=== PATIENT | female | born 1945 | race Caucasian/White ===

== ENCOUNTER 2020-01-19 11:03 | Day surgery (SDC) | payer MEDICARE, MEDICAID, SELFPAY ==
[2020-01-18 14:13] VITALS: BMI 29.9
--- NOTE | 2020-01-19 11:23 | ANES.PREANE2 ---
Pre-Anesthetic Assessment Pre-Anesthetic Assessment: Height/Weight: Height 1.65 m Weight 81.647 kg Preop Diagnosis: Screening colonoscopy Proposed Procedure: Operation Date: 01/19/20 12:30 Proposed Procedures p Colonoscopy 50677 Z86.12(Not Applicable) - Chuck Niño MD Was Beta Joe taken within 24 hours: Yes Last Intake: 20:00 Social: Packs per day: 1 Pack years: 46 Comment: quit 12 Exam: Pre-Anes Outpt Exam: alert, oriented x 3, clear to auscultation bilaterally and regular rate & rhythm Airway: Submandibular: WNL Cervical ROM: WNL MP: 2 Dentition: False and Partials Pulmonary: Pulmonary: COPD CV/HEM: CV/HEM: HTN Comments: 2y stress test '19 negative GI: GI: GERD Musc/skel: Musc/skel: Lower Back Pain Neuropsych: Neuropsych: Anxiety and RIVERS Anesthetic Plan: ASA status: 3 Anesthesia: MAC PFSH Anesthesia PFSH: Social History Smoking and tobacco status: former smoker Quit status (tobacco): has quit using tobacco Second hand smoke exposure: Yes Smoking risk assessment/counseling performed?: No Alcohol intake: unknown Current gender identity: Female Data Anesthesia Cardiac Studies: No Data to Display
[2020-01-19 11:59] VITALS: BP 120/87; PULSE 98; RESP 20; TEMP 36.1; O2SAT 95
--- NOTE | 2020-01-19 12:05 | W.PM.OPSUD ---
Surgery/Procedure H&P Update DATE OF PROCEDURE: January 19, 2020 DATE H&P PERFORMED: 01/17/20 H&P UPDATE INFORMATION: I have reviewed H&P completed within last 30 days, I have examined patient prior to procedure and No changes to prior documentation PREOP DIAGNOSIS: Screening colonoscopy PLANNED PROCEDURE: Operation Date: 01/19/20 12:30 Proposed Procedures p Colonoscopy 13535 Z86.12(Not Applicable) - Chuck Niño MD
[2020-01-19] MEDS: sodium chloride 0.9% 1,000 ML 30 ML (12:10)
[2020-01-19 13:05] VITALS: BP 123/75; PULSE 91; RESP 18; TEMP 36.4; O2SAT 96
--- NOTE | 2020-01-19 13:10 | ANE.PACU2 ---
 Inpatient post-anesthesia follow up: Airway intact: Yes Vital signs: Temperature 97.6 F Pulse Rate 91 Respiratory Rate 18 Blood Pressure 123/75 Pulse Oximetry 96 Oxygen Delivery Me thod Nasal Cannula Oxygen Flow Rate 3.0 Fraction of Inspir ed Oxygen Hydration adequate: Yes Nausea and vomiting: No Pain level: 1 Mental status: Baseline
[2020-01-19 13:19] VITALS: BP 119/76; PULSE 89; RESP 18; O2SAT 97
== END 2020-01-19 13:30 | disposition home or self-care (01) ==
PROVIDERS: PCP Family Medicine; Visit Provider Surgery
PROC: 0DJD8ZZ Inspection of Lower Intestinal Tract, Via Natural or Artificial Opening Endoscopic (ICD-10-PCS; CPT 45378; principal; 2020-01-19 12:30)
DX: Z12.11 Encounter for screening for malignant neoplasm of colon (principal); K43.2 Incisional hernia without obstruction or gangrene; D12.2 Benign neoplasm of ascending colon; K57.30 Diverticulosis of large intestine without perforation or abscess without bleeding; D12.8 Benign neoplasm of rectum; F17.210 Nicotine dependence, cigarettes, uncomplicated; Z86.010 Personal history of colon polyps; Z79.82 Long term (current) use of aspirin; E78.5 Hyperlipidemia, unspecified; K21.9 Gastro-esophageal reflux disease without esophagitis; I10 Essential (primary) hypertension; J44.9 Chronic obstructive pulmonary disease, unspecified
CPT/HCPCS: 12345; 45380; 88305; J0171; J0690; J2704; J7030

== ENCOUNTER 2020-01-24 06:30 | Day surgery (SDC) | payer MEDICARE, MEDICAID, SELFPAY ==
[2020-01-21 15:28] VITALS: BMI 29.9
[2020-01-24] VITALS (11 sets, daily range): BP systolic 130–155; BP diastolic 88–100; PULSE 70–75; RESP 14–21; TEMP 36.1–36.9; O2SAT 93–98
[2020-01-24] MEDS: sodium chloride 0.9% 1,000 ML 30 ML IV (06:59)
--- NOTE | 2020-01-24 07:10 | ANES.PREANE2 ---
Pre-Anesthetic Assessment Pre-Anesthetic Assessment: Height/Weight: Height 1.65 m Weight 81.647 kg Temp Pulse Resp BP Pulse Ox 97.0 F L 70 18 155/95 98 01/24/20 06:46 01/24/20 06:46 01/24/20 06:46 01/24/20 06:46 01/24/20 06:46 Preop Diagnosis: Incarcerated recurrent incisional hernia Proposed Procedure: Operation Date: 01/24/20 08:00 Proposed Procedures p Laparoscopic Incisional Hernia Repair w/ Mesh 05926/K43.2(Not Applicable) - Chuck Niño MD Familial anesthetic complications: No trouble Was Beta Joe taken within 24 hours: Yes Last intake: Intake Last Liquid Date 01/23/20 Last Liquid Time 22:00 Last Solid Date 01/23/20 Last Solid Time 20:00 Social: Social History: No alcohol and No tobacco Exam: Pre-Anes Outpt Exam: alert, oriented x 3, clear to auscultation bilaterally and regular rate & rhythm Airway: Cervical ROM: Other (limited extension - disc is disintegrating in my neck ) MP: 4 Dentition: False and Partials Additional comments: small mouth opening Pulmonary: Pulmonary: Asthma and COPD (has been on steroids within last year ) CV/HEM: CV/HEM: CAD and HTN Comments: ? PFO : : None reported Hepatic: Hepatic: None reported GI: GI: GERD Metabolic: Metabolic: None reported Musc/skel: Musc/skel: None reported Neuropsych: Neuropsych: None reported Anesthetic Plan: ASA status: 3 Anesthesia: General Risk of > 500 ml blood loss (7ml/kg in children): No Meds/Allergies Current Medications: Current Medications Generic Name Dose Route Start Last Admin Trade Name Freq PRN Reason Stop Dose Admin Sodium Chloride 1,000 mls @ 30 ml s/hr 01/24/20 06:45 01/24/20 06:59 Sodium Chloride 0.9% IV 01/25/20 06:44 30 mls/hr .Q24H RENAE Administration PFSH Anesthesia PFSH: Social History Smoking and tobacco status: former smoker Quit status (tobacco): has quit using tobacco Second hand smoke exposure: Yes Smoking risk assessment/counseling performed?: No Alcohol intake: unknown Current gender identity: Female Data Anesthesia Cardiac Studies: No Data to Display
--- NOTE | 2020-01-24 07:26 | W.PM.OPSUD ---
Surgery/Procedure H&P Update DATE OF PROCEDURE: January 24, 2020 DATE H&P PERFORMED: 01/17/20 H&P UPDATE INFORMATION: I have reviewed H&P completed within last 30 days, I have examined patient prior to procedure and No changes to prior documentation PREOP DIAGNOSIS: Incarcerated recurrent incisional hernia PLANNED PROCEDURE: Operation Date: 01/24/20 08:00 Proposed Procedures p Laparoscopic Incisional Hernia Repair w/ Mesh 34249/K43.2(Not Applicable) - Chuck Niño MD
[2020-01-24] MEDS: sodium chloride 0.9% SDV 10 mL 20 ML (08:57)
--- NOTE | 2020-01-24 09:02 | SUR.OPER ---
0834 - Pt's daughter - Heidi- notified of surgery start via her cell phone.
--- NOTE | 2020-01-24 09:41 | PM.OP ---
Operative Report Date of procedure: January 24, 2020 Pre-op Diagnosis: Incarcerated recurrent incisional hernia Post-op diagnosis: same Post-op Diagnosis: Incarcerated recurrent incisional hernia containing omentum Procedure Done: Laparoscopic repair of incarcerated incisional hernia with ventral light ST mesh measuring 15 x 10 cm Specimens removed/disposition: None Surgeon: Chuck Niño Anesthesia: General Estimated blood loss (mL): 25 Condition: stable Disposition: PACU Procedure: The patient was taken to the Operating Room and was intubated under general anesthesia after the antibiotic had been administered. The abdomen was prepped and draped in a sterile manner. Using a 15 blade, a 1 cm infraumbilical incision was made and using open Barraza technique the peritoneal cavity was entered.. A 10 mm Los port was placed and 15 mm of pneumoperitoneum was created after a 10 mm 30? scope had been introduced. 5 mm port was placed at the level of the umbilicus on the left side under direct visualization. Using a combination of electrocautery and scissors the peritoneum in the midline was taken down and the omental fat within the hernial sac was reduced. The dissection was carried superiorly along the midline by taking down the falciform ligament in order to create a space for placement of the mesh. A spinal needle was introduced through the abdominal wall and the edges of the hernial defect were marked and measured 7 x 4 cm. A 4 cm margin was marked on the abdominal wall on the outer edge of the hernial defect. 4 separate 2-0 Panna Maria-William sutures were placed at the 4 corners of the [address]ight ST mesh. A 5 mm camera was introduced and the mesh was introduced through the 10 mm port. Grannie needle was passed through the stab incisions and used to grasp the free ends of the Panna Maria-William sutures which were then used to pull the mesh up against the abdominal wall; absorbable tacks were placed 1 cm apart along the edge of the mesh to hold it against the abdominal wall. At the end of this, it was noted that the mesh was well positioned over the hernial defect. 20 cc of saline mixed with 20 cc of Exparel mixed with 20 cc of 0.5% Marcaine was infiltrated under laparoscopic visualization for a TAP block bilaterally. All ports were removed under direct visualization and there was no bleeding noted from the port sites. The fascia at the umbilicus was closed using figure of eight 0 Vicryl suture. The subcutaneous tissue was approximated using 3-0 Vicryl sutures. The skin at all port sites was closed using subcuticular 4-0 Monocryl suture. The stab incisions and the port sites were covered with surgical glue. Abdominal binder was placed at the end of the procedure.
--- NOTE | 2020-01-24 09:48 | SUR.PHASEI ---
0992 PATIENT TO PACU AT THIS TIME. RR EVEN AND UNLABORED. PLACED ON SIMPLE MASK AT 8L. PATIENT NOTED TO BE RESTING, AIRWAY PROTECTED. ABDOMINAL BINDER NOTED TO ABDOMEN.
[2020-01-24] MEDS: fentaNYL 50 mcg/mL INJ 2mL IVP (09:55)
--- NOTE | 2020-01-24 10:10 | SUR.PHASEI ---
1010 PATIENT RATES PAIN 8/10, WANTS PAIN PILL IN OPS RATHER THAN IV MEDICATION IN PACU.
--- NOTE | 2020-01-24 10:15 | SUR.PHASEI ---
1012 PATIENT TO PACU AT THIS TIME. NO DISTRESS. RR EVEN AND UNLABORED. ABDOMINAL BINDER IN PLACE.
[2020-01-24] MEDS: HYDROcodone-acetaminophen 5-325 mg Tablet 1 TAB PO (10:28)
== END 2020-01-24 11:00 | disposition home or self-care (01) ==
PROVIDERS: PCP Family Medicine; Visit Provider Surgery
PROC: 0WQF4ZZ Repair Abdominal Wall, Percutaneous Endoscopic Approach (ICD-10-PCS; CPT 49655; principal; 2020-01-24 08:00)
DX: K43.0 Incisional hernia with obstruction, without gangrene (principal); J44.9 Chronic obstructive pulmonary disease, unspecified; I25.10 Atherosclerotic heart disease of native coronary artery without angina pectoris; I10 Essential (primary) hypertension; K21.9 Gastro-esophageal reflux disease without esophagitis; Z87.891 Personal history of nicotine dependence; Z79.82 Long term (current) use of aspirin
CPT/HCPCS: 49655; 12345; 96365; C1781; C9290; J0330; J0690; J1100; J2001; J2405; J2704; J2710; J3010; J3490; J7030

== ENCOUNTER → 2020-06-28 11:14 | Outpatient (BNVA) | payer MEDICARE, MEDICAID, SELFPAY | PROVIDERS: PCP Family Medicine; Visit Provider Family Medicine | DX: I10 Essential (primary) hypertension (principal); E78.5 Hyperlipidemia, unspecified; G47.00 Insomnia, unspecified | CPT/HCPCS: 80053; 80061; 84443; 85025 ==

== ENCOUNTER → 2020-07-18 10:11 | Outpatient (BNVA) | payer MEDICARE, MEDICAID, SELFPAY | PROVIDERS: PCP Family Medicine; Visit Provider Nurse Practitioner Family | DX: E03.9 Hypothyroidism, unspecified (principal) | CPT/HCPCS: 84439; 84443 ==

== ENCOUNTER → 2020-08-01 13:52 | Outpatient (BNVA) | payer MEDICARE, MEDICAID, SELFPAY | PROVIDERS: PCP Family Medicine; Visit Provider Nurse Practitioner Family | DX: R39.11 Hesitancy of micturition (principal); R31.9 Hematuria, unspecified; K59.00 Constipation, unspecified | CPT/HCPCS: 74018; 81003 ==

== ENCOUNTER → 2020-10-10 13:45 | Outpatient (BNVA) | payer MEDICARE, MEDICAID, SELFPAY | PROVIDERS: PCP Family Medicine; Visit Provider Obstetrics & Gynecology | DX: N95.0 Postmenopausal bleeding (principal); R19.09 Other intra-abdominal and pelvic swelling, mass and lump | CPT/HCPCS: 76830 ==

== ENCOUNTER → 2020-10-17 16:00 | Outpatient (BNVA) | payer MEDICARE, MEDICAID, SELFPAY | PROVIDERS: PCP Family Medicine; Visit Provider Nurse Practitioner Women's Health | DX: N95.0 Postmenopausal bleeding (principal); R93.89 Abnormal findings on diagnostic imaging of other specified body structures | CPT/HCPCS: 88175; 88305 ==

== ENCOUNTER 2020-11-15 15:41 | Inpatient (IN) | payer MEDICARE, MEDICAID, SELFPAY ==
[2020-11-15] VITALS (9 sets, daily range): BP systolic 118–174; BP diastolic 80–113; PULSE 120–137; RESP 15–24; TEMP 36.7; O2SAT 88–94; BMI 30.9
--- NOTE | 2020-11-15 17:55 | CTR_ITS ---
PROCEDURE INFORMATION: Exam: CT Abdomen And Pelvis With Contrast Exam date and time: 11/15/2020 7:16 PM Age: 75 years old Clinical indication: Nausea; Abdominal pain; Localized; Lower; Prior surgery; Surgery type: Gb, appy, hernia; Additional info: Abd pain TECHNIQUE: Imaging protocol: Computed tomography of the abdomen and pelvis with intravenous contrast. Radiation optimization: All CT scans at this facility use at least one of these dose optimization techniques: automated exposure control; mA and/or kV adjustment per patient size (includes targeted exams where dose is matched to clinical indication); or iterative reconstruction. Contrast material: VISI 320; Contrast volume: 95 ml; Contrast route: INTRAVENOUS (IV); COMPARISON: US transvaginal 13494 10/10/2020 1:46 PM RADIATION DOSE METRICS: Total DLP (mGy-cm): 1294.43 FINDINGS: Mediastinal space: A moderate hiatal hernia is present. Liver: Liver shows diffusely decreased density in keeping with fatty change. There are 3 simple cysts in the liver, the largest is in the left lobe measuring 3.7 cm. Gallbladder and bile ducts: There has been a cholecystectomy. Pancreas: The pancreas is normal. Spleen: The spleen demonstrates punctate calcifications, consistent with remote granulomatous organism exposure. Adrenal glands: There is mild enlargement of both adrenal glands more on the left than on the right. Kidneys and ureters: The kidneys are normal. There is no evidence of hydronephrosis. There is no evidence of renal or ureteral calcifications. Stomach and bowel: There is a small duodenal lipoma. There is no evidence of colitis/diverticulitis. There is some abnormally thickened and enhancing loops of small bowel in the left mid abdomen which may represent some nonspecific enteritis. Correlation with clinical findings is suggested. There is some dilated fluid-filled loops of small bowel in the mid abdomen. The distal ileum is nondilated. There is appearance of small bowel feces in some loops. The transition from dilated to nondilated bowel is not definitely identified, however these findings are suspicious for bowel obstruction. Appendix: Not identified there is a small umbilical hernia containing only fat. Intraperitoneal space: There is a small amount of free intraperitoneal fluid present. Vasculature: The aorta demonstrates mild atherosclerotic calcification. There is no evidence of an abdominal aortic aneurysm. Lymph nodes: Unremarkable. No enlarged lymph nodes. Urinary bladder: Unremarkable as visualized. Reproductive: There is slightly hypodense 2.6 cm sized area in the fundus of the uterus which corresponds with the reported hyperechoic endometrial mass described on the ultrasound of 10/10/2020. Further evaluation is suggested to exclude endometrial malignancy. Bones/joints: The lumbar spine demonstrates moderate degenerative changes at multiple levels. There is mild decreased height of the superior endplates of T12 and L1 which appears to be chronic. Soft tissues: Unremarkable. CT/CT abdomen pelvis w con* [id number] IMPRESSION: 1. Fatty liver 2. Abnormal findings in endometrium as seen on prior ultrasound, further evaluation suggested to exclude malignancy. 3. Small-bowel obstruction 4. Enteritis 5. Small ascites 6. Hiatus hernia Radiation Dose CTDIVOL = (mGy): DLP = 1294.43 (mGy-cm)
[2020-11-15] MEDS: morphine 4 mg/mL SDV 1 mL IVP (18:08)
[2020-11-15] MEDS: ondansetron 2 mg/ML SDV 2 mL 4 MG IVP ×2 (18:08→20:25)
[2020-11-15] MEDS: sodium chloride 0.9% 1,000 ML 999 ML IV ×2 (18:09→22:20)
[2020-11-15 18:18] LABS: Basophils % 0.3 %; Eosinophils % 0.3 %; Hematocrit 48.8 % (37.0-47.0); Hemoglobin 15.6 g/dL (11.5-15.3); Lymphocytes # 1.1 10^3/uL (0.8-4.8); Lymphocytes % 9.6 %; Mean Corpuscular Volume 93.8 fL (81-99); Mean Platelet Volume 10.9 fL (7.4-10.4); Monocytes # 0.5 10^3/uL (0.2-0.9); Neutrophils # 10.12 10^3/uL (1.8-7.7); Neutrophils % 85.5 %; Nucleated Red Blood Cells % 0 %; Platelet Count 292 10^3/cmm (130-400); White Blood Count 11.8 10^3/uL (4.0-10.0)
--- NOTE | 2020-11-15 18:27 | ED_ITS ---
HPI - Abdominal Pain General: Chief Complaint: Abdominal Pain Stated Complaint: Abd Pain/Nausea Time Seen by Provider: 11/15/20 17:52 Source: patient Mode of arrival: ambulatory Limitations: no limitations History of Present Illness: HPI narrative: 75-year-old female states she been having diffuse abdominal pain over the last 2 to 3 days a got much worse today. She states her pain is sharp in nature. She denies any vomiting or diarrhea. States pain is much worse with movement and improved with rest. She has had no fevers. MD elicited complaint: abdominal pain Associated Symptoms: Reports nausea; Denies chills, dysuria and fever(s) Review of Systems Const: Denies: fever(s), chills, body aches or change in appetite Eyes: Denies: blurry vision or eye discomfort ENMT: Denies: throat pain or dental pain Card: Denies: chest pain Resp: Denies: dyspnea GI: Reports: abdominal pain and nausea : Denies: dysuria Musc: Denies: neck pain or back pain Skin/Breast: Denies: rash Neuro: Denies: headache(s) Psych: Denies: depression Jesse/Lymph: Denies: easy bruising All/Imm: Denies: urticaria PFSH ED PFSH: Medical History (Updated 11/16/20 @ 02:50 by Allyn Coyle MD) Anxiety and depression Coronary artery fistula Dyslipidemia Esophageal hernia GERD (gastroesophageal reflux disease) Hiatal hernia History of colon polyps Hypertension Insomnia LBBB (left bundle branch block) Left ventricular dysfunction Subclinical hypothyroidism Surgical History H/O colonoscopy 12/2019: Recommend follow-up colonoscopy in 3 years History of ear surgery (~2016) removal of fluid from ear drum, removal of ear drum, replaced with artifical ear drum History of hernia repair (~2009) History of incisional hernia repair 01/24/2020: Laparoscopic History of shoulder surgery Status post colonoscopy with polypectomy Family History Grandmother Colon cancer Maternal-- dx age 69 Breast cancer Paternal-- dx age unknown Mother Heart disease Denies family history of Ovarian cancer Diabetes Hypercholesteremia Bleeding disorder Hypertension Uterine cancer Thyroid disease Stroke Social History Additional social history: - Tobacco use: former smoker-- quit in 2009 Alcohol use: Occasional Drug use: denies Physical Exam Const: COMMON NORMALS: no acute distress, patient oriented x3 and healthy appearing HENMT: COMMON NORMALS: normocephalic and atraumatic HEAD & SCALP: normocephalic and atraumatic Eye: COMMON NORMALS: Equal, round and reactive pupils present and EOMs intact bilaterally PUPIL: Yes Equal, round and reactive pupils present Neck/C-Spine: COMMON NORMALS: full ROM and supple Chest: COMMONS NORMALS: normal inspection of the chest and normal palpation of entire chest wall Resp: COMMON NORMALS: normal respiratory effort, No retractions, No use of accessory muscles and clear to auscultation bilaterally AUSCULTATION: clear to auscultation bilaterally Cardio: COMMON NORMALS: regular rate, regular rhythm and No murmurs present (Cardio) RATE: regular rate RHYTHM: regular rhythm GI: COMMON NORMALS: Normal to inspection, nondistended, normoactive bowel sounds present, Soft to palpation and no masses PALPATION: Yes Soft to palpation and Yes Tenderness to palpation present (GI) OTHER: diffuse tenderness Extremity: COMMON NORMALS: normal to inspection and full ROM Neuro: COMMON NORMALS: patient oriented x3, moves all extremities and no focal motor deficits Psych: COMMON NORMALS: mental status grossly normal, Normal thought process present and cooperative THOUGHT PROCESS: Normal thought process present Skin: COMMON NORMALS: no rashes or lesions noted and no wounds GENERAL SKIN EXAM: no rashes or lesions noted Course Reevaluation(s): Reevaluation #1: Patient has had tachycardia and seemed to have a morphology change on her rhythm on a counseling director. Patient has had no chest pain here and I just went and spoke to her again she denies any chest pain or shortness of breath. Did an EKG showed sinus tach with likely left Westley branch block. We will add troponins and I will have cardiology Dr. Salvador evaluate the EKG as well. Time: 22:22 Vital Signs: Vital signs: Vital Signs Temperature 98.1 F 11/15/20 15:54 Pulse Rate 115 H 11/16/20 01:30 Respiratory Rate 15 11/16/20 01:30 Blood Pressure 98/62 11/16/20 01:30 Pulse Oximetry 90 11/16/20 01:30 MDM - Abdominal Pain MDM Narrative: Medical decision making narrative: Radha presents here with abdominal pain and does have a small bowel obstruction. She also has hypoxia here CT showed no signs of pulmonary embolism. Patient is tachycardic when she first arrived but heart rate is improving. Has mildly elevated lactate will gi ve 1 dose of antibiotics and blood cultures. Spoke to hospitalist will admit. Lab Data: Labs: Lab Results 11/15/20 11/15/20 11/15/20 Range/Units 18:11 18:13 18:13 WBC 11.8 H (4.0-10.0) 10^3/ uL RBC 5.20 (4.1-5.3) 10^6/u L Hgb 15.6 H (11.5-15.3) g/dL Hct 48.8 H (37.0-47.0) % MCV 93.8 (81-99) fL MCH 30.0 (28.0-34.0) pg MCHC 32.0 (30.0-36.0) g/dL RDW 14.0 (12.1-15.1) % Plt Count 292 (130-400) 10^3/c mm MPV 10.9 H (7.4-10.4) fL Neut % (Auto) 85.5 % Lymph % (Auto) 9.6 % [place] % (Auto) 4.0 % Eos % (Auto) 0.3 % Baso % (Auto) 0.3 % Neut # (Auto) 10.12 H (1.8-7.7) 10^3/u L Lymph # (Auto) 1.1 (0.8-4.8) 10^3/u L [place] # (Auto) 0.5 (0.2-0.9) 10^3/u L Eos # (Auto) 0.0 (0.0-0.8) 10^3/u L Baso # (Auto) 0.0 (0.0-0.1) 10^3/u L Nucleated RBC % (a uto) 0 % Nucleated RBCs # 0.0 /100WBC D-Dimer Cancelled Specimen Type Sample Site ABG pH (7.35-7.45) ABG pCO2 (35-45) mmHg ABG pO2 (80.0-100.0) mmH g ABG HCO3 (22-26) mmol/L ABG Base Excess (-2.0-2.0) mmol/ L Jeff Test Hematocrit (37-47) % O2 Delivery Device O2 Liters/Min % FiO2 % Scroll Shear Operator ID Sodium 139 (136-145) mmol/L Potassium 4.6 (3.5-5.1) mmol/L Chloride 102 (98-107) mmol/L Carbon Dioxide 26 (22-29) mmol/L Anion Gap 15.6 (5-19) BUN 12 (8-23) mg/dL Creatinine 1.0 H (0.5-0.9) mg/dL GFR Calculation Not Reportable Glucose 153 H (65-115) mg/dL Calculated Osmolal ity 291 (285-295) mOsm/k g Lactate (0.5-2.2) mmol/L Calcium 10.2 (8.5-10.5) mg/dL Total Bilirubin 0.6 (0.15-1.2) mg/dL AST 39 H (0-32) U/L ALT 51 H (0-33) U/L Alkaline Phosphata se 114 H (35-105) IU/L Troponin T Baselin e (0-10) ng/L Troponin T 120 Min t[place] (0-10) ng/L Delta Troponin T (0-10) ABS# NT-Pro-B Natriuret Pep (0-450) pg/mL Total Protein 7.7 (6.6-8.7) g/dL Albumin 4.2 (3.5-5.2) g/dL Globulin 3.5 (1.3-4.6) g/dL Urine Color (Yellow) Urine Appearance (CLEAR) Urine pH (5-7) Ur Specific Gravit y (1.005-1.030) Urine Protein (Negative) Urine Glucose (UA) (Normal) Urine Ketones (Negative) Urine Blood (Negative) Urine Nitrate (Negative) Urine Bilirubin (Negative) Urine Urobilinogen (Negative) mg/dL Ur Leukocyte Cayla ase (Negative) Urine RBC (0-2) /hpf Urine WBC (0-5) /hpf Ur Squamous Epith Cells (0-5) /hpf Amorphous Sediment Urine Bacteria (NONE) /hpf 11/15/20 11/15/20 11/15/20 Range/Units 18:13 18:37 21:39 WBC (4.0-10.0) 10^3/ uL RBC (4.1-5.3) 10^6/u L Hgb (11.5-15.3) g/dL Hct (37.0-47.0) % MCV (81-99) fL MCH (28.0-34.0) pg MCHC (30.0-36.0) g/dL RDW (12.1-15.1) % Plt Count (130-400) 10^3/c mm MPV (7.4-10.4) fL Neut % (Auto) % Lymph % (Auto) % [place] % (Auto) % Eos % (Auto) % Baso % (Auto) % Neut # (Auto) (1.8-7.7) 10^3/u L Lymph # (Auto) (0.8-4.8) 10^3/u L [place] # (Auto) (0.2-0.9) 10^3/u L Eos # (Auto) (0.0-0.8) 10^3/u L Baso # (Auto) (0.0-0.1) 10^3/u L Nucleated RBC % (a uto) % Nucleated RBCs # /100WBC D-Dimer Specimen Type Sample Site ABG pH (7.35-7.45) ABG pCO2 (35-45) mmHg ABG pO2 (80.0-100.0) mmH g ABG HCO3 (22-26) mmol/L ABG Base Excess (-2.0-2.0) mmol/ L Jeff Test Hematocrit (37-47) % O2 Delivery Device O2 Liters/Min % FiO2 % Scroll Shear Operator ID Sodium (136-145) mmol/L Potassium (3.5-5.1) mmol/L Chloride (98-107) mmol/L Carbon Dioxide (22-29) mmol/L Anion Gap (5-19) BUN (8-23) mg/dL Creatinine (0.5-0.9) mg/dL GFR Calculation Glucose (65-115) mg/dL Calculated Osmolal ity (285-295) mOsm/k g Lactate 2.9 H (0.5-2.2) mmol/L Calcium (8.5-10.5) mg/dL Total Bilirubin (0.15-1.2) mg/dL AST (0-32) U/L ALT (0-33) U/L Alkaline Phosphata se (35-105) IU/L Troponin T Baselin e (0-10) ng/L Troponin T 120 Min [place] (0-10) ng/L Delta Troponin T (0-10) ABS# NT-Pro-B Natriuret Pep 729 H (0-450) pg/mL Total Protein (6.6-8.7) g/dL Albumin (3.5-5.2) g/dL Globulin (1.3-4.6) g/dL Urine Color Dark yellow (Yellow) Urine Appearance Hazy A (CLEAR) Urine pH 6 (5-7) Ur Specific Gravit y 1.015 (1.005-1.030) Urine Protein Trace (Negative) Urine Glucose (UA) Norm (Normal) Urine Ketones Negative (Negative) Urine Blood 2+ H (Negative) Urine Nitrate Negative (Negative) Urine Bilirubin Neg (Negative) Urine Urobilinogen Norm (Negative) mg/dL Ur Leukocyte Cayla ase Negative (Negative) Urine RBC 50-80 H (0-2) /hpf Urine WBC None (0-5) /hpf Ur Squamous Epith Cells 15-25 H (0-5) /hpf Amorphous Sediment Not Reportable Urine Bacteria 1+ H (NONE) /hpf 11/15/20 11/15/20 11/15/20 Range/Units 22:25 22:25 22:50 WBC (4.0-10.0) 10^3/ uL RBC (4.1-5.3) 10^6/u L Hgb (11.5-15.3) g/dL Hct (37.0-47.0) % MCV (81-99) fL MCH (28.0-34.0) pg MCHC (30.0-36.0) g/dL RDW (12.1-15.1) % Plt Count (130-400) 10^3/c mm MPV (7.4-10.4) fL Neut % (Auto) % Lymph % (Auto) % [place] % (Auto) % Eos % (Auto) % Baso % (Auto) % Neut # (Auto) (1.8-7.7) 10^3/u L Lymph # (Auto) (0.8-4.8) 10^3/u L [place] # (Auto) (0.2-0.9) 10^3/u L Eos # (Auto) (0.0-0.8) 10^3/u L Baso # (Auto) (0.0-0.1) 10^3/u L Nucleated RBC % (a uto) % Nucleated RBCs # /100WBC D-Dimer 2.53 H Specimen Type Arterial Sample Site Radial, right ABG pH 7.29 L (7.35-7.45) ABG pCO2 43.0 (35-45) mmHg ABG pO2 82.1 (80.0-100.0) mmH g ABG HCO3 20.5 L (22-26) mmol/L ABG Base Excess -6.1 L (-2.0-2.0) mmol/ L Jeff Test Pos Hematocrit 49.0 H (37-47) % O2 Delivery Device Nc O2 Liters/Min 3.0 % FiO2 32.0 % Scroll Shear Operator ID [id number] Sodium (136-145) mmol/L Potassium (3.5-5.1) mmol/L Chloride (98-107) mmol/L Carbon Dioxide (22-29) mmol/L Anion Gap (5-19) BUN (8-23) mg/dL Creatinine (0.5-0.9) mg/dL GFR Calculation Glucose (65-115) mg/dL Calculated Osmolal ity (285-295) mOsm/k g Lactate (0.5-2.2) mmol/L Calcium (8.5-10.5) mg/dL Total Bilirubin (0.15-1.2) mg/dL AST (0-32) U/L ALT (0-33) U/L Alkaline Phosphata se (35-105) IU/L Troponin T Baselin e 58 H (0-10) ng/L Troponin T 120 Min [place] (0-10) ng/L Delta Troponin T (0-10) ABS# NT-Pro-B Natriuret Pep (0-450) pg/mL Total Protein (6.6-8.7) g/dL Albumin (3.5-5.2) g/dL Globulin (1.3-4.6) g/dL Urine Color (Yellow) Urine Appearance (CLEAR) Urine pH (5-7) Ur Specific Gravit y (1.005-1.030) Urine Protein (Negative) Urine Glucose (UA) (Normal) Urine Ketones (Negative) Urine Blood (Negative) Urine Nitrate (Negative) Urine Bilirubin (Negative) Urine Urobilinogen (Negative) mg/dL Ur Leukocyte Cayla ase (Negative) Urine RBC (0-2) /hpf Urine WBC (0-5) /hpf Ur Squamous Epith Cells (0-5) /hpf Amorphous Sediment Urine Bacteria (NONE) /hpf 11/16/20 Range/Units 00:30 WBC (4.0-10.0) 10^3/ uL RBC (4.1-5.3) 10^6/u L Hgb (11.5-15.3) g/dL Hct (37.0-47.0) % MCV (81-99) fL MCH (28.0-34.0) pg MCHC (30.0-36.0) g/dL RDW (12.1-15.1) % Plt Count (130-400) 10^3/c mm MPV (7.4-10.4) fL Neut % (Auto) % Lymph % (Auto) % [place] % (Auto) % Eos % (Auto) % Baso % (Auto) % Neut # (Auto) (1.8-7.7) 10^3/u L Lymph # (Auto) (0.8-4.8) 10^3/u L [place] # (Auto) (0.2-0.9) 10^3/u L Eos # (Auto) (0.0-0.8) 10^3/u L Baso # (Auto) (0.0-0.1) 10^3/u L Nucleated RBC % (a uto) % Nucleated RBCs # /100WBC D-Dimer Specimen Type Sample Site ABG pH (7.35-7.45) ABG pCO2 (35-45) mmHg ABG pO2 (80.0-100.0) mmH g ABG HCO3 (22-26) mmol/L ABG Base Excess (-2.0-2.0) mmol/ L Jeff Test Hematocrit (37-47) % O2 Delivery Device O2 Liters/Min % FiO2 % Scroll Shear Operator ID Sodium (136-145) mmol/L Potassium (3.5-5.1) mmol/L Chloride (98-107) mmol/L Carbon Dioxide (22-29) mmol/L Anion Gap (5-19) BUN (8-23) mg/dL Creatinine (0.5-0.9) mg/dL GFR Calculation Glucose (65-115) mg/dL Calculated Osmolal ity (285-295) mOsm/k g Lactate (0.5-2.2) mmol/L Calcium (8.5-10.5) mg/dL Total Bilirubin (0.15-1.2) mg/dL AST (0-32) U/L ALT (0-33) U/L Alkaline Phosphata se (35-105) IU/L Troponin T Baselin e (0-10) ng/L Troponin T 120 Min t[place] 59.20 H (0-10) ng/L Delta Troponin T 1.20 (0-10) ABS# NT-Pro-B Natriuret Pep (0-450) pg/mL Total Protein (6.6-8.7) g/dL Albumin (3.5-5.2) g/dL Globulin (1.3-4.6) g/dL Urine Color (Yellow) Urine Appearance (CLEAR) Urine pH (5-7) Ur Specific Gravit y (1.005-1.030) Urine Protein (Negative) Urine Glucose (UA) (Normal) Urine Ketones (Negative) Urine Blood (Negative) Urine Nitrate (Negative) Urine Bilirubin (Negative) Urine Urobilinogen (Negative) mg/dL Ur Leukocyte Cayla ase (Negative) Urine RBC (0-2) /hpf Urine WBC (0-5) /hpf Ur Squamous Epith Cells (0-5) /hpf Amorphous Sediment Urine Bacteria (NONE) /hpf Imaging Data ^: CT Chest: Attestation: I personally reviewed and interpreted this imaging study as follows: Radiologist's impression: [address] [address] [address] Scan Report Signed Patient: Radha Archer Unit #: [id number] : 1945 Age/Sex: 75 / F ADM Date: 11/15/20 Loc: ER Room/Bed: Attending Dr: Ordering Provider/Ordering MD: Crow Alejandro MD Date of Service: 11/15/20 Procedure(s): CT angio chest PE protcl [id number] Accession Number(s): [id number] Report Number: [id number] PROCEDURE INFORMATION: Exam: CT Angiography Chest With Contrast Exam date and time: 11/15/2020 10:52 PM Age: 75 years old Clinical indication: Shortness of breath; Additional info: SOB TECHNIQUE: Imaging protocol: Computed tomographic angiography of the chest with intravenous contrast. 3D rendering (Not supervised by radiologist): MIP and/or 3D reconstructed images were created by the technologist. Radiation optimization: All CT scans at this facility use at least one of these dose optimization techniques: automated exposure control; mA and/or kV adjustment per patient size (includes targeted exams where dose is matched to clinical indication); or iterative reconstruction. Contrast material: VISI 320; Contrast volume: 65 ml; Contrast route: INTRAVENOUS (IV); COMPARISON: CT chest wo con [id number] 03/21/2019 10:05 AM RADIATION DOSE METRICS: Total DLP (mGy-cm): 787.82 FINDINGS: Pulmonary arteries: There is no evidence of filling defects within the pulmonary arterial circulation to suggest pulmonary embolism. Aorta: Distal aorta is somewhat tortuous. There is no evidence for aortic aneurysm or dissection. Lungs: There is some mild dependent atelectasis at the lung bases. Incidental note is made of an azygos lobe. Pleural space: No pleural effusion is identified there is no pneumothorax. Heart: Unremarkable. No cardiomegaly. No pericardial effusion. Mediastinal space: A large hiatal hernia is present. There is fluid distention of the distal esophagus consistent with some gastroesophageal reflux. Lymph nodes: Unremarkable. No enlarged lymph nodes. Liver: Liver shows diffusely decreased density in keeping with fatty change. Multiple hepatic cysts are again identified. Bones/joints: Schmorl's node deformities of the superior endplates of T12 and L1 are again identified as reported on the CT scan of the abdomen. These are not not changed from previous. Soft tissues: Unremarkable. CT/CT angio chest PE protcl [id number] IMPRESSION: No evidence of pulmonary embolism. CT Abd/Pel: Attestation: I personally reviewed and interpreted this imaging study as follows: Radiologist's impression: [employer] [address] [address] Scan Report Signed Patient: Radha Archer Unit #: [id number] : 1945 Age/Sex: 75 / F ADM Date: 11/15/20 Loc: ER Room/Bed: Attending Dr: Ordering Provider/Ordering MD: Crow Alejandro MD Date of Service: 11/15/20 Procedure(s): CT abdomen pelvis w con* [id number] Accession Number(s): [id number] Report Number: [id number] PROCEDURE INFORMATION: Exam: CT Abdomen And Pelvis With Contrast Exam date and time: 11/15/2020 7:16 PM Age: 75 years old Clinical indication: Nausea; Abdominal pain; Localized; Lower; Prior surgery; Surgery type: Gb, appy, hernia; Additional info: Abd pain TECHNIQUE: Imaging protocol: Computed tomography of the abdomen and pelvis with intravenous contrast. Radiation optimization: All CT scans at this facility use at least one of these dose optimization techniques: automated exposure control; mA and/or kV adjustment per patient size (includes targeted exams where dose is matched to clinical indication); or iterative reconstruction. Contrast material: VISI 320; Contrast volume: 95 ml; Contrast route: INTRAVENOUS (IV); COMPARISON: US transvaginal [id number] 10/10/2020 1:46 PM RADIATION DOSE METRICS: Total DLP (mGy-cm): 1294.43 FINDINGS: Mediastinal space: A moderate hiatal hernia is present. Liver: Liver shows diffusely decreased density in keeping with fatty change. There are 3 simple cysts in the liver, the largest is in the left lobe measuring 3.7 cm. Gallbladder and bile ducts: There has been a cholecystectomy. Pancreas: The pancreas is normal. Spleen: The spleen demonstrates punctate calcifications, consistent with remote granulomatous organism exposure. Adrenal glands: There is mild enlargement of both adrenal glands more on the left than on the right. Kidneys and ureters: The kidneys are normal. There is no evidence of hydronephrosis. There is no evidence of renal or ureteral calcifications. Stomach and bowel: There is a small duodenal lipoma. There is no evidence of colitis/diverticulitis. There is some abnormally thickened and enhancing loops of small bowel in the left mid abdomen which may represent some nonspecific enteritis. Correlation with clinical findings is suggested. There is some dilated fluid-filled loops of small bowel in the mid abdomen. The distal ileum is nondilated. There is appearance of small bowel feces in some loops. The transition from dilated to nondilated bowel is not definitely identified, however these findings are suspicious for bowel obstruction. Appendix: Not identified there is a small umbilical hernia containing only fat. Intraperitoneal space: There is a small amount of free intraperitoneal fluid present. Vasculature: The aorta demonstrates mild atherosclerotic calcification. There is no evidence of an abdominal aortic aneurysm. Lymph nodes: Unremarkable. No enlarged lymph nodes. Urinary bladder: Unremarkable as visualized. Reproductive: There is slightly hypodense 2.6 cm sized area in the fundus of the uterus which corresponds with the reported hyperechoic endometrial mass described on the ultrasound of 10/10/2020. Further evaluation is suggested to exclude endometrial malignancy. Bones/joints: The lumbar spine demonstrates moderate degenerative changes at multiple levels. There is mild decreased height of the superior endplates of T12 and L1 which appears to be chronic. Soft tissues: Unremarkable. CT/CT abdomen pelvis w con* [id number] IMPRESSION: 1. Fatty liver 2. Abnormal findings in endometrium as seen on prior ultrasound, further evaluation suggested to exclude malignancy. 3. Small-bowel obstruction 4. Enteritis 5. Small ascites 6. Hiatus hernia EKG Data ^: EKG 1: Attestation: I personally reviewed and interpreted this EKG as follows: EKG interpretation date: 11/15/20 EKG interpretation time: 22:22 Interpretation: sinus tach hr [address] elevation qrs 136 qtc unchanged from previous EKG 2: Attestation: I personally reviewed and interpreted this EKG as follows: EKG interpretation date: 11/16/20 EKG interpretation time: 00:04 Interpretation: sinus tach hr [address] elevation qrs 135 qtc 398 Discharge Plan Discharge Patient Disposition: Admitted As Inpatient Admit Provider: Allyn Coyle Clinical Impression: Abdominal pain, Bowel obstruction, Hypoxia Condition: Stable Coding Level of Care Code ED Director Of Strategy & Mobile for Chg Fwd Exam Comprehensive
[2020-11-15 18:37] LABS: Alanine Aminotransferase 51 U/L (0-33); Albumin Level 4.2 g/dL (3.5-5.2); Alkaline Phosphatase 114 IU/L (35-105); Anion Gap 15.6 (5-19); Aspartate Amino Transferase 39 U/L (0-32); Blood Urea Nitrogen 12 mg/dL (8-23); Calcium 10.2 mg/dL (8.5-10.5); Carbon Dioxide 26 mmol/L (22-29); Chloride 102 mmol/L (98-107); Globulin 3.5 g/dL (1.3-4.6); Glucose 153 mg/dL (65-115); Osmolality Calculated 291 mOsm/kg (285-295); Potassium 4.6 mmol/L (3.5-5.1); Sodium 139 mmol/L (136-145); Total Bilirubin 0.6 mg/dL (0.15-1.2); Total Protein 7.7 g/dL (6.6-8.7)
[2020-11-15 18:57] LABS: Bilirubin Urine Neg (Negative); Blood Urine 2+ (Negative); Glucose Urine UA Norm (Normal); Ketones Urine Negative (Negative); Nitrate Urine Negative (Negative); Protein Urine Trace (Negative); Specific Gravity, Urine 1.015 (1.005-1.030); Urine Appearance Hazy (CLEAR); Urine Color Dark Yellow (Yellow); Urobilinogen Urine Norm (Negative); pH Urine 6 (5-7)
[2020-11-15 18:58] LABS: Add Urine Microscopic? YES; Leukocyte Esterase Urine Negative (Negative)
[2020-11-15 19:02] LABS: Add Urine Culture? No; Bacteria Urine 1+ /hpf; RBC Urine 50-80 /hpf (0-2); Squamous Epithelial Cell Urine 15-25 /hpf (0-5)
--- NOTE | 2020-11-15 19:30 | PC.NURSE ---
request made to for pain and nausea meds
[2020-11-15] MEDS: iodixanol 320 mg/mL 100mL Btl IV (20:00)
[2020-11-15] MEDS: HYDROmorphone 1 mg/mL INJ 1 mL IVP ×2 (20:30→22:25)
--- NOTE | 2020-11-15 21:54 | ECG_ITS ---
[facility] Test Date: 2020-11-15 Pat Name: Radha Archer Department: Room: Gender: Female Cloth Tearer: : 1945 Requested By: Crow Alejandro Order Number: [id number] Servando MD: Amari Toledo M.D. Measurements Intervals [place] Rate: 133 P: -66 MS: 149 QRS: -20 QRSD: 133 T: 120 QT: 308 QTc: 460 Interpretive Statements SINUS TACHYCARDIA INTRAVENTRICULAR CONDUCTION DELAY [130+ ms QRS DURATION] ANTEROSEPTAL MYOCARDIAL INFARCTION , OF INDETERMINATE AGE Compared to ECG 03/21/2019 16:13:18 Intraventricular conduction delay now present Myocardial infarct finding now present Sinus rhythm no longer present Left-axis deviation no longer present Left bundle-branch block no longer present Electronically Signed On 11-18-2020 16:46:50 PERFUSIONIST by Amari Toledo M.D. [id number]
[2020-11-15 22:02] LABS: Lactate (Lactic Acid level) 2.9 mmol/L (0.5-2.2)
--- NOTE | 2020-11-15 22:07 | ECG_ITS ---
[facility] Test Date: 2020-11-15 Pat Name: Radha Archer Department: Room: Gender: Female Stripper Apprentice: : 1945 Requested By: Crow Alejandro Order Number: [id number] Servando MD: Amari Toledo M.D. Measurements Intervals [place] Rate: 133 P: -8 DC: 148 QRS: -22 QRSD: 136 T: 116 QT: 309 QTc: 461 Interpretive Statements SINUS TACHYCARDIA LEFT BUNDLE BRANCH BLOCK [120+ ms QRS DURATION, 80+ ms Q/S IN V1/V2, 85+ ms R IN I/aVL/V5/V6] Compared to ECG 03/21/2019 16:13:18 Sinus rhythm no longer present Left-axis deviation no longer present Electronically Signed On 11-18-2020 16:46:07 PAYABLE REPRESENTATIVE by Amari Toledo M.D. [id number]
--- NOTE | 2020-11-15 22:09 | XRR_ITS ---
PROCEDURE INFORMATION: Exam: XR Chest, 1 View Exam date and time: 11/15/2020 10:25 PM Age: 75 years old Clinical indication: Shortness of breath; Prior surgery; Surgery type: Gb, hernia; Additional info: SOB TECHNIQUE: Imaging protocol: XR of the chest Views: 1 view. COMPARISON: CT chest con [id number] 03/21/2019 10:05 AM FINDINGS: Lungs: Unremarkable. No consolidation. Summation of retrocardiac left lower lung vasculature. Pleural space: Unremarkable. No pleural effusion. No pneumothorax. Heart/Mediastinum: Unremarkable. No cardiomegaly. Bones/joints: Unremarkable. XR/XR chest 1V portable [id number] IMPRESSION: No acute findings.
--- NOTE | 2020-11-15 22:25 | PC.NURSE ---
Nurse at bedside obtaining blood draw
--- NOTE | 2020-11-15 22:26 | CTR_ITS ---
PROCEDURE INFORMATION: Exam: CT Angiography Chest With Contrast Exam date and time: 11/15/2020 10:52 PM Age: 75 years old Clinical indication: Shortness of breath; Additional info: SOB TECHNIQUE: Imaging protocol: Computed tomographic angiography of the chest with intravenous contrast. 3D rendering (Not supervised by radiologist): MIP and/or 3D reconstructed images were created by the technologist. Radiation optimization: All CT scans at this facility use at least one of these dose optimization techniques: automated exposure control; mA and/or kV adjustment per patient size (includes targeted exams where dose is matched to clinical indication); or iterative reconstruction. Contrast material: VISI 320; Contrast volume: 65 ml; Contrast route: INTRAVENOUS (IV); COMPARISON: CT chest con [id number] 03/21/2019 10:05 AM RADIATION DOSE METRICS: Total DLP (mGy-cm): 787.82 FINDINGS: Pulmonary arteries: There is no evidence of filling defects within the pulmonary arterial circulation to suggest pulmonary embolism. Aorta: Distal aorta is somewhat tortuous. There is no evidence for aortic aneurysm or dissection. Lungs: There is some mild dependent atelectasis at the lung bases. Incidental note is made of an azygos lobe. Pleural space: No pleural effusion is identified there is no pneumothorax. Heart: Unremarkable. No cardiomegaly. No pericardial effusion. Mediastinal space: A large hiatal hernia is present. There is fluid distention of the distal esophagus consistent with some gastroesophageal reflux. Lymph nodes: Unremarkable. No enlarged lymph nodes. Liver: Liver shows diffusely decreased density in keeping with fatty change. Multiple hepatic cysts are again identified. Bones/joints: Schmorl's node deformities of the superior endplates of T12 and L1 are again identified as reported on the CT scan of the abdomen. These are not not changed from previous. Soft tissues: Unremarkable. CT/CT angio chest PE protcl [id number] IMPRESSION: No evidence of pulmonary embolism. Radiation Dose CTDIVOL = (mGy): DLP = 787.82 (mGy-cm)
[2020-11-15 22:37] LABS: NT Pro B Type Natriuretic Pept 729 pg/mL (0-450)
[2020-11-15 23:01] LABS: Troponin(5th) Baseline 58 ng/L (0-10)
[2020-11-15 23:01] LABS: ABG PH Result 7.29 (7.35-7.45); Base Excess ABG -6.1 mmol/L (-2.0-2.0); Blood Gas Allen Test Pos; Blood Gas Sample Site Radial, right; Blood Gas Sample Type Arterial; HCO3 ABG 20.5 mmol/L (22-26); Oxygen Device NC; PO2 ABG 82.1 mmHg (80.0-100.0)
[2020-11-15 23:18] LABS: D Dimer 2.53 ug/mIFEU (0-0.59)
[2020-11-15] MEDS: iodixanol 320 mg/mL 100mL Btl 65 ML IV (23:44)
[2020-11-16] VITALS (15 sets, daily range): BP systolic 92–129; BP diastolic 62–85; PULSE 98–130; RESP 15–22; TEMP 36.7–39.2; O2SAT 90–94
--- NOTE | 2020-11-16 00:43 | PC.NURSE ---
notified of B/P of
[2020-11-16] MEDS: piperacillin-tazobactam 3.375 GM in sodium chloride 0.9% (plus) 50 ML IV ×2 (00:45→15:41)
--- NOTE | 2020-11-16 01:36 | PM.HP ---
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 Patient is stating that she has been having abdominal cramps for last few months she has been taking a lot of Tums and Protonix for her acid reflux as well, she mostly stays constipated, her last bowel movement was today which was very small caliber, she has not noticed any emesis, fever, chest pain, shortness of breath, she presented to the hospital because her abdominal pain which she describing in hypogastric region has worsened. It is only associated with nausea. Patient does endorse vaginal bleeding for which she is using 1 pad per day. She is due for uterine surgery in November 2020. Diagnosis in the ER revealed sepsis secondary to enteritis, high lactic acid, leukocytosis, tachycardia, she is hypoxic requiring 2 L nasal cannula oxygen supplementation, high D-dimer, CTA rule out PE, CT abdomen also revealed partial SBO with do not transition point, no electrolyte abnormality, lactic acidemia improved after fluid resuscitation, initial blood pressure 174 systolic currently she is 98 mmHg, CT abdomen does not elicit exquisite tenderness on deep palpation Review of Systems Const: Reports: chills, body aches and fatigue; Denies: fever(s) Eyes: Denies: change in vision ENMT: Denies: throat pain Card: Denies: chest pain Resp: Denies: dyspnea GI: Reports: abdominal pain, nausea and constipation : Denies: flank pain Musc: Denies: neck pain Skin/Breast: Denies: rash Neuro: Denies: headache(s) Psych: Denies: anxiety Endo: Denies: polyuria Jesse/Lymph: Denies: easy bruising All/Imm: Denies: urticaria Medications/Allergies Home Medications Medication Instructions Recorded Confirmed Last Taken Type aspirin 81 mg tablet,delayed 81 mg PO DAILY@1000 11/29/19 11/15/20 11/14/20 History release albuterol sulfate 90 mcg/actuation 2 puff INHALATION Q6H PRN #8.5 gm 12/20/19 11/15/20 01/22/20 Rx aerosol inhaler alendronate 70 mg tablet 70 mg PO Q7D #4 tab 02/08/20 11/15/20 11/06/20 Rx multivitamin 1 tab PO DAILY@1000 05/11/20 11/15/20 11/14/20 History omega-3 fatty acids 1,000 mg 1,000 mg PO DAILY@1000 05/11/20 11/15/20 11/14/20 History capsule cetirizine 10 mg tablet 10 mg PO DAILY PRN #30 tab 07/03/20 11/15/20 Unknown Rx lorazepam 0.5 mg tablet 0.5 mg PO BID PRN #60 tab 10/18/20 11/15/20 11/14/20 Rx Flonase Allergy Relief 2 spray INTRANASAL DAILY@99911/15/20 11/15/20 11/14/20 History Lunesta 3 mg PO BEDTIME@2200 11/15/20 11/15/20 11/14/20 History Probiotic 1 tab PO DAILY@1000 11/15/20 11/15/20 11/14/20 History Protonix 40 mg PO BID@999,219911/15/20 11/15/20 11/14/20 History celecoxib 200 mg PO BID@11/15/20 11/15/20 11/14/20 History cyclobenzaprine 10 mg PO BEDTIME@2200 11/15/20 11/15/20 11/14/20 History docusate sodium [Colace] 100 mg PO BID@11/15/20 11/15/20 11/14/20 History hydrochlorothiazide 25 mg PO DAILY@1000 11/15/20 11/15/20 11/14/20 History levothyroxine 25 mcg PO DAILY@1000 11/15/20 11/15/20 11/14/20 History lisinopril 30 mg PO DAILY@99911/15/20 11/15/20 11/14/20 History metoprolol succinate 50 mg PO DAILY@1000 11/15/20 11/15/20 11/14/20 History mqpnvevd-vxl-wogkr acid-vit K 1 cap PO DAILY@1000 11/15/20 11/15/20 11/14/20 History [Multi For Her 50 Plus] venlafaxine 150 mg PO DAILY@1000 11/15/20 11/15/20 11/14/20 History Allergies Allergy/AdvReac Type Severity Reaction Status Date / Time No Known Allergies Allergy Verified 10/17/20 15:16 PFSH Acute PFSH: Medical History Anxiety and depression Coronary artery fistula Dyslipidemia Esophageal hernia GERD (gastroesophageal reflux disease) History of colon polyps Hypertension Insomnia LBBB (left bundle branch block) Left ventricular dysfunction Subclinical hypothyroidism Surgical History H/O colonoscopy 12/2019: Recommend follow-up colonoscopy in 3 years History of ear surgery (~2016) removal of fluid from ear drum, removal of ear drum, replaced with artifical ear drum History of hernia repair (~2009) History of incisional hernia repair 01/24/2020: Laparoscopic History of shoulder surgery Status post colonoscopy with polypectomy Family History Grandmother Colon cancer Maternal-- dx age 69 Breast cancer Paternal-- dx age unknown Mother Heart disease Denies family history of Ovarian cancer Diabetes Hypercholesteremia Bleeding disorder Hypertension Uterine cancer Thyroid disease Stroke Social History Additional social history: - Tobacco use: former smoker-- quit in 2009 Alcohol use: Occasional Drug use: denies Vitals/I&O/Wt Last Vital Signs Temp 98.1 F 11/15/20 15:54 Pulse 120 H 11/16/20 00:42 Resp 22 H 11/16/20 00:42 BP 92/65 11/16/20 00:42 Pulse Ox 92 11/16/20 00:42 Weight last 48 hrs Weight 81.647 kg Physical Exam Narrative: EXAM NARRATIVE: Pleasant elderly female who appears younger than stated age Seem to be in slight distress because abdominal cramps and pain Currently saturating well on 2 L nasal cannula Sinus tachycardia Left bundle branch block pattern which is old No active chest pain or acute respiratory distress No adventitious rhonchi or crackles S1, S2 no murmur appreciated Lower extremity no edema gangrene ulcer Awake alert oriented x3 GCS 15 Appropriate mood and affect Abdomen distended, bloated, bowel sounds absent and midepigastric and left upper quadrant region, tympanic sound present in right lower quadrant, no exquisite abdominal tenderness on deep palpation no signs of diffuse peritonitis No active emesis Patient does not look dehydrated EOMI, PERRLA no neurological deficit Data : 11/15/20 18:13 11/15/20 18:13 A&P Assessment and plan (1) Abdominal pain: Status: Acute (2) Sepsis: Status: Acute (3) Adynamic ileus: Status: Acute (4) Postmenopausal bleeding: Status: Acute (5) Hypoxia: Status: Acute (6) Enteritis: Status: Acute Additional A&P Information Sepsis secondary to enteritis Criteria met with tachycardia, leukocytosis high lactic acid, Received fluid bolus and Zosyn in the ER I will continue Zosyn for now, Request blood culture Patient is not experiencing emesis Adynamic ileus presentation as well no bowel sound in mid epigastric region no electrolyte abnormality noted patient had small bowel movement today and one yesterday but she does feel bloated High lactic acid which is improving with fluid resuscitation No exquisite tenderness on deep palpation does not fit the presentation of ischemic colitis or typical mesenteric ischemia, IV fluid hydration for now Check DIC panel platelet count 292 hemoglobin 15.6 Postmenopausal bleed 2.6 cm uterine mass High D-dimer currently hypoxic requiring 2 L nasal cannula CTA rule out PE Uterine biopsy revealed endometrial polyp otherwise no malignancy Due for uterine surgery in November 2020 Acute hypoxia Likely secondary to atelectasis No PE no signs of CHF pneumonia Patient is not hypo ventilating Hiatal hernia found on CT abdomen Constipation: Trial of enema and milk of magnesia to see if that would relieve her symptoms Previous colonoscopy revealed adenomatous polyp without any dysplasia GERD: Continue proton Full code N.p.o. DVT prophylaxis SCDs avoid anticoagulation secondary to postmenopausal bleeding Attestations Medical Necessity Statement*: Anticipating stay in the hospital cross more than 2 midnights for sepsis secondary to enteritis and partial SBO Time Spent in Patient Care: (>than 50% of time spent in counselling and/or direct pt care on unit). 50mins Coding Level of Care Code Acute Guest Services Agent for Chg Fwd Diagnoses Abdominal pain R10.9 Sepsis A41.9 Adynamic ileus K56.0 Postmenopausal bleeding N95.0 Hypoxia R09.02 Enteritis K52.9
[2020-11-16] MEDS: vancomycin 1,000 MG in sodium chloride 0.9% 250 ML 250 MG IV (02:00)
[2020-11-16 02:28] LABS: SARS Covid-2 Antigen Negative (Negative)
--- NOTE | 2020-11-16 02:37 | PC.NURSE ---
cancelled last NS bolus
[2020-11-16 02:44] LABS: Lactate (Lactic Acid level) 2.4 mmol/L (0.5-2.2)
[2020-11-16] MEDS: dextrose 5%-sod chloride 0.45% 1,000 ML 75 ML IV (03:17)
[2020-11-16] MEDS: magnesium hydroxide 30 mL UDC 15 ML PO (03:17)
--- NOTE | 2020-11-16 04:07 | ECG_ITS ---
[facility] Test Date: 2020-11-16 Pat Name: Radha Archer Department: Room: Gender: Female Health And Safety Representative: : 1945 Requested By: Crow Alejandro Order Number: [id number] Servando MD: Bianka Simons M.D. Measurements Intervals [place] Rate: 121 P: 50 CO: 163 QRS: -22 QRSD: 135 T: 122 QT: 326 QTc: 463 Interpretive Statements SINUS TACHYCARDIA LEFT BUNDLE BRANCH BLOCK [120+ ms QRS DURATION, 80+ ms Q/S IN V1/V2, 85+ ms R IN I/aVL/V5/V6] Compared to ECG 11/15/2020 22:22:10 No significant changes Electronically Signed On 11-19-2020 10:10:33 BODY CARE MANAGER by Bianka Simons M.D. [id number]
[2020-11-16 05:59] LABS: Basophils # 0.1 10^3/uL (0.0-0.1); Basophils % 0.4 %; Hematocrit 44.2 % (37.0-47.0); Hemoglobin 14.1 g/dL (11.5-15.3); Lymphocytes # 0.8 10^3/uL (0.8-4.8); Lymphocytes % 4.9 %; Mean Corpuscular HGB Conc 31.9 g/dL (30.0-36.0); Mean Corpuscular Hemoglobin 30.3 pg (28.0-34.0); Mean Corpuscular Volume 94.8 fL (81-99); Mean Platelet Volume 10.5 fL (7.4-10.4); Monocytes # 0.8 10^3/uL (0.2-0.9); Monocytes % 4.8 %; Neutrophils # 14.07 10^3/uL (1.8-7.7); Neutrophils % 89.6 %; Nucleated Red Blood Cells % 0 %; Platelet Count 273 10^3/cmm (130-400); Red Blood Count 4.66 10^6/uL (4.1-5.3); Red Cell Distribution Width 14.4 % (12.1-15.1); White Blood Count 15.7 10^3/uL (4.0-10.0)
[2020-11-16 06:29] LABS: Blood Urea Nitrogen 15 mg/dL (8-23); Calcium 8.6 mg/dL (8.5-10.5); Carbon Dioxide 21 mmol/L (22-29); Chloride 105 mmol/L (98-107); Glucose 129 mg/dL (65-115); Osmolality Calculated 287 mOsm/kg (285-295); Sodium 137 mmol/L (136-145)
[2020-11-16 06:33] LABS: Anion Gap 15.6 (5-19); Potassium 4.6 mmol/L (3.5-5.1)
[2020-11-16] MEDS: HYDROmorphone 1 mg/mL INJ 1 mL IVP ×3 (09:01→21:07)
--- NOTE | 2020-11-16 10:59 | PC.CHAP ---
Pastoral Care Encounter/Spiritual Assessment Type of Contact [] Declined visitor service assistant visit [] Patient/Family/Request visit [] Outpatient visit [] Follow-up visit [] Physician referral [] Code/Alert [x] Routine visit [] Staff referral [] Actively dying [] Patient sleeping [] Family support [] [] Out of room [] Palliative care [] [x] Receiving care in room [] Pre-surgical visit [] Trauma [] Long length of stay [] ICU visit [] Other: Relational/Emotional Strength [] Patient feels connected with others/family/visitors/staff [x] Distress [] Loneliness/isolation [] Abandonment Spirituality of Patient [x] Person of Sanjuanita [] Attends Hindu of their Sanjuanita [x] Believes in Prayer [] Reads Bible or Yarsani materials [] There are Spiritual issues to be addressed [employer]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 Interventions [x] Prayer [x] Active listening [x] Non-anxious presence [x] Spiritual/emotional support [] Crisis/trauma care [x] Spiritual counseling [] Bereavement support [] Provided bereavement packet [] Provided Bible/devotional materials [] Provided toy/stuffed animal, coloring book to patient or family member [] Provided Communion [] Anointing/[place] [] Salvation [x] Completed spiritual assessment [] Other: Impact on Illness or Injury [] Angry [x] Fearful [] Anxious [] Often cries [] Exhaustion [] Unable to work [] Unable to attend mormon [] Unable to walk/stand [] Unable to read [] Unable to drive [] Unable to eat/drink [] Unable to sleep [] Unable to be with family [] Patient intubated [] Other: Summary doesn't know sbout her health, has a good attitude, doesn't know when she can go home Time spent with patient 10 mins
--- NOTE | 2020-11-16 12:50 | P.CONIM_ITS ---
Providers/Reason For Consult Consulting Physican/Specialty*: General Surgery Onel Villagran MD Reason for Consult*: Possible small bowel obstruction by CT. Attending Physician: Shawn Black MD Primary Care Provider: Shanti Simmons MD History of Present Illness History of Present Illness Radha Archer is a 75 year old female who says that she was in her normal state of health until yesterday when she started developing some lower abdominal discomfort that seemed to extend up to her abdomen and somewhat to the right side. She had noticed that she was somewhat constipated, which is not a new problem for her. She takes Dulcolax at home as needed. She did have a bowel movement yesterday morning but says it was small and hard. She does not recall passing flatus since the day before. She came to the emergency room last night because she was having abdominal pain when she would had try to have a bowel movement or when she was voiding. She says she was nauseated but did not vomit. A CAT scan was done and showed evidence of at least a possible partial small bowel obstruction. She also had an abnormal urinalysis. A nasogastric tube was inserted and she was started on antibiotics. She says she had an enema last night and then had a bowel movement after that which was loose. Review of Systems General: Reports: 10 or more systems reviewed and unremarkable except in HPI and below Const: Denies: fever(s) ENMT: Reports: throat pain (With nasogastric tube) GI: Reports: abdominal pain, nausea, constipation and pain on defecation ( Hurts my stomach when I go ); Denies: vomiting : Reports: dysuria Psych: Reports: anxiety, depression and other (History of PTSD on previous documentation) Meds/Allergies Home Medications and Allergies Home Medications Medication Instructions Recorded Confirmed Last Taken Type aspirin 81 mg tablet,delayed 81 mg PO DAILY@1000 11/29/19 11/15/20 11/14/20 History release albuterol sulfate 90 mcg/actuation 2 puff INHALATION Q6H PRN #8.5 gm 12/20/19 11/15/20 01/22/20 Rx aerosol inhaler alendronate 70 mg tablet 70 mg PO Q7D #4 tab 02/08/20 11/15/20 11/06/20 Rx multivitamin 1 tab PO DAILY@1000 05/11/20 11/15/20 11/14/20 History omega-3 fatty acids 1,000 mg 1,000 mg PO DAILY@1000 05/11/20 11/15/20 11/14/20 History capsule cetirizine 10 mg tablet 10 mg PO DAILY PRN #30 tab 07/03/20 11/15/20 Unknown Rx lorazepam 0.5 mg tablet 0.5 mg PO BID PRN #60 tab 10/18/20 11/15/20 11/14/20 Rx Flonase Allergy Relief 2 spray INTRANASAL DAILY@1000 11/15/20 11/15/20 11/14/20 History Lunesta 3 mg PO BEDTIME@2200 11/15/20 11/15/20 11/14/20 History Probiotic 1 tab PO DAILY@99911/15/20 11/15/20 11/14/20 History Protonix 40 mg PO BID@1000,219911/15/20 11/15/20 11/14/20 History celecoxib 200 mg PO BID@11/15/20 11/15/20 11/14/20 History cyclobenzaprine 10 mg PO BEDTIME@0 11/15/20 11/15/20 11/14/20 History docusate sodium [Colace] 100 mg PO BID@11/15/20 11/15/20 11/14/20 History hydrochlorothiazide 25 mg PO DAILY@1000 11/15/20 11/15/20 11/14/20 History levothyroxine 25 mcg PO DAILY@1000 11/15/20 11/15/20 11/14/20 History lisinopril 30 mg PO DAILY@1000 11/15/20 11/15/20 11/14/20 History metoprolol succinate 50 mg PO DAILY@1000 11/15/20 11/15/20 11/14/20 History qhoomski-tvl-ilpth acid-vit K 1 cap PO DAILY@99911/15/20 11/15/20 11/14/20 History [Multi For Her 50 Plus] venlafaxine 150 mg PO DAILY@1000 11/15/20 11/15/20 11/14/20 History Allergies Allergy/AdvReac Type Severity Reaction Status Date / Time No Known Allergies Allergy Verified 11/16/20 12:58 Current Medications Current Medications Generic Name Dose Route Start Last Admin Trade Name Freq PRN Reason Stop Dose Admin Hydromorphone HCl 1 mg 11/16/20 03:00 11/16/20 09:01 Hydromorphone 1 Mg/Ml Inj 1 Ml IVP 1 mg Q4H PRN Administration Abdominal pain PFSH Acute PFSH: Medical History (Updated 11/16/20 @ 13:06 by Onel Villagran MD) Anxiety and depression Constipation COPD (chronic obstructive pulmonary disease) Coronary artery fistula Diverticulosis Dyslipidemia Endometriosis GERD (gastroesophageal reflux disease) Hiatal hernia History of colon polyps Hypertension Insomnia LBBB (left bundle branch block) Left ventricular dysfunction PTSD (post-traumatic stress disorder) Subclinical hypothyroidism Surgical History (Updated 11/16/20 @ 13:01 by Onel Villagran MD) History of ear surgery (~2017) Right -- removal of fluid from ear drum, removal of ear drum, replaced with artifical ear drum History of incisional hernia repair X 3 01/24/2020: Laparoscopic History of left oophorectomy partial History of shoulder surgery Right History of tonsillectomy Status post colonoscopy with polypectomy 12/2019 --2 adenomatous polyps, diverticulosis Family History Grandmother Colon cancer Maternal-- dx age 69 Breast cancer Paternal-- dx age unknown Mother Heart disease Denies family history of Ovarian cancer Diabetes Hypercholesteremia Bleeding disorder Hypertension Uterine cancer Thyroid disease Stroke Social History (Updated 11/16/20 @ 13:13 by Onel Villagran MD) Smoking and tobacco status: former smoker Quit status (tobacco): has quit using tobacco Year quit tobacco: Around 1999 Former quit date comment: [id number] history previously Alcohol intake: current Alcohol intake frequency: few times a month Alcohol use comment: Socially Additional social history: Drug use: denies Vitals/I&O/Wt Last Vital Signs Temp 98.5 F 11/16/20 12:00 Pulse 112 H 11/16/20 12:00 Resp 18 11/16/20 12:00 BP 129/85 11/16/20 12:00 Pulse Ox 92 11/16/20 12:00 11/15/20 11/16/20 11/16/20 22:59 06:59 14:59 Output Total 500 / 500 200 / 200 Balance -500 / -500 -200 / -200 Weight last 48 hrs Weight 180 lb Physical Exam Narrative: EXAM NARRATIVE: The patient was encountered in her hospital room. She has a nasogastric tube in place that is draining bilious colored fluid. She does not appear to be in any acute distress. The pupils seem equal. No carotid bruits are heard. The lungs are clear anteriorly. The heart seems regular. T he abdomen is obese and reveals hypoactive bowel sounds. She has a recurrent hernia at the umbilical level or perhaps slightly to the right side. She does have tenderness to palpation in this area but no evidence of peritonitis. The extremities reveal no edema. Neurologically the patient appears to be grossly intact. A&P Assessment and plan (1) Abdominal pain: The etiology of the patient's abdominal pain is not completely clear, but may be multifactorial. She says it bothers her when she tries to have a bowel movement or when she tries to void. She does have an abnormal urinalysis and is on antibiotics. She may have at least a partial small bowel obstruction on CAT scan, but I think this is probably chronic (see below). She also has a recurrent ventral hernia despite having surgery for this earlier this year (see below). Status: Acute (2) Bowel obstruction: CT reviewed. The patient does not appear to be completely obstructed, but may have somewhat of a chronic partial obstruction involving the mid small bowel. I think I can identify a possible transition point in the upper mid abdomen with some apparent fecalization of some small bowel contents proximal to this. She does have a long and tortuous colon with some retained stool, as well. Status: Acute (3) Recurrent ventral hernia: The patient had a recurrent abdominal hernia repaired back in January of 2020. She says the hernia repair did not last. She clearly has a hernia back and it is somewhat tender to palpation, but only contains fat on the CAT scan. Status: Acute Consult Attestations Medical Necessity Statement: See admitting service's notation. Coding Level of Care Code Acute Medical Certification Specialist for Eli Yo Diagnoses Abdominal pain R10.9 Bowel obstruction K56.609 Recurrent ventral hernia K43.2
[2020-11-16] MEDS: famotidine 20 mg/2 mL INJ IVP (13:09)
[2020-11-16] MEDS: heparin 5,000 unit/mL INJ 1 mL 5000 UNIT SUBCUT (13:09)
[2020-11-16] MEDS: D5-NS 0.45% + KCL 20 mEq 20 MEQ/1,000 ML BAG 125 MEQ IV ×2 (13:10→21:50)
--- NOTE | 2020-11-16 13:44 | P.PN_ITS ---
Subjective Subjective: Interval history: This morning patient was examined, her mother is at bedside, she is complaining of abdominal distention, abdominal pain, is not passing any gas, did not pass any stool, continues to have episodes of vaginal bleeding, feeling nauseous, Vitals/I&O/Wt Last Vital Signs Temp 98.5 F 11/16/20 12:00 Pulse 112 H 11/16/20 12:00 Resp 18 11/16/20 12:00 BP 129/85 11/16/20 12:00 Pulse Ox 92 11/16/20 12:00 11/15/20 11/16/20 11/16/20 22:59 06:59 14:59 Output Total 500 / 500 200 / 200 Balance -500 / -500 -200 / -200 Weight last 48 hrs Weight 81.647 kg Physical Exam Const: COMMON NORMALS: no acute distress and patient oriented x3 HENMT: COMMON NORMALS: normocephalic HEAD & SCALP: normocephalic Neck/C-Spine: COMMON NORMALS: no JVD Resp: COMMON NORMALS: normal respiratory effort, No retractions, No use of accessory muscles and clear to auscultation bilaterally AUSCULTATION: clear to auscultation bilaterally Cardio: COMMON NORMALS: no JVD, regular rate, regular rhythm, S1 normal heart sound present and S2 normal heart sound present RATE: regular rate RHYTHM: regular rhythm HEART SOUNDS: S1 normal heart sound present and S2 normal heart sound present GI: INSPECTION: Yes normal to inspection, Yes abdominal distension and Yes central obesity AUSCULTATION: Yes Hypoactive bowel sounds present PALPATION: Yes Tenderness to palpation present (GI) Details: LLQ, RLQ, LUQ and RUQ Extremity: COMMON NORMALS: capillary refill normal, no clubbing, cyanosis or edema, no calf tenderness and no pedal edema Neuro: COMMON NORMALS: patient oriented x3 Psych: COMMON NORMALS: mental status grossly normal Data : 11/16/20 05:48 11/16/20 05:48 A&P Assessment and plan (1) Abdominal pain: Status: Acute (2) Sepsis: Status: Acute (3) Adynamic ileus: Status: Acute (4) Postmenopausal bleeding: Status: Acute (5) Hypoxia: Status: Acute (6) Enteritis: Status: Acute Additional A&P Information Abdominal pain secondary to small bowel obstruction secondary to surgical adhesions, with sepsis secondary to enteritis Criteria met with tachycardia, leukocytosis high lactic acid, Receiving IV fluids On Zosyn Follow blood cultures Dilaudid for pain, Zofran for nausea NG tube in place Postmenopausal bleed 2.6 cm uterine mass High D-dimer currently hypoxic requiring 2 L nasal cannula CTA rule out PE was unremarkable for PE Uterine biopsy revealed endometrial polyp otherwise no malignancy Due for uterine surgery in November 2020 Acute hypoxia Likely secondary to atelectasis No PE no signs of CHF pneumonia Patient is not hypo ventilating Hiatal hernia found on CT abdomen Constipation: Trial of enema and milk of magnesia to see if that would relieve her symptoms Previous colonoscopy revealed adenomatous polyp without any dysplasia GERD: Continue proton Full code N.p.o. DVT prophylaxis SCDs avoid anticoagulation secondary to postmenopausal bleeding Attestations Medical Necessity Statement*: Patient requires hospitalization for abdominal pain secondary to small bowel obstruction secondary to adhesions, enteritis Coding Level of Care Code Acute Mattress Finisher for Chg Fwd Diagnoses Abdominal pain R10.9 Sepsis A41.9 Adynamic ileus K56.0 Postmenopausal bleeding N95.0 Hypoxia R09.02 Enteritis K52.9
--- NOTE | 2020-11-16 15:35 | ECG_ITS ---
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 Measurements Intervals [place] Rate: 117 P: 57 VA: 177 QRS: -26 QRSD: 149 T: 137 QT: 336 QTc: 469 Interpretive Statements SINUS TACHYCARDIA INTRAVENTRICULAR CONDUCTION DELAY [130+ ms QRS DURATION] LATERAL MYOCARDIAL INFARCTION [40+ ms Q WAVE AND/OR ST/T ABNORMALITY IN I/aVL/V5/V6], PROBABLY RECENT INFERIOR MYOCARDIAL INFARCTION [40+ ms Q WAVE AND/OR ST/T ABNORMALITY IN II/aVF], OF INDETERMINATE AGE Compared to ECG 11/16/2020 00:04:35 Intraventricular conduction delay now present Myocardial infarct finding now present Left bundle-branch block no longer present Electronically Signed On 11-17-2020 17:56:19 CLOUD AUTOMATION TESTER by Amari Toledo M.D. [id number]
[2020-11-16 16:40] LABS: Troponin(5th) Baseline 58 ng/L (0-10)
[2020-11-16 18:12] LABS: Magnesium 1.8 mg/dL (1.7-2.3)
[2020-11-16 18:53] LABS: Lactate (Lactic Acid level) 2.1 mmol/L (0.5-2.2)
[2020-11-16 18:55] LABS: Troponin 5 2HR 56.89 ng/L (0-10)
[2020-11-16 19:11] LABS: Troponin 5 2HR Delta -1.11 ABS# (0-10)
[2020-11-17] VITALS (9 sets, daily range): BP systolic 103–134; BP diastolic 72–87; PULSE 95–109; RESP 17–24; TEMP 36.6–37.7; O2SAT 92–99
[2020-11-17] MEDS: piperacillin-tazobactam 3.375 GM in sodium chloride 0.9% (plus) 50 ML IV ×4 (00:18→22:59)
[2020-11-17] MEDS: heparin 5,000 unit/mL INJ 1 mL 5000 UNIT SUBCUT ×2 (00:18→14:46)
[2020-11-17 00:33] LABS: Troponin 5 6HR 51.41 ng/L (0-10)
[2020-11-17 00:40] LABS: Troponin 5 6HR Delta -6.59 ng/L (0-12)
[2020-11-17] MEDS: famotidine 20 mg/2 mL INJ IVP ×2 (01:28→13:23)
[2020-11-17 05:58] LABS: Basophils # 0.1 10^3/uL (0.0-0.1); Hematocrit 39.8 % (37.0-47.0); Hemoglobin 12.7 g/dL (11.5-15.3); Lymphocytes # 0.4 10^3/uL (0.8-4.8); Lymphocytes % 7.7 %; Mean Corpuscular HGB Conc 31.9 g/dL (30.0-36.0); Mean Corpuscular Hemoglobin 29.8 pg (28.0-34.0); Mean Corpuscular Volume 93.4 fL (81-99); Monocytes # 0.3 10^3/uL (0.2-0.9); Monocytes % 5.9 %; Neutrophils # 4.19 10^3/uL (1.8-7.7); Neutrophils % 85.2 %; Nucleated Red Blood Cells % 0 %; Platelet Count 186 10^3/cmm (130-400); Red Blood Count 4.26 10^6/uL (4.1-5.3); Red Cell Distribution Width 14.6 % (12.1-15.1); White Blood Count 4.9 10^3/uL (4.0-10.0)
[2020-11-17 06:31] LABS: Alanine Aminotransferase 25 U/L (0-33); Alkaline Phosphatase 56 IU/L (35-105); Anion Gap 14.4 (5-19); Aspartate Amino Transferase 34 U/L (0-32); Blood Urea Nitrogen 19 mg/dL (8-23); Calcium 8.8 mg/dL (8.5-10.5); Carbon Dioxide 21 mmol/L (22-29); Chloride 104 mmol/L (98-107); Globulin 2.9 g/dL (1.3-4.6); Glucose 119 mg/dL (65-115); Magnesium 1.8 mg/dL (1.7-2.3); Osmolality Calculated 281 mOsm/kg (285-295); Phosphorus 1.4 mg/dL (2.5-4.5); Potassium 5.4 mmol/L (3.5-5.1); Sodium 134 mmol/L (136-145); Total Bilirubin 0.6 mg/dL (0.15-1.2); Total Protein 5.9 g/dL (6.6-8.7)
[2020-11-17] MEDS: D5-NS 0.45% + KCL 20 mEq 20 MEQ/1,000 ML BAG 125 MEQ IV (06:36)
--- NOTE | 2020-11-17 10:51 | P.PN_ITS ---
Subjective Subjective: Interval history: The patient says her abdomen is feeling better today. She still is unaware of any flatus. Vitals/I&O/Wt Last Vital Signs Temp 98.4 F 11/17/20 08:10 Pulse 101 H 11/17/20 08:10 Resp 18 11/17/20 08:10 BP 111/75 11/17/20 08:10 Pulse Ox 95 11/17/20 08:10 11/16/20 11/17/20 11/17/20 22:59 06:59 14:59 Intake Total 1050 / 2100 1050 / 2100 240 / 240 Output Total 400 / 600 Balance 650 / 1500 1050 / 1500 240 / 240 Weight last 48 hrs Weight 180 lb Physical Exam Narrative: EXAM NARRATIVE: NG output is low. The patient's bowel sounds remain infrequent. She still has tenderness over the lower abdomen by exam, but it may be slightly improved from yesterday. Data : 11/17/20 05:48 11/17/20 05:48 A&P Assessment and plan (1) Abdominal pain: The etiology of the patient's abdominal pain is not completely clear, but may be multifactorial. She does have an abnormal urinalysis and is on antibiotics. She may have at [address] st a partial small bowel obstruction on CAT scan, but I think this is probably chronic (see below). She also has a recurrent ventral hernia despite having surgery for this earlier this year (see below). Continue nasogastric tube for now. Ambulate. Status: Acute (2) Bowel obstruction: CT on admission reviewed. The patient does not appear to be completely obstructed, but may have somewhat of a chronic partial obstruction involving the mid small bowel. I think I can identify a possible transition point in the upper mid abdomen with some apparent fecalization of some small bowel contents proximal to this. She does have a long and tortuous colon with some retained stool, as well. Status: Acute (3) Recurrent ventral hernia: The patient had a recurrent abdominal hernia repaired back in January of 2020. She says the hernia repair did not last. She clearly has a hernia back and it is somewhat tender to palpation, but only contains fat on the CAT scan. Status: Acute Attestations Medical Necessity Statement*: See admitting service's notation. Coding Level of Care Code Acute Scrap Baller for [facility] Diagnoses Abdominal pain R10.9 Bowel obstruction K56.609 Recurrent ventral hernia K43.2
[2020-11-17 12:01] LABS: Glucose Point of Care 119 mg/dL (70-110)
[2020-11-17] MEDS: HYDROmorphone 1 mg/mL INJ 1 mL IVP (13:22)
--- NOTE | 2020-11-17 14:30 | P.PN_ITS ---
Subjective Subjective: Interval history: This morning patient continues, have abdominal pain, not passing gas, has not had a bowel movement Vitals/I&O/Wt Last Vital Signs Temp 98.3 F 11/17/20 11:58 Pulse 101 H 11/17/20 08:10 Resp 17 11/17/20 13:22 BP 121/81 11/17/20 11:58 Pulse Ox 95 11/17/20 11:58 11/16/20 11/17/20 11/17/20 22:59 06:59 14:59 Intake Total 1050 / 1050 1050 / 2100 240 / 240 Output Total 400 / 600 Balance 650 / 450 1050 / 1500 240 / 240 Weight last 48 hrs Weight 81.647 kg Physical Exam Const: COMMON NORMALS: no acute distress and patient oriented x3 HENMT: COMMON NORMALS: normocephalic HEAD & SCALP: normocephalic Neck/C-Spine: COMMON NORMALS: no JVD Resp: COMMON NORMALS: normal respiratory effort, No retractions, No use of accessory muscles and clear to auscultation bilaterally AUSCULTATION: clear to auscultation bilaterally Cardio: COMMON NORMALS: no JVD, regular rate, regular rhythm, S1 normal heart sound present and S2 normal heart sound present RATE: regular rate RHYTHM: regular rhythm HEART SOUNDS: S1 normal heart sound present and S2 normal heart sound present GI: COMMON NORMALS: Soft to palpation, non-tender, no masses and no bruits INSPECTION: Yes abdominal distension AUSCULTATION: Yes Hypoactive bowel sounds present PALPATION: Yes Soft to palpation PERCUSSION: tympanic to percussion Extremity: COMMON NORMALS: capillary refill normal, no clubbing, cyanosis or edema, no calf tenderness and no pedal edema Neuro: COMMON NORMALS: patient oriented x3 Psych: COMMON NORMALS: mental status grossly normal Data : 11/18/20 05:30 11/18/20 05:30 A&P Assessment and plan (1) Abdominal pain: Status: Acute (2) Sepsis: Status: Acute (3) Adynamic ileus: Status: Acute (4) Postmenopausal bleeding: Status: Acute (5) Hypoxia: Status: Acute (6) Enteritis: Status: Acute Additional A&P Information Abdominal pain secondary to small bowel obstruction secondary to surgical adhesions, with sepsis secondary to enteritis Criteria met with tachycardia, leukocytosis high lactic acid, Receiving IV fluids On Zosyn Follow blood cultures Dilaudid for pain, Zofran for nausea NG tube in place General surgery consulted Postmenopausal bleed 2.6 cm uterine mass High D-dimer currently hypoxic requiring 2 L nasal cannula CTA rule out PE was unremarkable for PE Uterine biopsy revealed endometrial polyp otherwise no malignancy Due for uterine surgery in November 2020 Acute hypoxia Likely secondary to atelectasis No PE no signs of CHF pneumonia Patient is not hypo ventilating Hiatal hernia found on CT abdomen Constipation: Trial of enema and milk of magnesia to see if that would relieve her symptoms Previous colonoscopy revealed adenomatous polyp without any dysplasia GERD: Continue proton Full code N.p.o. DVT prophylaxis SCDs avoid anticoagulation secondary to postmenopausal bleeding Attestations Medical Necessity Statement*: Patient requires hospitalization for abdominal pain, related to ileus and/or partial small bowel obstruction Coding Level of Care Code Acute Environmental Health Manager for Chg Fwd Diagnoses Abdominal pain R10.9 Sepsis A41.9 Adynamic ileus K56.0 Postmenopausal bleeding N95.0 Hypoxia R09.02 Enteritis K52.9
[2020-11-17] MEDS: sodium chloride 0.9% 1,000 ML 100 ML IV (14:46)
[2020-11-18] VITALS (9 sets, daily range): BP systolic 126–151; BP diastolic 85–102; PULSE 91–103; RESP 16–22; TEMP 36.6–36.8; O2SAT 96–98
[2020-11-18] MEDS: heparin 5,000 unit/mL INJ 1 mL 5000 UNIT SUBCUT ×2 (01:16→15:41)
[2020-11-18] MEDS: sodium chloride 0.9% 1,000 ML 100 ML IV ×2 (01:19→11:44)
[2020-11-18] MEDS: famotidine 20 mg/2 mL INJ IVP ×2 (01:32→15:48)
[2020-11-18 06:19] LABS: Alanine Aminotransferase 24 U/L (0-33); Albumin Level 2.7 g/dL (3.5-5.2); Alkaline Phosphatase 55 IU/L (35-105); Anion Gap 11.6 (5-19); Aspartate Amino Transferase 30 U/L (0-32); Blood Urea Nitrogen 16 mg/dL (8-23); Calcium 8.2 mg/dL (8.5-10.5); Carbon Dioxide 23 mmol/L (22-29); Chloride 107 mmol/L (98-107); Creatinine Clr Calc Pharmacy 62.8074; Glucose 93 mg/dL (65-115); Osmolality Calculated 285 mOsm/kg (285-295); Potassium 4.6 mmol/L (3.5-5.1); Sodium 137 mmol/L (136-145); Total Bilirubin 0.4 mg/dL (0.15-1.2); Total Protein 5.7 g/dL (6.6-8.7)
[2020-11-18] MEDS: piperacillin-tazobactam 3.375 GM in sodium chloride 0.9% (plus) 50 ML IV ×3 (06:25→22:28)
[2020-11-18 06:26] LABS: Basophils # 0.1 10^3/uL (0.0-0.1); Eosinophils % 0.5 %; Hematocrit 36.3 % (37.0-47.0); Hemoglobin 11.6 g/dL (11.5-15.3); Lymphocytes # 0.5 10^3/uL (0.8-4.8); Lymphocytes % 8.6 %; Mean Corpuscular Hemoglobin 30.4 pg (28.0-34.0); Mean Platelet Volume 11.4 fL (7.4-10.4); Monocytes # 0.4 10^3/uL (0.2-0.9); Monocytes % 5.8 %; Neutrophils # 5.04 10^3/uL (1.8-7.7); Neutrophils % 83.6 %; Nucleated Red Blood Cells % 0 %; Platelet Count 173 10^3/cmm (130-400); Red Blood Count 3.82 10^6/uL (4.1-5.3); Red Cell Distribution Width 14.9 % (12.1-15.1)
[2020-11-18 07:30] LABS: Magnesium 2.1 mg/dL (1.7-2.3); Phosphorus 1.6 mg/dL (2.5-4.5)
--- NOTE | 2020-11-18 08:13 | P.PN_ITS ---
Subjective Subjective: Interval history: The patient says she is feeling better daily. She had a lot of gurgling in her abdomen yesterday but still is unaware of any flatus. She would like to try to get up and ambulate. I had asked the nurses to get her up yesterday but she says she was groggy after getting some pain medication and so this was not done. Vitals/I&O/Wt Last Vital Signs Temp 97.8 F 11/18/20 07:27 Pulse 93 11/18/20 07:27 Resp 18 11/18/20 07:27 BP 126/85 11/18/20 07:27 Pulse Ox 98 11/18/20 07:27 11/17/20 11/18/20 11/18/20 22:59 06:59 14:59 Intake Total 110 / 1450 1050 / 1450 Output Total 400 / 1050 650 / 1050 Balance -290 / 400 400 / 400 Physical Exam Narrative: EXAM NARRATIVE: No new concerns on abdominal exam. Seems less tender today. Some bowel sounds are present. Data : 11/18/20 05:30 11/18/20 05:30 A&P Assessment and plan (1) Abdominal pain: The etiology of the patient's abdominal pain is not completely clear, but may be multifactorial. She does have an abnormal urinalysis and is on antibiotics. She may have at least a partial small bowel obstruction on CAT scan, but I think this is proba merlin chronic (see below). She also has a recurrent ventral hernia despite having surgery for this earlier this year (see below). I am going to clamp the patient's NG tube and see how she does. Ambulate. Status: Acute (2) Bowel obstruction: CT on admission reviewed. The patient does not appear to be completely o bstructed, but may have somewhat of a chronic partial obstruction involving the mid small bowel. I think I can identify a possible transition point in the upper mid abdomen with some apparent fecalization of some small bowel contents proximal to this. She does have a long and tortuous colon with some retained stool, as well. Status: Acute (3) Recurrent ventral hernia: The patient had a recurrent abdominal hernia repaired back in January of 2020. She says the hernia repair did not last. She clearly has a hernia back and it is somewhat tender to palpation, but only contains fat on the CAT scan. Status: Acute Attestations Medical Necessity Statement*: See admitting service's notation. Coding Level of Care Code Acute Cnc Operator for [facility] Diagnoses Abdominal pain R10.9 Bowel obstruction K56.609 Recurrent ventral hernia K43.2
[2020-11-18] MEDS: phosphorus 250 mg Tablet PO ×2 (09:16→17:22)
--- NOTE | 2020-11-18 14:30 | PC.NURSE ---
PT NOTED TO BE PASSING GAS. DR. PARIS NOTIFIED-ORDERS TO REMOVE NG TUBE AND START CLEAR LIQUID DIET. NG TUBE REMOVED, PT TOLERATED WELL. PT ON CLEAR LIQUID DIET AND EDUCATED ON NOTIFYING THIS NURSE OF ANY N/V. WELL CONTINUE TO MONITOR.
--- NOTE | 2020-11-18 14:31 | PM.DCS ---
Discharge Providers Date of Admission: 11/16/20 01:16 Date of Discharge: November 18, 2020 Attending Provider at Admission: Allyn Coyle MD Attending Provider at Discharge: Shawn Black MD Primary Care Provider: Shanti Simmons MD Diagnoses at Discharge Discharge Diagnosis (1) Abdominal pain: Status: Acute (2) Sepsis: Status: Acute (3) Adynamic ileus: Status: Acute (4) Postmenopausal bleeding: Status: Acute (5) Hypoxia: Status: Acute (6) Enteritis: Status: Acute Reason for Visit Reason for Visit: [facility] Course Hospital Course Radha Archer is a 75 year old female who has 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 Patient was admitted to [facility] for abdominal pain secondary to partial small bowel obstruction secondary to surgical adhesion, and or ileus. Patient was admitted to general medical floors, general surgery was consulted, recommended n.p.o., IV fluids, NG tube, clinical monitoring. Patient also had elevated lactic acid on admission, and tachycardia, which resolved with IV hydration. Patient also had enteritis on admission. Patient clinically improved, NG tube was removed, tolerating a clear liquid diet well. Discharged with close follow-up general surgery as outpatient. For his enteritis, discharged on a 7-day course of Augmentin Patient also has a known history of a 2.6 cm uterine mass, with associated postmenopausal bleeding, she will follow up with her uterine surgery on November 2020 Patient also had a CT angiogram for shortness of breath, negative for pulmonary emboli, negative for focal pneumonia. Physical Exam Const: COMMON NORMALS: no acute distress and patient oriented x3 HENMT: COMMON NORMALS: normocephalic HEAD & SCALP: normocephalic Neck/C-Spine: COMMON NORMALS: no JVD Resp: COMMON NORMALS: normal respiratory effort, No retractions, No use of accessory muscles and clear to auscultation bilaterally AUSCULTATION: clear to auscultation bilaterally Cardio: COMMON NORMALS: no JVD, regular rate, regular rhythm, S1 normal heart sound present and S2 normal heart sound present RATE: regular rate RHYTHM: regular rhythm HEART SOUNDS: S1 normal heart sound present and S2 normal heart sound present GI: COMMON NORMALS: Normal to inspection, nondistended, normoactive bowel sounds present, Soft to palpation and non-tender PALPATION: Yes Soft to palpation, No Guarding due to palpation present (GI) and No Rigid due to palpation Extremity: COMMON NORMALS: capillary refill normal, no clubbing, cyanosis or edema, no calf tenderness and no pedal edema Neuro: COMMON NORMALS: patient oriented x3 Psych: COMMON NORMALS: mental status grossly normal Discharge Data Data Completed and Pending: Completed Studies During Hospitalization Category Date Time Status CT abdomen pelvis w con* [id number] Urge nt Cat Scan 11/15/20 17:[address] angio chest PE protcl [id number] Urge nt Cat Scan 11/15/20 22:26 Completed XR chest 1V kisha ble [id number] Stat Exams 11/15/20 22:09 Completed Pending at discharge Category Date Time Status Complete Blood Co unt w/Auto AM LABS Lab 11/19/20 04:00 Ordered Comprehensive Met abolic Panel AM LA BS Lab 11/19/20 04:00 Ordered Lactate (Lactic A pat level) AM LABS Lab 11/19/20 04:00 Ordered Magnesium AM LABS Lab 11/19/20 04:00 Ordered Phosphorus AM LAB S Lab 11/19/20 04:00 Ordered Labs from last 24 hours 11/18/20 11/18/20 11/18/20 05:30 05:30 05:30 WBC 6.0 RBC 3.82 L Hgb 11.6 Hct 36.3 L MCV 95.0 MCH 30.4 MCHC 32.0 RDW 14.9 Plt Count 173 MPV 11.4 H Neut % (Auto) 83.6 Lymph % (Auto) 8.6 [place] % (Auto) 5.8 Eos % (Auto) 0.5 Baso % (Auto) 1.0 Neut # (Auto) 5.04 Lymph # (Auto) 0.5 L [place] # (Auto) 0.4 Eos # (Auto) 0.0 Baso # (Auto) 0.1 Nucleated RBC % (a uto) 0 Nucleated RBCs # 0.0 Sodium 137 Potassium 4.6 Chloride 107 Carbon Dioxide 23 Anion Gap 11.6 BUN 16 Creatinine 0.8 GFR Calculation Not Reportable Glucose 93 Calculated Osmolal ity 285 Lactate 1.0 Calcium 8.2 L Phosphorus Magnesium Total Bilirubin 0.4 AST 30 ALT 24 Alkaline Phosphata se 55 Total Protein 5.7 L Albumin 2.7 L Globulin 3.0 11/18/20 05:30 WBC RBC Hgb Hct MCV MCH MCHC RDW Plt Count MPV Neut % (Auto) Lymph % (Auto) [place] % (Auto) Eos % (Auto) Baso % (Auto) Neut # (Auto) Lymph # (Auto) [place] # (Auto) Eos # (Auto) Baso # (Auto) Nucleated RBC % (a uto) Nucleated RBCs # Sodium Potassium Chloride Carbon Dioxide Anion Gap BUN Creatinine GFR Calculation Glucose Calculated Osmolal ity Lactate Calcium Phosphorus 1.6 L Magnesium 2.1 Total Bilirubin AST ALT Alkaline Phosphata se Total Protein Albumin Globulin Vitals: Last Vital Signs Temp 98.3 F 11/18/20 11:27 Pulse 97 11/18/20 11:27 Resp 16 11/18/20 11:27 BP 146/95 11/18/20 11:27 Pulse Ox 98 11/18/20 11:27 Discharge Plan Discharge Patient Disposition: Home Condition: Stable Prescriptions: New amoxicillin-pot clavulanate [Augmentin] 875-125 mg tablet 1 tab PO Q12H 7 Days Qty: 14 RF: 0 Continued aspirin [Adult Aspirin Regimen] 81 mg tablet,delayed release (DR/EC) 81 mg PO DAILY@1000 RF: 0 omega-3 fatty acids [Fish Oil Concentrate] 1,000 mg capsule 1,000 mg PO DAILY@1000 RF: 0 multivitamin Tablet 1 tab PO DAILY@1000 RF: 0 albuterol sulfate [Ventolin HFA] 90 mcg/actuation HFA aerosol inhaler 2 puff INHALATION Q6H PRN (Reason: shortness of breath or wheezing) Qty: 8.5 RF: 2 cetirizine [Zyrtec] 10 mg tablet 10 mg PO DAILY PRN (Reason: allergy symptoms) Qty: 30 RF: 2 alendronate 70 mg tablet 70 mg PO Q7D Qty: 4 RF: 5 lorazepam [Ativan] 0.5 mg tablet 0.5 mg PO BID PRN (Reason: anxiety) Qty: 60 RF: 2 celecoxib 200 mg capsule 200 mg PO BID@ RF: 0 cyclobenzaprine 10 mg tablet 10 mg PO BEDTIME@2200 RF: 0 metoprolol succinate 50 mg tablet extended release 24 hr 50 mg PO DAILY@1000 RF: 0 Protonix 40 mg tablet,delayed release (DR/EC) 40 mg PO BID@1000,2200 RF: 0 lisinopril 30 mg tablet 30 mg PO DAILY@1000 RF: 0 Colace 100 mg capsule 100 mg PO BID@, RF: 0 hydrochlorothiazide 25 mg tablet 25 mg PO DAILY@1000 RF: 0 Flonase Allergy Relief 50 mcg/actuation spray,suspension 2 spray INTRANASAL DAILY@1000 RF: 0 Lunesta 3 mg tablet 3 mg PO BEDTIME@2199 RF: 0 venlafaxine 150 mg tablet extended release 24hr 150 mg PO DAILY@1000 RF: 0 levothyroxine 25 mcg capsule 25 mcg PO DAILY@1000 RF: 0 Multi For Her 50 Plus 400-80 mcg Capsule 1 cap PO DAILY@1000 RF: 0 Probiotic 1 tab PO DAILY@1000 RF: 0 Discharge Orders: Discharge Order (Routine); Ordered 11/18/20 Ordered By: Shawn Black Referrals: Shanti Simmons MD [Primary Care Provider] - Onle Villagran MD [Physician] - 1 week Discharge Diet: As Directed and Cardiac Discharge Activity: Resume usual activity Patient Instructions: Bowel Obstruction (DC) Activity Restrictions/Additional Instructions: -Continue oral hydration daily Discharge Attestations Time Spent in Discharge Care*: less than 30 min Quality Metrics Clinical Quality Measures During this hospital stay, did patient experience: None Coding Level of Care Code Acute Senior Animator for Chg Fwd Diagnoses Abdominal pain R10.9 Sepsis A41.9 Adynamic ileus K56.0 Postmenopausal bleeding N95.0 Hypoxia R09.02 Enteritis K52.9
--- NOTE | 2020-11-18 15:57 | XRR_ITS ---
PROCEDURE INFORMATION: Exam: XR Chest, 1 View Exam date and time: 11/18/2020 3:58 PM Age: 75 years old Clinical indication: Shortness of breath; Additional info: Increased oxygen requirement TECHNIQUE: Imaging protocol: XR of the chest Views: 1 view. COMPARISON: CR XR chest 1V portable [id number] 11/15/2020 10:18 PM FINDINGS: Lungs: Mild atelectasis in the left base. The right lung is clear. Azygos fissure. Pleural space: Unremarkable. No pleural effusion. No pneumothorax. Heart/Mediastinum: Unremarkable. No cardiomegaly. Bones/joints: Unremarkable. XR/XR chest 1V portable [id number] IMPRESSION: No acute findings.
[2020-11-18 16:48] LABS: ABG PCO2 32.9 mmHg (35-45); ABG PH Result 7.39 (7.35-7.45); Arterial Blood Gas Hematocrit 38.2 % (37-47); Base Excess ABG -4.2 mmol/L (-2.0-2.0); Blood Gas Allen Test Pos; Blood Gas Operator Identificat AH; Blood Gas Sample Site Radial, left; Blood Gas Sample Type Arterial; Oxygen Device ROOM AIR; PO2 ABG 57.9 mmHg (80.0-100.0)
[2020-11-18 17:08] LABS: NT Pro B Type Natriuretic Pept 3799 pg/mL (0-450)
--- NOTE | 2020-11-18 17:25 | PC.RESP ---
At 5 pm this RT ambulated patient in room using walker o2 sat dropped to 87 after 3 min. Placed patient on nasal cannula at 2 lpm and continued to walk patient. Pt o2 sat dropped to 82% after total of 7 min. Increased o2 to 4 lpm. Sat improved to 91%. Pt settled back in bed with o2 at 4 lpm. Will try to titrate o2 if patient tolerates.
--- NOTE | 2020-11-18 17:30 | ECG_ITS ---
[facility] Test Date: 2020-11-18 Pat Name: Radha Archer Department: Room: 279 Gender: Female Child Abuse Worker: SARAN STAPLES: 1945 Requested By: Shawn Black Order Number: [id number] Servando MD: Amari Toledo M.D. Measurements Intervals [place] Rate: 105 P: 63 ID: 169 QRS: -40 QRSD: 170 T: 93 QT: 371 QTc: 492 Interpretive Statements SINUS TACHYCARDIA MARKED LEFT AXIS DEVIATION [QRS AXIS < -30] LEFT BUNDLE BRANCH BLOCK [120+ ms QRS DURATION, 80+ ms Q/S IN V1/V2, 85+ ms R IN I/aVL/V5/V6] Compared to ECG 11/16/2020 16:08:42 Left-axis deviation now present Left bundle-branch block now present Intraventricular conduction delay no longer present Myocardial infarct finding no longer present Electronically Signed On 11-19-2020 11:00:50 MECHANIC WELDER TRUCK DRIVER by Amari Toledo M.D. [id number]
--- NOTE | 2020-11-18 17:31 | PM.PN ---
Subjective Subjective: Interval history: Patient was examined this morning, she is feeling better, abdomen less distended, her NG tube is clamped, she wants to see if she can get in the hospital today, she was seen by general surgery, who advised of clear liquid diet, NG tube removed, she tolerated well, there was plans on discharge, however patient is requiring 5 L oxygen, does have a history of COPD, but has never required oxygen, no history of heart failure, her CT angiogram on admission did not show pulmonary emboli on admission she was noted to have acute hypoxia Vitals/I&O/Wt Last Vital Signs Temp 98.1 F 11/18/20 15:33 Pulse 96 11/18/20 17:23 Resp 22 H 11/18/20 17:23 BP 151/101 11/18/20 15:33 Pulse Ox 97 11/18/20 17:23 11/18/20 11/18/20 11/18/20 06:59 14:59 22:59 Intake Total 1050 / 1450 1050 / 1050 Output Total 650 / 1050 750 / 750 Balance 400 / 400 300 / 300 Physical Exam Const: COMMON NORMALS: no acute distress and patient oriented x3 HENMT: COMMON NORMALS: normocephalic HEAD & SCALP: normocephalic Neck/C-Spine: COMMON NORMALS: no JVD Resp: COMMON NORMALS: normal respiratory effort, No retractions, No use of accessory muscles and clear to auscultation bilaterally AUSCULTATION: clear to auscultation bilaterally Cardio: COMMON NORMALS: no JVD, regular rate, regular rhythm, S1 normal heart sound present and S2 normal heart sound present RATE: regular rate RHYTHM: regular rhythm HEART SOUNDS: S1 normal heart sound present and S2 normal heart sound present GI: COMMON NORMALS: Normal to inspection, nondistended, normoactive bowel sounds present, Soft to palpation, non-tender, No hepatosplenomegaly present, no masses and no bruits PALPATION: Yes Soft to palpation and Yes No hepatosplenomegaly present Extremity: COMMON NORMALS: capillary refill normal, no clubbing, cyanosis or edema, no calf tenderness and no pedal edema Neuro: COMMON NORMALS: patient oriented x3 Psych: COMMON NORMALS: mental status grossly normal Data : 11/18/20 05:30 11/18/20 05:30 A&P Assessment and plan (1) Abdominal pain: Status: Acute (2) Sepsis: Status: Acute (3) Adynamic ileus: Status: Acute (4) Postmenopausal bleeding: Status: Acute (5) Hypoxia: Status: Acute (6) Enteritis: Status: Acute Additional A&P Information Abdominal pain secondary to small bowel obstruction secondary to surgical adhesions, and or ileus, with sepsis secondary to enteritis Criteria met with tachycardia, leukocytosis high lactic acid, Stop fluids Continue Follow blood cultures Dilaudid for pain, Zofran for nausea NG tube out, continue clears General surgery consulted Postmenopausal bleed 2.6 cm uterine mass High D-dimer currently hypoxic requiring 2 L nasal cannula CTA rule out PE was unremarkable for PE Uterine biopsy revealed endometrial polyp otherwise no malignancy Due for uterine surgery in November [address] angiogram was negative for PE, slight atelectasis, no focal pneumonia Repeat ABG this afternoon shows hypoxia, PO2 59 on room air Patient is not hypo ventilating Hiatal hernia found on CT abdomen Etiology BNP is elevated at 3700, did receive fluids, will give 1 dose of Lasix Cardiac echo and serial troponins ordered Constipation: Trial of enema and milk of magnesia to see if that would relieve her symptoms Previous colonoscopy revealed adenomatous polyp without any dysplasia GERD: Continue proton Full code Clear liquid DVT prophylaxis Heparin, SCDs Attestations Medical Necessity Statement*: Patient requires hospitalization for abdominal pain secondary to ileus, small bowel obstruction, now with hypoxia Coding Level of Care Code Acute Precinct Police Lieutenant for Chg Fwd Diagnoses Abdominal pain R10.9 Sepsis A41.9 Adynamic ileus K56.0 Postmenopausal bleeding N95.0 Hypoxia R09.02 Enteritis K52.9
[2020-11-18 18:02] LABS: Troponin(5th) Baseline 25 ng/L (0-10)
[2020-11-18] MEDS: FUROsemide 10 mg/mL SDV 4mL 40 MG IVP (18:33)
--- NOTE | 2020-11-18 19:30 | ECG_ITS ---
[facility] Test Date: 2020-11-18 Pat Name: Radha Archer Department: Room: 279 Gender: Female Architectural Technologist: SARAN STAPLES: 1945 Requested By: Shawn Black Order Number: [id number] Servando MD: Bianka Simons M.D. Measurements Intervals [place] Rate: 96 P: 32 SC: 148 QRS: -43 QRSD: 170 T: 90 QT: 389 QTc: 493 Interpretive Statements SINUS RHYTHM MARKED LEFT AXIS DEVIATION [QRS AXIS < -30] LEFT BUNDLE BRANCH BLOCK [120+ ms QRS DURATION, 80+ ms Q/S IN V1/V2, 85+ ms R IN I/aVL/V5/V6] Compared to ECG 11/18/2020 19:58:22 Sinus tachycardia no longer present Electronically Signed On 11-19-2020 10:00:29 EMERGENCY DEPARTMENT CLINICIAN by Bianka Simons M.D. [id number]
--- NOTE | 2020-11-18 23:30 | ECG_ITS ---
[facility] Test Date: 2020-11-18 Pat Name: Radha Archer Department: Room: 279 Gender: Female Activities Leader: SARAN STAPLES: 1945 Requested By: Shawn Black Order Number: [id number] Servando MD: Amari Toledo M.D. Measurements Intervals [place] Rate: 95 P: 55 HI: 180 QRS: -43 QRSD: 169 T: 90 QT: 392 QTc: 494 Interpretive Statements SINUS RHYTHM MARKED LEFT AXIS DEVIATION [QRS AXIS < -30] LEFT BUNDLE BRANCH BLOCK [120+ ms QRS DURATION, 80+ ms Q/S IN V1/V2, 85+ ms R IN I/aVL/V5/V6] Compared to ECG 11/18/2020 22:12:38 No significant changes Electronically Signed On 11-19-2020 11:03:29 AMMONIUM HYDROXIDE OPERATOR by Amari Toledo M.D. [id number]
[2020-11-19] VITALS (9 sets, daily range): BP systolic 125–153; BP diastolic 75–100; PULSE 88–107; RESP 15–22; TEMP 36.4–36.7; O2SAT 95–98
[2020-11-19] MEDS: famotidine 20 mg/2 mL INJ IVP ×2 (02:26→13:27)
[2020-11-19] MEDS: heparin 5,000 unit/mL INJ 1 mL 5000 UNIT SUBCUT ×2 (02:26→13:26)
[2020-11-19 04:02] LABS: ABG PCO2 34.7 mmHg (35-45); ABG PH Result 7.44 (7.35-7.45); Arterial Blood Gas Hematocrit 38.9 % (37-47); Base Excess ABG -0.5 mmol/L (-2.0-2.0); Blood Gas Allen Test Pos; Blood Gas Sample Type Arterial; HCO3 ABG 23.3 mmol/L (22-26); PO2 ABG 67.2 mmHg (80.0-100.0)
[2020-11-19 04:04] LABS: Oxygen Device NC
[2020-11-19 04:05] LABS: Blood Gas Sample Site LEFT RADIAL
[2020-11-19 06:15] LABS: Basophils # 0.1 10^3/uL (0.0-0.1); Basophils % 0.9 %; Eosinophils # 0.1 10^3/uL (0.0-0.8); Eosinophils % 0.9 %; Hematocrit 41.3 % (37.0-47.0); Hemoglobin 13.1 g/dL (11.5-15.3); Lymphocytes # 0.8 10^3/uL (0.8-4.8); Lymphocytes % 7.5 %; Mean Corpuscular HGB Conc 31.7 g/dL (30.0-36.0); Mean Corpuscular Hemoglobin 29.2 pg (28.0-34.0); Monocytes # 0.8 10^3/uL (0.2-0.9); Monocytes % 7.4 %; Neutrophils # 8.51 10^3/uL (1.8-7.7); Neutrophils % 82.5 %; Nucleated Red Blood Cells % 0 %; Platelet Count 196 10^3/cmm (130-400); Red Blood Count 4.49 10^6/uL (4.1-5.3); Red Cell Distribution Width 14.9 % (12.1-15.1); White Blood Count 10.3 10^3/uL (4.0-10.0)
--- NOTE | 2020-11-19 06:18 | P.PN_ITS ---
Subjective Subjective: Interval history: The patient started passing flatus yesterday and her nasogastric tube was removed. She tolerated a clear liquid diet and I believe arrangements were made for her to be discharged, but then she says her breathing became somewhat of an issue and they may send me home on oxygen. She says that she was tested for Covid 19 yesterday and is now scared to go home where she lives with her 93-year-old mother before getting the results. Vitals/I&O/Wt Last Vital Signs Temp 98.1 F 11/19/20 03:33 Pulse 98 11/19/20 03:33 Resp 20 H 11/19/20 03:33 BP 146/93 11/19/20 03:33 Pulse Ox 96 11/19/20 03:33 11/18/20 11/18/20 11/19/20 14:59 22:59 06:59 Intake Total 1050 / 1340 290 / 1340 Output Total 750 / 750 Balance 300 / 590 290 / 590 Physical Exam Narrative: EXAM NARRATIVE: Abdomen reveals bowel sounds and is soft. Data : 11/19/20 06:06 11/18/20 05:30 A&P Assessment and plan (1) Abdominal pain: Bowel function has returned and the patient is feeling better. Her pulmonary function has apparently become somewhat of an issue. Disposition per hospitalist team. I will advance her diet while she is still here. Status: Acute (2) Bowel obstruction: CT on admission reviewed. The patient does not appear to be completely obstructed, but may have somewhat of a chronic partial obstruction involving the mid small bowel. I think I can identify a possible transition point in the upper mid abdomen with some apparent fecalization of some small bowel contents proximal to this. She does have a long and tortuous colon with some retained stool, as well. Status: Acute (3) Recurrent ventral hernia: The patient had a recurrent abdominal hernia repaired back in January of 2020. She says the hernia repair did not last. She clearly has a hernia back and it is somewhat tender to palpation, but only contains fat on the CAT scan. Status: Acute Attestations Medical Necessity Statement*: See admitting service's notation. 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
[2020-11-19 06:36] LABS: Lactate (Lactic Acid level) 1.1 mmol/L (0.5-2.2)
[2020-11-19 06:43] LABS: NT Pro B Type Natriuretic Pept 5532 pg/mL (0-450); Procalcitonin 6.05 ng/mL (0-0.5)
[2020-11-19 06:55] LABS: Alanine Aminotransferase 25 U/L (0-33); Albumin Level 3.2 g/dL (3.5-5.2); Alkaline Phosphatase 71 IU/L (35-105); Anion Gap 15.1 (5-19); Aspartate Amino Transferase 29 U/L (0-32); Blood Urea Nitrogen 15 mg/dL (8-23); C Reactive Protein 266.9 mg/L (0.0-4.9); Calcium 8.6 mg/dL (8.5-10.5); Carbon Dioxide 24 mmol/L (22-29); Chloride 100 mmol/L (98-107); Creatinine Clr Calc Pharmacy 55.8288; Globulin 3.5 g/dL (1.3-4.6); Glucose 91 mg/dL (65-115); Osmolality Calculated 282 mOsm/kg (285-295); Potassium 3.1 mmol/L (3.5-5.1); Sodium 136 mmol/L (136-145); Total Bilirubin 0.5 mg/dL (0.15-1.2); Total Protein 6.7 g/dL (6.6-8.7)
--- NOTE | 2020-11-19 07:00 | XRR_ITS ---
PROCEDURE INFORMATION: Exam: XR Chest, 1 View Exam date and time: 11/19/2020 12:00 AM Age: 75 years old Clinical indication: Shortness of breath; Additional info: SOB TECHNIQUE: Imaging protocol: XR of the chest Views: Frontal portable upright view of the chest. COMPARISON: CR (CHEST, ) 11/18/2020 5:33 PM FINDINGS: Tubes, catheters and devices: EKG leads are present overlying the chest. Lungs: Mild left basilar pulmonary subsegmental atelectasis. The lungs are otherwise clear bilaterally. The pulmonary vasculature is normal. Pleural space: No pleural effusion. No pneumothorax. Heart/Mediastinum: The heart is normal in size and contour. Mediastinum: Stable. Bones/joints: Stable. XR/XR chest 1V portable [id number] IMPRESSION: Mild left basilar pulmonary subsegmental atelectasis.
--- NOTE | 2020-11-19 10:19 | USCV_ITS ---
Radha Archer Age: 75 Gender: F : 1945 Exam Date: 11/19/2020 13:48 Ordering Phys: Shawn Black MD Technologist: Donna Lorenzana Exam Location: [facility] – [place] Indication: Shortness of breath, hypoxia BP: 146 / 93 HR: 102 Rhythm: Sinus Technical Quality: Technically difficult study MEASUREMENTS (Male / Female) Normal Values 2D ECHO LV Chamber Size 3.5 cm RV Chamber Size 2.6 cm LVOT Diameter 2.0 cm LV Ejection Fraction MOD 2C 64.3 % LV Ejection Fraction 2C AL 65.0 % LA Diameter 2.9 cm LA Width 1.7 cm LA Height 4.4 cm RA Width 2.1 cm RA Height 3.9 cm Aorta at Sinotubular Diameter 2.9 cm M-MODE LV Diastolic Diameter MM 5.4 cm 4.2 - 5.9 / 3.9 - 5.3 cm LV Systolic Diameter MM 4.6 cm LV Ejection Fraction MM Teich 30.9 % IVS Diastolic Thickness MM 1.2 cm 0.6 - 1.0 / 0.6 - 0.9 cm IVS Systolic Thickness MM 1.4 cm LVPW Diastolic Thickness MM 1.3 cm 0.6 - 1.0 / 0.6 - 0.9 cm LVPW Systolic Thickness MM 1.5 cm Aortic Annulus Diameter 3.5 cm LA Ao Ratio MM 1.1 DOPPLER AV Peak Velocity 155.0 cm/s LVOT Peak Velocity 119.0 cm/s AV Area Cont Eq vti 2.2 cm squared AV Area Cont Eq pk 2.4 cm squared MV Area PHT 4.5 cm squared MV E' Velocity 110.0 cm/s TV Peak E Velocity 79.0 cm/s PV Peak Velocity 118.0 cm/s QpQs Shunt Ratio 2.3 RV Acceleration Time 0.1 s RV Ejection Time 0.2 s RV AcT/ET 0.4 FINDINGS Left Ventricle Normal left ventricular size. LV systolic function is moderate to severely reduced with EF of 30 to 35%. Moderate to severe global hypokinesis is noted. Diastolic function cannot be assessed because of tachycardia. Right Ventricle The right ventricle is normal in size and function. Right Atrium Not well-visualized. Left Atrium The left atrium is normal in size. Mitral Valve Grossly normal. There is trace mitral regurgitation. Aortic Valve Not well-visualized. No significant aortic stenosis or regurgitation is noted. Tricuspid Valve Not well-visualized. Insufficient TR jet to calculate RVSP. Pulmonic Valve Not well-visualized Pericardium Normal pericardium without effusion. Aorta Normal ascending aorta dimension. CONCLUSIONS This is a limited quality echocardiogram. Bubble study was ordered however could not be performed as atria are not well visualized. LV systolic function is moderately severely reduced with EF of 30 to 35%. Moderate to severe global hypokinesis is noted. Diastolic function cannot be assessed because of tachycardia Valves are not very well visualized, however no significant valvular abnormalities seen. Compared to prior echocardiogram from 09/18/2018, LV systolic function is significantly reduced now. Amari Toledo MD (Electronically Signed) Final Date: 19 November 2020 17:31 S
--- NOTE | 2020-11-19 10:50 | DCPLANNER ---
Pg 2 of IM updated and explained to pt. She is hoping that she gets to return home today. Copy provided.
[2020-11-19] MEDS: lidocaine 1% 5 ML in potassium chloride premix 100 ML 25 ML IV (11:01)
[2020-11-19] MEDS: FUROsemide 10 mg/mL SDV 4mL 40 MG IVP (11:08)
[2020-11-19] MEDS: piperacillin-tazobactam 3.375 GM in sodium chloride 0.9% (plus) 50 ML IV (17:24)
[2020-11-20] VITALS (15 sets, daily range): BP systolic 122–152; BP diastolic 87–95; PULSE 73–109; RESP 16–18; TEMP 36.4–36.5; O2SAT 90–99
[2020-11-20] MEDS: piperacillin-tazobactam 3.375 GM in sodium chloride 0.9% (plus) 50 ML IV (00:09)
[2020-11-20] MEDS: heparin 5,000 unit/mL INJ 1 mL 5000 UNIT SUBCUT ×2 (00:09→15:02)
[2020-11-20] MEDS: famotidine 20 mg/2 mL INJ IVP ×2 (01:29→14:50)
[2020-11-20 05:25] LABS: ABG PCO2 41.2 mmHg (35-45); ABG PH Result 7.41 (7.35-7.45); Arterial Blood Gas Hematocrit 38.2 % (37-47); Base Excess ABG 1.5 mmol/L (-2.0-2.0); Blood Gas Sample Type Arterial; HCO3 ABG 26.3 mmol/L (22-26); PO2 ABG 80.8 mmHg (80.0-100.0)
[2020-11-20 05:27] LABS: Blood Gas Operator Identificat HARKR; Blood Gas Sample Site Brachial, right; Oxygen Device NC
[2020-11-20] MEDS: ipratropium-albuterol 3 mL Neb INHALATION ×2 (05:48→12:15)
[2020-11-20 07:07] LABS: Basophils # 0.1 10^3/uL (0.0-0.1); Basophils % 0.8 %; Eosinophils # 0.1 10^3/uL (0.0-0.8); Eosinophils % 0.7 %; Hematocrit 38.6 % (37.0-47.0); Hemoglobin 12.2 g/dL (11.5-15.3); Lymphocytes # 1.1 10^3/uL (0.8-4.8); Lymphocytes % 10.5 %; Mean Corpuscular HGB Conc 31.6 g/dL (30.0-36.0); Mean Corpuscular Hemoglobin 29.2 pg (28.0-34.0); Mean Corpuscular Volume 92.3 fL (81-99); Mean Platelet Volume 11.4 fL (7.4-10.4); Monocytes # 1.2 10^3/uL (0.2-0.9); Monocytes % 11.2 %; Neutrophils # 7.79 10^3/uL (1.8-7.7); Neutrophils % 75.3 %; Nucleated Red Blood Cells % 0 %; Platelet Count 181 10^3/cmm (130-400); Red Blood Count 4.18 10^6/uL (4.1-5.3); White Blood Count 10.3 10^3/uL (4.0-10.0)
[2020-11-20 07:38] LABS: NT Pro B Type Natriuretic Pept 3492 pg/mL (0-450); Procalcitonin 3.18 ng/mL (0-0.5)
[2020-11-20 07:49] LABS: Alanine Aminotransferase 20 U/L (0-33); Albumin Level 2.8 g/dL (3.5-5.2); Alkaline Phosphatase 66 IU/L (35-105); Blood Urea Nitrogen 14 mg/dL (8-23); C Reactive Protein 129.3 mg/L (0.0-4.9); Calcium 8.9 mg/dL (8.5-10.5); Carbon Dioxide 23 mmol/L (22-29); Chloride 97 mmol/L (98-107); Creatinine Clr Calc Pharmacy 62.8074; Globulin 3.3 g/dL (1.3-4.6); Glucose 109 mg/dL (65-115); Osmolality Calculated 277 mOsm/kg (285-295); Phosphorus 1.8 mg/dL (2.5-4.5); Sodium 133 mmol/L (136-145); Total Bilirubin 0.4 mg/dL (0.15-1.2); Total Protein 6.1 g/dL (6.6-8.7)
[2020-11-20 07:50] LABS: Anion Gap 16.7 (5-19); Aspartate Amino Transferase 22 U/L (0-32); Potassium 3.7 mmol/L (3.5-5.1)
--- NOTE | 2020-11-20 09:00 | P.PN_ITS ---
Subjective Subjective: Interval history: This is progress note from 11/19/2020 This morning, patient has no complaints, she is actually quite feeling well, has had a bowel movement, abdomen less distended, passing gas, tolerating her diet well, no nausea, no vomiting, she is still on 5 L, 5 L with exertion, does have a history of COPD in the remote past, denies any chest pain, denies any shortn ess of breath with exertion, denies any significant cardiac history, does tell me that she had a history of a hole in her heart long time ago, Vitals/I&O/Wt Last Vital Signs Temp 97.5 F L 11/20/20 04:00 Pulse 73 11/20/20 08:50 Resp 18 11/20/20 05:48 BP 146/94 11/20/20 04:00 Pulse Ox 96 11/20/20 08:50 11/19/20 11/20/20 11/20/20 22:59 06:59 14:59 Intake Total 290 / 650 Output Total 200 / 201 200 / 401 Balance 90 / 449 -200 / 249 Physical Exam Const: COMMON NORMALS: no acute distress and patient oriented x3 HENMT: COMMON NORMALS: normocephalic HEAD & SCALP: normocephalic Neck/C-Spine: COMMON NORMALS: no JVD Resp: COMMON NORMALS: normal respiratory effort, No retractions, No use of accessory muscles and clear to auscultation bilaterally AUSCULTATION: clear to auscultation bilaterally Cardio: COMMON NORMALS: no JVD, regular rate, regular rhythm, S1 normal heart sound present and S2 normal heart sound present RATE: regular rate RHYTHM: regular rhythm HEART SOUNDS: S1 normal heart sound present and S2 normal heart sound present GI: COMMON NORMALS: Normal to inspection, nondistended, normoactive bowel sounds present, Soft to palpation, non-tender, No hepatosplenomegaly present, no masses and no bruits PALPATION: Yes Soft to palpation and Yes No hepato splenomegaly present Extremity: COMMON NORMALS: capillary refill normal, no clubbing, cyanosis or edema, no calf tenderness and no pedal edema Neuro: COMMON NORMALS: patient oriented x3 Psych: COMMON NORMALS: mental status grossly normal Data : 11/20/20 06:55 11/20/20 06:55 A&P Assessment and plan (1) Abdominal pain: Status: Acute (2) Sepsis: Status: Acute (3) Adynamic ileus: Status: Acute (4) Postmenopausal bleeding: Status: Acute (5) Hypoxia: Status: Acute (6) Enteritis: Status: Acute Additional A&P Information Abdominal pain secondary to small bowel obstruction secondary to surgical adhesions, and or ileus, with sepsis secondary to enteritis Criteria met with tachycardia, leukocytosis high lactic acid, Stop fluids Continue Follow blood cultures Dilaudid for pain, Zofran for nausea NG tube out, continue clears General surgery consulted Postmenopausal bleed 2.6 cm uterine mass High D-dimer currently hypoxic requiring 2 L nasal cannula CTA rule out PE was unremarkable for PE Uterine biopsy revealed endometrial polyp otherwise no malignancy Due for uterine surgery in November 2020 Acute hypoxia Confirmed on multiple ABGs CT angiogram was negative for PE, slight atelectasis, no focal pneumonia Repeat ABG this afternoon shows hypoxia, PO2 59 on room air Patient is not hypo ventilating Hiatal hernia found on CT abdomen Etiology BNP is elevated at 3700, did receive fluids, giving Lasix daily denies any chest pain, shortness of breath, any cardiac history She tells me that she has a hole in her heart, I am wondering if this is playing a role, causing [id number] shunting and hypoxia with ABGs Serial troponins, as high as 30, no significant delta, EKG no acute ST-T wave changes I have talked to cardiology about doing a contrast bubble study Rapid Covid negative, just in case in order to Covid PCR, however the likelihood of Covid is very unlikely As she denies fevers, shortness of breath, loss of taste, loss of smell, sinus symptoms Constipation: Trial of enema and milk of magnesia to see if that would relieve her symptoms Previous colonoscopy revealed adenomatous polyp without any dysplasia GERD: Continue proton Full code Clear liquid DVT prophylaxis Heparin, SCDs Attestations Medical Necessity Statement*: Progress note from 11/19/2020, patient requires hospitalization inpatient, for hypoxia, 5 L oxygen, etiology to be determined Coding Level of Care Code 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
[2020-11-20] MEDS: atorvastatin 40 mg Tablet PO (09:32)
[2020-11-20] MEDS: aspirin 81 mg EC Tablet PO (09:32)
[2020-11-20] MEDS: carvedilol 3.125 mg Tablet PO ×2 (09:32→17:53)
[2020-11-20] MEDS: FUROsemide 10 mg/mL SDV 4mL 40 MG IVP (09:33)
--- NOTE | 2020-11-20 09:54 | PM.PN ---
Subjective Subjective: Interval history: The patient reports continued flatus and is eating without problems. She says that cardiology is going to see her. They found a little heart problem. Vitals/I&O/Wt Last Vital Signs Temp 97.5 F L 11/20/20 08:00 Pulse 73 11/20/20 08:50 Resp 18 11/20/20 08:00 BP 152/95 11/20/20 08:00 Pulse Ox 96 11/20/20 08:50 11/19/20 11/20/20 11/20/20 22:59 06:59 14:59 Intake Total 290 / 650 120 / 120 Output Total 200 / 401 200 / 401 Balance 90 / 249 -200 / 249 120 / 120 Physical Exam Narrative: EXAM NARRATIVE: Bowel sounds are present. Abdomen is nondistended. Data : 11/20/20 06:55 11/20/20 06:55 A&P Assessment and plan (1) Abdominal pain: Bowel function has returned and the patient is feeling better. Her pulmonary/cardiac function has apparently become somewhat of an issue. Disposition per hospitalist team. The patient is improved. I will not continue to see her daily but will try to follow peripherally. Please call if I can be of further assistance. Status: Acute (2) Bowel obstruction: CT on admission reviewed. The patient does not appear to be completely obstructed, but may have somewhat of a chronic partial obstruction involving the mid small bowel. I think I can identify a possible transition point in the upper mid abdomen with some apparent fecalization of some small bowel contents proximal to this. She does have a long and tortuous colon with some retained stool, as well. Status: Acute (3) Recurrent ventral hernia: The patient had a recurrent abdominal hernia repaired back in January of 2020. She says the hernia repair did not last. She clearly has a hernia back and it is somewhat tender to palpation, but only contains fat on the CAT scan. Status: Acute Attestations Medical Necessity Statement*: See admitting service's notation. 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
--- NOTE | 2020-11-20 11:26 | PM.PN ---
Subjective Subjective: Interval history: Patient was examined this morning she tells me that she had chest pain, chest pain she has been noticing that she is more short of breath with exertion, no lightheadedness, no dizziness, no nocturnal dyspnea, no chest pain currently, no shortness of breath currently, she did have a bowel movement this morning, she is passing Vitals/I&O/Wt Last Vital Signs Temp 97.5 F L 11/20/20 08:00 Pulse 73 11/20/20 08:50 Resp 18 11/20/20 08:00 BP 152/95 11/20/20 08:00 Pulse Ox 96 11/20/20 08:50 11/19/20 11/20/20 11/20/20 22:59 06:59 14:59 Intake Total 290 / 650 120 / 120 Output Total 200 / 201 200 / 401 Balance 90 / 449 -200 / 249 120 / 120 Physical Exam Const: COMMON NORMALS: no acute distress and patient oriented x3 HENMT: COMMON NORMALS: normocephalic HEAD & SCALP: normocephalic Neck/C-Spine: COMMON NORMALS: no JVD Resp: COMMON NORMALS: normal respiratory effort, No retractions, No use of accessory muscles and clear to auscultation bilaterally AUSCULTATION: clear to auscultation bilaterally Cardio: COMMON NORMALS: no JVD, regular rate, regular rhythm, S1 normal heart sound present and S2 normal heart sound present RATE: regular rate RHYTHM: regular rhythm HEART SOUNDS: S1 normal heart sound present and S2 normal heart sound present GI: COMMON NORMALS: Normal to inspection, nondistended, normoactive bowel sounds present, Soft to palpation, non-tender, No hepatosplenomegaly present, no masses and no bruits PALPATION: Yes Soft to palpation and Yes No hepatosplenomegaly present Extremity: COMMON NORMALS: capillary refill normal, no clubbing, cyanosis or edema, no calf tenderness and no pedal edema Neuro: COMMON NORMALS: patient oriented x3 Psych: COMMON NORMALS: mental status grossly normal Data : 11/20/20 06:55 11/20/20 06:55 A&P Assessment and plan (1) Abdominal pain: Status: Acute (2) Sepsis: Status: Acute (3) Adynamic ileus: Status: Acute (4) Postmenopausal bleeding: Status: Acute (5) Hypoxia: Status: Acute (6) Enteritis: Status: Acute (7) Systolic CHF: Status: Acute (8) Systolic CHF: Status: Acute Additional A&P Information Abdominal pain secondary to small bowel obstruction secondary to surgical adhesions, and or ileus, with sepsis secondary to enteritis Clinically doing better Currently on a GI soft diet Having bowel movements, passing gas Dilaudid for pain, Zofran for nausea General surgery consulted Postmenopausal bleed 2.6 cm uterine mass High D-dimer currently hypoxic requiring 2 L nasal cannula CTA rule out PE was unremarkable for PE Uterine biopsy revealed endometrial polyp otherwise no malignancy Due for uterine surgery in November 2020 Acute hypoxia Likely secondary to fluid overload and systolic CHF Confirmed on multiple ABGs CT angiogram was negative for PE, slight atelectasis, no focal pneumonia Repeat ABG this afternoon shows hypoxia, PO2 59 on room air Patient is not hypo ventilating Hiatal hernia found on CT abdomen Etiology BNP is elevated at 3700, did receive fluids, giving Lasix daily denies any chest pain, shortness of breath, any cardiac history She tells me that she has a hole in her heart, I am wondering if this is playing a role, causing [id number] shunting and hypoxia with ABGs Serial troponins, as high as 30, no significant delta, EKG no acute ST-T wave changes Rapid Covid negative, just in case in order to Covid PCR, however the likelihood of Covid is very unlikely As she denies fevers, shortness of breath, loss of taste, loss of smell, sinus symptoms Systolic CHF, patient's echocardiogram results yesterday showed: -This is a limited quality echocardiogram. Bubble study was ordered however could not be performed as atria are not well visualized. LV systolic function is moderately severely reduced with EF of 30 to 35%. Moderate to severe global hypokinesis is noted. Diastolic function cannot be assessed because of tachycardia Valves are not very well visualized, however no significant valvular abnormalities seen. Compared to prior echocardiogram from 09/18/2018, LV systolic function is significantly reduced now. -Patient's oxygen requirements have decreased to 3 L with diuresis, Lasix 40 mg IV push daily -On aspirin, statin, Coreg -The question is does patient have ischemic versus nonischemic cardiomyopathy -I have consulted Dr. 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
--- NOTE | 2020-11-20 14:10 | ECG_ITS ---
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 Measurements Intervals [place] Rate: 97 P: 27 [place]: 172 QRS: -42 QRSD: 150 T: 124 QT: 385 QTc: 490 Interpretive Statements SINUS RHYTHM INTRAVENTRICULAR CONDUCTION DELAY [130+ ms QRS DURATION] LATERAL MYOCARDIAL INFARCTION [40+ ms Q WAVE AND/OR ST/T ABNORMALITY IN I/aVL/V5/V6], PROBABLY RECENT Compared to ECG 11/18/2020 23:38:53 Intraventricular conduction delay now present Myocardial infarct finding now present Left-axis deviation no longer present Left bundle-branch block no longer present Electronically Signed On 11-20-2020 16:49:26 [employer] by Amari Toledo M.D. [id number]
[2020-11-20] MEDS: amlodipine 10 mg Tablet PO (14:49)
[2020-11-20 16:07] LABS: Quest SARS-CoV-2 RNA NOT DETECTED (NOT DETECTED)
[2020-11-20 16:14] LABS: Troponin T (5th) Once 21 ng/L (0-10)
--- NOTE | 2020-11-20 17:05 | PC.RESP ---
Pulmonary Rehab information sent to patient.
--- NOTE | 2020-11-20 17:42 | PM.CONSULT ---
Providers/Reason For Consult Consulting Physican/Specialty*: SANTOS Peter MD/cardiology Reason for Consult*: Patient with worsening shortness of breath, elevated troponin T Attending Physician: Shawn Black MD Primary Care Provider: Shanti Simmons MD History of Present Illness History of Present Illness Radha Archer is a 75 year old female is admitted to hospital through the emergency room where she presented with complaints of abdominal pain and increasing shortness of breath. She was found to have features of enteritis/sepsis. She was found to be somewhat hypoxic. The COVID-19 rapid test was negative. The PCR RT is pending. The CT of the pulmonary artery was unremarkable with no evidence of pulmonary embolism. She had an echocardiogram done which revealed diffuse hypokinesia left ventricular ejection fraction around 30 to 35%. She apparently has no chest pain. Denies any palpitation. She has the baseline shortness of breath no COPD. However for the last couple of weeks, the shortness of breath has been getting worse. Denies any fever or chills. No significant cough. She has mainly lower abdominal pain. It is cramping in nature. She had some ileus on the x-ray. Patient apparently has a history of chronic abdominal pain and some shortness of breath with activities/known to have COPD. In 2013, she was evaluated for new EKG evidence of left bundle branch block. She had a cardiac utilization at that time. She was found to have no significant obstructive coronary artery disease. 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 Otherwise the study was unremarkable. She had few hospital admissions in the past for chest pains. An echocardiogram during this hospital admission which revealed an LV ejection fraction of 30 to 35%.(35 to 40%, visual) Shortness of breath seems to be waxing and waning. She denies any chest pain at all. Review of Systems Narrative: CONSTITUTIONAL: No fever or chills. EYES: No blurring of vision or other visual disturbances lately. ENT: No hoarseness of voice, auditory disturbances or sore throat. CARDIOVASCULAR: As mentioned above. RESPIRATORY: As mentioned above GASTROINTESTINAL: Lower abdominal pain as mentioned above GENITOURINARY: No dysuria or hematuria. INTEGUMENTARY: No skin rashes or history of skin cancer. NEURO: No transient ischemic attacks or amaurosis. PSYCHIATRIC: No history of psychosis or major depression. HEMATOLOGIC: No bleeding disorders or significant anemia. ENDOCRINE: No history of polyuria or polydipsia. MUSCULOSKELETAL: No recent joint pain or swelling. ALLERGY/IMMUNOLOGY: As mentioned above. Meds/Allergies Home Medications and Allergies Home Medications Medication Instructions Recorded Confirmed Last Taken Type aspirin 81 mg tablet,delayed 81 mg PO DAILY@1000 11/29/19 11/15/20 11/14/20 History release albuterol sulfate 90 mcg/actuation 2 puff INHALATION Q6H PRN #8.5 gm 12/20/19 11/15/20 01/22/20 Rx aerosol inhaler alendronate 70 mg tablet 70 mg PO Q7D #4 tab 02/08/20 11/15/20 11/06/20 Rx multivitamin 1 tab PO DAILY@1000 05/11/20 11/15/20 11/14/20 History omega-3 fatty acids 1,000 mg 1,000 mg PO DAILY@1000 05/11/20 11/15/20 11/14/20 History capsule cetirizine 10 mg tablet 10 mg PO DAILY PRN #30 tab 07/03/20 11/15/20 Unknown Rx lorazepam 0.5 mg tablet 0.5 mg PO BID PRN #60 tab 10/18/20 11/15/20 11/14/20 Rx Colace 100 mg PO BID@11/15/20 11/15/20 11/14/20 History Flonase Allergy Relief 2 spray INTRANASAL DAILY@1000 11/15/20 11/15/20 11/14/20 History Lunesta 3 mg PO BEDTIME@219911/15/20 11/15/20 11/14/20 History Multi For Her 50 Plus 1 cap PO DAILY@1000 11/15/20 11/15/20 11/14/20 History Probiotic 1 tab PO DAILY@1000 11/15/20 11/15/20 11/14/20 History Protonix 40 mg PO BID@1000,219911/15/20 11/15/20 11/14/20 History celecoxib 200 mg PO BID@11/15/20 11/15/20 11/14/20 History cyclobenzaprine 10 mg PO BEDTIME@22011/15/20 11/15/20 11/14/20 History hydrochlorothiazide 25 mg PO DAILY@1000 11/15/20 11/15/20 11/14/20 History levothyroxine 25 mcg PO DAILY@1000 11/15/20 11/15/20 11/14/20 History lisinopril 30 mg PO DAILY@1000 11/15/20 11/15/20 11/14/20 History metoprolol succinate 50 mg PO DAILY@1000 11/15/20 11/15/20 11/14/20 History venlafaxine 150 mg PO DAILY@1000 11/15/20 11/15/20 11/14/20 History amoxicillin-pot clavulanate 1 tab PO Q12H 7 Days #14 tab 11/18/20 Unknown Rx [Augmentin] Allergies Allergy/AdvReac Type Severity Reaction Status Date / Time No Known Allergies Allergy Verified 11/16/20 12:58 Current Medications Current Medications Generic Name Dose Route Start Last Admin Trade Name Freq PRN Reason Stop Dose Admin Albuterol/Ipratropium 3 ml 11/20/20 05:31 11/20/20 12:15 Ipratropium-Albuterol 3 Ml Neb INHALATION 3 ml Q6H.RESPIRATORY PRN Administration SHORTNESS OF BREATH Amlodipine Besylate 10 mg 11/20/20 14:15 11/20/20 14:49 Amlodipine 10 Mg Tablet PO 10 mg ONCE RENAE Administration Aspirin 81 mg 11/20/20 09:00 11/20/20 09:32 Aspirin 81 Mg Ec Tablet PO 81 mg DAILY RENAE Administration Atorvastatin Calcium 40 mg 11/20/20 09:00 11/20/20 09:32 Atorvastatin 40 Mg Tablet PO 40 mg DAILY RENAE Administration Carvedilol 3.125 mg 11/20/20 09:00 11/20/20 09:32 Carvedilol 3.125 Mg Tablet PO 3.125 mg BID RENAE Administration Famotidine 20 mg 11/16/20 13:30 11/20/20 14:50 Famotidine 20 Mg/2 Ml Inj IVP 20 mg Q12H RENAE Administration Heparin Sodium (Beef Lung) 5,000 unit 11/16/20 13:00 11/20/20 15:02 Heparin 5,000 Unit/Ml Inj 1 Ml SUBCUT 5,000 unit Q12H RENAE Administration PFSH Acute PFSH: Medical History Anxiety and depression Constipation COPD (chronic obstructive pulmonary disease) Coronary artery fistula Diverticulosis Dyslipidemia Elevated troponin Endometriosis GERD (gastroesophageal reflux disease) Hiatal hernia History of colon polyps Hypertension Insomnia LBBB (left bundle branch block) Left ventricular dysfunction Nonischemic cardiomyopathy PTSD (post-traumatic stress disorder) Subclinical hypothyroidism Surgical History History of ear surgery (~2017) Right -- removal of fluid from ear drum, removal of ear drum, replaced with artifical ear drum History of incisional hernia repair X 3 01/24/2020: Laparoscopic History of left oophorectomy partial History of shoulder surgery Right History of tonsillectomy Status post colonoscopy with polypectomy 12/2019 --2 adenomatous polyps, diverticulosis Family History Grandmother Colon cancer Maternal-- dx age 69 Breast cancer Paternal-- dx age unknown Mother Heart disease Denies family history of Ovarian cancer Diabetes Hypercholesteremia Bleeding disorder Hypertension Uterine cancer Thyroid disease Stroke Social History Smoking and tobacco status: former smoker Quit status (tobacco): has quit using tobacco Year quit tobacco: Around 1999 Former quit date comment: [id number] history previously Alcohol intake: current Alcohol intake frequency: few times a month Additional social history: Drug use: denies Vitals/I&O/Wt Last Vital Signs Temp 97.6 F 11/20/20 15:17 Pulse 92 11/20/20 15:17 Resp 18 11/20/20 15:17 BP 150/90 11/20/20 15:17 Pulse Ox 94 11/20/20 15:17 11/20/20 11/20/20 11/20/20 06:59 14:59 22:59 Intake Total 360 / 360 Output Total 200 / 401 Balance -200 / 249 360 / 360 Physical Exam Narrative: EXAM NARRATIVE: GENERAL: The patient is alert and oriented times three. Complaining of lower abdominal pain. HEENT: Minimal pallor. No icterus or lymphadenopathy. The pupils are reactant to light. Oral cavity: There are no mucous membrane lesions. Funduscopic examination: The disk margins appear to be sharp with no exudates or hemorrhages. NECK: Trachea appears to be central. No masses noted. No JVD or thyromegaly appreciated. No carotid bruit. RESPIRATORY: Chest is symmetrical. No intercostals muscle retraction or any accessory muscle activation. There is no chest wall tenderness. Breath sounds are heard bilaterally. No rales or rhonchi heard. No evidence of any consolidation. BREASTS: Deferred. HEART: The PMI could not be palpated. No other palpable precordial events. First and second heart sounds are normal. No S3. Short systolic murmur in the mitral area. No diastolic murmurs. No pericardial rub. ABDOMEN: No vessel pulsations or distention. No tenderness. No organomegaly appreciated. No abdominal bruit. Bowel sounds are normally heard. : Deferred. RECTAL: Deferred. LYMPHATIC: No lymphadenopathy noted in the neck or groin. EXTREMITIES: No edema or cyanosis. No clubbing. The pulses are symmetrical bilaterally. The radial, femoral, dorsalis pedis and the posterior tibial pulses are palpated and found to be in good volume and amplitude. MUSCULOSKELETAL: Gait is normal. There is no joint deformity or swelling noted. No joint tenderness or any effusion. The shoulder and hip joints appear to have normal range of motion. SKIN: There are no significant scars or skin rash noted. NEUROPSYCHIATRIC: Patient is somewhat drowsy and answers to most of the questions by yes or no. Data Labs: Other Labs: Laboratory Last Values WBC 10.3 10^3/uL (4.0 -10.0) H 11/20/20 06:55 RBC 4.18 10^6/uL (4.1 -5.3) 11/20/20 06:55 Hgb 12.2 g/dL (11.5-1 5.3) 11/20/20 06:55 Hct 38.6 % (37.0-47.0 ) 11/20/20 06:55 MCV 92.3 fL (81-99) 11/20/20 06:55 MCH 29.2 pg (28.0-34. 0) 11/20/20 06:55 MCHC 31.6 g/dL (30.0-3 6.0) 11/20/20 06:55 RDW 15.0 % (12.1-15.1 ) 11/20/20 06:55 Plt Count 181 10^3/cmm (130 -400) 11/20/20 06:55 MPV 11.4 fL (7.4-10.4 ) H 11/20/20 06:55 Neut % (Auto) 75.3 % 11/20/20 06:55 Lymph % (Auto) 10.5 % 11/20/20 06:55 [place] % (Auto) 11.2 % 11/20/20 06:55 Eos % (Auto) 0.7 % 11/20/20 06:55 Baso % (Auto) 0.8 % 11/20/20 06:55 Neut # (Auto) 7.79 10^3/uL (1.8 -7.7) H 11/20/20 06:55 Lymph # (Auto) 1.1 10^3/uL (0.8- 4.8) 11/20/20 06:55 [place] # (Auto) 1.2 10^3/uL (0.2- 0.9) H 11/20/20 06:55 Eos # (Auto) 0.1 10^3/uL (0.0- 0.8) 11/20/20 06:55 Baso # (Auto) 0.1 10^3/uL (0.0- 0.1) 11/20/20 06:55 Nucleated RBC % (a uto) 0 % 11/20/20 06:55 Nucleated RBCs # 0.0 /100WBC 11/20/20 06:55 D-Dimer 2.53 ug/mIFEU (0- 0.59) H 11/15/20 22:25 Specimen Type Arterial 11/20/20 05:00 Sample Site Brachial, right 11/20/20 05:00 ABG pH 7.41 (7.35-7.45) 11/20/20 05:00 ABG pCO2 41.2 mmHg (35-45) 11/20/20 05:00 ABG pO2 80.8 mmHg (80.0-1 00.0) 11/20/20 05:00 ABG HCO3 26.3 mmol/L (22-2 6) H 11/20/20 05:00 ABG Base Excess 1.5 mmol/L (-2.0- 2.0) 11/20/20 05:00 Jeff Test N/a 11/20/20 05:00 Hematocrit 38.2 % (37-47) 11/20/20 05:00 O2 Delivery Device Nc 11/20/20 05:00 O2 Liters/Min 3.0 % 11/20/20 05:00 FiO2 36.0 % 11/19/20 03:50 Chief Of Surgery ID Alejandro 11/20/20 05:00 Sodium 133 mmol/L (136-1 45) L 11/20/20 06:55 Potassium 3.7 mmol/L (3.5-5 .1) 11/20/20 06:55 Chloride 97 mmol/L (98-107 ) L 11/20/20 06:55 Carbon Dioxide 23 mmol/L (22-29) 11/20/20 06:55 Anion Gap 16.7 (5-19) 11/20/20 06:55 BUN 14 mg/dL (8-23) 11/20/20 06:55 Creatinine 0.7 mg/dL (0.5-0. 9) 11/20/20 06:55 GFR Calculation Not Reportable 11/20/20 06:55 Glucose 109 mg/dL (65-115 ) 11/20/20 06:55 POC Glucose 119 mg/dL (70-110 ) H 11/17/20 11:56 Calculated Osmolal ity 277 mOsm/kg (285- 295) L 11/20/20 06:55 Lactate 1.1 mmol/L (0.5-2 .2) 11/19/20 06:06 Calcium 8.9 mg/dL (8.5-10 .5) 11/20/20 06:55 Phosphorus 1.8 mg/dL (2.5-4. 5) L 11/20/20 06:55 Magnesium 2.0 mg/dL (1.7-2. 3) 11/20/20 06:55 Total Bilirubin 0.4 mg/dL (0.15-1 .2) 11/20/20 06:55 AST 22 U/L (0-32) 11/20/20 06:55 ALT 20 U/L (0-33) 11/20/20 06:55 Alkaline Phosphata se 66 IU/L (35-105) 11/20/20 06:55 Troponin T Gen 5 n g/L 21 ng/L (0-10) H 11/20/20 15:24 Troponin T Baselin e 25 ng/L (0-10) H 11/18/20 16:36 Troponin T 120 Min marin 29.70 ng/L (0-10) H 11/18/20 18:36 Delta Troponin T 4.70 ABS# (0-10) 11/18/20 18:36 Troponin T Hi Sens 6Hr 32.00 ng/L (0-10) H 11/18/20 22:39 Troponin T Hi Sens 6Hr Delta 7.00 ng/L (0-12) 11/18/20 22:39 C-Reactive Protein 129.3 mg/L (0.0-4 .9) H 11/20/20 06:55 NT-Pro-B Natriuret Pep 3492 pg/mL (0-450 ) H 11/20/20 06:55 Total Protein 6.1 g/dL (6.6-8.7 ) L 11/20/20 06:55 Albumin 2.8 g/dL (3.5-5.2 ) L 11/20/20 06:55 Globulin 3.3 g/dL (1.3-4.6 ) 11/20/20 06:55 Procalcitonin 3.18 ng/mL (0-0.5 ) H 11/20/20 06:55 Urine Color Dark yellow (Yel low) 11/15/20 18:37 Urine Appearance Hazy (CLEAR) A 11/15/20 18:37 Urine pH 6 (5-7) 11/15/20 18:37 Ur Specific Gravit y 1.015 (1.005-1.0 30) 11/15/20 18:37 Urine Protein Trace (Negative) 11/15/20 18:37 Urine Glucose (UA) Norm (Normal) 11/15/20 18:37 Urine Ketones Negative (Negati ve) 11/15/20 18:37 Urine Blood 2+ (Negative) H 11/15/20 18:37 Urine Nitrate Negative (Negati ve) 11/15/20 18:37 Urine Bilirubin Neg (Negative) 11/15/20 18:37 Urine Urobilinogen Norm mg/dL (Negat yahaira) 11/15/20 18:37 Ur Leukocyte Cayla ase Negative (Negati ve) 11/15/20 18:37 Urine RBC 50-80 /hpf (0-2) H 11/15/20 18:37 Urine WBC None /hpf (0-5) 11/15/20 18:37 Ur Squamous Epith Cells 15-25 /hpf (0-5) H 11/15/20 18:37 Amorphous Sediment Not Reportable 11/15/20 18:37 Urine Bacteria 1+ /hpf (NONE) H 11/15/20 18:37 SARS-CoV-2 RNA (RT -PCR) Not detected (NO T DETECTED) 11/19/20 03:30 SARS-CoV-2 Ag (Rap id) Negative (Negati ve) 11/16/20 01:50 A&P Assessment and plan (1) Elevated troponin: Most likely this is a type II myocardial infarction. In view of the underlying chronic left bundle branch block and history of no obstructive coronary disease 7 years ago, possibility of patient developing significant coronary lesion causing ischemia may be low. But this cannot be excluded. Status: Acute (2) Abdominal pain: Most likely related to the enteritis. This needs to be further evaluated. Status: Acute Qualifiers: Abdominal location: periumbilical Qualified Code(s): R10.33 - Periumbilical pain (3) Enteritis: As mentioned above Status: Acute (4) Nonischemic cardiomyopathy: Most likely the patient may have nonischemic cardiomyopathy with acute exacerbation. Because of the drop in the LV ejection fraction to the previous echocardiogram, might be appropriate to do a myocardial perfusion imaging, to further evaluate the coronary status. Status: Acute Additional A&P Information We may go ahead and schedule the patient for a myocardial perfusion imaging tomorrow, if the patient is clinically okay for doing the procedure. Thank you for the opportunity to evaluate this patient make these recommendations Consult Attestations Medical Necessity Statement: Patient requires continued hospital stay for close monitoring and further management Coding Level of Care Code Acute Shoe Repair Cobbler for Chg Fwd Diagnoses Elevated troponin R77.8 Abdominal pain R10.33 Abdominal location: periumbilical Enteritis K52.9 Nonischemic cardiomyopathy I42.8
[2020-11-20] MEDS: morphine 4 mg/mL SDV 1 mL 1 MG IVP (21:34)
[2020-11-21] VITALS (65 sets, daily range): BP systolic 67–116; BP diastolic 43–88; PULSE 72–99; RESP 10–32; TEMP 36.2–37.2; O2SAT 90–100
[2020-11-21] MEDS: famotidine 20 mg/2 mL INJ IVP ×2 (01:14→17:20)
[2020-11-21] MEDS: heparin 5,000 unit/mL INJ 1 mL 5000 UNIT SUBCUT (01:14)
[2020-11-21] MEDS: sodium chloride 0.9% 1,000 ML 999 ML IV ×2 (01:50→04:35)
--- NOTE | 2020-11-21 03:05 | PC.NURSE ---
AID did manual BP 92/68 map 76. Will continue to monitor.
[2020-11-21 05:41] LABS: ABG PCO2 29.5 mmHg (35-45); ABG PH Result 7.47 (7.35-7.45); Arterial Blood Gas Hematocrit 42.5 % (37-47); Base Excess ABG -1.1 mmol/L (-2.0-2.0); Blood Gas Allen Test Pos; Blood Gas LPM 3.5 %; Blood Gas Sample Site Radial, right; Blood Gas Sample Type Arterial; HCO3 ABG 21.5 mmol/L (22-26); Oxygen Device NC; PO2 ABG 60.1 mmHg (80.0-100.0)
--- NOTE | 2020-11-21 06:56 | XR_ITS ---
WS: [id number] Exam: XR chest 1V portable [id number] Date/Time of Exam: 11/21/2020 7:01 AM Reason For Exam: sob Comparison 11/19/2020. The lungs are clear. Normal cardiomediastinal structures. No pleural effusions or pneumothorax. Bony structures are intact. Monitoring leads superimpose the chest. XR/XR chest 1V portable [id number] IMPRESSION: 1. No acute cardiopulmonary finding.
--- NOTE | 2020-11-21 06:56 | ECG_ITS ---
[facility] Test Date: 2020-11-21 Pat Name: Radha Archer Department: Room: 279 Gender: Female Manager Of Digital: : 1945 Requested By: Shawn Black Order Number: [id number] Servando MD: Seb Peter M.D. Measurements Intervals [place] Rate: 96 P: 33 UT: 177 QRS: -42 QRSD: 146 T: 126 QT: 386 QTc: 488 Interpretive Statements SINUS RHYTHM INTRAVENTRICULAR CONDUCTION DELAY [130+ ms QRS DURATION] LATERAL MYOCARDIAL INFARCTION [40+ ms Q WAVE AND/OR ST/T ABNORMALITY IN I/aVL/V5/V6], PROBABLY RECENT INFERIOR MYOCARDIAL INFARCTION [40+ ms Q WAVE AND/OR ST/T ABNORMALITY IN II/aVF], OF INDETERMINATE AGE ACUTE VT Compared to ECG 11/20/2020 14:44:46 No significant changes Electronically Signed On 11-21-2020 23:47:13 RUG CUTTER by Seb Peter M.D. [id number]
[2020-11-21 07:03] LABS: Hematocrit 40.9 % (37.0-47.0); Hemoglobin 13.1 g/dL (11.5-15.3); Mean Corpuscular Hemoglobin 29.7 pg (28.0-34.0); Mean Corpuscular Volume 92.7 fL (81-99); Mean Platelet Volume 11.8 fL (7.4-10.4); Platelet Count 225 10^3/cmm (130-400); Red Blood Count 4.41 10^6/uL (4.1-5.3); Red Cell Distribution Width 15.2 % (12.1-15.1)
[2020-11-21 07:25] LABS: C Reactive Protein 206.8 mg/L (0.0-4.9)
[2020-11-21 07:30] LABS: Alanine Aminotransferase 15 U/L (0-33); Albumin Level 2.3 g/dL (3.5-5.2); Alkaline Phosphatase 51 IU/L (35-105); Anion Gap 14.7 (5-19); Aspartate Amino Transferase 19 U/L (0-32); Blood Urea Nitrogen 22 mg/dL (8-23); Calcium 7.9 mg/dL (8.5-10.5); Carbon Dioxide 23 mmol/L (22-29); Chloride 98 mmol/L (98-107); Globulin 2.7 g/dL (1.3-4.6); Glucose 107 mg/dL (65-115); Magnesium 1.6 mg/dL (1.7-2.3); Osmolality Calculated 278 mOsm/kg (285-295); Phosphorus 2.8 mg/dL (2.5-4.5); Potassium 3.7 mmol/L (3.5-5.1); Sodium 132 mmol/L (136-145); Total Bilirubin 0.8 mg/dL (0.15-1.2)
[2020-11-21 07:35] LABS: NT Pro B Type Natriuretic Pept 7950 pg/mL (0-450); Procalcitonin 15.18 ng/mL (0-0.5)
--- NOTE | 2020-11-21 07:39 | CTR_ITS ---
PROCEDURE INFORMATION: Exam: CT Abdomen And Pelvis With Contrast Exam date and time: 11/21/2020 7:54 AM Age: 75 years old Clinical indication: Abdominal pain; Generalized; Prior surgery; Surgery date: 6+ months; Surgery type: Gallbladder, hernia repair; Patient HX: C/O abd pain since 11/15/20; Additional info: Abdominal perforation? TECHNIQUE: Imaging protocol: Computed tomography of the abdomen and pelvis with intravenous contrast. Radiation optimization: All CT scans at this facility use at least one of these dose optimization techniques: automated exposure control; mA and/or kV adjustment per patient size (includes targeted exams where dose is matched to clinical indication); or iterative reconstruction. Contrast material: VISIPAQUE; Contrast volume: 95 ml; Contrast route: INTRAVENOUS (IV); COMPARISON: CT abdomen pelvis w con* [id number] 11/15/2020 7:47 PM RADIATION DOSE METRICS: Total DLP (mGy-cm): 1674.88 FINDINGS: Lungs: Interstitial prominence, chronic granulomatous disease, and bibasilar airspace disease. Trace pleural effusions. Liver: Fatty infiltration of the liver and multiple cysts, the largest measuring 3.7 cm. Gallbladder and bile ducts: Status post cholecystectomy. Pancreas: No pancreatic mass or ductal dilatation. Spleen: splenic granulomata. Adrenal glands: Bilateral adrenal nodular lesions again demonstrated. Kidneys and ureters: subcentimeter renal hypodensities again demonstrated, without hydronephrosis. Bilateral infiltration of perinephric fat. Stomach and bowel: Hiatal hernia and wall thickening in the nondistended stomach. Small bowel dilatation, disproportionately involving the jejunum without a focal transition zone. Wall thickening in the nondistended rectosigmoid. Prominent stool. Appendix: Appendix not visualized. Intraperitoneal space: Multiple air containing loculated fluid collections in the peritoneal cavity, consistent with abscesses, along with extraluminal air, infiltration of mesenteric fat, and intraperitoneal fluid. These abscesses include a 5.6 x 5.1 x 5.7 cm centrally located abscess at the L5 level and 8.2 by 5.0 x 6.6 cm abscess in the posterior pelvic midline. Vasculature: vascular calcification. No abdominal aortic aneurysm. Lymph nodes: Subcentimeter lymph nodes. Urinary bladder: Cantu catheter in the decompressed bladder. Reproductive: Dilatation of the endometrial cavity, which can be better evaluated with ultrasound, as clinically indicated. Bones/joints: Osteopenia, chronic compression fractures, Schmorl's nodes, and degenerative change. Soft tissues: Umbilical hernia with infiltration of surrounding subcutaneous fat. CT/CT abdomen pelvis w con* [id number] IMPRESSION: 1. Multiple air containing loculated fluid collections in the peritoneal cavity, consistent with abscesses, along with extraluminal air, infiltration of mesenteric fat, and intraperitoneal fluid. These abscesses include a 5.6 x 5.1 x 5.7 cm centrally located abscess at the L5 level and 8.2 by 5.0 x 6.6 cm abscess in the posterior pelvic midline. 2. Small bowel dilatation, disproportionately involving the jejunum without a focal transition zone. 3. Wall thickening in the nondistended rectosigmoid. 4. Additional findings as described above. The aforementioned findings initiated a critical results communication pathway. An addendum will be issued at the time of clincian notification. Radiation Dose CTDIVOL = (mGy): DLP = 1674.88 (mGy-cm)
--- NOTE | 2020-11-21 07:52 | NUR.SHIFT ---
A bladder scan was performed on the patient at 0615 when the patient stated that she hasn't urinated all night. This nurse, with Charge confirming that the patient had only 30ml. During the night at 000 the patient had a BP of 69/52, which this nurse was able to admin a 1L bolus, which aloud the patient's BP to raise. However, BP fell down again at 0400 in which another 1L bolus was admin, Patient's BP became better than before with a MAP in the 80's. caustic cresylate shift superintendent dr was notifed of the voiding issue and of ABG results.
[2020-11-21] MEDS: iodixanol 320 mg/mL 100mL Btl IV (08:12)
[2020-11-21 08:28] LABS: Troponin(5th) Baseline 19 ng/L (0-10)
[2020-11-21] MEDS: ipratropium-albuterol 3 mL Neb INHALATION (08:42)
[2020-11-21 08:50] LABS: NT Pro B Type Natriuretic Pept 8168 pg/mL (0-450); Procalcitonin 16.36 ng/mL (0-0.5)
[2020-11-21 08:51] LABS: Slide Review Slide Review Perform
[2020-11-21 08:56] LABS: C Reactive Protein 199.9 mg/L (0.0-4.9)
[2020-11-21 08:59] LABS: Troponin 5 2HR 22.38 ng/L (0-10); Troponin 5 2HR Delta 3.38 ABS# (0-10)
[2020-11-21 09:00] LABS: Lactic Sepsis W/Reflex 1.7 mmol/L (0.5-2.2)
[2020-11-21] MEDS: atorvastatin 40 mg Tablet PO (09:01)
[2020-11-21] MEDS: aspirin 81 mg EC Tablet PO (09:01)
[2020-11-21] MEDS: magnesium sulfate premix 2 GM/50 ML PIGGYBACK IV (09:01)
[2020-11-21] MEDS: carvedilol 3.125 mg Tablet PO (09:02)
[2020-11-21 09:26] LABS: Absolute Segmented Neutrophil 7.1 10/cmm (1.6-7.1); Band Neutrophils Absolute 4.2 10^3/cmm (0.0-1.2); Blastocytes 0 % (0-0); Eosinophils 0 %; Lymphocytes 12 %; Monocytes Absolute 0.6 10^3/cmm (0.1-0.6); Segmented Neutrophils 47 %; Total Cells Counted 100 (0-100)
[2020-11-21 09:28] LABS: Absolute Neutrophil 11.3 10^3/cmm (1.4-6.5); Platelet Estimate Normal (Normal)
--- NOTE | 2020-11-21 09:30 | PC.NURSE ---
In heart to heart rounding this nurse notified physician of patient having pain in abdomen, BP decreased last night but within normal range this morning after interventions last night, new orders received to continue Morphine 1mg as ordered. see MAR for further details.
[2020-11-21] MEDS: vancomycin 1,000 MG in sodium chloride 0.9% 250 ML 250 MG IV (09:55)
[2020-11-21] MEDS: morphine 4 mg/mL SDV 1 mL 1 MG IVP (09:55)
[2020-11-21] MEDS: lactated ringers 1,000 ML 50 ML IV (09:55)
--- NOTE | 2020-11-21 10:52 | PC.NURSE ---
Patient taken to ICU via stretcher, bedside report given to oncoming nurse, belongings provided to patient including cell phone and service order dispatcher chief.
--- NOTE | 2020-11-21 11:00 | PC.NURSE ---
Patient here from med surg, Dr Villagran in room discussing surgery.
--- NOTE | 2020-11-21 11:02 | P.ANESASSM_ITS ---
Pre-Anesthetic Assessment Pre-Anesthetic Assessment: Height/Weight: Height 1.63 m Weight 81.647 kg Temp Pulse Resp BP Pulse Ox 98.8 F 99 16 115/76 91 11/21/20 07:52 11/21/20 08:48 11/21/20 09:55 11/21/20 07:52 11/21/20 08:42 Preop Diagnosis: Incarcerated recurrent incisional hernia Proposed Procedure: Operation Date: 11/21/20 11:30 Proposed Procedures p Exploratory Laparotomy(Not Applicable) - Onel Villagran MD Was Beta Joe taken within 24 hours: Yes Social: Social History: Tobacco and No alcohol Comment: Long h/o smoking, quit 10yrs ago Exam: Pre-Anes Outpt Exam: alert, oriented x 3 and regular rate & rhythm Additional Exam Findings (including area of procedure): Bilateral BS distant Airway: Submandibular: WNL Cervical ROM: WNL MP: 2 Dentition: False Pulmonary: Pulmonary: COPD CV/HEM: CV/HEM: Anemia, Arrythmia, CHF, HTN and GA Comments: LBBB : : Chronic renal Insufficiency Hepatic: Hepatic: None reported GI: Comments: Acute abdomen--intraabdominal abscesses/free air? Metabolic: Metabolic: Morbid obesity Musc/skel: Musc/skel: None reported Neuropsych: Neuropsych: None reported Anesthetic Plan: ASA status: 4E Anesthesia: General Other: Mod RSI, a.line, large bore PIV Risk of > 500 ml blood loss (7ml/kg in children): Yes, adequate IV access and fluids planned Meds/Allergies Current Medications: Current Medications Generic Name Dose Route Start Last Admin Trade Name Gregorio PRN Reason Stop Dose Admin Albuterol/Ipratrop ium 3 ml 11/20/20 05:31 11/21/20 08:42 Ipratropium-Albu terol 3 Ml Neb INHALATION 3 ml Q6H.RESPIRATORY P RN Administration SHORTNESS OF JUNAID TH Amlodipine Besylat e 10 mg 11/20/20 14:15 11/20/20 14:49 Amlodipine 10 Mg Tablet PO 10 mg ONCE RENAE Administration Aspirin 81 mg 11/20/20 09:00 11/21/20 09:01 Aspirin 81 Mg Ec Tablet PO 81 mg DAILY RENAE Administration Atorvastatin Calci um 40 mg 11/20/20 09:00 11/21/20 09:01 Atorvastatin 40 Mg Tablet PO 40 mg DAILY RENAE Administration Carvedilol 3.125 mg 11/20/20 09:00 11/21/20 09:02 Carvedilol 3.125 Mg Tablet PO 3.125 mg BID RENAE Administration Famotidine 20 mg 11/16/20 13:30 11/21/20 01:14 Famotidine 20 Mg /2 Ml Inj IVP 20 mg Q12H RENAE Administration Heparin Sodium (Be ef Lung) 5,000 unit 11/16/20 13:00 11/21/20 01:14 Heparin 5,000 Un it/Ml Inj 1 Ml SUBCUT 5,000 unit Q12H RENAE Administration Vancomycin HCl 1,0 00 mg/ 250 mls @ 250 mls /hr 11/21/20 10:00 11/21/20 09:55 Sodium Chloride IV 250 mls/hr Q24H RENAE Administration Protocol Lactated Ringer's 1,000 mls @ 50 ml s/hr 11/21/20 09:30 11/21/20 09:55 Lactated Ringers IV 50 mls/hr .Q20H RENAE Administration Morphine Sulfate 1 mg 11/20/20 14:10 11/21/20 09:55 Morphine 4 Mg/Ml Sdv 1 Ml IVP 1 mg Q6H PRN Administration SEVERE PAIN PFSH Anesthesia PFSH: Medical History (Updated 11/20/20 @ 17:59 by Seb Peter MD) Anxiety and depression Constipation COPD (chronic obstructive pulmonary disease) Coronary artery fistula Diverticulosis Dyslipidemia Elevated troponin Endometriosis GERD (gastroesophageal reflux disease) Hiatal hernia History of colon polyps Hypertension Insomnia LBBB (left bundle branch block) Left ventricular dysfunction Nonischemic cardiomyopathy PTSD (post-traumatic stress disorder) Subclinical hypothyroidism Surgical History History of ear surgery (~2017) Right -- removal of fluid from ear drum, removal of ear drum, replaced with artifical ear drum History of incisional hernia repair X 3 01/24/2020: Laparoscopic History of left oophorectomy partial History of shoulder surgery Right History of tonsillectomy Status post colonoscopy with polypectomy 12/2019 --2 adenomatous polyps, diverticulosis Family History Grandmother Colon cancer Maternal-- dx age 69 Breast cancer Paternal-- dx age unknown Mother Heart disease Denies family history of Ovarian cancer Diabetes Hypercholesteremia Bleeding disorder Hypertension Uterine cancer Thyroid disease Stroke Social History Smoking and tobacco status: former smoker Quit status (tobacco): has quit using tobacco Year quit tobacco: Around 1999 Former quit date comment: [id number] history previously Alcohol intake: current Alcohol intake frequency: few times a month Additional social history: Drug use: denies Data Anesthesia CBC & Chem 7: 11/21/20 06:37 11/21/20 06:37 Other Labs: Laboratory Results - last 48 hr 11/19/20 11/20/20 11/20/20 03:30 05:00 06:55 WBC 10.3 H RBC 4.18 Hgb 12.2 Hct 38.6 MCV 92.3 MCH 29.2 MCHC 31.6 RDW 15.0 Plt Count 181 MPV 11.4 H Neut % (Auto) 75.3 Lymph % (Auto) 10.5 [place] % (Auto) 11.2 Eos % (Auto) 0.7 Baso % (Auto) 0.8 Neut # (Auto) 7.79 H Lymph # (Auto) 1.1 [place] # (Auto) 1.2 H Eos # (Auto) 0.1 Baso # (Auto) 0.1 Nucleated RBC % (auto) 0 Total Counted Atypical Lymphs % Absolute Neutrophils Segmented Neutrophils Abs Segm Neuts (Man) Band Neutrophils Abs Band Neuts (Man) Lymphocytes (Manual) Monocytes (Manual) Absolute Monocytes Eosinophils (Manual) Absolute Eosinophils Basophils (Manual) Absolute Basophils Metamyelocytes Myelocytes Promyelocytes Nucleated RBCs Nucleated RBCs # 0.0 Blast Cells Platelet Estimate Specimen Type Arterial Sample Site Brachial, right ABG pH 7.41 ABG pCO2 41.2 ABG pO2 80.8 ABG HCO3 26.3 H ABG Base Excess 1.5 Jeff Test N/a Hematocrit 38.2 O2 Delivery Device Nc O2 Liters/Min 3.0 FiO2 [employer] ID Harkr Sodium Potassium Chloride Carbon Dioxide Anion Gap BUN Creatinine GFR Calculation Glucose Calculated Osmolality Lactic Acid Calcium Phosphorus Magnesium Total Bilirubin AST ALT Alkaline Phosphatase Troponin T Gen 5 ng/L Troponin T Baseline Troponin T 120 Minute Delta Troponin T C-Reactive Protein NT-Pro-B Natriuret Pep Total Protein Albumin Globulin Procalcitonin SARS-CoV-2 RNA (RT-PCR) Not detected 11/20/20 11/20/20 11/21/20 06:55 15:24 05:30 WBC RBC Hgb Hct MCV MCH MCHC RDW Plt Count MPV Neut % (Auto) Lymph % (Auto) [place] % (Auto) Eos % (Auto) Baso % (Auto) Neut # (Auto) Lymph # (Auto) [place] # (Auto) Eos # (Auto) Baso # (Auto) Nucleated RBC % (auto) Total Counted Atypical Lymphs % Absolute Neutrophils Segmented Neutrophils Abs Segm Neuts (Man) Band Neutrophils Abs Band Neuts (Man) Lymphocytes (Manual) Monocytes (Manual) Absolute Monocytes Eosinophils (Manual) Absolute Eosinophils Basophils (Manual) Absolute Basophils Metamyelocytes Myelocytes Promyelocytes Nucleated RBCs Nucleated RBCs # Blast Cells Platelet Estimate Specimen Type Arterial Sample Site Radial, right ABG pH 7.47 H ABG pCO2 29.5 L ABG pO2 60.1 L ABG HCO3 21.5 L ABG Base Excess -1.1 Jeff Test Pos Hematocrit 42.5 O2 Delivery Device Nc O2 Liters/Min 3.5 FiO2 34.0 [employer] ID [id number] Sodium 133 L Potassium 3.7 Chloride 97 L Carbon Dioxide 23 Anion Gap 16.7 BUN 14 Creatinine 0.7 GFR Calculation Not Reportable Glucose 109 Calculated Osmolality 277 L Lactic Acid Calcium 8.9 Phosphorus 1.8 L Magnesium 2.0 Total Bilirubin 0.4 AST 22 ALT 20 Alkaline Phosphatase 66 Troponin T Gen 5 ng/L 21 H Troponin T Baseline Troponin T 120 Minute Delta Troponin T C-Reactive Protein 129.3 H NT-Pro-B Natriuret Pep 3492 H Total Protein 6.1 L Albumin 2.8 L Globulin 3.3 Procalcitonin 3.18 H SARS-CoV-2 RNA (RT-PCR) 11/21/20 11/21/20 11/21/20 06:37 06:37 06:37 WBC 15.0 H RBC 4.41 Hgb 13.1 Hct 40.9 MCV 92.7 MCH 29.7 MCHC 32.0 RDW 15.2 H Plt Count 225 MPV 11.8 H Neut % (Auto) Lymph % (Auto) Not Reportable [place] % (Auto) Not Reportable Eos % (Auto) Baso % (Auto) Neut # (Auto) Lymph # (Auto) Not Reportable [place] # (Auto) Not Reportable Eos # (Auto) Baso # (Auto) Nucleated RBC % (auto) Total Counted 100 Atypical Lymphs % 0.0 Absolute Neutrophils 11.3 H Segmented Neutrophils 47 Abs Segm Neuts (Man) 7.1 Band Neutrophils 28.0 Abs Band Neuts (Man) 4.2 H Lymphocytes (Manual) 12 Monocytes (Manual) 4.0 Absolute Monocytes 0.6 Eosinophils (Manual) 0 Absolute Eosinophils 0.0 Basophils (Manual) 0.0 Absolute Basophils 0.0 Metamyelocytes 9.0 Myelocytes 0.0 Promyelocytes 0.0 Nucleated RBCs 0.0 Nucleated RBCs # Blast Cells 0 Platelet Estimate Normal Specimen Type Sample Site ABG pH ABG pCO2 ABG pO2 ABG HCO3 ABG Base Excess Jeff Test Hematocrit O2 Delivery Device O2 Liters/Min FiO2 [employer] ID Sodium 132 L Potassium 3.7 Chloride 98 Carbon Dioxide 23 Anion Gap 14.7 BUN 22 Creatinine 1.5 H GFR Calculation Not Reportable Glucose 107 Calculated Osmolality 278 L Lactic Acid Calcium 7.9 L Phosphorus 2.8 D Magnesium 1.6 L Total Bilirubin 0.8 AST 19 ALT 15 Alkaline Phosphatase 51 Troponin T Gen 5 ng/L Troponin T Baseline Troponin T 120 Minute Delta Troponin T C-Reactive Protein NT-Pro-B Natriuret Pep 7950 H Total Protein 5.0 L Albumin 2.3 L Globulin 2.7 Procalcitonin 15.18 H SARS-CoV-2 RNA (RT-PCR) 11/21/20 11/21/20 11/21/20 06:37 06:37 06:37 WBC RBC Hgb Hct MCV MCH MCHC RDW Plt Count MPV Neut % (Auto) Lymph % (Auto) [place] % (Auto) Eos % (Auto) Baso % (Auto) Neut # (Auto) Lymph # (Auto) [place] # (Auto) Eos # (Auto) Baso # (Auto) Nucleated RBC % (auto) Total Counted Atypical Lymphs % Absolute Neutrophils Segmented Neutrophils Abs Segm Neuts (Man) Band Neutrophils Abs Band Neuts (Man) Lymphocytes (Manual) Monocytes (Manual) Absolute Monocytes Eosinophils (Manual) Absolute Eosinophils Basophils (Manual) Absolute Basophils Metamyelocytes Myelocytes Promyelocytes Nucleated RBCs Nucleated RBCs # Blast Cells Platelet Estimate Specimen Type Sample Site ABG pH ABG pCO2 ABG pO2 ABG HCO3 ABG Base Excess Jeff Test Hematocrit O2 Delivery Device O2 Liters/Min FiO2 [employer] ID Sodium Potassium Chloride Carbon Dioxide Anion Gap BUN Creatinine GFR Calculation Glucose Calculated Osmolality Lactic Acid Calcium Phosphorus Magnesium Total Bilirubin AST ALT Alkaline Phosphatase Troponin T Gen 5 ng/L Troponin T Baseline 19 H Troponin T 120 Minute Delta Troponin T C-Reactive Protein 206.8 H 199.9 H NT-Pro-B Natriuret Pep 8168 H Total Protein Albumin Globulin Procalcitonin 16.36 H SARS-CoV-2 RNA (RT-PCR) 11/21/20 11/21/20 08:35 08:35 WBC RBC Hgb Hct MCV MCH MCHC RDW Plt Count MPV Neut % (Auto) Lymph % (Auto) [place] % (Auto) Eos % (Auto) Baso % (Auto) Neut # (Auto) Lymph # (Auto) [place] # (Auto) Eos # (Auto) Baso # (Auto) Nucleated RBC % (auto) Total Counted Atypical Lymphs % Absolute Neutrophils Segmented Neutrophils Abs Segm Neuts (Man) Band Neutrophils Abs Band Neuts (Man) Lymphocytes (Manual) Monocytes (Manual) Absolute Monocytes Eosinophils (Manual) Absolute Eosinophils Basophils (Manual) Absolute Basophils Metamyelocytes Myelocytes Promyelocytes Nucleated RBCs Nucleated RBCs # Blast Cells Platelet Estimate Specimen Type Sample Site ABG pH ABG pCO2 ABG pO2 ABG HCO3 ABG Base Excess Jeff Test Hematocrit O2 Delivery Device O2 Liters/Min FiO2 [employer] ID Sodium Potassium Chloride Carbon Dioxide Anion Gap BUN Creatinine GFR Calculation Glucose Calculated Osmolality Lactic Acid 1.7 Calcium Phosphorus Magnesium Total Bilirubin AST ALT Alkaline Phosphatase Troponin T Gen 5 ng/L Troponin T Baseline Troponin T 120 Minute 22.38 H Delta Troponin T 3.38 C-Reactive Protein NT-Pro-B Natriuret Pep Total Protein Albumin Globulin Procalcitonin SARS-CoV-2 RNA (RT-PCR) Cardiac Studies: No Data to Display
--- NOTE | 2020-11-21 11:15 | PC.NURSE ---
11:15 Patient to Or with Or team.
--- NOTE | 2020-11-21 11:21 | PM.PN ---
Subjective Subjective: Interval history: I had signed off of the patient's case yesterday after seeing her; she was doing well, denied abdominal pain, was passing flatus, etc. The patient says that shortly after I saw her yesterday morning she started developing more abdominal pain again. She ended up having a CAT scan this morning and Dr. Black contacted me to let me know that it appears that the patient has had some type of perforation with intra-abdominal abscesses. Vitals/I&O/Wt Last Vital Signs Temp 98.8 F 11/21/20 07:52 Pulse 99 11/21/20 08:48 Resp 16 11/21/20 09:55 BP 115/76 11/21/20 07:52 Pulse Ox 91 11/21/20 08:42 11/20/20 11/21/20 11/21/20 22:59 06:59 14:59 Intake Total 120 / 480 Output Total 0 / 0 Balance 120 / 480 0 / 480 Physical Exam Narrative: EXAM NARRATIVE: The patient has diffuse abdominal tenderness. Urinary Catheter Management^: Cantu: Cath Placed During This Visit: yes Urinary Catheter Date of Insertion: 11/21/20 Urinary Catheter Time of Insertion: 07:51 Data : 11/21/20 06:37 11/21/20 06:37 CT Abd/Pel: Radiologist's impression: CT abdomen/pelvis 11/21/2020 IMPRESSION: 1. Multiple air containing loculated fluid collections in the peritoneal cavity, consistent with abscesses, along with extraluminal air, infiltration of mesenteric fat, and intraperitoneal fluid. These abscesses include a 5.6 x 5.1 x 5.7 cm centrally located abscess at the L5 level and 8.2 by 5.0 x 6.6 cm abscess in the posterior pelvic midline. 2. Small bowel dilatation, disproportionately involving the jejunum without a focal transition zone. 3. Wall thickening in the nondistended rectosigmoid. A&P Assessment and plan (1) Abdominal pain: The patient has new abdominal pain, now with evidence of bowel perforation on her CAT scan. I have discussed urgent surgery with her with the possible need for bowel resection. She seems to understand and is agreeable to proceeding with surgery today. Status: Acute Qualifiers: Abdominal location: periumbilical Qualified Code(s): R10.33 - Periumbilical pain (2) Bowel obstruction: CT on admission reviewed. The patient does not appear to be completely obstructed, but may have somewhat of a chronic partial obstruction involving the mid small bowel. I think I can identify a possible transition point in the upper mid abdomen with some apparent fecalization of some small bowel contents proximal to this. She does have a long and tortuous colon with some retained stool, as well. Status: Acute (3) Recurrent ventral hernia: The patient had a recurrent abdominal hernia repaired back in January of 2020. She says the hernia repair did not last. She clearly has a hernia back and it is somewhat tender to palpation, but only contains fat on the CAT scan. Status: Acute Attestations Medical Necessity Statement*: See admitting service's notation. Coding Level of Care Code Acute Diversity Specialist for Eli Yo Diagnoses Abdominal pain R10.33 Abdominal location: periumbilical Bowel obstruction K56.609 Recurrent ventral hernia K43.2
--- NOTE | 2020-11-21 13:13 | PM.PN ---
Subjective Subjective: Interval history: Yesterday patient had bouts of abdominal pain in the afternoon, improved with morphine, EKG did not show any acute ST-T wave changes, her troponin was 20, no nausea, no vomiting, she was transitioned to a clear liquid diet, clinically monitored, overnight her abdominal pain persists, she has not had a bowel movement, is not passing any gas, no nausea, no vomiting, afebrile, no chest pain, does feel a bit short of breath, is on 2 L, she had hypotensive episodes overnight, blood pressures in the 70s over 40s requiring 2 L bolus, blood pressures 150/90 this morning, review of her labs show creatinine 1.5, pro-Parish 16, BNP of over 8000, CT scan of the abdomen shows evidence of abdominal perforation with abdominal abscess, patient was moved to the intensive care unit, I spoke to Dr. Villagran about surgical intervention, I spoke to Dr. Peter about patient's ejection fraction , and surgical risk, currently the plan is to proceed to the OR for exploratory laparotomy by Dr. Villagran. I went over the risks and benefits of the surgical procedure which patient and her daughter over the phone, they all voiced understanding, all questions answered, agreed to proceed. Vitals/I&O/Wt Last Vital Signs Temp 98.8 F 11/21/20 07:52 Pulse 99 11/21/20 08:48 Resp 16 11/21/20 09:55 BP 115/76 11/21/20 07:52 Pulse Ox 91 11/21/20 08:42 11/20/20 11/21/20 11/21/20 22:59 06:59 14:59 Intake Total 120 / 480 350 / 350 Output Total 0 / 0 Balance 120 / 480 0 / 480 350 / 350 Physical Exam Const: GENERAL APPEARANCE: cooperative and anxious NUTRITIONAL APPEARANCE: obese ORIENTATION/CONSCIOUSNESS: Yes awake, Yes oriented to person, Yes oriented to place and Yes oriented to time OTHER: Patient is in pain Neck/C-Spine: COMMON NORMALS: no JVD Resp: COMMON NORMALS: normal respiratory effort, No retractions, No use of accessory muscles and clear to auscultation bilaterally AUSCULTATION: clear to auscultation bilaterally Cardio: COMMON NORMALS: no JVD, regular rate, regular rhythm, S1 normal heart sound present and S2 normal heart sound present RATE: regular rate RHYTHM: regular rhythm HEART SOUNDS: S1 normal heart sound present and S2 normal heart sound present GI: INSPECTION: Yes normal to inspection and Yes abdominal distension AUSCULTATION: Yes Hypoactive bowel sounds present PALPATION: Yes Firmness to palpation present (GI), Yes Tenderness to palpation present (GI) Details: LLQ, LUQ and RUQ, Yes Guarding due to palpation present (GI) and No Rigid due to palpation PERCUSSION: dullness to percussion Neuro: SENSORIUM/ORIENTATION: Yes oriented to person, Yes oriented to place and Yes oriented to time Urinary Catheter Management^: Cantu: Cath Placed During This Visit: yes Urinary Catheter Date of Insertion: 11/21/20 Urinary Catheter Time of Insertion: 07:51 Data : 11/21/20 06:37 11/21/20 06:37 A&P Assessment and plan (1) Abdominal pain: Status: Acute Qualifiers: Abdominal location: periumbilical Qualified Code(s): R10.33 - Periumbilical pain (2) Sepsis: Status: Acute (3) Adynamic ileus: Status: Acute (4) Postmenopausal bleeding: Status: Acute (5) Hypoxia: Status: Acute (6) Enteritis: Status: Acute (7) Systolic CHF: Status: Acute (8) Sepsis: Status: Acute (9) Intra-abdominal abscess: Status: Acute (10) Bowel obstruction: Status: Acute (11) Recurrent ventral hernia: Status: Acute Additional A&P Information Intra-abdominal abscesses with evidence of perforation with sepsis Initially, abdominal pain secondary to small bowel obstruction secondary to surgical adhesions, and or ileus Now with evidence of abdominal perforation, and multiple abdominal abscesses CT scan of the abdomen pelvis with contrast shows: 1. Multiple air containing loculated fluid collections in the peritoneal cavity, consistent with abscesses, along with extraluminal air, infiltration of mesenteric fat, and intraperitoneal fluid. These abscesses include a 5.6 x 5.1 x 5.7 cm centrally located abscess at the L5 level and 8.2 by 5.0 x 6.6 cm abscess in the posterior pelvic midline. 2. Small bowel dilatation, disproportionately involving the jejunum without a focal transition zone. Plan: -Currently in the intensive care unit -Full code -Heparin for DVT prophylaxis on hold for surgical intervention -Broad-spectrum antibiotic therapy reinitiated vancomycin and Primaxin -Follow blood cultures, surgical cultures -Patient is n.p.o., for exploratory laparotomy by Dr. Villagran -Will avoid fluid overload given patient's EF of 30 to 35% -Monitor respiratory status closel Postmenopausal bleed 2.6 cm uterine mass High D-dimer currently hypoxic requiring 2 L nasal cannula CTA rule out PE was unremarkable for PE Uterine biopsy revealed endometrial polyp otherwise no malignancy Due for uterine surgery in November 2020 Acute hypoxia Likely secondary to fluid overload and systolic CHF Confirmed on multiple ABGs CT angiogram was negative for PE, slight atelectasis, no focal pneumonia Repeat ABG this afternoon shows hypoxia, PO2 59 on room air Patient is not hypo ventilating Hiatal hernia found on CT abdomen Etiology BNP is elevated at 3700, did receive fluids, giving Lasix daily denies any chest pain, shortness of breath, any cardiac history She tells me that she has a hole in her heart, I am wondering if this is playing a role, causing [id number] shunting and hypoxia with ABGs Serial troponins, as high as 30, no significant delta, EKG no acute ST-T wave changes Rapid Covid negative, just in case in order to Covid PCR, however the likelihood of Covid is very unlikely As she denies fevers, shortness of breath, loss of taste, loss of smell, sinus symptoms This morning BNP is over 8000, as she she received 2 L of fluid overnight due to sepsis Plan: -Monitor fluid status closely -Lasix as needed -BiPAP as needed -We will need to avoid fluid overload Systolic CHF, patient's echocardiogram results yesterday showed: -This is a limited quality echocardiogram. Bubble study was ordered however could not be performed as atria are not well visualized. LV systolic function is moderately severely reduced with EF of 30 to 35%. Moderate to severe global hypokinesis is noted. Diastolic function cannot be assessed because of tachycardia Valves are not very well visualized, however no significant valvular abnormalities seen. Compared to prior echocardiogram from 09/18/2018, LV systolic function is significantly reduced now. -Patient's oxygen requirements have decreased to 2 L with diuresis, Lasix 40 mg IV push daily -On aspirin, statin, Coreg -The question is does patient have ischemic versus nonischemic cardiomyopathy -Cardiology on consult GERD: Continue PPI Full code N.p.o. DVT prophylaxis SCDs, heparin on hold for surgical intervention Attestations Medical Necessity Statement*: Patient requires hospitalization, for intra-abdominal abscesses, secondary to perforation, with sepsis, with new lead diagnosed systolic heart failure Time Spent in Patient Care: Greater than 35 minutes (>than 50% of time spent in counselling and/or direct pt care on unit). Critical Care Time: Critical Care Time (min): 45 Coding Level of Care Code Acute Histopathology Technician for Chg Fwd Diagnoses Abdominal pain R10.33 Abdominal location: periumbilical Sepsis A41.9 Adynamic ileus K56.0 Postmenopausal bleeding N95.0 Hypoxia R09.02 Enteritis K52.9 Systolic CHF I50.20 Sepsis A41.9 Intra-abdominal abscess K65.1 Bowel obstruction K56.609 Recurrent ventral hernia K43.2 Sepsis Event Note Evaluation Current stage of sepsis: sepsis Initial hypotension due to sepsis/infection: SBP < 90 mmHg Possible source: GI tract/intra-abdominal Focused Exam Vital Signs Temp Pulse Resp BP Pulse Ox 11/21/20 13:21 72 108/72 98 11/21/20 09:55 16 11/21/20 08:48 99 11/21/20 08:42 97 20 H 91 11/21/20 07:52 98.8 F 96 16 115/76 93 11/21/20 06:00 94 11/21/20 04:00 97.1 F L 94 17 73/54 90 11/21/20 01:44 72/58 Cardiovascular exam: Present RRR, S1 and S2 Capillary refill: < 3 Seconds Peripheral pulse strength: 2+ Slightly Diminished Peripheral pulse location: Radial Skin exam: normal turgor Date exam was performed: 11/21/20 Time exam was performed: 13:23 Problem List (1) Abdominal pain: Status: Acute (2) Bowel obstruction: Status: Acute (3) Recurrent ventral hernia: Status: Acute
--- NOTE | 2020-11-21 13:16 | PM.OP ---
Operative Report Date of procedure: November 21, 2020 Pre-op Diagnosis: Perforated viscus. Post-op Diagnosis: Perforated sigmoid colon with fecal peritonitis. Procedure Done: Exploratory laparotomy with adhesiolysis/Lyubov procedure. Specimens removed/disposition: Segment of perforated sigmoid colon. Surgeon: Onel Villagran Anesthesia: General Estimated blood loss (mL): 75 Complications: None. Condition: stable Disposition: ICU Procedure: The patient was brought to the operating room and was placed in a supine position on the operating room table. General endotracheal anesthesia was induced. A Cantu catheter was already in place. Anesthesia eventually placed a nasogastric tube. The abdomen was prepped and draped in a sterile fashion. A midline incision was carried out just above and below the umbilicus. Cautery was used to divide the subcutaneous tissue and the midline fascia and the peritoneal cavity was entered. There were dilated loops of small bowel initially seen. Eventually the incision had to be extended both superiorly and inferiorly to gain good access to the abdominal cavity. Palpation in the lower abdomen revealed an abscess which was cultured. Further inspection of the area revealed stool balls in the peritoneal cavity. These were all evacuated and eventually in the mid sigmoid colon a perforation was found. I suspect this was probably due to a stercoral ulcer, as the patient had multiple very hard balls of stool throughout her colon. The sigmoid colon was mobilized and then was divided distal to the perforation with a JUDAH 55 stapler. The proximal sigmoid colon was mobilized by incising the peritoneal reflection laterally and eventually the perforated segment of colon was excised with another JUDAH 55 stapler. The abdominal cavity was then extensively irrigated. The patient had adhesions involving her small bowel in the upper abdomen and a sequential adhesiolysis was performed so that the bowel was free all the way from the ligament of Treitz to the ileocecal valve. I am sure these adhesions had something to do with the appearance of her CAT scan with the chronic partial obstruction. The patient had a piece of mesh in the upper abdomen with some omental adhesions which were all taken down. The patient was found to have a second small abscess in the upper abdomen underneath the omentum. A third small abscess was found in the cul-de-sac. Every quadrant of the abdomen was then irrigated until all of the return irrigation was clear. The nasogastric tube was confirmed to be in good position in the gastric lumen by palpation. A torres martinez of skin adjacent to the umbilicus on the left side was removed using cautery. The subcutaneous tissue was removed and a cruciate incision was carried out in the anterior rectus sheath. A hemostat was used to bluntly spread the rectus muscle and to puncture the posterior rectus sheath and a Eliane clamp was used to bring the proximal sigmoid colon out through the colostomy site. A final round of irrigation was carried out throughout the abdominal cavity and no additional problems were seen. The midline fascia was closed using a running looped suture of #1 PDS. Some internal retention sutures of single-stranded #1 PDS were also used in the closure. The subcutaneous tissue was extensively irrigated and then the skin was loosely closed at the midline incision with some widely spaced skin tisha. The colostomy was then matured after the staple line and in the end of the sigmoid colon was removed with a pair of Metzenbaum scissors. Multiple interrupted sutures of 3-0 Vicryl were used in the maturation. The colon was clearly viable and a finger was used to palpate the lumen of the colon down through the fascial level it was open. A colostomy appliance was placed in the midline dressing was applied. The patient was taken directly back to the intensive care unit postoperatively.
--- NOTE | 2020-11-21 13:40 | PC.NURSE ---
13:40 Patient returned from OR.
--- NOTE | 2020-11-21 14:23 | XR_ITS ---
WS: [id number] Exam: XR chest 1V portable [id number] Date/Time of Exam: 11/21/2020 2:23 PM Reason For Exam: ET TUBE AND CENTRAL LINE PLACEMENT Comparison with previous exam performed on the same day at 0704 hours. An ET tube has been placed and ends about 3 cm above the nataly in good position. The lungs are well ventilated. A left subclavian central line is in place ending in the midportion of the SVC. An enteri c tube is in place within the stomach but the tip is out of the [id number]. There may be some deve loping infiltrate in the left lower lobe since the previous study. Unremarkable cardiomediastinal str uctures. XR/XR chest 1V portable [id number] IMPRESSION: 1. ET tube, central line and enteric tube all in satisfactory position. 2. There may be some infiltrate developing in the left lower lobe since the ear lier study on the same day.
--- NOTE | 2020-11-21 14:27 | P.ANES_ITS ---
Anesthesia Procedures Procedure/Date: 11/21/20 Arterial Line: Time Out Performed: Yes Consent: requested by attending/covering physician, risks and benefits reviewed and patient agrees to proceed Size (Gauge): 20 Technique Used: guide wire technique Post- Procedure: dry sterile dressing placed Patient Tolerated Procedure: well C omplications: other (hematoma) Site: right and radial Central Venous Insert: Central Venous Line: left subclavian 7fr 3-lumen Time Out Performed: Yes Consent: requested by attending/covering physician, risks and benefits reviewed and patient agrees to proceed Central Line: New Anesthesia monitors: pulse oximetry, EKG, BP cuff and oxygen Vein cannulated: left subclavian Post procedure: Obtain Chest X-Ray Additional Comments: Seldinger tech, gown, glove, mask.
--- NOTE | 2020-11-21 14:29 | ANE.PACU2 ---
Inpatient post-anesthesia follow up: Airway intact: Yes Vital signs: Temperature 98.8 F Pulse Rate [Left R adial] 120 Pulse Rate 72 Respiratory Rate 10 Blood Pressure [Le ft Arm] 150/111 Blood Pressure 108/72 Pulse Oximetry 98 Oxygen Delivery Me thod [ Nasal Cannula Current Rate & Del tonja] Oxygen Delivery Me thod Mechanical Ventila tion Oxygen Flow Rate [ Current Rate 3 & Delivery] Oxygen Flow Rate 4 Fraction of Inspir ed Oxygen 100 Hydration adequate: Yes Nausea and vomiting: No Pain level: 2 Additional Comments: Sedated/intubated to ICU.
[2020-11-21] MEDS: midazolam 1 mg/mL INJ 2 mL 4 MG IVP (14:31)
[2020-11-21] MEDS: levalbuterol 0.63 mg/3 mL Neb INHALATION (15:01)
[2020-11-21] MEDS: propofol 1,000 MG/100 ML INJ 4.9 MG IV (15:26)
--- NOTE | 2020-11-21 18:19 | PM.PN ---
Subjective Subjective: Interval history: Patient apparently was diagnosed with intestinal perforation and possible bacterial peritonitis. She underwent emergency exploratory laparotomy. She was found to have perforated sigmoid colon with feculent peritonitis. she was hypotensive following the procedure. She is currently on Levophed 16 mics per KG per minute. The blood pressure seems to be slowly coming up. Patient is intubated and sedated. Medications: Medication Review Details: Current Medications Albuterol/Ipratropium (Ipratropium-Albuterol 3 Ml Neb) 3 ml INHALATION Q6H.RESPIRATORY RENAE Last Admin: 11/21/20 14:55 Dose: Not Given Documented by: Amlodipine Besylate (Amlodipine 10 Mg Tablet) 10 mg PO ONCE RENAE Last Admin: 11/20/20 14:49 Dose: 10 mg Documented by: Aspirin (Aspirin 81 Mg Ec Tablet) 81 mg PO DAILY [facility] Last Admin: 11/21/20 09:01 Dose: 81 mg Documented by: Atorvastatin Calcium (Atorvastatin 40 Mg Tablet) 40 mg PO DAILY RENAE Last Admin: 11/21/20 09:01 Dose: 40 mg Documented by: Carvedilol (Carvedilol 3.125 Mg Tablet) 3.125 mg PO BID RENAE Last Admin: 11/21/20 09:02 Dose: 3.125 mg Documented by: Famotidine (Famotidine 20 Mg/2 Ml Inj) 20 mg IVP Q12H [facility] Last Admin: 11/21/20 17:20 Dose: 20 mg Documented by: Heparin Sodium (Beef Lung) (Heparin 5,000 Unit/Ml Inj 1 Ml) 5,000 unit SUBCUT Q12H RENAE Last Admin: 11/21/20 15:11 Dose: Not Given Documented by: Imipenem/Cilastatin Sodium 250 (mg/ Sodium Chloride) 100 mls @ 200 mls/hr IV Q6H [facility]; Protocol Last Admin: 11/21/20 17:21 Dose: 100 mls/hr Documented by: Vancomycin HCl 1,000 mg/ (Sodium Chloride) 250 mls @ 250 mls/hr IV Q24H [facility]; Protocol Last Infusion: 11/21/20 14:45 Dose: Infused Documented by: Dextrose/Sodium Chloride (Dextrose 5%-Sod Chloride 0.45%) 1,000 mls @ 100 mls/hr IV .Q10H RENAE Norepinephrine Bitartrate 4 mg (/ Dextrose) 254 mls @ 0 mls/hr IV .Q0M RENAE; Protocol Last Titration: 11/21/20 19:25 Dose: 15 mcg/min, 57.2 mls/hr Documented by: Dobutamine HCl/Dextrose (Dobutamine Drip) 500 mg in 250 mls @ 0 mls/hr IV .Q0M RENAE; Protocol Dexmedetomidine HCl 400 mcg/ (Sodium Chloride) 104 mls @ 0 mls/hr IV .Q0M RENAE; Protocol Levalbuterol HCl (Levalbuterol 0.63 Mg/3 Ml Neb) 0.63 mg INHALATION Q4H.RESPIRATORY RENAE Last Admin: 11/21/20 15:01 Dose: 0.63 mg Documented by: Morphine Sulfate (Morphine 4 Mg/Ml Sdv 1 Ml) 2 - 4 mg IVP Q4H PRN PRN Reason: SEVERE PAIN Ondansetron HCl (Ondansetron 2 Mg/Ml Sdv 2 Ml) 4 mg IVP Q4H PRN PRN Reason: NAUSEA AND VOMITING Phenol (Phenol Oral [place] 177 Ml) 3 spray MUCOUS MEM Q2H PRN PRN Reason: SORE THROAT Vitals/I&O/Wt Last Vital Signs Temp 98.8 F 11/21/20 07:52 Pulse 85 11/21/20 15:30 Resp 19 H 11/21/20 15:30 BP 74/51 11/21/20 15:30 Pulse Ox 100 11/21/20 15:30 11/21/20 11/21/20 11/21/20 06:59 14:59 22:59 Intake Total 954.053 / 954.053 85.501 / 1039.554 Output Total 0 / 0 Balance 0 / 480 954.053 / 954.053 65.501 / 1019.554 Physical Exam Narrative: EXAM NARRATIVE: GENERAL: The patient is intubated and sedated HEENT: Minimal pallor. No icterus or lymphadenopathy. The pupils are symmetrical NECK: Trachea appears to be central. No masses noted. No JVD or thyromegaly appreciated. No carotid bruit. RESPIRATORY: Chest is symmetrical. No intercostals muscle retraction or any accessory muscle activation. There is no chest wall tenderness. Breath sounds are heard bilaterally. No rales or rhonchi heard. No evidence of any consolidation. BREASTS: Deferred. HEART: Heart sounds are normal no S3 or S4. ABDOMEN: Abdomen is distended with no bowel sounds. : Deferred. RECTAL: Deferred. LYMPHATIC: No lymphadenopathy noted in the neck or groin. EXTREMITIES: No significant edema or cyanosis MUSCULOSKELETAL: No acute joint deformities or swelling SKIN: There are no rashes or ecchymosis NEUROPSYCHIATRIC: Intubated and sedated Urinary Catheter Management^: Cantu: Cath Placed During This Visit: yes Reason for Continuing Indwelling Catheter: Accurate Measurement of Urinary Output in Critically Ill Patients Urinary Catheter Date of Insertion: 11/21/20 Urinary Catheter Time of Insertion: 07:51 Data : 11/21/20 06:37 11/21/20 06:37 Other Labs: Laboratory Last Values WBC 15.0 10^3/uL (4.0-10.0) H 11/21/20 06:37 RBC 4.41 10^6/uL (4.1-5.3) 11/21/20 06:37 Hgb 13.1 g/dL (11.5-15.3) 11/21/20 06:37 Hct 40.9 % (37.0-47.0) 11/21/20 06:37 MCV 92.7 fL (81-99) 11/21/20 06:37 MCH 29.7 pg (28.0-34.0) 11/21/20 06:37 MCHC 32.0 g/dL (30.0-36.0) 11/21/20 06:37 RDW 15.2 % (12.1-15.1) H 11/21/20 06:37 Plt Count 225 10^3/cmm (130-400) 11/21/20 06:37 MPV 11.8 fL (7.4-10.4) H 11/21/20 06:37 Neut % (Auto) 75.3 % 11/20/20 06:55 Lymph % (Auto) Not Reportable 11/21/20 06:37 Brule % (Auto) Not Reportable 11/21/20 06:37 Eos % (Auto) 0.7 % 11/20/20 06:55 Baso % (Auto) 0.8 % 11/20/20 06:55 Neut # (Auto) 7.79 10^3/uL (1.8-7.7) H 11/20/20 06:55 Lymph # (Auto) Not Reportable 11/21/20 06:37 Brule # (Auto) Not Reportable 11/21/20 06:37 Eos # (Auto) 0.1 10^3/uL (0.0-0.8) 11/20/20 06:55 Baso # (Auto) 0.1 10^3/uL (0.0-0.1) 11/20/20 06:55 Nucleated RBC % (auto) 0 % 11/20/20 06:55 Total Counted 100 (0-100) 11/21/20 06:37 Atypical Lymphs % 0.0 % (0-5) 11/21/20 06:37 Absolute Neutrophils 11.3 10^3/cmm (1.4-6.5) H 11/21/20 06:37 Segmented Neutrophils 47 % 11/21/20 06:37 Abs Segm Neuts (Man) 7.1 10/cmm (1.6-7.1) 11/21/20 06:37 Band Neutrophils 28.0 % 11/21/20 06:37 Abs Band Neuts (Man) 4.2 10^3/cmm (0.0-1.2) H 11/21/20 06:37 Lymphocytes (Manual) 12 % 11/21/20 06:37 Monocytes (Manual) 4.0 % 11/21/20 06:37 Absolute Monocytes 0.6 10^3/cmm (0.1-0.6) 11/21/20 06:37 Eosinophils (Manual) 0 % 11/21/20 06:37 Absolute Eosinophils 0.0 10^3/cmm (0.0-0.7) 11/21/20 06:37 Basophils (Manual) 0.0 % 11/21/20 06:37 Absolute Basophils 0.0 10^3/cmm (0.0-0.2) 11/21/20 06:37 Metamyelocytes 9.0 % 11/21/20 06:37 Myelocytes 0.0 % 11/21/20 06:37 Promyelocytes 0.0 % 11/21/20 06:37 Nucleated RBCs 0.0 /100WBC (0-1) 11/21/20 06:37 Nucleated RBCs # 0.0 /100WBC 11/20/20 06:55 Blast Cells 0 % (0-0) 11/21/20 06:37 Platelet Estimate Normal (Normal) 11/21/20 06:37 D-Dimer 2.53 ug/mIFEU (0-0.59) H 11/15/20 22:25 Specimen Type Arterial 11/21/20 05:30 Sample Site Radial, right 11/21/20 05:30 ABG pH 7.47 (7.35-7.45) H 11/21/20 05:30 ABG pCO2 29.5 mmHg (35-45) L 11/21/20 05:30 ABG pO2 60.1 mmHg (80.0-100.0) L 11/21/20 05:30 ABG HCO3 21.5 mmol/L (22-26) L 11/21/20 05:30 ABG Base Excess -1.1 mmol/L (-2.0-2.0) 11/21/20 05:30 Jeff Test Pos 11/21/20 05:30 Hematocrit 42.5 % (37-47) 11/21/20 05:30 O2 Delivery Device Nc 11/21/20 05:30 O2 Liters/Min 3.5 % 11/21/20 05:30 FiO2 34.0 % 11/21/20 05:30 Optoelectronics Engineer ID [email or web address] 11/21/20 05:30 Sodium 132 mmol/L (136-145) L 11/21/20 06:37 Potassium 3.7 mmol/L (3.5-5.1) 11/21/20 06:37 Chloride 98 mmol/L (98-107) 11/21/20 06:37 Carbon Dioxide 23 mmol/L (22-29) 11/21/20 06:37 Anion Gap 14.7 (5-19) 11/21/20 06:37 BUN 22 mg/dL (8-23) 11/21/20 06:37 Creatinine 1.5 mg/dL (0.5-0.9) H 11/21/20 06:37 GFR Calculation Not Reportable 11/21/20 06:37 Glucose 107 mg/dL (65-115) 11/21/20 06:37 POC Glucose 119 mg/dL (70-110) H 11/17/20 11:56 Calculated Osmolality 278 mOsm/kg (285-295) L 11/21/20 06:37 Lactic Acid 1.7 mmol/L (0.5-2.2) 11/21/20 08:35 Lactate 1.1 mmol/L (0.5-2.2) 11/19/20 06:06 Calcium 7.9 mg/dL (8.5-10.5) L 11/21/20 06:37 Phosphorus 2.8 mg/dL (2.5-4.5) D 11/21/20 06:37 Magnesium 1.6 mg/dL (1.7-2.3) L 11/21/20 06:37 Total Bilirubin 0.8 mg/dL (0.15-1.2) 11/21/20 06:37 AST 19 U/L (0-32) 11/21/20 06:37 ALT 15 U/L (0-33) 11/21/20 06:37 Alkaline Phosphatase 51 IU/L (35-105) 11/21/20 06:37 Troponin T Gen 5 ng/L 21 ng/L (0-10) H 11/20/20 15:24 Troponin T Baseline 19 ng/L (0-10) H 11/21/20 06:37 Troponin T 120 Minute 22.38 ng/L (0-10) H 11/21/20 08:35 Delta Troponin T 3.38 ABS# (0-10) 11/21/20 08:35 Troponin T Hi Sens 6Hr 32.00 ng/L (0-10) H 11/18/20 22:39 Troponin T Hi Sens 6Hr Delta 7.00 ng/L (0-12) 11/18/20 22:39 C-Reactive Protein 199.9 mg/L (0.0-4.9) H 11/21/20 06:37 C-Reactive Protein 206.8 mg/L (0.0-4.9) H 11/21/20 06:37 NT-Pro-B Natriuret Pep 7950 pg/mL (0-450) H 11/21/20 06:37 NT-Pro-B Natriuret Pep 8168 pg/mL (0-450) H 11/21/20 06:37 Total Protein 5.0 g/dL (6.6-8.7) L 11/21/20 06:37 Albumin 2.3 g/dL (3.5-5.2) L 11/21/20 06:37 Globulin 2.7 g/dL (1.3-4.6) 11/21/20 06:37 Procalcitonin 15.18 ng/mL (0-0.5) H 11/21/20 06:37 Procalcitonin 16.36 ng/mL (0-0.5) H 11/21/20 06:37 Urine Color Dark yellow (Yellow) 11/15/20 18:37 Urine Appearance Hazy (CLEAR) A 11/15/20 18:37 Urine pH 6 (5-7) 11/15/20 18:37 Ur Specific Chandler 1.015 (1.005-1.030) 11/15/20 18:37 Urine Protein Trace (Negative) 11/15/20 18:37 Urine Glucose (UA) Norm (Normal) 11/15/20 18:37 Urine Ketones Negative (Negative) 11/15/20 18:37 Urine Blood 2+ (Negative) H 11/15/20 18:37 Urine Nitrate Negative (Negative) 11/15/20 18:37 Urine Bilirubin Neg (Negative) 11/15/20 18:37 Urine Urobilinogen Norm mg/dL (Negative) 11/15/20 18:37 Ur Leukocyte Esterase Negative (Negative) 11/15/20 18:37 Urine RBC 50-80 /hpf (0-2) H 11/15/20 18:37 Urine WBC None /hpf (0-5) 11/15/20 18:37 Ur Squamous Epith Cells 15-25 /hpf (0-5) H 11/15/20 18:37 Amorphous Sediment Not Reportable 11/15/20 18:37 Urine Bacteria 1+ /hpf (NONE) H 11/15/20 18:37 SARS-CoV-2 RNA (RT-PCR) Not detected (NOT DETECTED) 11/19/20 03:30 SARS-CoV-2 Ag (Rapid) Negative (Negative) 11/16/20 01:50 EKG 2: My Interpretation: EKG from today revealed sinus rhythm with left bundle branch block. Further interpretation is not possible A&P Assessment and plan (1) Hypotension: Most likely related to sepsis. Her cardiomyopathy and low ejection fraction also could be contributing factor. May be treated with careful hydration and vasopressors. Status: Acute Qualifiers: Hypotension type: other hypotension type Qualified Code(s): I95.89 - Other hypotension (2) Fecal peritonitis: Management as per the surgery/hospitalist service Status: Acute (3) Elevated troponin: Most likely this is a type II myocardial infarction. In view of the underlying chronic left bundle branch block and history of no obstructive coronary disease 7 years ago, possibility of patient developing significant coronary lesion causing ischemia may be low. Status: Acute (4) Nonischemic cardiomyopathy: May continue on the current measures for the time being. May consider IV Dobutrex, if the blood pressure drops again after maximizing the Levophed Status: Acute Additional A&P Information Based on the clinical progress, further recommendations will be made. Patient needs to be closely monitored for any development of arrhythmia. Dr. Toledo will be covering, in my absence Attestations Medical Necessity Statement*: Patient condition is critical and requires close monitoring . Procedures Arterial Line Size (Gauge): 20 Coding Level of Care Code Acute Viscosity Tester for Eli Yo Diagnoses Hypotension I95.89 Hypotension type: other hypotension type Fecal peritonitis K65.8 Elevated troponin R77.8 Nonischemic cardiomyopathy I42.8
[2020-11-21] MEDS: DOBUTamine drip 500 MG/250 ML PREMIX 6.1 MG IV (22:31)
--- NOTE | 2020-11-21 23:21 | PC.NURSE ---
LEVOPHED TITRATION Unable to titrate levophed on JAN 2100- went up to 17 mcg 2129- went up to 18 mcg 2199- went up to 19 mcg
[2020-11-22] VITALS (34 sets, daily range): BP systolic 70–133; BP diastolic 47–73; PULSE 69–90; RESP 13–28; TEMP 36.4–37.1; O2SAT 90–100
[2020-11-22] MEDS: albumin 12.5 GM/250 ML VIAL IV (00:35)
[2020-11-22] MEDS: heparin 5,000 unit/mL INJ 1 mL 5000 UNIT SUBCUT ×2 (00:44→18:07)
[2020-11-22] MEDS: sodium chloride 0.9% 500 ML IV (00:49)
[2020-11-22] MEDS: famotidine 20 mg/2 mL INJ IVP ×2 (01:50→18:07)
[2020-11-22] MEDS: sodium chloride 0.9% 250 ML 500 ML IV (02:00)
[2020-11-22] MEDS: ipratropium-albuterol 3 mL Neb INHALATION ×4 (02:31→20:14)
[2020-11-22 02:57] LABS: Hematocrit 32.1 % (37.0-47.0); Hemoglobin 10.3 g/dL (11.5-15.3); Mean Corpuscular HGB Conc 32.1 g/dL (30.0-36.0); Mean Corpuscular Hemoglobin 29.3 pg (28.0-34.0); Mean Corpuscular Volume 91.5 fL (81-99); Platelet Count 206 10^3/cmm (130-400); Red Blood Count 3.51 10^6/uL (4.1-5.3); Red Cell Distribution Width 15.8 % (12.1-15.1); White Blood Count 19.8 10^3/uL (4.0-10.0)
[2020-11-22 03:02] LABS: INR 1.31 (0.8-1.2)
[2020-11-22 03:04] LABS: Blood Gas Sample Site Brachial, right; Blood Gas Sample Type Arterial; Carboxyhemoglobin 0.9 %THgb (0.4-20.1); Potassium Level - ABG 3.2 mmol/L (3.5-5.0)
[2020-11-22 03:08] LABS: ABG PCO2 30.5 mmHg (35-45); ABG PH Result 7.39 (7.35-7.45); Alveolar-Arterial Oxygen Gradi 7.1 mmHg (5-10); Arterial Blood Gas Hematocrit 32.6 % (37-47); Base Excess ABG -5.7 mmol/L (-2.0-2.0); Blood Gas Operator Identificat Anonymous; HCO3 ABG 18.4 mmol/L (22-26); HGB O2 Sat 87.3 % (95-100); Methemoglobin 0.7 % (0.4-1.5); Oxygen Saturation ABG 88.7; PO2 ABG 56.7 mmHg (80.0-100.0); Total Hemoglobin 10.6 g/dL (12-16)
[2020-11-22 03:12] LABS: C Reactive Protein 269.3 mg/L (0.0-4.9); Lactate (Lactic Acid level) 1.3 mmol/L (0.5-2.2)
[2020-11-22 03:13] LABS: Alanine Aminotransferase 12 U/L (0-33); Albumin Level 1.9 g/dL (3.5-5.2); Alkaline Phosphatase 49 IU/L (35-105); Anion Gap 15.4 (5-19); Aspartate Amino Transferase 15 U/L (0-32); Blood Urea Nitrogen 33 mg/dL (8-23); Carbon Dioxide 19 mmol/L (22-29); Chloride 100 mmol/L (98-107); Globulin 2.3 g/dL (1.3-4.6); Glucose 215 mg/dL (65-115); Magnesium 2.2 mg/dL (1.7-2.3); Osmolality Calculated 286 mOsm/kg (285-295); Phosphorus 3.8 mg/dL (2.5-4.5); Potassium 3.4 mmol/L (3.5-5.1); Sodium 131 mmol/L (136-145); Total Bilirubin 0.7 mg/dL (0.15-1.2); Total Protein 4.2 g/dL (6.6-8.7)
[2020-11-22 03:17] LABS: Slide Review Slide Review Perform
[2020-11-22 03:24] LABS: NT Pro B Type Natriuretic Pept 5005 pg/mL (0-450); Procalcitonin 31.35 ng/mL (0-0.5)
[2020-11-22 03:35] LABS: Creatine Phosphokinase 86 U/L (26-192)
[2020-11-22] MEDS: norepinephrine 8 MG in dextrose 5 % 500 ML 76.2 MG IV (04:10)
[2020-11-22] MEDS: morphine 4 mg/mL SDV 1 mL IVP ×3 (04:53→21:20)
--- NOTE | 2020-11-22 07:00 | XR_ITS ---
WS: [id number] Exam: XR chest 1V portable [id number] Date/Time of Exam: 11/22/2020 7:00 AM Reason For Exam: sob Comparison 11/21/2020. The lungs are fully expanded and clear. ET tube has been removed. Left-sided central line is unchange d in the position. An enteric tube extends into the stomach, the tip is out of the [id number]. Nor mal cardiomediastinal structures and bony elements. XR/XR chest 1V portable [id number] IMPRESSION: 1. The lungs are clear and fully expanded. 2. ET tube has been removed since previous study. Enteric tube and left subclav xander central line in place without change.
--- NOTE | 2020-11-22 07:45 | US_ITS ---
WS: [id number] ULTRASOUND RENAL TECHNIQUE: Ultrasound examination of both kidneys. CLINICAL INFORMATION: renal failure COMPARISON: None. FINDINGS: Limited examination due to body habitus and bowel gas. RIGHT: Right kidney is normal in size and appearance. Echogenicity: Normal. Cortical thickness: 1.4 cm; Normal. Hydronephrosis: None. Perinephric fluid: None. Right kidney measures: 10.2 cm x 5.6 cm x 3.8 cm. LEFT: Left kidney is normal in size and appearance. Echogenicity: Normal. Cortical thickness: 0.9 cm; Normal. Hydronephrosis: None. Perinephric fluid: None. Left kidney measures: 10.4 cm x 6.0 cm x 3.8 cm. Normal visualized aorta. Cantu catheter. Ascites seen in the pelvis and left upper quadrant. US/US renal BI* [id number] IMPRESSION: 1. Technically difficult examination. 2. No hydronephrosis in either kidney. Grossly normal kidneys. 3. Cantu catheter in the bladder.
--- NOTE | 2020-11-22 07:52 | PM.PN ---
Subjective Subjective: Interval history: The patient is extubated. She says her abdomen is sore. Surgical findings and procedure discussed with her this morning. Vitals/I&O/Wt Last Vital Signs Temp 99.0 F 11/21/20 19:15 Pulse 75 11/22/20 06:00 Resp 20 H 11/22/20 04:30 BP 83/47 11/22/20 04:30 Pulse Ox 91 11/22/20 04:30 11/21/20 11/22/20 11/22/20 22:59 06:59 14:59 Intake Total 1366.967 / 3186.040 865.020 / 3186.040 Output Total 245 / 305 60 / 305 Balance 1121.967 / 2881.040 805.020 / 2881.040 Physical Exam Narrative: EXAM NARRATIVE: The stoma is a little dusky but viable. Midline dressing is intact. Bowel sounds are very infrequent. Urinary Catheter Management^: Cantu: Cath Placed During This Visit: yes Reason for Continuing Indwelling Catheter: Accurate Measurement of Urinary Output in Critically Ill Patients Urinary Catheter Date of Insertion: 11/21/20 Urinary Catheter Time of Insertion: 07:51 Data : 11/22/20 02:45 11/22/20 02:45 A&P Assessment and plan (1) Fecal peritonitis: Status post Lyubov procedure on 11/21/2024 perforated sigmoid colon, likely the result of a stercoral ulcer. Status: Acute (2) Partial small bowel obstruction: Status post adhesiolysis on 11/21/2020. The patient had significant adhesions in the upper abdomen that were separate from her perforated colon problem. Status: Acute Attestations Medical Necessity Statement*: See admitting service's notation. Procedures Arterial Line Size (Gauge): 20 Coding Level of Care Code Acute Database Software Technician for g Fwd Diagnoses Fecal peritonitis K65.8 Partial small bowel obstruction K56.600
--- NOTE | 2020-11-22 09:08 | PM.CONSULT ---
Providers/Reason For Consult Consulting Physican/Specialty*: megha conklin / Telenephrology Reason for Consult*: oligo-anuric HAMZAH Attending Physician: Shawn Black MD Primary Care Provider: Shanti Simmons MD History of Present Illness History of Present Illness Radha Archer is a 75 year old female adnitted between night of 11-15 to 11-16-20 w/ abd pain. she was diagnosed w/ enteritis and given abx and ivf. she was improving till 11-18-20 - devleoped SOB- seen by cardiology and given lasix, Echo revealed EF of 35%. By 11-20-20 she developed inc abd pain- had a CT w/ iodine contrast revealed intra-abdominal perf, multiple abscess. she went to [id number] - had ex- lap -perf colon, partial colectomy w/ willard pouch- post op hypotensive on pressers, extubated, and now oligo-anuric HAMZAH. she is in pain, denoes sob, nausea. Review of Systems General: Reports: 10 or more systems reviewed and unremarkable except in HPI and below Narrative: weak, sob, abd pain Meds/Allergies Home Medications and Allergies Home Medications Medication Instructions Recorded Confirmed Last Taken Type aspirin 81 mg tablet,delayed 81 mg PO DAILY@1000 11/29/19 11/15/20 11/14/20 History release albuterol sulfate 90 mcg/actuation 2 puff INHALATION Q6H PRN #8.5 gm 12/20/19 11/15/20 01/22/20 Rx aerosol inhaler alendronate 70 mg tablet 70 mg PO Q7D #4 tab 02/08/20 11/15/20 11/06/20 Rx multivitamin 1 tab PO DAILY@1000 05/11/20 11/15/20 11/14/20 History omega-3 fatty acids 1,000 mg 1,000 mg PO DAILY@1000 05/11/20 11/15/20 11/14/20 History capsule cetirizine 10 mg tablet 10 mg PO DAILY PRN #30 tab 07/03/20 11/15/20 Unknown Rx lorazepam 0.5 mg tablet 0.5 mg PO BID PRN #60 tab 10/18/20 11/15/20 11/14/20 Rx Colace 100 mg PO BID@11/15/20 11/15/2022/20 History Flonase Allergy Relief 2 spray INTRANASAL DAILY@1000 11/15/20 11/15/20 11/14/20 History Lunesta 3 mg PO BEDTIME@2200 11/15/20 11/15/20 11/14/20 History Multi For Her 50 Plus 1 cap PO DAILY@1000 11/15/20 11/15/20 11/14/20 History Probiotic 1 tab PO DAILY@1000 11/15/20 11/15/20 11/14/20 History Protonix 40 mg PO BID@1000,0 11/15/20 11/15/20 11/14/20 History celecoxib 200 mg PO BID@11/15/20 11/15/20 11/14/20 History cyclobenzaprine 10 mg PO BEDTIME@2200 11/15/20 11/15/20 11/14/20 History hydrochlorothiazide 25 mg PO DAILY@1000 11/15/20 11/15/20 11/14/20 History levothyroxine 25 mcg PO DAILY@1000 11/15/20 11/15/20 11/14/20 History lisinopril 30 mg PO DAILY@1000 11/15/20 11/15/20 11/14/20 History metoprolol succinate 50 mg PO DAILY@1000 11/15/20 11/15/20 11/14/20 History venlafaxine 150 mg PO DAILY@1000 11/15/20 11/15/20 11/14/20 History amoxicillin-pot clavulanate 1 tab PO Q12H 7 Days #14 tab 11/18/20 Unknown Rx [Augmentin] Allergies Allergy/AdvReac Type Severity Reaction Status Date / Time No Known Allergies Allergy Verified 11/16/20 12:58 Current Medications Current Medications Generic Name Dose Route Start Last Admin Trade Name Freq PRN Reason Stop Dose Admin Albuterol/Ipratropium 3 ml 11/21/20 15:00 11/22/20 08:37 Ipratropium-Albuterol 3 Ml Neb INHALATION 3 ml Q6H.RESPIRATORY RENAE Administration Amlodipine Besylate 10 mg 11/20/20 14:15 11/20/20 14:49 Amlodipine 10 Mg Tablet PO 10 mg ONCE RENAE Administration Aspirin 81 mg 11/20/20 09:00 11/21/20 09:01 Aspirin 81 Mg Ec Tablet PO 81 mg DAILY RENAE Administration Atorvastatin Calcium 40 mg 11/20/20 09:00 11/21/20 09:01 Atorvastatin 40 Mg Tablet PO 40 mg DAILY RENAE Administration Carvedilol 3.125 mg 11/20/20 09:00 11/21/20 09:02 Carvedilol 3.125 Mg Tablet PO 3.125 mg BID RENAE Administration Famotidine 20 mg 11/16/20 13:30 11/22/20 01:50 Famotidine 20 Mg/2 Ml Inj IVP 20 mg Q12H RENAE Administration Heparin Sodium (Beef Lung) 5,000 unit 11/16/20 13:00 11/22/20 00:44 Heparin 5,000 Unit/Ml Inj 1 Ml SUBCUT 5,000 unit Q12H RENAE Administration Imipenem/Cilastatin Sodium 250 100 mls @ 200 mls/hr 11/21/20 11:00 11/22/20 06:30 mg/ Sodium Chloride IV Infused Q6H RENAE Infusion Protocol Vancomycin HCl 1,000 mg/ 250 mls @ 250 mls/hr 11/21/20 10:00 11/21/20 14:45 Sodium Chloride IV Infused Q24H RENAE Infusion Protocol Dextrose/Sodium Chloride 1,000 mls @ 100 mls/hr 11/21/20 13:43 11/22/20 04:34 Dextrose 5%-Sod Chloride 0.45% IV Not Given .Q10H RENAE Norepinephrine Bitartrate 4 mg 254 mls @ 0 mls/hr 11/21/20 14:15 11/22/20 04:16 / Dextrose IV Infused .Q0M RENAE Titration Protocol Per Protocol Dobutamine HCl/Dextrose 500 mg in 250 mls @ 0 mls/hr 11/21/20 17:00 11/22/20 06:15 Dobutamine Drip IV 7 mcg/kg/min .Q0M RENAE 17.1 mls/hr Titration Protocol Per Protocol Sodium Chloride 500 mls @ 1 mls/hr 11/22/20 00:15 11/22/20 00:50 Sodium Chloride 0.9% IV 0 mls/hr .Q24H RENAE Infusion Vasopressin 100 unit/ Sodium 100 mls @ 0 mls/hr 11/22/20 02:15 11/22/20 08:11 Chloride IV 0 unit/min .Q0M RENAE 0 mls/hr Titration Protocol Per Protocol Norepinephrine Bitartrate 8 mg 508 mls @ 0 mls/hr 11/22/20 02:15 11/22/20 08:11 / Dextrose IV 18 mcg/min .Q0M RENAE 68.6 mls/hr Titration Protocol Per Protocol Morphine Sulfate 2 - 4 mg 11/21/20 13:43 11/22/20 04:53 Morphine 4 Mg/Ml Sdv 1 Ml IVP 4 mg Q4H PRN Administration SEVERE PAIN PFSH Acute PFSH: Medical History Anxiety and depression Constipation COPD (chronic obstructive pulmonary disease) Coronary artery fistula Diverticulosis Dyslipidemia Elevated troponin Endometriosis GERD (gastroesophageal reflux disease) Hiatal hernia History of colon polyps Hypertension Insomnia LBBB (left bundle branch block) Left ventricular dysfunction Nonischemic cardiomyopathy PTSD (post-traumatic stress disorder) Subclinical hypothyroidism Surgical History History of ear surgery (~2016) Right -- removal of fluid from ear drum, removal of ear drum, replaced with artifical ear drum History of incisional hernia repair X 3 01/24/2020: Laparoscopic History of left oophorectomy partial History of shoulder surgery Right History of tonsillectomy Status post colonoscopy with polypectomy 12/2019 --2 adenomatous polyps, diverticulosis Family History Grandmother Colon cancer Maternal-- dx age 69 Breast cancer Paternal-- dx age unknown Mother Heart disease Denies family history of Ovarian cancer Diabetes Hypercholesteremia Bleeding disorder Hypertension Uterine cancer Thyroid disease Stroke Social History Smoking and tobacco status: former smoker Quit status (tobacco): has quit using tobacco Year quit tobacco: Around 1999 Former quit date comment: [id number] history previously Alcohol intake: current Alcohol intake frequency: few times a month Additional social history: Drug use: denies Vitals/I&O/Wt Last Vital Signs Temp 97.5 F L 11/22/20 08:00 Pulse 77 11/22/20 08:37 Resp 16 11/22/20 08:37 BP 97/64 11/22/20 08:00 Pulse Ox 95 11/22/20 08:37 11/21/20 11/22/20 11/22/20 22:59 06:59 14:59 Intake Total 1366.967 / 2321.020 865.020 / 3186.040 310.34 / 310.34 Output Total 245 / 245 60 / 305 Balance 1121.967 / 2076.020 805.020 / 2881.040 310.34 / 310.34 Physical Exam Narrative: EXAM NARRATIVE: obese, uncomfortable - hypotensive on pressers heent- nc/at, eomi neck supple lung poor air movement- clear heart reg abd tender, + ostomy ext min edema neuro- a,a,o x 2 exam by RN -telehealth visit Urinary Catheter Management^: Cantu: Cath Placed During This Visit: yes Reason for Continuing Indwelling Catheter: Accurate Measurement of Urinary Output in Critically Ill Patients Urinary Catheter Date of Insertion: 11/21/20 Urinary Catheter Time of Insertion: 07:51 A&P Additional A&P Information 75 yr old female systolic cHF- Ef 35%, tubular adenoma, multiple previous abd surgeries. Pt admitted w/ enteritis- was improving w/ abx- developed colonic perf and septic shock. POD#1 s/p hemicolectomy and hartmans pouch 1. HAMZAH- likely ATN- from hypotension, sepsis, and contrast -rec- ivf as tolerated -support BP -RX sepsis -check urine studies -check ck -monitor uop, chemistries -monitor for dialysis needs -renal dose meds for GFR <10 -check vanco trough- keep under 19 2. hyponatremia from HAMZAH 3. met acidosis and resp alkalosis- normal pH 4. 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
[2020-11-22] MEDS: sodium chloride 0.9% 250 ML 100 ML IV (09:51)
[2020-11-22] MEDS: DOBUTamine drip 500 MG/250 ML PREMIX 17.1 MG IV (10:00)
[2020-11-22 10:15] LABS: Vancomycin Trough 7.1 ug/mL (10-15)
[2020-11-22 10:38] LABS: Potassium, Radom Urine 48 mmol/L; Urine Creatinine 151 mg/dL (28-217)
[2020-11-22 10:41] LABS: Urine Random Chloride 10 mmol/L; Urine Random Sodium 10 mmol/L
[2020-11-22 11:18] LABS: Bilirubin Urine 1+ (Negative); Blood Urine 3+ (Negative); Glucose Urine UA Norm (Normal); Ketones Urine 1+ (Negative); Nitrate Urine Negative (Negative); Protein Urine 1+ (Negative); Specific Gravity, Urine 1.015 (1.005-1.030); Urine Appearance Hazy (CLEAR); Urine Color Dark Yellow (Yellow); pH Urine 5 (5-7)
[2020-11-22 11:19] LABS: Add Urine Culture? No; Bacteria Urine 1+ /hpf; Leukocyte Esterase Urine Trace (Negative); Mucus Urine 1+ /hpf; RBC Urine 0-4 /hpf (0-2); Squamous Epithelial Cell Urine 0-4 /hpf (0-5); Urobilinogen Urine 4 mg/dL (Negative); WBC Urine 0-4 /hpf (0-5)
[2020-11-22 11:53] LABS: Eosinophil Urine No Eosinophils Seen; Urine Eosinophil Count 0 (0-0)
[2020-11-22] MEDS: norepinephrine 8 MG in dextrose 5 % 500 ML 68.6 MG IV ×2 (12:08→12:14)
--- NOTE | 2020-11-22 13:29 | PM.PN ---
Subjective Subjective: Interval history: Patient was examined yesterday evening, around 630, she had self extubated herself, was saturating high 90s on room air, following all commands, lungs were clear to auscultation bilaterally, she was on Levophed at that point. Overnight she has required multiple pressors, map is greater than 65, urine output has decreased, she has no respiratory complaints is on 3 L, she is alert oriented x3, follows all commands, NG tube still in place, denies chest pain, denies shortness of breath, denies abdominal pain Vitals/I&O/Wt Last Vital Signs Temp 97.5 F L 11/22/20 08:00 Pulse 77 11/22/20 08:37 Resp 22 H 11/22/20 09:51 BP 97/64 11/22/20 08:00 Pulse Ox 94 11/22/20 09:51 11/21/20 11/22/20 11/22/20 22:59 06:59 14:59 Intake Total 1366.967 / 2321.020 865.020 / 3186.040 621.445 / 621.445 Output Total 245 / 245 60 / 305 Balance 1121.967 / 2076.020 805.020 / 2881.040 621.445 / 621.445 Physical Exam Const: COMMON NORMALS: no acute distress and patient oriented x3 HENMT: COMMON NORMALS: normocephalic HEAD & SCALP: normocephalic Neck/C-Spine: COMMON NORMALS: no JVD Resp: COMMON NORMALS: normal respiratory effort, No retractions, No use of accessory muscles and clear to auscultation bilaterally AUSCULTATION: clear to auscultation bilaterally Cardio: COMMON NORMALS: no JVD, regular rate, regular rhythm, S1 normal heart sound present and S2 normal heart sound present RATE: regular rate RHYTHM: regular rhythm HEART SOUNDS: S1 normal heart sound present and S2 normal heart sound present GI: COMMON NORMALS: Normal to inspection, nondistended, normoactive bowel sounds present, No hepatosplenomegaly present, no masses and no bruits PALPATION: Yes Tenderness to palpation present (GI) and Yes No hepatosplenomegaly present OTHER: Abdomen, colostomy bag in place Extremity: COMMON NORMALS: capillary refill normal, no clubbing, cyanosis or edema, no calf tenderness and no pedal edema Neuro: COMMON NORMALS: patient oriented x3 Psych: COMMON NORMALS: mental status grossly normal Urinary Catheter Management^: Cantu: Cath Placed During This Visit: yes Reason for Continuing Indwelling Catheter: Accurate Measurement of Urinary Output in Critically Ill Patients Urinary Catheter Date of Insertion: 11/21/20 Urinary Catheter Time of Insertion: 07:51 Data : 11/22/20 02:45 11/22/20 02:45 Micro: Microbiology 11/21/20 12:00 Abscess Culture - Preliminary Abdomen Gram Negative Rods A&P Assessment and plan (1) Septic shock: Status: Acute (2) Fecal peritonitis: Status: Acute (3) Intra-abdominal abscess: Status: Acute (4) Sepsis: Status: Acute (5) Abdominal pain: Status: Acute Qualifiers: Abdominal location: periumbilical Qualified Code(s): R10.33 - Periumbilical pain (6) Adynamic ileus: Status: Acute (7) Postmenopausal bleeding: Status: Acute (8) Hypoxia: Status: Acute (9) Enteritis: Status: Acute (10) Systolic CHF: Status: Acute (11) Bowel obstruction: Status: Acute (12) Recurrent ventral hernia: Status: Acute Additional A&P Information Fecal peritonitis, status post Lyubov procedure 11/21/2024 for perforated sigmoid colon, with partial small bowel obstruction status post adhesiolysis With septic shock, and acute renal failure Plan: -Status post self extubation 11/21/2020 -Currently in the intensive care unit -Full code -Heparin for DVT prophylaxis on hold for surgical intervention -Broad-spectrum antibiotic therapy reinitiated vancomycin and Primaxin -Follow blood cultures, surgical cultures -Patient is n.p.o., NG tube in place -Pepcid -Will avoid fluid overload given patient's EF of 30 to 35% -Multiple pressors including Levophed dobutamine, vasopressin, maintain MAP greater than 65 -Receiving gentle IV hydration to avoid fluid overload -Nephrology on consult -General surgery on consult -Cardiology on consult -Monitor respiratory status closely Septic shock Acute renal failure: Secondary to sepsis, contrast -Monitor urine output closely -On multiple pressors -Nephrology on consult -Urine studies, renal ultrasound Postmenopausal bleed 2.6 cm uterine mass High D-dimer currently hypoxic requiring 2 L nasal cannula CTA rule out PE was unremarkable for PE Uterine biopsy revealed endometrial polyp otherwise no malignancy Due for uterine surgery in November 2020 Acute hypoxia Likely secondary to fluid overload and systolic CHF Confirmed on multiple ABGs CT angiogram was negative for PE, slight atelectasis, no focal pneumonia Repeat ABG this afternoon shows hypoxia, PO2 59 on room air Patient is not hypo ventilating Hiatal hernia found on CT abdomen Etiology BNP is elevated at 3700, did receive fluids, giving Lasix daily, improved denies any chest pain, shortness of breath, any cardiac history Serial troponins, as high as 30, no significant delta, EKG no acute ST-T wave changes Rapid Covid negative, Covid PCR negative Plan: -Monitor fluid status closely -BiPAP as needed -We will need to avoid fluid overload Systolic CHF, patient's echocardiogram results yesterday showed: -This is a limited quality echocardiogram. Bubble study was ordered however could not be performed as atria are not well visualized. LV systolic function is moderately severely reduced with EF of 30 to 35%. Moderate to severe global hypokinesis is noted. Diastolic function cannot be assessed because of tachycardia Valves are not very well visualized, however no significant valvular abnormalities seen. Compared to prior echocardiogram from 09/18/2018, LV systolic function is significantly reduced now. -Patient's oxygen requirements have decreased to 2 L with diuresis, Lasix 40 mg IV push daily -On aspirin, statin, Coreg -The question is does patient have ischemic versus nonischemic cardiomyopathy -Cardiology on consult GERD: Continue PPI Full code N.p.o. DVT prophylaxis SCDs, heparin Patient's prognosis is guarded, status is critical Attestations Medical Necessity Statement*: Patient requires hospitalization, ICU, for septic shock, sepsis, secondary to peritonitis, perforated sigmoid colon ulcer, acute renal failure Time Spent in Patient Care: (>than 50% of time spent in counselling and/or direct pt care on unit). 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
[2020-11-22] MEDS: sodium chloride 0.9% 1,000 ML 50 ML IV (15:00)
[2020-11-22] MEDS: norepinephrine 8 MG in dextrose 5 % 500 ML 30.5 MG IV (21:30)
--- NOTE | 2020-11-22 22:11 | P.PN_ITS ---
Subjective Subjective: Interval history: Patient apparently was diagnosed with intestinal perforation and possible bacterial peritonitis. She underwent emergency exploratory laparotomy. She was found to have perforated sigmoid colon with feculent peritonitis. she was hypotensive following the procedure. Patient self extubated yesterday. She has stayed hypotensive overnight. On levophed/dobutamine. Vasopressin stopped this AM. She is drowsy. Vitals/I&O/Wt Last Vital Signs Temp 97.5 F L 11/22/20 08:00 Pulse 76 11/22/20 20:14 Resp 27 H 11/22/20 21:20 BP 101/63 11/22/20 16:00 Pulse Ox 96 11/22/20 20:14 11/22/20 11/22/20 11/22/20 06:59 14:59 22:59 Intake Total 1115.020 / 3436.040 721.445 / 721.445 202.52 / 923.965 Output Total 60 / 305 Balance 1055.020 / 3131.040 721.445 / 721.445 202.52 / 923.965 Physical Exam Narrative: EXAM NARRATIVE: Const COMMON NORMALS: Sleepy and drowsy HENMN COMMON NORMALS: normocephalic HEAD & SCALP: normocephalic Neck/C-Spine COMMON NORMALS: no JVD Resp COMMON NORMALS: normal respiratory effort, No retractions, No use of accessory muscles and clear to auscultation bilaterally AUSCULTATION: clear to auscultation bilaterally Cardio COMMON NORMALS: no JVD, regular rate, regular rhythm, S1 normal heart sound present and S2 normal heart sound present RATE: regular rate RHYTHM: regular rhythm HEART SOUNDS: S1 normal heart sound present and S2 normal heart sound present GI COMMON NORMALS: Normal to inspection, nondistended, normoactive bowel sounds present, No hepatosplenomegaly present, no masses and no bruits PALPATION: Yes Tenderness to palpation present (GI) and Yes No hepatosplenom egaly present OTHER: Abdomen, colostomy bag in place Extremity COMMON NORMALS: capillary refill normal, no clubbing, cyanosis or edema, no calf tenderness and no pedal edema Neuro COMMON NORMALS: patient oriented x3 Psych COMMON NORMALS: mental status grossly normal Urinary Catheter Management^: Cantu: Cath Placed During This Visit: yes Reason for Continuing Indwelling Catheter: Accurate Measurement of Urinary Output in Critically Ill Patients Urinary Catheter Date of Insertion: 11/21/20 Urinary Catheter Time of Insertion: 07:51 Data : 11/22/20 02:45 11/22/20 02:45 Micro: Microbiology 11/21/20 12:00 Gram Stain - Final Abdomen Abscess Culture - Preliminary Gram Negative Rods A&P Assessment and plan (1) Hypotension: Secondary to sepsis. Her cardiomyopathy and low ejection fraction also could be contributing factor. May be treated with careful hydration and vasopressors. MAP target of more than 65. Will recommend using levophed as first line agent. Can add vasopressin if needed. Status: Acute Qualifiers: Hypotension type: other hypotension type Qualified Code(s): I95.89 - Other hypotension (2) Fecal peritonitis: Management as per the surgery/hospitalist service Status: Acute (3) Elevated troponin: Most likely this is a type II myocardial infarction. In view of the underlying chronic left bundle branch block and history of no obstructive coronary disease 7 years ago, possibility of patient developing significant coronary lesion causing ischemia may be low. Status: Acute (4) Nonischemic cardiomyopathy: May continue on the current measures for the time being. May consider IV Dobutrex, if the blood pressure drops again after maximizing the Levophed Status: Acute Additional A&P Information Based on the clinical progress, further recommendations will be made. Patient needs to be closely monitored for any development of arrhythmia. 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
[2020-11-22] MEDS: linezolid premix 600 MG/300 ML PREMIX 300 MG IV (23:51)
[2020-11-23] VITALS (21 sets, daily range): BP systolic 95–118; BP diastolic 67–85; PULSE 76–95; RESP 13–24; TEMP 36.7–37.2; O2SAT 90–100
[2020-11-23] MEDS: morphine 4 mg/mL SDV 1 mL IVP ×4 (01:08→21:47)
[2020-11-23] MEDS: famotidine 20 mg/2 mL INJ IVP ×2 (01:09→12:55)
[2020-11-23] MEDS: heparin 5,000 unit/mL INJ 1 mL 5000 UNIT SUBCUT ×2 (01:09→12:55)
[2020-11-23] MEDS: ipratropium-albuterol 3 mL Neb INHALATION ×3 (04:20→20:23)
[2020-11-23 04:50] LABS: Basophils # 0.2 10^3/uL (0.0-0.1); Basophils % 0.6 %; Eosinophils # 0.1 10^3/uL (0.0-0.8); Eosinophils % 0.3 %; Hematocrit 27.3 % (37.0-47.0); Lymphocytes # 1.6 10^3/uL (0.8-4.8); Lymphocytes % 5.8 %; Mean Platelet Volume 11.8 fL (7.4-10.4); Monocytes # 0.8 10^3/uL (0.2-0.9); Monocytes % 3.1 %; Neutrophils # 22.42 10^3/uL (1.8-7.7); Neutrophils % 83.7 %; Nucleated Red Blood Cells % 0 %; Platelet Count 250 10^3/cmm (130-400); White Blood Count 26.8 10^3/uL (4.0-10.0)
[2020-11-23 04:57] LABS: ABG PH Result 7.42 (7.35-7.45); Base Excess ABG -2.6 mmol/L (-2.0-2.0); Blood Gas Allen Test Pos; Blood Gas Operator Identificat JB; Blood Gas Sample Site Radial, left; Blood Gas Sample Type Arterial; HCO3 ABG 21.3 mmol/L (22-26); Oxygen Device NC; PO2 ABG 74.2 mmHg (80.0-100.0)
[2020-11-23 05:15] LABS: INR 1.09 (0.8-1.2)
[2020-11-23 05:24] LABS: C Reactive Protein 274.5 mg/L (0.0-4.9)
[2020-11-23 05:26] LABS: Lactate (Lactic Acid level) 1.1 mmol/L (0.5-2.2)
[2020-11-23 05:30] LABS: NT Pro B Type Natriuretic Pept 1393 pg/mL (0-450); Procalcitonin 8.58 ng/mL (0-0.5)
[2020-11-23 05:43] LABS: Alanine Aminotransferase 15 U/L (0-33); Albumin Level 1.9 g/dL (3.5-5.2); Alkaline Phosphatase 74 IU/L (35-105); Anion Gap 13.9 (5-19); Aspartate Amino Transferase 20 U/L (0-32); Blood Urea Nitrogen 27 mg/dL (8-23); Calcium 6.8 mg/dL (8.5-10.5); Carbon Dioxide 21 mmol/L (22-29); Chloride 97 mmol/L (98-107); Creatine Phosphokinase 183 U/L (26-192); Glucose 134 mg/dL (65-115); Magnesium 2.1 mg/dL (1.7-2.3); Osmolality Calculated 275 mOsm/kg (285-295); Phosphorus 2.6 mg/dL (2.5-4.5); Sodium 129 mmol/L (136-145); Total Bilirubin 0.5 mg/dL (0.15-1.2); Total Protein 4.9 g/dL (6.6-8.7)
[2020-11-23 05:45] LABS: Potassium 2.9 mmol/L (3.5-5.1)
[2020-11-23] MEDS: potassium chloride premix 100 ML 25 MEQ IV ×2 (06:01→09:20)
--- NOTE | 2020-11-23 06:12 | P.PN_ITS ---
Subjective Subjective: Interval history: The patient remains sore but says she otherwise is feeling well. Vitals/I&O/Wt Last Vital Signs Temp 98.7 F 11/22/20 20:00 Pulse 82 11/23/20 04:20 Resp 15 11/23/20 04:20 BP 112/70 11/23/20 04:00 Pulse Ox 96 11/23/20 04:20 11/22/20 11/22/20 11/23/20 14:59 22:59 06:59 Intake Total 721.445 / 1651.872 701.358 / 1651.872 229.069 / 1651.872 Output Total 950 / 1750 800 / 1750 Balance 721.445 / -98.128 -248.642 / -98.128 -570.931 / -98.128 Physical Exam Narrative: EXAM NARRATIVE: Hemodynamics seem to be improving. The patient's urine output is better. She does have a few bowel sounds this morning. The midline dressing was removed and the wound looks good. The stoma is viable. Urinary Catheter Management^: Cantu: Cath Placed During This Visit: yes Reason for Continuing Indwelling Catheter: Accurate Measurement of Urinary Output in Critically Ill Patients Urinary Catheter Date of Insertion: 11/21/20 Urinary Catheter Time of Insertion: 07:51 Data : 11/22/20 02:45 11/23/20 04:00 Micro: Microbiology 11/21/20 12:00 Gram Stain - Final Abdomen Abscess Culture - Preliminary Gram Negative Rods A&P Assessment and plan (1) Fecal peritonitis: Status post Lyubov procedure on 11/21/2024 perforated sigmoid colon, likely the result of a stercoral ulcer. Status: Acute (2) Partial small bowel obstruction: Status post adhesiolysis on 11/21/2020. 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 Status: Acute Attestations Medical Necessity Statement*: See admitting service's notation. 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
[2020-11-23 06:20] LABS: Slide Review Slide Review Perform
--- NOTE | 2020-11-23 07:00 | XR_ITS ---
WS: [id number] Exam: XR chest 1V portable [id number] Date/Time of Exam: 11/23/2020 7:00 AM Reason For Exam: sob Comparison 11/22/2020. The lungs remain clear and fully expanded. Normal cardiomediastinal structures. A left subclavian collin tral line ends in the SVC in good position. An enteric tube enters the stomach but the tip is not vis ible. XR/XR chest 1V portable [id number] IMPRESSION: 1. No acute cardiopulmonary finding. No change.
--- NOTE | 2020-11-23 07:06 | P.PN_ITS ---
Subjective Subjective: Interval history: feels better. more awake, urinating. bloody fluid from lizeth pouch Medications: Reviewed: Yes Medication Review Details: Current Medications Albuterol/Ipratropium (Ipratropium-Albuterol 3 Ml Neb) 3 ml INHALATION Q6H.RESPIRATORY RENAE Last Admin: 11/23/20 04:20 Dose: 3 ml Documented by: Aspirin (Aspirin 81 Mg Ec Tablet) 81 mg PO DAILY RENAE Last Admin: 11/22/20 18:53 Dose: Not Given Documented by: Atorvastatin Calcium (Atorvastatin 40 Mg Tablet) 40 mg PO DAILY RENAE Last Admin: 11/22/20 18:59 Dose: Not Given Documented by: Carvedilol (Carvedilol 3.125 Mg Tablet) 3.125 mg PO BID RENAE Last Admin: 11/21/20 09:02 Dose: 3.125 mg Documented by: Famotidine (Famotidine 20 Mg/2 Ml Inj) 20 mg IVP Q12H RENAE Last Admin: 11/23/20 01:09 Dose: 20 mg Documented by: Heparin Sodium (Beef Lung) (Heparin 5,000 Unit/Ml Inj 1 Ml) 5,000 unit SUBCUT Q12H RENAE Last Admin: 11/23/20 01:09 Dose: 5,000 unit Documented by: Imipenem/Cilastatin Sodium 250 (mg/ Sodium Chloride) 100 mls @ 200 mls/hr IV Q6H RENAE; Protocol Last Admin: 11/23/20 05:08 Dose: 100 mls/hr Documented by: Dextrose/Sodium Chloride (Dextrose 5%-Sod Chloride 0.45%) 1,000 mls @ 100 mls/hr IV .Q10H RENAE Last Admin: 11/22/20 04:34 Dose: Not Given Documented by: Norepinephrine Bitartrate 4 mg (/ Dextrose) 254 mls @ 0 mls/hr IV .Q0M RENAE; Protocol Last Titration: 11/22/20 04:16 Dose: Infused Documented by: Dobutamine HCl/Dextrose (Dobutamine Drip) 500 mg in 250 mls @ 0 mls/hr IV .Q0M RENAE; Protocol Last Titration: 11/22/20 19:30 Dose: 0 mcg/kg/min, 0 mls/hr Documented by: Dexmedetomidine HCl 400 mcg/ (Sodium Chloride) 104 mls @ 0 mls/hr IV .Q0M RENAE; Protocol Sodium Chloride (Sodium Chloride 0.9%) 500 mls @ 1 mls/hr IV .Q24H RENAE Last Admin: 11/23/20 00:22 Dose: Not Given Documented by: Vasopressin 100 unit/ Sodium (Chloride) 100 mls @ 0 mls/hr IV .Q0M RENAE; Protocol Last Titration: 11/23/20 05:49 Dose: 0 unit/min, 0 mls/hr Documented by: Norepinephrine Bitartrate 8 mg (/ Dextrose) 508 mls @ 0 mls/hr IV .Q0M RENAE; Protocol Last Titration: 11/23/20 05:00 Dose: 0 mcg/min, 0 mls/hr Documented by: Sodium Chloride (Sodium Chloride 0.9%) 1,000 mls @ 50 mls/hr IV .Q20H RENAE Last Admin: 11/22/20 15:00 Dose: 50 mls/hr Documented by: Linezolid (Zyvox Premix) 600 mg in 300 mls @ 300 mls/hr IV Q12H [facility] Last Admin: 11/22/20 23:51 Dose: 300 mls/hr Documented by: Potassium Chloride (K-Rayray) 100 mls @ 25 mls/hr IV Q4H [facility] Stop: 11/23/20 13:59 Last Admin: 11/23/20 06:01 Dose: 25 mls/hr Documented by: Morphine Sulfate (Morphine 4 Mg/Ml Sdv 1 Ml) 2 - 4 mg IVP Q4H PRN PRN Reason: SEVERE PAIN Last Admin: 11/23/20 01:08 Dose: 4 mg Documented by: Ondansetron HCl (Ondansetron 2 Mg/Ml Sdv 2 Ml) 4 mg IVP Q4H PRN PRN Reason: NAUSEA AND VOMITING Phenol (Phenol Oral [place]field 177 Ml) 3 spray MUCOUS MEM Q2H PRN PRN Reason: SORE THROAT Vitals/I&O/Wt Last Vital Signs Temp 98.7 F 11/22/20 20:00 Pulse 76 11/23/20 06:00 Resp 15 11/23/20 04:20 BP 112/70 11/23/20 04:00 Pulse Ox 96 11/23/20 04:20 11/22/20 11/23/20 11/23/20 22:59 06:59 14:59 Intake Total 701.358 / 1422.803 229.069 / 1651.872 Output Total 950 / 950 800 / 1750 Balance -248.642 / 472.803 -570.931 / -98.128 Physical Exam Narrative: EXAM NARRATIVE: obese, comfortable - vss heent- nc/at, eomi, ng tube neck supple lung - clear heart reg abd- + bs, less tender, + ostomy ext min edema neuro- a,a,o x 2 exam by RN -telehealth visit Urinary Catheter Management^: Cantu: Cath Placed During This Visit: yes Reason for Continuing Indwelling Catheter: Accurate Measurement of Urinary Output in Critically Ill Patients Urinary Catheter Date of Insertion: 11/21/20 Urinary Catheter Time of Insertion: 07:51 Data : 11/23/20 04:00 11/23/20 04:00 Micro: Microbiology 11/21/20 12:00 Gram Stain - Final Abdomen Abscess Culture - Preliminary Gram Negative Rods A&P Additional A&P Information 75 yr old female systolic cHF- Ef 35%, tubular adenoma, multiple previous abd surgeries. Pt admitted w/ enteritis- was improving w/ abx- developed colonic perf and septic shock. POD#1 s/p hemicolectomy and hartmans pouch 1. HAMZAH- likely ATN- from hypotension, sepsis, and contrast vs prerenal azotemia -cr improved -u/a 3+ blood, ketones -low ur na -replace k, ca -support BP -monitor in and out 2. hyponatremia - monitor w/ ivf - from hamzah and gi losses -low ur na- should improve w/ ivf -consider stopping dobutamine 3. met acidosis- improving 4. systolic cHF -monitor w/ ivf -can start angelita-i/ arb when eating 5. hypocalcemia- check vit d levels- replete when eating Attestations Medical Necessity Statement*: s/p hartmans pouch. not eating yet, electrolyte abnormalities Time Spent in Patient Care: 16 - 35 minutes Procedures Arterial Line Size (Gauge): 20 Coding Level of Care Code Acute Web Analytics Developer for Eli Yo
[2020-11-23] MEDS: potassium chloride oral liq 20 mEq/15 mL UDC PO (08:50)
[2020-11-23] MEDS: metroNIDAZOLE IV 500 MG/100 ML PREMIX 100 MG IV ×3 (08:50→23:38)
[2020-11-23] MEDS: atorvastatin 40 mg Tablet PO (08:50)
[2020-11-23] MEDS: sodium chloride 1 gm Tablet PO ×2 (08:50→17:44)
[2020-11-23] MEDS: aspirin 81 mg EC Tablet PO (08:50)
[2020-11-23] MEDS: ondansetron 2 mg/ML SDV 2 mL 4 MG IVP (09:05)
--- NOTE | 2020-11-23 10:02 | PC.NURSE ---
Arterial line removed Verbal order from to remove arterial line. prior to removal, swelling noted by nurse proximal to patient. line removed and pressure held for 5 minutes. no bleeding noted. pressure dressing applied to site.
--- NOTE | 2020-11-23 10:35 | PC.SOCIAL ---
IMM Update Pg. 2 of IMM updated and reviewed with patient who verbalized understanding. Copy provided.
--- NOTE | 2020-11-23 10:36 | PM.PN ---
Subjective Subjective: Interval history: Overnight patient had episodes of confusion, this morning she is alert oriented x3, has complaints of diffuse abdominal pain, is quite hungry, is uncomfortable in bed, but feels that she is doing better, her pressors have been off for the last 2 hours, her blood pressures are looking better, urine output has improved, remains afebrile Vitals/I&O/Wt Last Vital Signs Temp 98.7 F 11/22/20 20:00 Pulse 86 11/23/20 08:22 Resp 16 11/23/20 08:22 BP 95/75 11/23/20 08:00 Pulse Ox 100 11/23/20 08:22 11/22/20 11/23/20 11/23/20 22:59 06:59 14:59 Intake Total 701.358 / 1422.803 229.069 / 1651.872 975.417 / 975.417 Output Total 950 / 950 800 / 1750 Balance -248.642 / 472.803 -570.931 / -98.128 975.417 / 975.417 Physical Exam Const: COMMON NORMALS: no acute distress and patient oriented x3 HENMT: COMMON NORMALS: normocephalic HEAD & SCALP: normocephalic Neck/C-Spine: COMMON NORMALS: no JVD Resp: COMMON NORMALS: normal respiratory effort, No retractions, No use of accessory muscles and clear to auscultation bilaterally AUSCULTATION: clear to auscultation bilaterally Cardio: COMMON NORMALS: no JVD, regular rate, regular rhythm, S1 normal heart sound present and S2 normal heart sound present RATE: regular rate RHYTHM: regular rhythm HEART SOUNDS: S1 normal heart sound present and S2 normal heart sound present GI: COMMON NORMALS: Soft to palpation, no masses and no bruits INSPECTION: Yes normal to inspection, Yes abdominal distension and Yes central obesity AUSCULTATION: Yes Hypoactive bowel sounds present PALPATION: Yes Soft to palpation and Yes Tenderness to palpation present (GI) Details: LLQ, RLQ, LUQ and RUQ OTHER: Lyubov pouch in place, with blood in the bag, surgical site looks clean and dry Extremity: COMMON NORMALS: capillary refill normal, no clubbing, cyanosis or edema, no calf tenderness and no pedal edema Neuro: COMMON NORMALS: patient oriented x3 Psych: COMMON NORMALS: mental status grossly normal Urinary Catheter Management^: Cantu: Cath Placed During This Visit: yes Reason for Continuing Indwelling Catheter: Accurate Measurement of Urinary Output in Critically Ill Patients Urinary Catheter Date of Insertion: 11/21/20 Urinary Catheter Time of Insertion: 07:51 Data : 11/23/20 04:00 11/23/20 04:00 Micro: Microbiology 11/21/20 12:00 Gram Stain - Final Abdomen Abscess Culture - Preliminary Escherichia coli 11/22/20 09:38 Urine Culture - Preliminary Urine Catheterized A&P Assessment and plan (1) Septic shock: Status: Acute (2) Fecal peritonitis: Status: Acute (3) Intra-abdominal abscess: Status: Acute (4) Sepsis: Status: Acute (5) Abdominal pain: Status: Acute Qualifiers: Abdominal location: periumbilical Qualified Code(s): R10.33 - Periumbilical pain (6) Adynamic ileus: Status: Acute (7) Postmenopausal bleeding: Status: Acute (8) Hypoxia: Status: Acute (9) Enteritis: Status: Acute (10) Systolic CHF: Status: Acute (11) Bowel obstruction: Status: Acute (12) Recurrent ventral hernia: Status: Acute Additional A&P Information Fecal peritonitis, status post Lyubov procedure 11/21/2024 for perforated sigmoid colon, with partial small bowel obstruction status post adhesiolysis With septic shock, and acute renal failure -Off pressors for the last 2 hours, MAP greater than 65 -Creatinine improved to 1.2, urine output improved to 1750, on 3 L -White blood cell count increased to 26.8, hemoglobin 9, lactic acid 1.1, CRP 274, BNP 1393, pro-Parish 8.58 Plan: -extubation 11/21/2020 -Currently in the intensive care unit -Full code -Heparin for DVT prophylaxis on hold for surgical intervention -Broad-spectrum antibiotic therapy vancomycin and Primaxin, will add Flagyl -Follow blood cultures, surgical cultures -Patient is n.p.o., NG tube in place -Pepcid -Will avoid fluid overload given patient's EF of 30 to 35% -Bolus to 250 cc as needed for MAP less than 65, nicom -Levophed if required, maintain MAP greater than 65, and to avoid fluid overload -Nephrology on consult -General surgery on consult -Cardiology on consult -Monitor respiratory status closely, currently on 3 L, chest x-ray no focal pneumonia, no significant evidence of fluid overload Postoperative respiratory failure, extubation 11/21/2020, -currently on 3 L - BiPAP as needed during the night -Monitor cultures closely -Chest x-ray unremarkable for focal pneumonia Septic shock, resolving Acute renal failure: Secondary to sepsis, contrast -Resolving -Fluid boluses as required, Levophed -Monitor urine output closely -Nephrology on consult -Renal ultrasound no hydronephrosis both kidneys Postmenopausal bleed 2.6 cm uterine mass High D-dimer currently hypoxic requiring 2 L nasal cannula CTA rule out PE was unremarkable for PE Uterine biopsy revealed endometrial polyp otherwise no malignancy Due for uterine surgery in November 2020 Acute hypoxia Likely secondary to fluid overload and systolic CHF Confirmed on multiple ABGs CT angiogram was negative for PE, slight atelectasis, no focal pneumonia Repeat ABG this afternoon shows hypoxia, PO2 59 on room air Patient is not hypo ventilating Hiatal hernia found on CT abdomen Etiology BNP is elevated at 3700, did receive fluids, giving Lasix daily, improved denies any chest pain, shortness of breath, any cardiac history Serial troponins, as high as 30, no significant delta, EKG no acute ST-T wave changes Rapid Covid negative, Covid PCR negative Plan: -Monitor fluid status closely -BiPAP as needed -We will need to avoid fluid overload Systolic CHF, patient's echocardiogram results yesterday showed: -This is a limited quality echocardiogram. Bubble study was ordered however could not be performed as atria are not well visualized. LV systolic function is moderately severely reduced with EF of 30 to 35%. Moderate to severe global hypokinesis is noted. Diastolic function cannot be assessed because of tachycardia Valves are not very well visualized, however no significant valvular abnormalities seen. Compared to prior echocardiogram from 09/18/2018, LV systolic function is significantly reduced now. -Patient's oxygen requirements have decreased to 2 L with diuresis, Lasix 40 mg IV push daily -On aspirin, statin, Coreg -The question is does patient have ischemic versus nonischemic cardiomyopathy -Cardiology on consult GERD: Continue PPI Full code N.p.o. DVT prophylaxis SCDs, heparin Patient's prognosis is guarded, status is critical Attestations Medical Necessity Statement*: Patient requires hospitalization, for fecal peritonitis, perforated ulcer, sepsis, septic shock, acute renal failure, hypoxic respiratory failure Time Spent in Patient Care: Greater than 35 minutes (>than 50% of time spent in counselling and/or direct pt care on unit). Critical Care Time: Critical Care Time (min): 45 Procedures Arterial Line Size (Gauge): 20 Coding Level of Care Code Acute Control And Recovery Combat Rescue for Chg Fwd Diagnoses Septic shock A41.9; R65.21 Fecal peritonitis K65.8 Intra-abdominal abscess K65.1 Sepsis A41.9 Abdominal pain R10.33 Abdominal location: periumbilical Adynamic ileus K56.0 Postmenopausal bleeding N95.0 Hypoxia R09.02 Enteritis K52.9 Systolic CHF I50.20 Bowel obstruction K56.609 Recurrent ventral hernia K43.2
[2020-11-23] MEDS: linezolid premix 600 MG/300 ML PREMIX 300 MG IV ×2 (12:55→23:37)
[2020-11-23 14:43] LABS: Osmolality Urine 353 mOsm/kg (50-1200)
--- NOTE | 2020-11-23 15:06 | XR_ITS ---
WS: [id number] Exam: XR KUB portable [id number] Date/Time of Exam: 11/23/2020 3:30 PM Reason For Exam: abd pain, increased out in NG No acute bowel obstruction or free air. An enteric tube is noted in the stomach probably ending in th e region of the gastric antrum. Numerous surgical clips noted in the midline. Signs of prior cholecys tectomy. Hazy groundglass appearance of the abdomen which may indicate free fluid. XR/XR KUB portable [id number] IMPRESSION: 1. No sign of acute bowel obstruction or pneumoperitoneum. 2. Hazy groundglass appearance of the abdomen which may be due to either a radi ographic technique or fluid in the abdomen.
--- NOTE | 2020-11-23 15:07 | PC.NURSE ---
Call to physician patient complaining of abd pain with no relief from morphone give IV, see MAR. nurse inspected abd incision, noted to be red and slight serosanguineous drainage. NG was clamped after morning medications. hooked back into LIS since 1244. approximately 500ml of dark brown/green fluid in suction canister. call to and notified of findings, medications given prior to call. Verbal order for STAT KUB.
[2020-11-23 15:43] LABS: Anion Gap 13.7 (5-19); Blood Urea Nitrogen 20 mg/dL (8-23); Calcium 7.3 mg/dL (8.5-10.5); Carbon Dioxide 22 mmol/L (22-29); Chloride 100 mmol/L (98-107); Creatinine Clr Calc Pharmacy 55.8288; Glucose 112 mg/dL (65-115); Magnesium 2.2 mg/dL (1.7-2.3); Osmolality Calculated 277 mOsm/kg (285-295); Potassium 3.7 mmol/L (3.5-5.1); Sodium 132 mmol/L (136-145)
[2020-11-23 16:18] LABS: Creatinine, Random Urine 130 mg/dL (20-275); Protein, Total, Random 287 mg/dL (5-24); Protein/Creatinine Ratio 2.208 (0.021-0.161); Protein/Creatinine Ratio 2208 mg/g creat (21-161)
[2020-11-23 17:04] LABS: 25 Hydroxy Vitamin D 5 ng/mL (30-100)
[2020-11-23] MEDS: OLANZapine 5 mg TABLET PO (20:25)
[2020-11-24] VITALS (21 sets, daily range): BP systolic 112–155; BP diastolic 71–108; PULSE 85–95; RESP 14–23; TEMP 36.9–37.7; O2SAT 91–97
[2020-11-24] MEDS: famotidine 20 mg/2 mL INJ IVP ×2 (00:49→13:58)
[2020-11-24] MEDS: heparin 5,000 unit/mL INJ 1 mL 5000 UNIT SUBCUT ×2 (00:49→13:57)
[2020-11-24] MEDS: ipratropium-albuterol 3 mL Neb INHALATION ×4 (02:45→21:23)
[2020-11-24] MEDS: LORazepam 2 mg/mL INJ 1 mL 0.5 MG IVP (03:08)
[2020-11-24 03:37] LABS: Basophils # 0.1 10^3/uL (0.0-0.1); Basophils % 0.7 %; Eosinophils # 0.1 10^3/uL (0.0-0.8); Eosinophils % 0.3 %; Hematocrit 29.8 % (37.0-47.0); Hemoglobin 9.7 g/dL (11.5-15.3); Lymphocytes # 1.4 10^3/uL (0.8-4.8); Lymphocytes % 6.7 %; Mean Corpuscular HGB Conc 32.6 g/dL (30.0-36.0); Mean Corpuscular Hemoglobin 29.2 pg (28.0-34.0); Mean Corpuscular Volume 89.8 fL (81-99); Mean Platelet Volume 11.4 fL (7.4-10.4); Monocytes # 1.1 10^3/uL (0.2-0.9); Monocytes % 5.2 %; Neutrophils # 16.67 10^3/uL (1.8-7.7); Neutrophils % 80.3 %; Nucleated Red Blood Cells % 0 %; Platelet Count 227 10^3/cmm (130-400); Red Blood Count 3.32 10^6/uL (4.1-5.3); Red Cell Distribution Width 16.2 % (12.1-15.1); White Blood Count 20.8 10^3/uL (4.0-10.0)
[2020-11-24 03:52] LABS: INR 1.14 (0.8-1.2)
[2020-11-24 04:13] LABS: Lactate (Lactic Acid level) 0.9 mmol/L (0.5-2.2)
[2020-11-24 04:18] LABS: C Reactive Protein 218.2 mg/L (0.0-4.9); NT Pro B Type Natriuretic Pept 1414 pg/mL (0-450)
[2020-11-24 04:20] LABS: ABG PCO2 34.4 mmHg (35-45); ABG PH Result 7.41 (7.35-7.45); Arterial Blood Gas Hematocrit 35.5 % (37-47); Base Excess ABG -2.2 mmol/L (-2.0-2.0); Blood Gas Allen Test Pos; Blood Gas Operator Identificat HARKR; Blood Gas Sample Site Radial, left; Blood Gas Sample Type Arterial; HCO3 ABG 21.9 mmol/L (22-26); Oxygen Device NC; PO2 ABG 73.4 mmHg (80.0-100.0)
[2020-11-24 04:23] LABS: NT Pro B Type Natriuretic Pept 1383 pg/mL (0-450); Procalcitonin 4.09 ng/mL (0-0.5); Slide Review Slide Review Perform
[2020-11-24 04:34] LABS: Alanine Aminotransferase 12 U/L (0-33); Albumin Level 2.5 g/dL (3.5-5.2); Alkaline Phosphatase 65 IU/L (35-105); Anion Gap 15.3 (5-19); Aspartate Amino Transferase 19 U/L (0-32); Blood Urea Nitrogen 14 mg/dL (8-23); Calcium 7.5 mg/dL (8.5-10.5); Carbon Dioxide 21 mmol/L (22-29); Chloride 105 mmol/L (98-107); Creatine Phosphokinase 124 U/L (26-192); Creatinine Clr Calc Pharmacy 62.8074; Globulin 2.9 g/dL (1.3-4.6); Glucose 91 mg/dL (65-115); Magnesium 2.2 mg/dL (1.7-2.3); Osmolality Calculated 286 mOsm/kg (285-295); Phosphorus 2.2 mg/dL (2.5-4.5); Potassium 3.3 mmol/L (3.5-5.1); Sodium 138 mmol/L (136-145); Total Bilirubin 0.6 mg/dL (0.15-1.2); Total Protein 5.4 g/dL (6.6-8.7)
[2020-11-24] MEDS: potassium chloride ER 20 mEq Tablet PO (05:34)
[2020-11-24] MEDS: metroNIDAZOLE IV 500 MG/100 ML PREMIX 100 MG IV ×2 (07:45→15:54)
--- NOTE | 2020-11-24 08:08 | P.PN_ITS ---
Subjective Subjective: Interval history: The patient is off her pressors. She is sitting up in a chair in the ICU. She says she is hungry. Vitals/I&O/Wt Last Vital Signs Temp 99.0 F 11/23/20 18:00 Pulse 85 11/24/20 06:00 Resp 16 11/24/20 04:00 BP 112/82 11/24/20 04:00 Pulse Ox 94 11/24/20 04:00 11/23/20 11/24/20 11/24/20 22:59 06:59 14:59 Intake Total 300 / 2375.417 500 / 2375.417 Output Total 2300 / 3250 950 / 3250 Balance -2000 / -874.583 -450 / -874.583 Physical Exam Narrative: EXAM NARRATIVE: Bowel sounds are present but are hypoactive. There does not appear to be any obvious flatus in the colostomy appliance. The incision is slightly pink at the inferior aspect. Urinary Catheter Management^: Cantu: Cath Placed During This Visit: yes Reason for Continuing Indwelling Catheter: Accurate Measurement of Urinary Output in Critically Ill Patients Urinary Catheter Date of Insertion: 11/21/20 Urinary Catheter Time of Insertion: 07:51 Data : 11/24/20 03:23 11/24/20 03:23 Micro: Microbiology 11/21/20 12:00 Gram Stain - Final Abdomen Anaerobic Culture - Preliminary Abscess Culture - Preliminary Escherichia coli 11/21/20 12:25 Sputum Culture - Preliminary Sputum - Endotracheal Tube Aspirate 11/22/20 09:38 Urine Culture - Preliminary Urine Catheterized A&P Assessment and plan (1) Fecal peritonitis: Status post Lyubov procedure on 11/21/2024 perforated sigmoid colon, likely the result of a stercoral ulcer. I told nursing that the patient can have sips of liquids as long as the naso gastric tube is in and functioning. I am going to wait until the patient has an obvious return of her bowel function prior to getting rid of the NG, advancing her diet, etc. Status: Acute (2) Partial small bowel obstruction: Status post adhesiolysis on 11/21/2020. 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 Status: Acute Attestations 2 Medical Necessity Statement*: See admitting service's notation. Procedures Arterial Line Size (Gauge): 20 Coding Level of Care Code Acute Supervisor Carbon Electrodes for Chg Fwd Diagnoses Fecal peritonitis K65.8 Partial small bowel obstruction K56.600
--- NOTE | 2020-11-24 08:38 | PC.NURSE ---
[address] mims in de to give water and juice. no jello.
[2020-11-24] MEDS: aspirin 81 mg EC Tablet PO (09:00)
[2020-11-24] MEDS: lactulose oral liq 20 gm/30 mL UDC PO ×2 (09:00→20:13)
[2020-11-24] MEDS: morphine 4 mg/mL SDV 1 mL IVP ×3 (09:00→19:28)
[2020-11-24] MEDS: sodium chloride 1 gm Tablet PO ×2 (09:00→17:48)
[2020-11-24] MEDS: atorvastatin 40 mg Tablet PO (09:00)
--- NOTE | 2020-11-24 09:24 | PC.CHAP ---
Pastoral Care Encounter/Spiritual Assessment Type of Contact [] Declined collar pointer visit [] Patient/Family/Request visit [] Outpatient visit [] Follow-up visit [] Physician referral [] Code/Alert [] Routine visit [] Staff referral [] Actively dying [] Patient sleeping [] Family support [] [] Out of room [] Palliative care [] [] Receiving care in room [] Pre-surgical visit [] Trauma [] Long length of stay [x] ICU visit [] Other: Relational/Emotional Strength [] Patient feels connected with others/family/visitors/staff [] Distress [] Loneliness/isolation [] Abandonment Spirituality of Patient [] Person of Sanjuanita [] Attends Bahai of their Sanjuanita [] Believes in Prayer [] Reads Bible or Mosque materials [] There are Spiritual issues to be addressed Police Liaison Officer Interventions [x] Prayer [] Active listening [] Non-anxious presence [] Spiritual/emotional support [] Crisis/trauma care [] Spiritual counseling [] Bereavement support [] Provided bereavement packet [] Provided Bible/devotional materials [] Provided toy/stuffed animal, coloring book to patient or family member [] Provided Communion [] Anointing/[place] [] Salvation [x] Completed spiritual assessment [] Other: Impact on Illness or Injury [] Angry [] Fearful [] Anxious [] Often cries [] Exhaustion [] Unable to work [] Unable to attend zoroastrian [] Unable to walk/stand [] Unable to read [] Unable to drive [] Unable to eat/drink [] Unable to sleep [] Unable to be with family [] Patient intubated [] Other: Summary Time spent with patient
--- NOTE | 2020-11-24 10:05 | PC.NURSE ---
0900 assisted back to bed after pain med. mid-line incision oozing seroussanguinous drainage. mild redness along incision. colostomy bag with approx. 50cc seroussanguinous in it.
--- NOTE | 2020-11-24 11:42 | PM.PN ---
Subjective Subjective: Interval history: She is feeling a little bit better today. Sitting up in her chair. Nasogastric tube in place is comfortable for her. She does have some bowel sounds today but is still not passing noticeable flatus/having bowel movements via the colostomy. Urine output noted. No extremity edema or other volume associated symptoms. No uremic symptoms. Hemodynamics remain stable. Vitals/I&O/Wt Last Vital Signs Temp 99.0 F 11/23/20 18:00 Pulse 90 11/24/20 10:00 Resp 19 H 11/24/20 10:00 BP 124/81 11/24/20 10:00 Pulse Ox 95 11/24/20 08:41 11/23/20 11/24/20 11/24/20 22:59 06:59 14:59 Intake Total 300 / 1875.417 500 / 2375.417 380 / 380 Output Total 2300 / 2300 950 / 3250 Balance -2000 / -424.583 -450 / -874.583 380 / 380 Physical Exam Narrative: EXAM NARRATIVE: Constitutional: Awake, comfortable HEENT: Wet mucosa, no jvp, non icteric Lungs: Bilaterally clear without discernible wheeze or rales in all lung zones CVS: S1 S2, no murmurs Abdo: Soft, BS ok Ext 4: Minimal edema, peripheral perfusion with no cyanosis Neurological: Grossly non-focal Urinary Catheter Management^: Cantu: Cath Placed During This Visit: yes Reason for Continuing Indwelling Catheter: Accurate Measurement of Urinary Output in Critically Ill Patients Urinary Catheter Date of Insertion: 11/21/20 Urinary Catheter Time of Insertion: 07:51 Data : 11/24/20 03:23 11/24/20 03:23 Micro: Microbiology 11/21/20 12:00 Gram Stain - Final Abdomen Anaerobic Culture - Preliminary Abscess Culture - Final Escherichia coli 11/21/20 12:25 Sputum Culture - Final Sputum - Endotracheal Tube Aspirate 11/22/20 09:38 Urine Culture - Final Urine Catheterized A&P Additional A&P Information 1. HAMZAH now resolved, robust renal function 2. Status post Lyubov procedure on 11/21/2024 perforated sigmoid colon, likely the result of a stercoral ulcer. - NGT and diet per surgical team 3. Lytes - KPhos being given - renal issues resolving, will follow peripherally at this time Thank you for consultation, it is a pleasure to follow these cases with you Exam and interview performed with aid of bedside RN using telemedicine Time spent 20 min inc > 50% of time in face to face counseling Jayme Nascimento MD [facility] [phone] Attestations Medical Necessity Statement*: eval for HAMZAH/electrolyte d/o Procedures Arterial Line Size (Gauge): 20 Coding Level of Care Code Acute Rewinder Operator for g Sanaz
--- NOTE | 2020-11-24 13:42 | PM.PN ---
Subjective Subjective: Interval history: She is feeling a little bit better today. Sitting up in her chair. Nasogastric tube in place is comfortable for her. She does have some bowel sounds today but is still not passing noticeable flatus/having bowel movements via the colostomy. Urine output noted. No extremity edema or other volume associated symptoms. No uremic symptoms. Hemodynamics remain stable. Medications: Medication Review Details: Current Medications Albuterol/Ipratropium (Ipratropium-Albuterol 3 Ml Neb) 3 ml INHALATION Q6H.RESPIRATORY RENAE Last Admin: 11/23/20 04:20 Dose: 3 ml Documented by: Aspirin (Aspirin 81 Mg Ec Tablet) 81 mg PO DAILY RENAE Last Admin: 11/22/20 18:53 Dose: Not Given Documented by: Atorvastatin Calcium (Atorvastatin 40 Mg Tablet) 40 mg PO DAILY RENAE Last Admin: 11/22/20 18:59 Dose: Not Given Documented by: Carvedilol (Carvedilol 3.125 Mg Tablet) 3.125 mg PO BID RENAE Last Admin: 11/21/20 09:02 Dose: 3.125 mg Documented by: Famotidine (Famotidine 20 Mg/2 Ml Inj) 20 mg IVP Q12H RENAE Last Admin: 11/23/20 01:09 Dose: 20 mg Documented by: Heparin Sodium (Beef Lung) (Heparin 5,000 Unit/Ml Inj 1 Ml) 5,000 unit SUBCUT Q12H RENAE Last Admin: 11/23/20 01:09 Dose: 5,000 unit Documented by: Imipenem/Cilastatin Sodium 250 (mg/ Sodium Chloride) 100 mls @ 200 mls/hr IV Q6H RENAE; Protocol Last Admin: 11/23/20 05:08 Dose: 100 mls/hr Documented by: Dextrose/Sodium Chloride (Dextrose 5%-Sod Chloride 0.45%) 1,000 mls @ 100 mls/hr IV .Q10H RENAE Last Admin: 11/22/20 04:34 Dose: Not Given Documented by: Norepinephrine Bitartrate 4 mg (/ Dextrose) 254 mls @ 0 mls/hr IV .Q0M RENAE; Protocol Last Titration: 11/22/20 04:16 Dose: Infused Documented by: Dobutamine HCl/Dextrose (Dobutamine Drip) 500 mg in 250 mls @ 0 mls/hr IV .Q0M RENAE; Protocol Last Titration: 11/22/20 19:30 Dose: 0 mcg/kg/min, 0 mls/hr Documented by: Dexmedetomidine HCl 400 mcg/ (Sodium Chloride) 104 mls @ 0 mls/hr IV .Q0M [facility]; Protocol Sodium Chloride (Sodium Chloride 0.9%) 500 mls @ 1 mls/hr IV .Q24H [facility] Last Admin: 11/23/20 00:22 Dose: Not Given Documented by: Vasopressin 100 unit/ Sodium (Chloride) 100 mls @ 0 mls/hr IV .Q0M RENAE; Protocol Last Titration: 11/23/20 05:49 Dose: 0 unit/min, 0 mls/hr Documented by: Norepinephrine Bitartrate 8 mg (/ Dextrose) 508 mls @ 0 mls/hr IV .Q0M RENAE; Protocol Last Titration: 11/23/20 05:00 Dose: 0 mcg/min, 0 mls/hr Documented by: Sodium Chloride (Sodium Chloride 0.9%) 1,000 mls @ 50 mls/hr IV .Q20H [facility] Last Admin: 11/22/20 15:00 Dose: 50 mls/hr Documented by: Linezolid (Zyvox Premix) 600 mg in 300 mls @ 300 mls/hr IV Q12H [facility] Last Admin: 11/22/20 23:51 Dose: 300 mls/hr Documented by: Potassium Chloride (K-Rayray) 100 mls @ 25 mls/hr IV Q4H [facility] Stop: 11/23/20 13:59 Last Admin: 11/23/20 06:01 Dose: 25 mls/hr Documented by: Morphine Sulfate (Morphine 4 Mg/Ml Sdv 1 Ml) 2 - 4 mg IVP Q4H PRN PRN Reason: SEVERE PAIN Last Admin: 11/23/20 01:08 Dose: 4 mg Documented by: Ondansetron HCl (Ondansetron 2 Mg/Ml Sdv 2 Ml) 4 mg IVP Q4H PRN PRN Reason: NAUSEA AND VOMITING Phenol (Phenol Oral [place] 177 Ml) 3 spray MUCOUS MEM Q2H PRN PRN Reason: SORE THROAT Vitals/I&O/Wt Last Vital Signs Temp 99.0 F 11/23/20 18:00 Pulse 90 11/24/20 10:00 Resp 19 H 11/24/20 10:00 BP 124/81 11/24/20 10:00 Pulse Ox 95 11/24/20 08:41 11/23/20 11/24/20 11/24/20 22:59 06:59 14:59 Intake Total 300 / 1875.417 500 / 2375.417 380 / 380 Output Total 2300 / 2300 950 / 3250 Balance -2000 / -424.583 -450 / -874.583 380 / 380 Physical Exam Const: COMMON NORMALS: no acute distress and patient oriented x3 GENERAL APPEARANCE: cooperative NUTRITIONAL APPEARANCE: obese ORIENTATION/CONSCIOUSNESS: Yes awake, Yes oriented to person, Yes oriented to place and Yes oriented to time OTHER: Patient is in pain HENMT: COMMON NORMALS: normocephalic HEAD & SCALP: normocephalic Neck/C-Spine: COMMON NORMALS: no JVD Resp: COMMON NORMALS: normal respiratory effort, No retractions, No use of accessory muscles and clear to auscultation bilaterally AUSCULTATION: clear to auscultation bilaterally Cardio: COMMON NORMALS: no JVD, regular rate, regular rhythm, S1 normal heart sound present and S2 normal heart sound present RATE: regular rate RHYTHM: regular rhythm HEART SOUNDS: S1 normal heart sound present and S2 normal heart sound present GI: COMMON NORMALS: Soft to palpation, no masses and no bruits INSPECTION: Yes normal to inspection, Yes abdominal distension and Yes central obesity AUSCULTATION: Yes Hypoactive bowel sounds present PALPATION: Yes Soft to palpation, Yes Firmness to palpation present (GI), Yes Tenderness to palpation present (GI), Yes Guarding due to palpation present (GI) and No Rigid due to palpation PERCUSSION: dullness to percussion and tympanic to percussion OTHER: Lyubov pouch in place, with blood in the bag, surgical site looks clean and dry Extremity: COMMON NORMALS: capillary refill normal, no clubbing, cyanosis or edema, no calf tenderness and no pedal edema Neuro: COMMON NORMALS: patient oriented x3 SENSORIUM/ORIENTATION: Yes oriented to person, Yes oriented to place and Yes oriented to time Psych: COMMON NORMALS: mental status grossly normal Urinary Catheter Management^: Cantu: Cath Placed During This Visit: yes Reason for Continuing Indwelling Catheter: Accurate Measurement of Urinary Output in Critically Ill Patients Urinary Catheter Date of Insertion: 11/21/20 Urinary Catheter Time of Insertion: 07:51 Data : 11/24/20 03:23 11/24/20 03:23 Micro: Microbiology 11/21/20 12:00 Gram Stain - Final Abdomen Anaerobic Culture - Preliminary Abscess Culture - Final Escherichia coli 11/21/20 12:25 Sputum Culture - Final Sputum - Endotracheal Tube Aspirate 11/22/20 09:38 Urine Culture - Final Urine Catheterized A&P Assessment and plan (1) Septic shock: Status: Acute (2) Fecal peritonitis: Status: Acute (3) Intra-abdominal abscess: Status: Acute (4) Sepsis: Status: Acute (5) Abdominal pain: Status: Acute Qualifiers: Abdominal location: periumbilical Qualified Code(s): R10.33 - Periumbilical pain (6) Adynamic ileus: Status: Acute (7) Postmenopausal bleeding: Status: Acute (8) Hypoxia: Status: Acute (9) Enteritis: Status: Acute (10) Systolic CHF: Status: Acute (11) Bowel obstruction: Status: Acute (12) Recurrent ventral hernia: Status: Acute Additional A&P Information Fecal peritonitis, status post Lyubov procedure 11/21/2024 for perforated sigmoid colon, with partial small bowel obstruction status post adhesiolysis With septic shock, and acute renal failure -Off pressors for the last 24 hours, MAP greater than 65 -Creatinine improved to 0.8, urine output improved to 3250, on 3 L -White blood cell count increased to 20.8, hemoglobin 9.7, lactic acid 1.1, CRP 218, BNP 1414, pro-Parish 4.09 Plan: -extubation 11/21/2020 -Currently in the intensive care unit -Full code -Heparin for DVT prophylaxis on hold for surgical intervention -Broad-spectrum antibiotic therapy vancomycin and Primaxin, Flagyl -Follow blood cultures, surgical cultures -Patient is n.p.o., NG tube in place -Pepcid -Will avoid fluid overload given patient's EF of 30 to 35% -Bolus to 250 cc as needed for MAP less than 65, nicom -Levophed if required, maintain MAP greater than 65, and to avoid fluid overload -Nephrology on consult -General surgery on consult -Cardiology on consult -Monitor respiratory status closely, currently on 3 L, chest x-ray no focal pneumonia, no significant evidence of fluid overload Postoperative respiratory failure, extubation 11/21/2020, -currently on 3 L - BiPAP as needed during the night -Monitor cultures closely -Chest x-ray unremarkable for focal pneumonia Septic shock, resolving Acute renal failure: Secondary to sepsis, contrast -Resolving -Fluid boluses as required, Levophed -Monitor urine output closely -Nephrology on consult -Renal ultrasound no hydronephrosis both kidneys Postmenopausal bleed 2.6 cm uterine mass High D-dimer currently hypoxic requiring 2 L nasal cannula CTA rule out PE was unremarkable for PE Uterine biopsy revealed endometrial polyp otherwise no malignancy Due for uterine surgery in November 2020 Acute hypoxia Likely secondary to fluid overload and systolic CHF Confirmed on multiple ABGs CT angiogram was negative for PE, slight atelectasis, no focal pneumonia Repeat ABG this afternoon shows hypoxia, PO2 59 on room air Patient is not hypo ventilating Hiatal hernia found on CT abdomen Etiology BNP is elevated at 3700, did receive fluids, giving Lasix daily, improved denies any chest pain, shortness of breath, any cardiac history Serial troponins, as high as 30, no significant delta, EKG no acute ST-T wave changes Rapid Covid negative, Covid PCR negative Plan: -Monitor fluid status closely -BiPAP as needed -We will need to avoid fluid overload Systolic CHF, patient's echocardiogram results yesterday showed: -This is a limited quality echocardiogram. Bubble study was ordered however could not be performed as atria are not well visualized. LV systolic function is moderately severely reduced with EF of 30 to 35%. Moderate to severe global hypokinesis is noted. Diastolic function cannot be assessed because of tachycardia Valves are not very well visualized, however no significant valvular abnormalities seen. Compared to prior echocardiogram from 09/18/2018, LV systolic function is significantly reduced now. -Patient's oxygen requirements have decreased to 2 L with diuresis, Lasix 40 mg IV push daily -On aspirin, statin, Coreg -The question is does patient have ischemic versus nonischemic cardiomyopathy -Cardiology on consult GERD: Continue PPI Full code N.p.o. DVT prophylaxis SCDs, heparin Patient's prognosis is guarded, status is critical Attestations Medical Necessity Statement*: Patient requires hospitalization for septic shock secondary to perforated sigmoid ulcer, with peritonitis, sepsis, acute renal failure, improving Time Spent in Patient Care: Greater than 35 minutes (>than 50% of time spent in counselling and/or direct pt care on unit). 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
[2020-11-24] MEDS: linezolid premix 600 MG/300 ML PREMIX 300 MG IV ×2 (13:58→23:10)
--- NOTE | 2020-11-24 16:13 | PM.PN ---
Subjective Subjective: Interval history: Patient is feeling better. She is off pressors over the last 24 hours. Her renal function has improved and creatinine is 0.8 today. Urine output has increased significantly. Vitals/I&O/Wt Last Vital Signs Temp 98.9 F 11/24/20 14:00 Pulse 90 11/24/20 15:30 Resp 18 11/24/20 14:59 BP 134/78 11/24/20 14:00 Pulse Ox 96 11/24/20 14:59 11/24/20 11/24/20 11/24/20 06:59 14:59 22:59 Intake Total 500 / 2375.417 880 / 880 Output Total 950 / 3250 Balance -450 / -874.583 880 / 880 Physical Exam Narrative: EXAM NARRATIVE: Const COMMON NORMALS: no acute distress and patient oriented x3 GENERAL APPEARANCE: cooperative NUTRITIONAL APPEARANCE: obese ORIENTATION/CONSCIOUSNESS: Yes awake, Yes oriented to person, Yes oriented to place and Yes oriented to time OTHER: Patient is in pain HENNE COMMON NORMALS: normocephalic HEAD & SCALP: normocephalic Neck/C-Spine COMMON NORMALS: no JVD Resp COMMON NORMALS: normal respiratory effort, No retractions, No use of accessory muscles and clear to auscultation bilaterally AUSCULTATION: clear to auscultation bilaterally Cardio COMMON NORMALS: no JVD, regular rate, regular rhythm, S1 normal heart sound present and S2 normal heart sound present RATE: regular rate RHYTHM: regular rhythm HEART SOUNDS: S1 normal heart sound present and S2 normal heart sound present GI COMMON NORMALS: Soft to palpation, no masses and no bruits INSPECTION: Yes normal to inspection, Yes abdominal distension and Yes central obesity AUSCULTATION: Yes Hypoactive bowel sounds present PALPATION: Yes Soft to palpation, Yes Firmness to palpation present (GI), Yes Tenderness to palpation present (GI), Yes Guarding due to palpation present (GI) and No Rigid due to palpation PERCUSSION: dullness to percussion and tympanic to percussion OTHER: Lyubov pouch in place, with blood in the bag, surgical site looks clean and dry Extremity COMMON NORMALS: capillary refill normal, no clubbing, cyanosis or edema, no calf tenderness and no pedal edema Neuro COMMON NORMALS: patient oriented x3 SENSORIUM/ORIENTATION: Yes oriented to person, Yes oriented to place and Yes oriented to time Psych COMMON NORMALS: mental status grossly normal Urinary Catheter Management^: Cantu: Cath Placed During This Visit: yes Reason for Continuing Indwelling Catheter: Accurate Measurement of Urinary Output in Critically Ill Patients Urinary Catheter Date of Insertion: 11/21/20 Urinary Catheter Time of Insertion: 07:51 Data : 11/24/20 03:23 11/24/20 03:23 Micro: Microbiology 11/21/20 12:00 Gram Stain - Final Abdomen Anaerobic Culture - Preliminary Abscess Culture - Final Escherichia coli 11/21/20 12:25 Sputum Culture - Final Sputum - Endotracheal Tube Aspirate 11/22/20 09:38 Urine Culture - Final Urine Catheterized A&P Assessment and plan (1) Hypotension: Resolved. Off pressors over the last 24 hours. Secondary to sepsis. Her cardiomyopathy and low ejection fraction also could be contributing factor. MAP target of more than 65. If pressors are needed, can start with levophed Status: Acute Qualifiers: Hypotension type: other hypotension type Qualified Code(s): I95.89 - Other hypotension (2) Fecal peritonitis: Management as per the surgery/hospitalist service Status: Acute (3) Elevated troponin: Most likely this is a type II myocardial infarction. In view of the underlying chronic left bundle branch block and history of no obstructive coronary disease 7 years ago, possibility of patient developing significant coronary lesion causing ischemia may be low. Status: Acute (4) Nonischemic cardiomyopathy: May continue on the current measures for the time being. May consider IV Dobutrex, if the blood pressure drops again after maximizing the Levophed Status: Acute Additional A&P Information Based on the clinical progress, further recommendations will be made. Patient needs to be closely monitored for any development of arrhythmia. Attestations Medical Necessity Statement*: Care expected to cross 2 midnights. 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
--- NOTE | 2020-11-24 18:48 | PC.NURSE ---
pt. req. emesis basin to spit in. denies nausea, but note spittle in emesis basin appears same as ng drainage. ng. was clamped since salt tab put crushed and put down ng. connected back to low intermittent sx, noted one sx port on cannister was open. closed and intermittent sx. conts. instructed to not drink as much, at least for now,
[2020-11-24] MEDS: OLANZapine 5 mg TABLET PO (20:13)
--- NOTE | 2020-11-24 20:54 | PC.NURSE ---
Assessment Midline abdominal incision with tisha open to air. Erythema noted around incision site. Areas of incision to lower abdomen have some dehiscence between tisha. Area of deshiscence in 2 places both measure 0.5cm. Small amount of serous drainage from site. Colostomy noted to left abdomen. Small amount of serosanguineous drainage without fecal contents. Upper abdomen above incision appears distended and soft. Lower abdomen is soft and non-distended. Bowel sounds throughout are rare. NG to LIS with large amount of green output throughout the day. See record. Pt has new erythema without swelling to right knee that is extending to upper leg and lower leg, pt does report pain to right knee. Areas marked to evaluate growth. Pt has small amount of vaginal bleeding. Pt reports [facility] have upcoming [facility].
[2020-11-25] VITALS (31 sets, daily range): BP systolic 105–192; BP diastolic 70–117; PULSE 83–107; RESP 14–29; TEMP 36.4–37.2; O2SAT 88–96
[2020-11-25] MEDS: heparin 5,000 unit/mL INJ 1 mL 5000 UNIT SUBCUT ×2 (00:23→13:19)
[2020-11-25] MEDS: metroNIDAZOLE IV 500 MG/100 ML PREMIX 100 MG IV ×4 (00:23→23:51)
[2020-11-25] MEDS: famotidine 20 mg/2 mL INJ IVP ×2 (00:45→13:20)
[2020-11-25] MEDS: ipratropium-albuterol 3 mL Neb INHALATION ×4 (03:43→21:14)
[2020-11-25 04:16] LABS: INR 1.14 (0.8-1.2)
[2020-11-25 04:27] LABS: Lactate (Lactic Acid level) 1.4 mmol/L (0.5-2.2)
[2020-11-25 04:35] LABS: C Reactive Protein 179.6 mg/L (0.0-4.9)
[2020-11-25 06:53] LABS: Basophils # 0.2 10^3/uL (0.0-0.1); Basophils % 0.8 %; Eosinophils # 0.1 10^3/uL (0.0-0.8); Eosinophils % 0.6 %; Hematocrit 28.8 % (37.0-47.0); Hemoglobin 9.4 g/dL (11.5-15.3); Lymphocytes # 1.6 10^3/uL (0.8-4.8); Mean Corpuscular HGB Conc 32.6 g/dL (30.0-36.0); Mean Corpuscular Hemoglobin 29.4 pg (28.0-34.0); Mean Platelet Volume 11.7 fL (7.4-10.4); Monocytes # 1.5 10^3/uL (0.2-0.9); Monocytes % 7.9 %; Neutrophils # 14.17 10^3/uL (1.8-7.7); Nucleated Red Blood Cells % 0 %; Platelet Count 243 10^3/cmm (130-400); Red Cell Distribution Width 16.2 % (12.1-15.1); White Blood Count 19.5 10^3/uL (4.0-10.0)
--- NOTE | 2020-11-25 07:00 | XRR_ITS ---
PROCEDURE INFORMATION: Exam: XR Chest, 1 View Exam date and time: 11/25/2020 5:48 AM Age: 75 years old Clinical indication: Shortness of breath; Patient HX: SOB TECHNIQUE: Imaging protocol: XR of the chest Views: 1 view. COMPARISON: CR XR chest 1V portable [id number] 11/23/2020 5:56 AM FINDINGS: Tubes, catheters and devices: The left subclavian catheter is present with the tip projecting in the SVC. Nasogastric tube extends into the stomach. Lungs: There is left basilar atelectasis which is unchanged. Minimal atelectasis is present in the right base. Pleural space: Costophrenic angles are blunted suggesting small pleural effusions. No pneumothorax is seen. Heart/Mediastinum: Unremarkable. No cardiomegaly. Bones/joints: Unremarkable. XR/XR chest 1V portable [id number] IMPRESSION: 1. Stable mild basilar atelectasis. 2. Small pleural effusions.
[2020-11-25 07:02] LABS: Neutrophils % 82.7 %
[2020-11-25 07:27] LABS: NT Pro B Type Natriuretic Pept 1628 pg/mL (0-450); Procalcitonin 2.13 ng/mL (0-0.5)
--- NOTE | 2020-11-25 07:34 | P.PN_ITS ---
Subjective Subjective: Interval history: The patient has no new complaints this morning. There is still no obvious return of bowel function. Vitals/I&O/Wt Last Vital Signs Temp 98.2 F 11/25/20 05:37 Pulse 88 11/25/20 06:00 Resp 19 H 11/25/20 06:00 BP 156/82 11/25/20 06:00 Pulse Ox 92 11/25/20 06:00 11/24/20 11/25/20 11/25/20 22:59 06:59 14:59 Intake Total 320 / 1760 560 / 1760 Output Total 650 / 2325 1675 / 2325 Balance -330 / -565 -1115 / -565 Physical Exam Narrative: EXAM NARRATIVE: Low-grade temperature last night. Nasogastric tube is draining some light bilious colored fluid. Bowel sounds remain infrequent. The patient has some light erythema at the edges of her incision. No flatus in colostomy bag. Urinary Catheter Management^: Cantu: Cath Placed During This Visit: yes Reason for Continuing Indwelling Catheter: Accurate Measurement of Urinary Output in Critically Ill Patients Urinary Catheter Date of Insertion: 11/21/20 Urinary Catheter Time of Insertion: 07:51 Data : 11/25/20 03:25 11/24/20 03:23 Micro: Microbiology 11/21/20 12:00 Gram Stain - Final Abdomen Anaerobic Culture - Preliminary Abscess Culture - Final Escherichia coli 11/21/20 12:25 Sputum Culture - Final Sputum - Endotracheal Tube Aspirate 11/22/20 09:38 Urine Culture - Final Urine Catheterized A&P Assessment and plan (1) Fecal peritonitis: Status post Lyubov procedure on 11/21/2024 perforated sigmoid colon, likely the result of a stercoral ulcer. Continue nasogastric tube. Awaiting return of bowel function. Status: Acute (2) Partial small bowel obstruction: Status post adhesiolysis on 11/21/2020. 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 Status: Acute Attestations Medical Necessity Statement*: See admitting service's notation. 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
[2020-11-25 07:39] LABS: Alanine Aminotransferase 10 U/L (0-33); Albumin Level 2.9 g/dL (3.5-5.2); Alkaline Phosphatase 64 IU/L (35-105); Anion Gap 17.5 (5-19); Aspartate Amino Transferase 18 U/L (0-32); Blood Urea Nitrogen 8 mg/dL (8-23); Calcium 8.2 mg/dL (8.5-10.5); Carbon Dioxide 22 mmol/L (22-29); Chloride 102 mmol/L (98-107); Creatine Phosphokinase 72 U/L (26-192); Creatinine Clr Calc Pharmacy 62.8074; Glucose 114 mg/dL (65-115); Magnesium 2.2 mg/dL (1.7-2.3); Osmolality Calculated 285 mOsm/kg (285-295); Phosphorus 2.3 mg/dL (2.5-4.5); Potassium 3.5 mmol/L (3.5-5.1); Sodium 138 mmol/L (136-145); Total Bilirubin 0.9 mg/dL (0.15-1.2); Total Protein 5.9 g/dL (6.6-8.7)
[2020-11-25] MEDS: FUROsemide 10 mg/mL SDV 4mL 40 MG IVP (08:12)
[2020-11-25] MEDS: lactulose oral liq 20 gm/30 mL UDC PO ×2 (08:12→20:38)
[2020-11-25] MEDS: sodium chloride 1 gm Tablet PO (08:14)
[2020-11-25] MEDS: potassium chloride ER 20 mEq Tablet 40 MEQ PO (08:14)
[2020-11-25] MEDS: phosphorus 250 mg Tablet PO ×2 (08:14→17:46)
[2020-11-25] MEDS: aspirin 81 mg EC Tablet PO (08:15)
[2020-11-25] MEDS: atorvastatin 40 mg Tablet PO (08:15)
[2020-11-25] MEDS: carvedilol 3.125 mg Tablet PO ×2 (08:16→17:46)
--- NOTE | 2020-11-25 08:33 | PM.PN ---
Subjective Subjective: Interval history: Patient is doing well. No complaints of chest pain, shortness of breath or palpitations. Has good urine output with normal renal function BP is now high Vitals/I&O/Wt Last Vital Signs Temp 98.2 F 11/25/20 05:37 Pulse 88 11/25/20 06:00 Resp 19 H 11/25/20 06:00 BP 156/82 11/25/20 06:00 Pulse Ox 92 11/25/20 06:00 11/24/20 11/25/20 11/25/20 22:59 06:59 14:59 Intake Total 320 / 1200 560 / 1760 200 / 200 Output Total 650 / 650 1675 / 2325 Balance -330 / 550 -1115 / -565 200 / 200 Physical Exam Narrative: EXAM NARRATIVE: Const COMMON NORMALS: no acute distress and patient oriented x3 GENERAL APPEARANCE: cooperative NUTRITIONAL APPEARANCE: obese ORIENTATION/CONSCIOUSNESS: Yes awake, Yes oriented to person, Yes oriented to place and Yes oriented to time OTHER: Patient is in pain HENMT COMMON NORMALS: normocephalic HEAD & SCALP: normocephalic Neck/C-Spine COMMON NORMALS: no JVD Resp COMMON NORMALS: normal respiratory effort, No retractions, No use of accessory muscles and clear to auscultation bilaterally AUSCULTATION: clear to auscultation bilaterally Cardio COMMON NORMALS: no JVD, regular rate, regular rhythm, S1 normal heart sound present and S2 normal heart sound present RATE: regular rate RHYTHM: regular rhythm HEART SOUNDS: S1 normal heart sound present and S2 normal heart sound present GI COMMON NORMALS: Soft to palpation, no masses and no bruits INSPECTION: Yes normal to inspection, Yes abdominal distension and Yes central obesity AUSCULTATION: Yes Hypoactive bowel sounds present PALPATION: Yes Soft to palpation, Yes Firmness to palpation present (GI), Yes Tenderness to palpation present (GI), PERCUSSION: dullness to percussion and tympanic to percussion OTHER: Lyubov pouch in place, with blood in the bag, surgical site looks clean and dry Extremity COMMON NORMALS: capillary refill normal, no clubbing, cyanosis or edema, no calf tenderness and no pedal edema Neuro COMMON NORMALS: patient oriented x3 SENSORIUM/ORIENTATION: Yes oriented to person, Yes oriented to place and Yes oriented to time Psych COMMON NORMALS: mental status grossly normal Urinary Catheter Management^: Cantu: Cath Placed During This Visit: yes Reason for Continuing Indwelling Catheter: Accurate Measurement of Urinary Output in Critically Ill Patients Urinary Catheter Date of Insertion: 11/21/20 Urinary Catheter Time of Insertion: 07:51 Data : 11/25/20 03:25 11/25/20 03:25 Micro: Microbiology 11/21/20 12:00 Gram Stain - Final Abdomen Anaerobic Culture - Preliminary Abscess Culture - Final Escherichia coli 11/21/20 12:25 Sputum Culture - Final Sputum - Endotracheal Tube Aspirate 11/22/20 09:38 Urine Culture - Final Urine Catheterized A&P Assessment and plan (1) Fecal peritonitis: Management as per the surgery/hospitalist service Status: Acute (2) Elevated troponin: Most likely this is a type II myocardial infarction. In view of the underlying chronic left bundle branch block and history of no obstructive coronary disease 7 years ago, possibility of patient developing significant coronary lesion causing ischemia may be low. Status: Acute (3) Nonischemic cardiomyopathy: May continue on the current measures for the time being. Off pressors now. Patient likely has mild volume overload. Ok to administer lasix Status: Acute (4) Hypertension: Patient's hypotension has resolved. Now she is hypertensive. Can restart coreg. Status: Acute Additional A&P Information Based on the clinical progress, further recommendations will be made. Patient needs to be closely monitored for any development of arrhythmia. Attestations Medical Necessity Statement*: Care expected to cross 2 midnights. Procedures Arterial Line Size (Gauge): 20 Coding Level of Care Code Acute Collections Associate for [facility] Diagnoses Fecal peritonitis K65.8 Elevated troponin R77.8 Nonischemic cardiomyopathy I42.8 Hypertension I10
[2020-11-25] MEDS: linezolid premix 600 MG/300 ML PREMIX 300 MG IV ×2 (11:03→22:46)
--- NOTE | 2020-11-25 11:09 | PC.SOCIAL ---
IMM Updated Updated pt on Pg 2 IMM. No questions voiced. Provided pt a copy. Signed, dated, & timed copy in chart.
--- NOTE | 2020-11-25 11:18 | PM.PN ---
Subjective Subjective: Interval history: This morning patient was examined, she she tells me that she has not had a bowel movement, is now passing gas, abdomen does feel less distended, she is feeling better, she is trying sips and chips, no fevers overnight, she just feels weak, no chest pain, no shortness of breath Medications: Reviewed: Yes Medication Review Details: Current Medications Albuterol/Ipratropium (Ipratropium-Albuterol 3 Ml Neb) 3 ml INHALATION Q6H.RESPIRATORY RENAE Last Admin: 11/23/20 04:20 Dose: 3 ml Documented by: Aspirin (Aspirin 81 Mg Ec Tablet) 81 mg PO DAILY RENAE Last Admin: 11/22/20 18:53 Dose: Not Given Documented by: Atorvastatin Calcium (Atorvastatin 40 Mg Tablet) 40 mg PO DAILY RENAE Last Admin: 11/22/20 18:59 Dose: Not Given Documented by: Carvedilol (Carvedilol 3.125 Mg Tablet) 3.125 mg PO BID RENAE Last Admin: 11/21/20 09:02 Dose: 3.125 mg Documented by: Famotidine (Famotidine 20 Mg/2 Ml Inj) 20 mg IVP Q12H RENAE Last Admin: 11/23/20 01:09 Dose: 20 mg Documented by: Heparin Sodium (Beef Lung) (Heparin 5,000 Unit/Ml Inj 1 Ml) 5,000 unit SUBCUT Q12H RENAE Last Admin: 11/23/20 01:09 Dose: 5,000 unit Documented by: Imipenem/Cilastatin Sodium 250 (mg/ Sodium Chloride) 100 mls @ 200 mls/hr IV Q6H RENAE; Protocol Last Admin: 11/23/20 05:08 Dose: 100 mls/hr Documented by: Dextrose/Sodium Chloride (Dextrose 5%-Sod Chloride 0.45%) 1,000 mls @ 100 mls/hr IV .Q10H RENAE Last Admin: 11/22/20 04:34 Dose: Not Given Documented by: Norepinephrine Bitartrate 4 mg (/ Dextrose) 254 mls @ 0 mls/hr IV .Q0M RENAE; Protocol Last Titration: 11/22/20 04:16 Dose: Infused Documented by: Dobutamine HCl/Dextrose (Dobutamine Drip) 500 mg in 250 mls @ 0 mls/hr IV .Q0M RENAE; Protocol Last Titration: 11/22/20 19:30 Dose: 0 mcg/kg/min, 0 mls/hr Documented by: Dexmedetomidine HCl 400 mcg/ (Sodium Chloride) 104 mls @ 0 mls/hr IV .Q0M [facility]; Protocol Sodium Chloride (Sodium Chloride 0.9%) 500 mls @ 1 mls/hr IV .Q24H [facility] Last Admin: 11/23/20 00:22 Dose: Not Given Documented by: Vasopressin 100 unit/ Sodium (Chloride) 100 mls @ 0 mls/hr IV .Q0M [facility]; Protocol Last Titration: 11/23/20 05:49 Dose: 0 unit/min, 0 mls/hr Documented by: Norepinephrine Bitartrate 8 mg (/ Dextrose) 508 mls @ 0 mls/hr IV .Q0M [facility]; Protocol Last Titration: 11/23/20 05:00 Dose: 0 mcg/min, 0 mls/hr Documented by: Sodium Chloride (Sodium Chloride 0.9%) 1,000 mls @ 50 mls/hr IV .Q20H [facility] Last Admin: 11/22/20 15:00 Dose: 50 mls/hr Documented by: Linezolid (Zyvox Premix) 600 mg in 300 mls @ 300 mls/hr IV Q12H [facility] Last Admin: 11/22/20 23:51 Dose: 300 mls/hr Documented by: Potassium Chloride (K-Rayray) 100 mls @ 25 mls/hr IV Q4H [facility] Stop: 11/23/20 13:59 Last Admin: 11/23/20 06:01 Dose: 25 mls/hr Documented by: Morphine Sulfate (Morphine 4 Mg/Ml Sdv 1 Ml) 2 - 4 mg IVP Q4H PRN PRN Reason: SEVERE PAIN Last Admin: 11/23/20 01:08 Dose: 4 mg Documented by: Ondansetron HCl (Ondansetron 2 Mg/Ml Sdv 2 Ml) 4 mg IVP Q4H PRN PRN Reason: NAUSEA AND VOMITING Phenol (Phenol Oral [place] 177 Ml) 3 spray MUCOUS MEM Q2H PRN PRN Reason: SORE THROAT Vitals/I&O/Wt Last Vital Signs Temp 98.2 F 11/25/20 05:37 Pulse 92 11/25/20 09:00 Resp 18 01/02/21 09:00 BP 145/90 11/25/20 09:00 Pulse Ox 92 11/25/20 09:00 11/24/20 11/25/20 11/25/20 22:59 06:59 14:59 Intake Total 320 / 1200 560 / 2617 108.9196 / 509.0909 Output Total 650 / 650 1675 / 2325 Balance -330 / 550 -1115 / -463 761.9946 / 509.0909 Physical Exam GI: COMMON NORMALS: Soft to palpation INSPECTION: Yes abdominal distension and Yes central obesity AUSCULTATION: Yes Hypoactive bowel sounds present PALPATION: Yes Soft to palpation, Yes Tenderness to palpation present (GI) and No Rigid due to palpation PERCUSSION: dullness to percussion and tympanic to percussion OTHER: Lyubov pouch in place, with blood in the bag, surgical site looks clean and dry Urinary Catheter Management^: Cantu: Cath Placed During This Visit: yes Reason for Continuing Indwelling Catheter: Accurate Measurement of Urinary Output in Critically Ill Patients Urinary Catheter Date of Insertion: 11/21/20 Urinary Catheter Time of Insertion: 07:51 Data : 11/25/20 03:25 11/25/20 03:25 Micro: Microbiology 11/21/20 12:00 Gram Stain - Final Abdomen Anaerobic Culture - Preliminary Abscess Culture - Final Escherichia coli 11/21/20 12:25 Sputum Culture - Final Sputum - Endotracheal Tube Aspirate 11/22/20 09:38 Urine Culture - Final Urine Catheterized A&P Assessment and plan (1) Septic shock: Status: Acute (2) Fecal peritonitis: Status: Acute (3) Intra-abdominal abscess: Status: Acute (4) Sepsis: Status: Acute (5) Abdominal pain: Status: Acute Qualifiers: Abdominal location: periumbilical Qualified Code(s): R10.33 - Periumbilical pain (6) Adynamic ileus: Status: Acute (7) Postmenopausal bleeding: Status: Acute (8) Hypoxia: Status: Acute (9) Enteritis: Status: Acute (10) Systolic CHF: Status: Acute (11) Bowel obstruction: Status: Acute (12) Recurrent ventral hernia: Status: Acute Additional A&P Information Fecal peritonitis, status post Lyubov procedure 11/21/2024 for perforated sigmoid colon, with partial small bowel obstruction status post adhesiolysis With septic shock, and acute renal failure -Off pressors for the last 48 hours, MAP greater than 65 -Creatinine improved to 0.8, urine output improved to 2325, on 3 L -White blood cell count increased to 19.5, hemoglobin 9.4, lactic acid 1.1, CRP 218, BNP 1628, pro-Parish 2.13 Plan: -extubation 11/21/2020 -Currently in the intensive care unit -Full code -Heparin for DVT prophylaxis -Broad-spectrum antibiotic therapy vancomycin and Primaxin, Flagyl -Follow blood cultures, surgical cultures -Patient is n.p.o., NG tube in place has had 1200 cc output last shift -Pepcid -Will avoid fluid overload given patient's EF of 30 to 35% -Bolus to 250 cc as needed for MAP less than 65, nicom -Levophed if required, maintain MAP greater than 65, and to avoid fluid overload -Nephrology on consult -General surgery on consult -Cardiology on consult -Monitor respiratory status closely, currently on 3 L, chest x-ray no focal pneumonia, has some evidence of fluid overload noted, will give a touch of Lasix this morning, restart Coreg Postoperative respiratory failure, extubation 11/21/2020, -currently on 3 L - BiPAP as needed during the night -Monitor cultures closely -Chest x-ray unremarkable for focal pneumonia Septic shock, resolving Acute renal failure: Secondary to sepsis, contrast -Resolving -Fluid boluses as required, Levophed -Monitor urine output closely -Nephrology on consult -Renal ultrasound no hydronephrosis both kidneys Postmenopausal bleed 2.6 cm uterine mass High D-dimer currently hypoxic requiring 2 L nasal cannula CTA rule out PE was unremarkable for PE Uterine biopsy revealed endometrial polyp otherwise no malignancy Due for uterine surgery in November 2020 Acute hypoxia Likely secondary to fluid overload and systolic CHF Confirmed on multiple ABGs CT angiogram was negative for PE, slight atelectasis, no focal pneumonia Repeat ABG this afternoon shows hypoxia, PO2 59 on room air Patient is not hypo ventilating Hiatal hernia found on CT abdomen Etiology BNP is elevated at 3700, did receive fluids, giving Lasix daily, improved denies any chest pain, shortness of breath, any cardiac history Serial troponins, as high as 30, no significant delta, EKG no acute ST-T wave changes Rapid Covid negative, Covid PCR negative Plan: -Monitor fluid status closely -BiPAP as needed -We will need to avoid fluid overload Systolic CHF, patient's echocardiogram results yesterday showed: -This is a limited quality echocardiogram. Bubble study was ordered however could not be performed as atria are not well visualized. LV systolic function is moderately severely reduced with EF of 30 to 35%. Moderate to severe global hypokinesis is noted. Diastolic function cannot be assessed because of tachycardia Valves are not very well visualized, however no significant valvular abnormalities seen. Compared to prior echocardiogram from 09/18/2018, LV systolic function is significantly reduced now. -Patient's oxygen requirements have decreased to 2 L with diuresis, Lasix 40 mg IV push daily -On aspirin, statin, Coreg -The question is does patient have ischemic versus nonischemic cardiomyopathy -Cardiology on consult GERD: Continue PPI Full code N.p.o. DVT prophylaxis SCDs, heparin Patient's prognosis is guarded, status is stable Plan for today, will give a touch of Lasix, monitor urine output, monitor hemodynamics, monitor for bowel movements, serial abdominal exams, continue antibiotics Attestations Medical Necessity Statement*: Patient requires hospitalization, for perforated sigmoid ulcer, with septic shock, peritonitis, systolic heart failure, acute renal failure Procedures Arterial Line Size (Gauge): 20 Coding Level of Care Code Acute Debeaker for Chg Fwd Diagnoses Septic shock A41.9; R65.21 Fecal peritonitis K65.8 Intra-abdominal abscess K65.1 Sepsis A41.9 Abdominal pain R10.33 Abdominal location: periumbilical Adynamic ileus K56.0 Postmenopausal bleeding N95.0 Hypoxia R09.02 Enteritis K52.9 Systolic CHF I50.20 Bowel obstruction K56.609 Recurrent ventral hernia K43.2
--- NOTE | 2020-11-25 11:46 | USR_ITS ---
PROCEDURE INFORMATION: Exam: US Duplex Lower Extremity Veins, Bilateral Exam date and time: 11/25/2020 12:46 PM Age: 75 years old Clinical indication: Swelling (edema) of limb; Lower extremity, bilateral; Additional info: R/O dvt TECHNIQUE: Imaging protocol: Real-time duplex ultrasound of the extremities with 2-D wilkins scale, color Doppler flow and spectral waveform analysis with image documentation. Complete exam focused on the bilateral lower extremity veins. COMPARISON: No relevant prior studies available. FINDINGS: Right deep veins: Unremarkable. The common femoral, femoral, proximal profunda femoral and popliteal veins are patent without thrombus. Normal Doppler waveforms. Normal compressibility and/or augmentation response. Right superficial veins: Saphenofemoral junction is patent without thrombus. Left deep veins: Unremarkable. The common femoral, femoral, proximal profunda femoral and popliteal veins are patent without thrombus. Normal Doppler waveforms. Normal compressibility and/or augmentation response. Left superficial veins: Saphenofemoral junction is patent without thrombus. Soft tissues: There is a 3.2 x 1.3 x 0.8 cm right Lopez's cyst. US/[place] [id number] IMPRESSION: No evidence of deep vein thrombosis.
[2020-11-25] MEDS: LORazepam 2 mg/mL INJ 1 mL 0.5 MG IVP ×2 (13:20→22:07)
[2020-11-25] MEDS: OLANZapine 5 mg TABLET PO (20:38)
--- NOTE | 2020-11-25 21:10 | PC.NURSE ---
Assisted pt up to chair X 2 assist. Tolerated well.
[2020-11-26] VITALS (31 sets, daily range): BP systolic 100–153; BP diastolic 66–102; PULSE 79–102; RESP 16–26; TEMP 36.6–37.4; O2SAT 91–96
[2020-11-26] MEDS: heparin 5,000 unit/mL INJ 1 mL 5000 UNIT SUBCUT ×2 (00:55→12:47)
[2020-11-26] MEDS: famotidine 20 mg/2 mL INJ IVP ×2 (00:55→12:47)
[2020-11-26] MEDS: ipratropium-albuterol 3 mL Neb INHALATION ×3 (02:58→15:01)
[2020-11-26 05:08] LABS: Basophils # 0.1 10^3/uL (0.0-0.1); Basophils % 0.3 %; Eosinophils # 0.1 10^3/uL (0.0-0.8); Eosinophils % 0.3 %; Hematocrit 34.1 % (37.0-47.0); Hemoglobin 11.1 g/dL (11.5-15.3); Lymphocytes % 10.5 %; Mean Corpuscular HGB Conc 32.6 g/dL (30.0-36.0); Mean Corpuscular Hemoglobin 29.4 pg (28.0-34.0); Mean Corpuscular Volume 90.5 fL (81-99); Mean Platelet Volume 11.5 fL (7.4-10.4); Monocytes # 1.7 10^3/uL (0.2-0.9); Monocytes % 8.9 %; Neutrophils # 13.24 10^3/uL (1.8-7.7); Neutrophils % 68.9 %; Nucleated Red Blood Cells % 0 %; Platelet Count 292 10^3/cmm (130-400); Red Blood Count 3.77 10^6/uL (4.1-5.3); White Blood Count 19.2 10^3/uL (4.0-10.0)
[2020-11-26 05:48] LABS: NT Pro B Type Natriuretic Pept 2003 pg/mL (0-450); Procalcitonin 1.44 ng/mL (0-0.5)
[2020-11-26 05:58] LABS: INR 1.26 (0.8-1.2)
[2020-11-26 06:01] LABS: Alanine Aminotransferase 9 U/L (0-33); Albumin Level 2.9 g/dL (3.5-5.2); Alkaline Phosphatase 64 IU/L (35-105); Anion Gap 18.1 (5-19); Aspartate Amino Transferase 17 U/L (0-32); Blood Urea Nitrogen 13 mg/dL (8-23); C Reactive Protein 118.4 mg/L (0.0-4.9); Calcium 8.7 mg/dL (8.5-10.5); Carbon Dioxide 26 mmol/L (22-29); Chloride 100 mmol/L (98-107); Globulin 3.4 g/dL (1.3-4.6); Glucose 128 mg/dL (65-115); Osmolality Calculated 294 mOsm/kg (285-295); Phosphorus 2.9 mg/dL (2.5-4.5); Potassium 3.1 mmol/L (3.5-5.1); Sodium 141 mmol/L (136-145); Total Bilirubin 0.8 mg/dL (0.15-1.2); Total Protein 6.3 g/dL (6.6-8.7)
[2020-11-26 06:08] LABS: Slide Review Slide Review Perform
--- NOTE | 2020-11-26 07:00 | XRR_ITS ---
PROCEDURE INFORMATION: Exam: XR Chest, 1 View Exam date and time: 11/26/2020 5:34 AM Age: 75 years old Clinical indication: Dyspnea; Additional info: SOB TECHNIQUE: Imaging protocol: XR of the chest Views: 1 view. COMPARISON: CR XR chest 1V portable [id number] 11/25/2020 5:38 AM FINDINGS: An NG tube is seen with the tip in the stomach. A left subclavian central line is seen with the tip overlying the proximal SVC. Lungs: Minimal atelectasis versus infiltrates are seen in the left base, unchanged. No consolidation. Pleural space: Minimal blunting of the left costophrenic angle is seen, unchanged. No pneumothorax. Heart/Mediastinum: Unremarkable. No cardiomegaly. Bones/joints: Unremarkable. XR/XR chest 1V portable [id number] IMPRESSION: Few infiltrates versus atelectasis in the left base with a tiny pleural effusion showing no change.
[2020-11-26] MEDS: aspirin 81 mg EC Tablet PO (08:30)
[2020-11-26] MEDS: carvedilol 3.125 mg Tablet PO ×2 (08:30→17:17)
[2020-11-26] MEDS: lactulose oral liq 20 gm/30 mL UDC PO (08:30)
[2020-11-26] MEDS: atorvastatin 40 mg Tablet PO (08:31)
[2020-11-26] MEDS: potassium chloride ER 20 mEq Tablet 40 MEQ PO (08:31)
[2020-11-26] MEDS: metroNIDAZOLE IV 500 MG/100 ML PREMIX 100 MG IV ×2 (08:51→16:08)
--- NOTE | 2020-11-26 09:49 | PM.PN ---
Subjective Subjective: Interval history: The patient says she is feeling better this morning. She is starting to pass stool into her colostomy bag. She is hungry. She really wants her nasogastric tube removed. Vitals/I&O/Wt Last Vital Signs Temp 99.3 F 11/26/20 05:38 Pulse 89 11/26/20 09:13 Resp 18 11/26/20 09:10 BP 129/67 11/26/20 06:00 Pulse Ox 93 11/26/20 09:10 11/25/20 11/26/20 11/26/20 22:59 06:59 14:59 Intake Total 450 / 3369.0909 1210 / 3369.0909 Output Total 1100 / 5000 2400 / 5000 Balance -650 / -1630.9091 -1190 / -1630.9091 Physical Exam Narrative: EXAM NARRATIVE: The incision still has some light erythema around the edges, particularly inferiorly. There is no ongoing drainage. Bowel sounds seem to remain hypoactive although there is some stool in the colostomy bag. Urinary Catheter Management^: Cantu: Cath Placed During This Visit: yes Reason for Continuing Indwelling Catheter: Accurate Measurement of Urinary Output in Critically Ill Patients Urinary Catheter Date of Insertion: 11/21/20 Urinary Catheter Time of Insertion: 07:51 Data : 11/26/20 04:52 11/26/20 04:52 Micro: Microbiology 11/21/20 12:00 Gram Stain - Final Abdomen Anaerobic Culture - Preliminary Bacteroides eggerthii Abscess Culture - Final Escherichia coli Organism 1 Escherichia coli Growth MODERATE DAY 2 E coli M.I.C. RX --------- ------ * Amikacin <=16 S * Amoxicillin/Clavulanate <=8/4 S * Ampicillin <=8 S * Ampicillin/Sulbactam <=8/4 S * Aztreonam <=4 S * Cefepime <=8 S * Ceftriaxone <=1 S * Cefuroxime <=4 S * Ciprofloxacin <=1 S * Gentamicin <=2 S * Imipenem <=1 S * Levofloxacin <=2 S * Tetracycline <=4 S * Trimethoprim/Sulfamethoxazole <=2/38 S * Piperacillin/Tazobactam <=16 S A&P Assessment and plan (1) Fecal peritonitis: Status post Lyubov procedure on 11/21/2024 perforated sigmoid colon, likely the result of a stercoral ulcer. Remove nasogastric tube. Clear liquid diet. Stopped lactulose and resume Colace. Status: Acute (2) Partial small bowel obstruction: Status post adhesiolysis on 11/21/2020. 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 Status: Acute Attestations Medical Necessity Statement*: See admitting service's notation. Procedures Arterial Line Size (Gauge): 20 Coding Level of Care Code Acute Oil Recovery Operator for Chg Fwd Diagnoses Fecal peritonitis K65.8 Partial small bowel obstruction K56.600
[2020-11-26] MEDS: linezolid premix 600 MG/300 ML PREMIX 300 MG IV ×2 (11:58→23:19)
--- NOTE | 2020-11-26 13:10 | P.PN_ITS ---
Subjective Subjective: Interval history: This morning patient was examined, she had a bowel movement, is passing gas, feeling better, she wants her NG tube removed Medications: Reviewed: Yes Medication Review Details: Current Medications Albuterol/Ipratropium (Ipratropium-Albuterol 3 Ml Neb) 3 ml INHALATION Q6H.RESPIRATORY RENAE Last Admin: 11/23/20 04:20 Dose: 3 ml Documented by: Aspirin (Aspirin 81 Mg Ec Tablet) 81 mg PO DAILY RENAE Last Admin: 11/22/20 18:53 Dose: Not Given Documented by: Atorvastatin Calcium (Atorvastatin 40 Mg Tablet) 40 mg PO DAILY RENAE Last Admin: 11/22/20 18:59 Dose: Not Given Documented by: Carvedilol (Carvedilol 3.125 Mg Tablet) 3.125 mg PO BID RENAE Last Admin: 11/21/20 09:02 Dose: 3.125 mg Documented by: Famotidine (Famotidine 20 Mg/2 Ml Inj) 20 mg IVP Q12H RENAE Last Admin: 11/23/20 01:09 Dose: 20 mg Documented by: Heparin Sodium (Beef Lung) (Heparin 5,000 Unit/Ml Inj 1 Ml) 5,000 unit SUBCUT Q12H RENAE Last Admin: 11/23/20 01:09 Dose: 5,000 unit Documented by: Imipenem/Cilastatin Sodium 250 (mg/ Sodium Chloride) 100 mls @ 200 mls/hr IV Q6H RENAE; Protocol Last Admin: 11/23/20 05:08 Dose: 100 mls/hr Documented by: Dextrose/Sodium Chloride (Dextrose 5%-Sod Chloride 0.45%) 1,000 mls @ 100 mls/hr IV .Q10H RENAE Last Admin: 11/22/20 04:34 Dose: Not Given Documented by: Norepinephrine Bitartrate 4 mg (/ Dextrose) 254 mls @ 0 mls/hr IV .Q0M RENAE; Protocol Last Titration: 11/22/20 04:16 Dose: Infused Documented by: Dobutamine HCl/Dextrose (Dobutamine Drip) 500 mg in 250 mls @ 0 mls/hr IV .Q0M RENAE; Protocol Last Titration: 11/22/20 19:30 Dose: 0 mcg/kg/min, 0 mls/hr Documented by: Dexmedetomidine HCl 400 mcg/ (Sodium Chloride) 104 mls @ 0 mls/hr IV .Q0M [facility]; Protocol Sodium Chloride (Sodium Chloride 0.9%) 500 mls @ 1 mls/hr IV .Q24H [facility] Last Admin: 11/23/20 00:22 Dose: Not Given Documented by: Vasopressin 100 unit/ Sodium (Chloride) 100 mls @ 0 mls/hr IV .Q0M RENAE; Protocol Last Titration: 11/23/20 05:49 Dose: 0 unit/min, 0 mls/hr Documented by: Norepinephrine Bitartrate 8 mg (/ Dextrose) 508 mls @ 0 mls/hr IV .Q0M RENAE; Protocol Last Titration: 11/23/20 05:00 Dose: 0 mcg/min, 0 mls/hr Documented by: Sodium Chloride (Sodium Chloride 0.9%) 1,000 mls @ 50 mls/hr IV .Q20H [facility] Last Admin: 11/22/20 15:00 Dose: 50 mls/hr Documented by: Linezolid (Zyvox Premix) 600 mg in 300 mls @ 300 mls/hr IV Q12H [facility] Last Admin: 11/22/20 23:51 Dose: 300 mls/hr Documented by: Potassium Chloride (K-Rayray) 100 mls @ 25 mls/hr IV Q4H [facility] Stop: 11/23/20 13:59 Last Admin: 11/23/20 06:01 Dose: 25 mls/hr Documented by: Morphine Sulfate (Morphine 4 Mg/Ml Sdv 1 Ml) 2 - 4 mg IVP Q4H PRN PRN Reason: SEVERE PAIN Last Admin: 11/23/20 01:08 Dose: 4 mg Documented by: Ondansetron HCl (Ondansetron 2 Mg/Ml Sdv 2 Ml) 4 mg IVP Q4H PRN PRN Reason: NAUSEA AND VOMITING Phenol (Phenol Oral [place] 177 Ml) 3 spray MUCOUS MEM Q2H PRN PRN Reason: SORE THROAT Vitals/I&O/Wt Last Vital Signs Temp 99.3 F 11/26/20 05:38 Pulse 102 H 11/26/20 13:00 Resp 16 11/26/20 13:00 BP 145/85 11/26/20 13:00 Pulse Ox 93 11/26/20 13:00 11/25/20 11/26/20 11/26/20 22:59 06:59 14:59 Intake Total 450 / 2159.0909 1310 / 3469.0909 890 / 890 Output Total 1100 / 2600 2400 / 5000 Balance -650 / -440.9091 -1090 / -1530.9091 890 / 890 Physical Exam Const: COMMON NORMALS: no acute distress and patient oriented x3 ORIENTATION/CONSCIOUSNESS: Yes oriented to person, Yes oriented to place and Yes oriented to time HENMT: COMMON NORMALS: normocephalic HEAD & SCALP: normocephalic Neck/C-Spine: COMMON NORMALS: no JVD Resp: COMMON NORMALS: normal respiratory effort, No retractions, No use of accessory muscles and clear to auscultation bilaterally AUSCULTATION: clear to auscultation bilaterally Cardio: COMMON NORMALS: no JVD, regular rate, regular rhythm, S1 normal heart sound present and S2 normal heart sound present RATE: regular rate RHYTHM: regular rhythm HEART SOUNDS: S1 normal heart sound present and S2 normal heart sound present GI: COMMON NORMALS: Normal to inspection, nondistended, normoactive bowel sounds present, Soft to palpation, non-tender, No hepatosplenomegaly present, no masses and no bruits PALPATION: Yes Soft to palpation and Yes No hepatosplenomegaly present OTHER: Lyubov pouch in place, with blood in the bag, surgical site looks clean and dry Extremity: COMMON NORMALS: capillary refill normal, no clubbing, cyanosis or edema, no calf tenderness and no pedal edema Neuro: COMMON NORMALS: patient oriented x3 SENSORIUM/ORIENTATION: Yes oriented to person, Yes oriented to place and Yes oriented to time Psych: COMMON NORMALS: mental status grossly normal Urinary Catheter Management^: Cantu: Cath Placed During This Visit: yes Reason for Continuing Indwelling Catheter: Accurate Measurement of Urinary Output in Critically Ill Patients Urinary Catheter Date of Insertion: 11/21/20 Urinary Catheter Time of Insertion: 07:51 Data : 11/26/20 04:52 11/26/20 04:52 Micro: Microbiology 11/21/20 12:00 Gram Stain - Final Abdomen Anaerobic Culture - Preliminary Bacteroides eggerthii Abscess Culture - Final Escherichia coli A&P Assessment and plan (1) Septic shock: Status: Acute (2) Fecal peritonitis: Status: Acute (3) Intra-abdominal abscess: Status: Acute (4) Sepsis: Status: Acute (5) Abdominal pain: Status: Acute Qualifiers: Abdominal location: periumbilical Qualified Code(s): R10.33 - Periumbilical pain (6) Adynamic ileus: Status: Acute (7) Postmenopausal bleeding: Status: Acute (8) Hypoxia: Status: Acute (9) Enteritis: Status: Acute (10) Systolic CHF: Status: Acute (11) Bowel obstruction: Status: Acute (12) Recurrent ventral hernia: Status: Acute Additional A&P Information Fecal peritonitis, status post Lyubov procedure 11/21/2024 for perforated sigmoid colon, with partial small bowel obstruction status post adhesiolysis With septic shock, and acute renal failure -Off pressors for the last MAP greater than 65 -Creatinine increased to 1.1 with Lasix 40 mg, urine output improved to 5 L in the last 24 hours, on 2 L -White blood cell count increased to 19.2, hemoglobin 11.1, Plan: -extubation 11/21/2020 -Currently in the intensive care unit -Full code -Heparin for DVT prophylaxis -Broad-spectrum antibiotic therapy vancomycin and Primaxin, Flagyl -Follow blood cultures, surgical cultures which show E. coli, Bacteroides -Currently on clears -Pepcid -Will avoid fluid overload given patient's EF of 30 to 35% -Bolus to 250 cc as needed for MAP less than 65, nicom -Levophed if required, maintain MAP greater than 65, and to avoid fluid overload -Nephrology on consult -General surgery on consult -Cardiology on consult -Monitor respiratory status closely, currently on 2 L, chest x-ray no focal pneumonia - hold diuresis as creatinine up to 1.1 Postoperative respiratory failure, extubation 11/21/2020, -currently on 3 L - BiPAP as needed during the night -Monitor cultures closely -Chest x-ray unremarkable for focal pneumonia Septic shock, resolving Acute renal failure: Secondary to sepsis, contrast -Resolving, creatinine up to 1.1 secondary diuresis -Fluid boluses as required, Levophed -Monitor urine output closely -Nephrology on consult -Renal ultrasound no hydronephrosis both kidneys Postmenopausal bleed 2.6 cm uterine mass High D-dimer currently hypoxic requiring 2 L nasal cannula CTA rule out PE was unremarkable for PE Uterine biopsy revealed endometrial polyp otherwise no malignancy Due for uterine surgery in November 2020 Acute hypoxia Likely secondary to fluid overload and systolic CHF Confirmed on multiple ABGs CT angiogram was negative for PE, slight atelectasis, no focal pneumonia Repeat ABG this afternoon shows hypoxia, PO2 59 on room air Patient is not hypo ventilating Hiatal hernia found on CT abdomen Etiology BNP is elevated at 3700, did receive fluids, giving Lasix daily, improved denies any chest pain, shortness of breath, any cardiac history Serial troponins, as high as 30, no significant delta, EKG no acute ST-T wave changes Rapid Covid negative, Covid PCR negative Plan: -Monitor fluid status closely -BiPAP as needed -We will need to avoid fluid overload Systolic CHF, patient's echocardiogram results yesterday showed: -This is a limited quality echocardiogram. Bubble study was ordered however could not be performed as atria are not well visualized. LV systolic function is moderately severely reduced with EF of 30 to 35%. Moderate to severe global hypokinesis is noted. Diastolic function cannot be assessed because of tachycardia Valves are not very well visualized, however no significant valvular abnormalities seen. Compared to prior echocardiogram from 09/18/2018, LV systolic function is significantly reduced now. -Patient's oxygen requirements have decreased to 2 L with diuresis, Lasix 40 mg IV push daily -On aspirin, statin, Coreg -The question is does patient have ischemic versus nonischemic cardiomyopathy -Cardiology on consult GERD: Continue PPI Full code Clear liquid DVT prophylaxis SCDs, heparin Patient's prognosis is guarded, status is stable Plan for today, hold Lasix, monitor urine output, monitor hemodynamics, monitor clear liquid tolerability, continue broad-spectrum antibiotic therapy, hopefully move out of ICU the next 24 hours Attestations Medical Necessity Statement*: Patient requires hospitalization, for perforated sigmoid viscus, peritonitis, sepsis acute renal failure, sepsis Procedures Arterial Line Size (Gauge): 20 Coding Level of Care Code Acute Brand Strategist for [facility] Fwd Diagnoses Septic shock A41.9; R65.21 Fecal peritonitis K65.8 Intra-abdominal abscess K65.1 Sepsis A41.9 Abdominal pain R10.33 Abdominal location: periumbilical Adynamic ileus K56.0 Postmenopausal bleeding N95.0 Hypoxia R09.02 Enteritis K52.9 Systolic CHF I50.20 Bowel obstruction K56.609 Recurrent ventral hernia K43.2
[2020-11-26] MEDS: docusate sodium 100 mg Capsule PO (17:17)
--- NOTE | 2020-11-26 17:30 | P.PN_ITS ---
Subjective Subjective: Interval history: Patient is doing well. She denies complaints of chest pain, shortness of breath or palpitations. Patient had a bowel movement today and feels much better afterwards. Vitals/I&O/Wt Last Vital Signs Temp 98.0 F 11/26/20 16:00 Pulse 90 11/26/20 16:00 Resp 23 H 11/26/20 16:00 BP 121/83 11/26/20 16:00 Pulse Ox 91 11/26/20 16:00 11/26/20 11/26/20 11/26/20 06:59 14:59 22:59 Intake Total 1310 / 3469.0909 990 / 990 Output Total 2400 / 5000 Balance -1090 / -1530.9091 990 / 990 Physical Exam Narrative: EXAM NARRATIVE: Const COMMON NORMALS: no acute distress and patient oriented x3 GENERAL APPEARANCE: cooperative NUTRITIONAL APPEARANCE: obese ORIENTATION/CONSCIOUSNESS: Yes awake, Yes oriented to person, Yes oriented to place and Yes oriented to time OTHER: Patient is in pain HENVT COMMON NORMALS: normocephalic HEAD & SCALP: normocephalic Neck/C-Spine COMMON NORMALS: no JVD Resp COMMON NORMALS: normal respiratory effort, No retractions, No use of accessory muscles and clear to auscultation bilaterally AUSCULTATION: clear to auscultation bilaterally Cardio COMMON NORMALS: no JVD, regular rate, regular rhythm, S1 normal heart sound present and S2 normal heart sound present RATE: regular rate RHYTHM: regular rhythm HEART SOUNDS: S1 normal heart sound present and S2 normal heart sound present GI COMMON NORMALS: Soft to palpation, no masses and no bruits INSPECTION: Yes normal to inspection, Yes abdominal distension and Yes central obesity AUSCULTATION: Yes Hypoactive bowel sounds present PALPATION: Yes Soft to palpation, Yes Firmness to palpation present (GI), Extremity COMMON NORMALS: capillary refill normal, no clubbing, cyanosis or edema, no calf tenderness and no pedal edema Neuro COMMON NORMALS: patient oriented x3 SENSORIUM/ORIENTATION: Yes oriented to person, Yes oriented to place and Yes oriented to time Psych COMMON NORMALS: mental status grossly normal Urinary Catheter Management^: Cantu: Cath Placed During This Visit: yes Reason for Continuing Indwelling Catheter: Accurate Measurement of Urinary Output in Critically Ill Patients Urinary Catheter Date of Insertion: 11/21/20 Urinary Catheter Time of Insertion: 07:51 Data : 11/26/20 04:52 11/26/20 04:52 Micro: Microbiology 11/21/20 12:00 Gram Stain - Final Abdomen Anaerobic Culture - Preliminary Bacteroides eggerthii Abscess Culture - Final Escherichia coli A&P Assessment and plan (1) Fecal peritonitis: Management as per the surgery/hospitalist service Status: Acute (2) Elevated troponin: Most likely this is a type II myocardial infarction. In view of the underlying chronic left bundle branch block and history of no obstructive coronary disease 7 years ago, possibility of patient developing significant coronary lesion causing ischemia may be low. Status: Acute (3) Nonischemic cardiomyopathy: May continue on the current measures for the time being. Off pressors now. Received a dose of lasix yesterday and produced 5 L of urine. Can hold diuresis for now Status: Acute (4) Hypertension: Patient's hypotension has resolved. Coreg was restarted. Blood pressure is well controlled. Status: Acute Additional A&P Information Based on the clinical progress, further recommendations will be made. Patient needs to be closely monitored for any development of arrhythmia. Attestations Medical Necessity Statement*: Care expected to cross 2 midnights Procedures Arterial Line Size (Gauge): 20 Coding Level of Care Code Acute Branch Administrator for [facility] Fwd Diagnoses Fecal peritonitis K65.8 Elevated troponin R77.8 Nonischemic cardiomyopathy I42.8 Hypertension I10
[2020-11-26] MEDS: OLANZapine 5 mg TABLET PO (20:42)
[2020-11-27] VITALS (28 sets, daily range): BP systolic 85–136; BP diastolic 55–88; PULSE 75–90; RESP 15–26; TEMP 36.6–37.1; O2SAT 86–97
[2020-11-27] MEDS: morphine 4 mg/mL SDV 1 mL IVP ×2 (00:02→08:56)
[2020-11-27] MEDS: metroNIDAZOLE IV 500 MG/100 ML PREMIX 100 MG IV ×3 (00:29→15:43)
[2020-11-27] MEDS: heparin 5,000 unit/mL INJ 1 mL 5000 UNIT SUBCUT ×2 (01:22→12:44)
[2020-11-27] MEDS: famotidine 20 mg/2 mL INJ IVP ×2 (01:39→12:44)
[2020-11-27] MEDS: ipratropium-albuterol 3 mL Neb INHALATION ×3 (03:01→21:54)
[2020-11-27 05:32] LABS: Hematocrit 30.9 % (37.0-47.0); Hemoglobin 9.8 g/dL (11.5-15.3); Mean Corpuscular HGB Conc 31.7 g/dL (30.0-36.0); Mean Corpuscular Hemoglobin 29.1 pg (28.0-34.0); Mean Corpuscular Volume 91.7 fL (81-99); Mean Platelet Volume 11.4 fL (7.4-10.4); Platelet Count 292 10^3/cmm (130-400); Red Blood Count 3.37 10^6/uL (4.1-5.3)
[2020-11-27 05:48] LABS: Lactate (Lactic Acid level) 1.5 mmol/L (0.5-2.2)
[2020-11-27 06:04] LABS: NT Pro B Type Natriuretic Pept 1183 pg/mL (0-450); Procalcitonin 0.88 ng/mL (0-0.5)
[2020-11-27 06:15] LABS: Alanine Aminotransferase 7 U/L (0-33); Albumin Level 2.7 g/dL (3.5-5.2); Alkaline Phosphatase 62 IU/L (35-105); Anion Gap 15.1 (5-19); Aspartate Amino Transferase 15 U/L (0-32); Blood Urea Nitrogen 14 mg/dL (8-23); C Reactive Protein 62.3 mg/L (0.0-4.9); Carbon Dioxide 28 mmol/L (22-29); Chloride 97 mmol/L (98-107); Glucose 113 mg/dL (65-115); Magnesium 1.8 mg/dL (1.7-2.3); Osmolality Calculated 285 mOsm/kg (285-295); Phosphorus 3.2 mg/dL (2.5-4.5); Potassium 3.1 mmol/L (3.5-5.1); Sodium 137 mmol/L (136-145); Total Bilirubin 0.5 mg/dL (0.15-1.2); Total Protein 5.7 g/dL (6.6-8.7)
[2020-11-27 06:29] LABS: Slide Review Slide Review Perform
[2020-11-27 06:30] LABS: Absolute Segmented Neutrophil 10.2 10/cmm (1.6-7.1); Band Neutrophils Absolute 0.3 10^3/cmm (0.0-1.2); Segmented Neutrophils 68 %; Total Cells Counted 100 (0-100)
[2020-11-27 06:31] LABS: Absolute Eosinophils 0.3 10^3/cmm (0.0-0.7); Eosinophils 2 %; Lymphocytes 9 %; Monocytes Absolute 1.7 10^3/cmm (0.1-0.6)
[2020-11-27 06:33] LABS: Absolute Neutrophil 10.5 10^3/cmm (1.4-6.5); Platelet Estimate Normal (Normal)
[2020-11-27 06:34] LABS: Anisocytosis Trace
--- NOTE | 2020-11-27 07:00 | XR_ITS ---
WS: [id number] PORTABLE CHEST HISTORY: sob COMPARISON: 11/26/2020 Tip of the LEFT subclavian line is proximal to the SVC and still within the innominate vein. Unchange d in position since the prior study. Lungs are clear and well expanded. No pleural effusion or pneumothorax. Cardiac size: Normal. Mediastinum/Aorta: Mild atherosclerosis aorta. No osseous abnormality seen. XR/XR chest 1V portable [id number] IMPRESSION: No pneumonia. Mild atherosclerosis aorta.
--- NOTE | 2020-11-27 07:59 | XRR_ITS ---
PROCEDURE INFORMATION: Exam: XR Right Knee Exam date and time: 11/27/2020 8:05 AM Age: 75 years old Clinical indication: Swelling, leg or foot; Additional info: Redness, warmeth TECHNIQUE: Imaging protocol: XR Right knee. Views: 1 or 2 views. COMPARISON: No relevant prior studies available. FINDINGS: Bones/joints: No acute osseous pathology. Anatomic alignment. Soft tissues: Mild soft tissue swelling. XR/XR knee RT 1-2V [id number] IMPRESSION: No acute osseous pathology.
[2020-11-27] MEDS: metoclopramide 5 mg/mL SDV 2 mL IVP (08:52)
[2020-11-27] MEDS: docusate sodium 100 mg Capsule PO ×2 (08:53→17:47)
[2020-11-27] MEDS: atorvastatin 40 mg Tablet PO (08:54)
[2020-11-27] MEDS: aspirin 81 mg EC Tablet PO (08:54)
[2020-11-27] MEDS: carvedilol 3.125 mg Tablet PO ×2 (08:54→17:47)
[2020-11-27] MEDS: lidocaine 1% 5 ML in potassium chloride premix 100 ML 25 ML IV (08:55)
[2020-11-27 09:28] LABS: Albumin,Urine Random 12 %; Alpha-1-Globulins Urine Random 2 %; Alpha-2-Globulins Urine Random 25 %; Beta-Globulin,Urine Random 32 %; Gamma Globulin,Urine Random 30 %
--- NOTE | 2020-11-27 09:31 | PC.CHAP ---
Pastoral Care Encounter/Spiritual Assessment Type of Contact [] Declined roofing sales representative visit [] Patient/Family/Request visit [] Outpatient visit [] Follow-up visit [] Physician referral [] Code/Alert [] Routine visit [] Staff referral [] Actively dying [] Patient sleeping [] Family support [] [] Out of room [] Palliative care [] [] Receiving care in room [] Pre-surgical visit [] Trauma [] Long length of stay [x] ICU visit [] Other: Relational/Emotional Strength [] Patient feels connected with others/family/visitors/staff [] Distress [] Loneliness/isolation [] Abandonment Spirituality of Patient [] Person of Sanjuanita [] Attends Latter-Day of their Sanjuanita [] Believes in Prayer [] Reads Bible or Islam materials [] There are Spiritual issues to be addressed Plate Glass Installer Interventions [x] Prayer [] Active listening [] Non-anxious presence [] Spiritual/emotional support [] Crisis/trauma care [] Spiritual counseling [] Bereavement support [] Provided bereavement packet [] Provided Bible/devotional materials [] Provided toy/stuffed animal, coloring book to patient or family member [] Provided Communion [] Anointing/[place] [] Salvation [x] Completed spiritual assessment [] Other: Impact on Illness or Injury [] Angry [] Fearful [] Anxious [] Often cries [] Exhaustion [] Unable to work [] Unable to attend pentecostalism [] Unable to walk/stand [] Unable to read [] Unable to drive [] Unable to eat/drink [] Unable to sleep [] Unable to be with family [] Patient intubated [] Other: Summary Time spent with patient
--- NOTE | 2020-11-27 10:28 | PM.PN ---
Subjective Subjective: Interval history: The patient is feeling better daily. She says she is unable to eat much but her colostomy is functioning, although slowly. Vitals/I&O/Wt Last Vital Signs Temp 98.7 F 11/27/20 04:19 Pulse 85 11/27/20 08:48 Resp 20 H 11/27/20 08:56 BP 115/73 11/27/20 06:00 Pulse Ox 95 11/27/20 08:48 11/26/20 11/27/20 11/27/20 22:59 06:59 14:59 Intake Total 780 / 2250 180 / 2250 100 / 100 Output Total 375 / 600 225 / 600 Balance 405 / 1650 -45 / 1650 100 / 100 Physical Exam Narrative: EXAM NARRATIVE: Bowel sounds are present. Stoma is viable. Urinary Catheter Management^: Cantu: Cath Placed During This Visit: yes Reason for Continuing Indwelling Catheter: Accurate Measurement of Urinary Output in Critically Ill Patients Urinary Catheter Date of Insertion: 11/21/20 Urinary Catheter Time of Insertion: 07:51 Data : 11/27/20 05:14 11/27/20 05:14 Micro: Microbiology 11/21/20 12:00 Gram Stain - Final Abdomen Anaerobic Culture - Preliminary Bacteroides eggerthii Bacteroides thetaiotaomicron Abscess Culture - Final Escherichia coli A&P Assessment and plan (1) Fecal peritonitis: Status post Lyubov procedure on 11/21/2024 perforated sigmoid colon, likely the result of a stercoral ulcer. Full liquid diet. Ambulate. Okay to move to the floor when bed is available from my perspective. Status: Acute (2) Partial small bowel obstruction: Status post adhesiolysis on 11/21/2020. 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 Status: Acute Attestations Medical Necessity Statement*: See admitting service's notation. Procedures Arterial Line Size (Gauge): 20 Coding Level of Care Code Acute Station Tender for [facility] Diagnoses Fecal peritonitis K65.8 Partial small bowel obstruction K56.600
--- NOTE | 2020-11-27 13:19 | PC.SOCIAL ---
IMM Update Pg.2 of IMM updated with patient, copy provided.
--- NOTE | 2020-11-27 14:11 | P.PN_ITS ---
Subjective Subjective: Interval history: Patient is currently extubated. She is feeling much better. She has been ambulating on telemetry. Her vital signs remained stable. Afebrile. Colostomy bag is in place. She also has a Cantu's catheter. Denies any chest pain or palpitations. Telemetry shows sinus rhythm. Left bundle branch block. Medications: Medication Review Details: Current Medications Hydrocodone Bitart/Acetaminophen (Hydrocodone-Acetaminophen 5-325 Mg Tablet) 1 - 2 tab PO Q4H PRN PRN Reason: MODERATE TO SEVERE PAIN Albuterol/Ipratropium (Ipratropium-Albuterol 3 Ml Neb) 3 ml INHALATION Q6H. RESPIRATORY [facility] Last Admin: 11/27/20 08:41 Dose: 3 ml Documented by: Aspirin (Aspirin 81 Mg Ec Tablet) 81 mg PO DAILY [facility] Last Admin: 11/27/20 08:54 Dose: 81 mg Documented by: Atorvastatin Calcium (Atorvastatin 40 Mg Tablet) 40 mg PO DAILY [facility] Last Admin: 11/27/20 08:54 Dose: 40 mg Documented by: Carvedilol (Carvedilol 3.125 Mg Tablet) 3.125 mg PO BID [facility] Last Admin: 11/27/20 08:54 Dose: 3.125 mg Documented by: Docusate Sodium (Docusate Sodium 100 Mg Capsule) 100 mg PO BID [facility] Last Admin: 11/27/20 08:53 Dose: 100 mg Documented by: Famotidine (Famotidine 20 Mg/2 Ml Inj) 20 mg IVP Q12H [facility] Last Admin: 11/27/20 12:44 Dose: 20 mg Documented by: Haloperidol Lactate (Haloperidol Inj 5 Mg/Ml Inj 1 Ml) 1 mg IM Q4H PRN PRN Reason: anxiety Heparin Sodium (Beef Lung) (Heparin 5,000 Unit/Ml Inj 1 Ml) 5,000 unit SUBCUT Q12H [facility] Last Admin: 11/27/20 12:44 Dose: 5,000 unit Documented by: Imipenem/Cilastatin Sodium 250 (mg/ Sodium Chloride) 100 mls @ 200 mls/hr IV Q6H [facility]; Protocol Last Infusion: 11/27/20 12:41 Dose: Infused Documented by: Metronidazole (Flagyl Iv) 500 mg in 100 mls @ 100 mls/hr IV Q8H [facility]; Protocol Last Infusion: 11/27/20 12:39 Dose: Infused Documented by: Lorazepam (Lorazepam 2 Mg/Ml Inj 1 Ml) 0.5 mg IVP BID PRN PRN Reason: ANXIETY Last Admin: 11/25/20 22:07 Dose: 0.5 mg Documented by: Metoclopramide HCl (Metoclopramide 5 Mg/Ml Sdv 2 Ml) 5 mg IVP Q8H PRN PRN Reason: NAUSEA AND VOMITING Last Admin: 11/27/20 08:52 Dose: 5 mg Documented by: Morphine Sulfate (Morphine 4 Mg/Ml Sdv 1 Ml) 2 - 4 mg IVP Q4H PRN PRN Reason: SEVERE PAIN Last Admin: 11/27/20 08:56 Dose: 2 mg Documented by: Olanzapine (Olanzapine 5 Mg Tablet) 5 mg PO BEDTIME RENAE Last Admin: 11/26/20 20:42 Dose: 5 mg Documented by: Ondansetron HCl (Ondansetron 2 Mg/Ml Sdv 2 Ml) 4 mg IVP Q4H PRN PRN Reason: NAUSEA AND VOMITING Last Admin: 11/23/20 09:05 Dose: 4 mg Documented by: Phenol (Phenol Oral Plover 177 Ml) 3 spray MUCOUS MEM Q2H PRN PRN Reason: SORE THROAT Vitals/I&O/Wt Last Vital Signs Temp 98.7 F 11/27/20 04:19 Pulse 85 11/27/20 08:48 Resp 20 H 11/27/20 08:56 BP 115/73 11/27/20 06:00 Pulse Ox 95 11/27/20 08:48 11/26/20 11/27/20 11/27/20 22:59 06:59 14:59 Intake Total 780 / 2070 580 / 2650 300 / 300 Output Total 375 / 375 225 / 600 Balance 405 / 1695 355 / 2050 300 / 300 Physical Exam Narrative: EXAM NARRATIVE: GENERAL: The patient is alert and oriented x3 HEENT: Minimal pallor. No icterus or lymphadenopathy. The pupils are symmetrical NECK: Trachea appears to be central. No masses noted. No JVD or thyromegaly appreciated. No carotid bruit. RESPIRATORY: Chest is symmetrical. No intercostals muscle retraction or any acce ssory muscle activation. There is no chest wall tenderness. Breath sounds are heard bilaterally. No rales or rhonchi heard. No evidence of any consolidation. BREASTS: Deferred. HEART: Heart sounds are normal no S3 or S4. ABDOMEN: Abdomen is distended with normal bowel sounds. : Deferred. RECTAL: Deferred. LYMPHATIC: No lymphadenopathy noted in the neck or groin. EXTREMITIES: No significant edema or cyanosis MUSCULOSKELETAL: No acute joint deformities or swelling SKIN: There are no rashes or ecchymosis NEUROPSYCHIATRIC: Intubated and sedated Urinary Catheter Management^: Cantu: Cath Placed During This Visit: yes Reason for Continuing Indwelling Catheter: Accurate Measurement of Urinary Output in Critically Ill Patients Urinary Catheter Date of Insertion: 11/21/20 Urinary Catheter Time of Insertion: 07:51 Data : 11/28/20 05:05 11/28/20 05:05 Other Labs: Laboratory Last Values WBC 15.0 10^3/uL (4.0-10.0) H 11/27/20 05:14 RBC 3.37 10^6/uL (4.1-5.3) L 11/27/20 05:14 Hgb 9.8 g/dL (11.5-15.3) L 11/27/20 05:14 Hct 30.9 % (37.0-47.0) L 11/27/20 05:14 MCV 91.7 fL (81-99) 11/27/20 05:14 MCH 29.1 pg (28.0-34.0) 11/27/20 05:14 MCHC 31.7 g/dL (30.0-36.0) 11/27/20 05:14 RDW 16.0 % (12.1-15.1) H 11/27/20 05:14 Plt Count 292 10^3/cmm (130-400) 11/27/20 05:14 MPV 11.4 fL (7.4-10.4) H 11/27/20 05:14 Neut % (Auto) 68.9 % 11/26/20 04:52 Lymph % (Auto) Not Reportable 11/27/20 05:14 Lucas % (Auto) Not Reportable 11/27/20 05:14 Eos % (Auto) 0.3 % 11/26/20 04:52 Baso % (Auto) 0.3 % 11/26/20 04:52 Neut # (Auto) 13.24 10^3/uL (1.8-7.7) H 11/26/20 04:52 Lymph # (Auto) Not Reportable 11/27/20 05:14 Lucas # (Auto) Not Reportable 11/27/20 05:14 Eos # (Auto) 0.1 10^3/uL (0.0-0.8) 11/26/20 04:52 Baso # (Auto) 0.1 10^3/uL (0.0-0.1) 11/26/20 04:52 Nucleated RBC % (auto) 0 % 11/26/20 04:52 Total Counted 100 (0-100) 11/27/20 05:14 Atypical Lymphs % 0.0 % (0-5) 11/27/20 05:14 Absolute Neutrophils 10.5 10^3/cmm (1.4-6.5) H 11/27/20 05:14 Segmented Neutrophils 68 % 11/27/20 05:14 Abs Segm Neuts (Man) 10.2 10/cmm (1.6-7.1) H 11/27/20 05:14 Band Neutrophils 2.0 % 11/27/20 05:14 Abs Band Neuts (Man) 0.3 10^3/cmm (0.0-1.2) 11/27/20 05:14 Lymphocytes (Manual) 9 % 11/27/20 05:14 Monocytes (Manual) 11.0 % 11/27/20 05:14 Absolute Monocytes 1.7 10^3/cmm (0.1-0.6) H 11/27/20 05:14 Eosinophils (Manual) 2 % 11/27/20 05:14 Absolute Eosinophils 0.3 10^3/cmm (0.0-0.7) 11/27/20 05:14 Basophils (Manual) 0.0 % 11/27/20 05:14 Absolute Basophils 0.0 10^3/cmm (0.0-0.2) 11/27/20 05:14 Metamyelocytes 1.0 % 11/27/20 05:14 Myelocytes 7.0 % 11/27/20 05:14 Promyelocytes 0.0 % 11/21/20 06:37 Nucleated RBCs 0.0 /100WBC (0-1) 11/21/20 06:37 Nucleated RBCs # 0.0 /100WBC 11/26/20 04:52 Blast Cells 0 % (0-0) 11/21/20 06:37 Platelet Estimate Normal (Normal) 11/27/20 05:14 Anisocytosis Trace 11/27/20 05:14 PT 16.70 SECONDS (12.1-14.9) H 11/27/20 05:14 INR 1.30 (0.8-1.2) H 11/27/20 05:14 D-Dimer 2.53 ug/mIFEU (0-0.59) H 11/15/20 22:25 Specimen Type Arterial 11/24/20 04:08 Sample Site Radial, left 11/24/20 04:08 ABG pH 7.41 (7.35-7.45) 11/24/20 04:08 ABG pCO2 34.4 mmHg (35-45) L 11/24/20 04:08 ABG pO2 73.4 mmHg (80.0-100.0) L 11/24/20 04:08 ABG HCO3 21.9 mmol/L (22-26) L 11/24/20 04:08 ABG O2 Saturation 88.7 11/22/20 02:50 ABG Base Excess -2.2 mmol/L (-2.0-2.0) L 11/24/20 04:08 Jeff Test Pos 11/24/20 04:08 A-a O2 Gradient 7.1 mmHg (5-10) 11/22/20 02:50 Hematocrit 35.5 % (37-47) L 11/24/20 04:08 Hgb O2 Saturation 87.3 % (95-100) L 11/22/20 02:50 Carboxyhemoglobin 0.9 %THgb (0.4-20.1) 11/22/20 02:50 Methemoglobin 0.7 % (0.4-1.5) 11/22/20 02:50 Total Hemoglobin 10.6 g/dL (12-16) L 11/22/20 02:50 Sodium 129.0 mmol/L (131-143) L 11/22/20 02:50 Potassium 3.2 mmol/L (3.5-5.0) L 11/22/20 02:50 Glucose 199.0 mg/dL (70-115) H 11/22/20 02:50 Ionized Calcium 1.0 mmol/L (1.1-1.4) L 11/22/20 02:50 O2 Delivery Device Nc 11/24/20 04:08 O2 Liters/Min 2.0 % 11/24/20 04:08 FiO2 3.0 % 11/23/20 04:44 Crop Pest Control Specialist ID Harkr 11/24/20 04:08 Sodium 137 mmol/L (136-145) 11/27/20 05:14 Potassium 3.1 mmol/L (3.5-5.1) L 11/27/20 05:14 Chloride 97 mmol/L (98-107) L 11/27/20 05:14 Carbon Dioxide 28 mmol/L (22-29) 11/27/20 05:14 Anion Gap 15.1 (5-19) 11/27/20 05:14 BUN 14 mg/dL (8-23) 11/27/20 05:14 Creatinine 1.0 mg/dL (0.5-0.9) H 11/27/20 05:14 GFR Calculation Not Reportable 11/27/20 05:14 Glucose 113 mg/dL (65-115) 11/27/20 05:14 POC Glucose 119 mg/dL (70-110) H 11/17/20 11:56 Calculated Osmolality 285 mOsm/kg (285-295) 11/27/20 05:14 Lactic Acid 1.7 mmol/L (0.5-2.2) 11/21/20 08:35 Lactate 1.5 mmol/L (0.5-2.2) 11/27/20 05:14 Calcium 8.0 mg/dL (8.5-10.5) L 11/27/20 05:14 Phosphorus 3.2 mg/dL (2.5-4.5) 11/27/20 05:14 Magnesium 1.8 mg/dL (1.7-2.3) 11/27/20 05:14 Total Bilirubin 0.5 mg/dL (0.15-1.2) 11/27/20 05:14 AST 15 U/L (0-32) 11/27/20 05:14 ALT 7 U/L (0-33) 11/27/20 05:14 Alkaline Phosphatase 62 IU/L (35-105) 11/27/20 05:14 Creatine Kinase 72 U/L (26-192) 11/25/20 03:25 Troponin T Gen 5 ng/L 21 ng/L (0-10) H 11/20/20 15:24 Troponin T Baseline 19 ng/L (0-10) H 11/21/20 06:37 Troponin T 120 Minute 22.38 ng/L (0-10) H 11/21/20 08:35 Delta Troponin T 3.38 ABS# (0-10) 11/21/20 08:35 Troponin T Hi Sens 6Hr 32.00 ng/L (0-10) H 11/18/20 22:39 Troponin T Hi Sens 6Hr Delta 7.00 ng/L (0-12) 11/18/20 22:39 C-Reactive Protein 62.3 mg/L (0.0-4.9) H 11/27/20 05:14 NT-Pro-B Natriuret Pep 1183 pg/mL (0-450) H 11/27/20 05:14 Total Protein 5.7 g/dL (6.6-8.7) L 11/27/20 05:14 Albumin 2.7 g/dL (3.5-5.2) L 11/27/20 05:14 Globulin 3.0 g/dL (1.3-4.6) 11/27/20 05:14 25-OH Vitamin D Total 5 ng/mL (30-100) L 11/23/20 14:41 Procalcitonin 0.88 ng/mL (0-0.5) H 11/27/20 05:14 Urine Color Dark yellow (Yellow) 11/22/20 09:38 Urine Appearance Hazy (CLEAR) A 11/22/20 09:38 Urine pH 5 (5-7) 11/22/20 09:38 Ur Specific [place] 1.015 (1.005-1.030) 11/22/20 09:38 Urine Protein 1+ (Negative) H 11/22/20 09:38 Urine Glucose (UA) Norm (Normal) 11/22/20 09:38 Urine Ketones 1+ (Negative) H 11/22/20 09:38 Urine Blood 3+ (Negative) H 11/22/20 09:38 Urine Nitrate Negative (Negative) 11/22/20 09:38 Urine Bilirubin 1+ (Negative) H 11/22/20 09:38 Urine Urobilinogen 4 mg/dL (Negative) H 11/22/20 09:38 Ur Leukocyte Esterase Trace (Negative) H 11/22/20 09:38 Urine RBC 0-4 /hpf (0-2) H 11/22/20 09:38 Urine WBC 0-4 /hpf (0-5) H 11/22/20 09:38 Ur Eosinophil Smear 0 (0-0) 11/22/20 09:38 Ur Squamous Epith Cells 0-4 /hpf (0-5) H 11/22/20 09:38 Amorphous Sediment Not Reportable 11/22/20 09:38 Urine Bacteria 1+ /hpf (NONE) H 11/22/20 09:38 Coarse Granular Casts 10-15 /lpf H 11/22/20 09:38 Urine Mucus 1+ /hpf 11/22/20 09:38 Urine Eosinophils No eosinophils seen 11/22/20 09:38 Urine Osmolality 353 mOsm/kg (50-1200) 11/22/20 09:38 Ur Random Creatinine 130 mg/dL (20-275) 11/22/20 09:38 Ur Random Albumin 12 % 11/22/20 09:38 U Random Total Protein 287 mg/dL (5-24) H 11/22/20 09:38 Ur Random Sodium 10 mmol/L 11/22/20 09:38 Ur Random Potassium 48 mmol/L 11/22/20 09:38 Ur Random Chloride 10 mmol/L 11/22/20 09:38 Urine Creatinine 151 mg/dL (28-217) 11/22/20 09:38 Protein/Creatinin Ratio 2208 mg/g creat (21-161) H 11/22/20 09:38 Protein/Creat Ratio 24h 2.208 (0.021-0.161) H 11/22/20 09:38 U Random c-7-Ixnhgtcf % 2 % 11/22/20 09:38 U Random a-2-Bkxhiegg % 25 % 11/22/20 09:38 U Random Beta Globulin 32 % 11/22/20 09:38 U Random Gamma Glob 30 % 11/22/20 09:38 U Abnormal Prot Band 1 Not Reportable 11/22/20 09:38 U Abnormal Prot Band 2 Not Reportable 11/22/20 09:38 U Abnormal Prot Band 3 Not Reportable 11/22/20 09:38 Urine PEP Interpret See note 11/22/20 09:38 Vancomycin Trough 7.1 ug/mL (10-15) L 11/22/20 09:36 SARS-CoV-2 RNA (RT-PCR) Not detected (NOT DETECTED) 11/19/20 03:30 SARS-CoV-2 Ag (Rapid) Negative (Negative) 11/16/20 01:50 Micro: Microbiology 11/21/20 12:00 Gram Stain - Final Abdomen Anaerobic Culture - Preliminary Bacteroides eggerthii Bacteroides thetaiotaomicron Abscess Culture - Final Escherichia coli A&P Assessment and plan (1) Elevated troponin: Most likely this is a type II myocardial infarction. She seems to be stable. She is known to have nonischemic cardiomyopathy. Currently has no evidence of any cardiac decompensation. May continue on the current medications . Status: Acute (2) Fecal peritonitis: Status post exploratory laparotomy and colostomy. Currently she seems to be doing okay. Infection seems to be under control. She is afebrile. Status: Acute (3) Nonischemic cardiomyopathy: Since there is no evidence of any cardiac decompensation, may continue on the current medications. May consider a repeat limited 2D echocardiogram in the morning to reevaluate the ejection fraction to decide on LifeVest Status: Acute (4) Hypertension: Continue on the current management. Follow-up evaluation as scheduled. Status: Acute Qualifiers: Hypertension type: essential hypertension Qualified Code(s): I10 - Essential (primary) hypertension Additional A&P Information After reviewing the above and also based on the patient's clinical progress, further recommendations will be made. Attestations Medical Necessity Statement*: Disposition as per the primary Procedures Arterial Line Size (Gauge): 20 Coding Level of Care Code Acute Auto Parts Manager for Chg Fwd Diagnoses Elevated troponin R77.8 Fecal peritonitis K65.8 Nonischemic cardiomyopathy I42.8 Hypertension I10 Hypertension type: essential hypertension
--- NOTE | 2020-11-27 14:16 | P.PN_ITS ---
Subjective Subjective: Interval history: Patient was examined this morning, she is doing much better, currently on clears, she complains of back pain, her left knee is slightly swollen, her back hurts her more currently she is passing stool, no fevers, chills Vitals/I&O/Wt Last Vital Signs Temp 98.7 F 11/27/20 04:19 Pulse 85 11/27/20 08:48 Resp 20 H 11/27/20 08:56 BP 115/73 11/27/20 06:00 Pulse Ox 95 11/27/20 08:48 11/26/20 11/27/20 11/27/20 22:59 06:59 14:59 Intake Total 780 / 2070 580 / 2650 300 / 300 Output Total 375 / 375 225 / 600 Balance 405 / 1695 355 / 2050 300 / 300 Physical Exam 2 Const: COMMON NORMALS: no acute distress and patient oriented x3 ORIENTATION/CONSCIOUSNESS: Yes oriented to person, Yes oriented to place and Yes oriented to time HENMT: COMMON NORMALS: normocephalic HEAD & SCALP: normocephalic Neck/C-Spine: COMMON NORMALS: no JVD Resp: COMMON NORMALS: normal respiratory effort, No retractions, No use of accessory muscles and clear to auscultation bilaterally AUSCULTATION: clear to auscultation bilaterally Cardio: COMMON NORMALS: no JVD, regular rate, regular rhythm, S1 normal heart sound present and S2 normal heart sound present RATE: regular rate RHYTHM: regular rhythm HEART SOUNDS: S1 normal heart sound present and S2 normal heart sound present GI: COMMON NORMALS: Normal to inspection, nondistended, normoactive bowel sounds present, Soft to palpation, non-tender, No hepatosplenomegaly present, no masses and no bruits INSPECTION: Yes normal to inspection, Yes abdominal distension and Yes central obesity PALPATION: Yes Soft to palpation and Yes No hepatosplenomegaly present OTHER: Lyubov pouch in place, with blood in the bag, surgical site looks clean and dry Extremity: COMMON NORMALS: capillary refill normal, no clubbing, cyanosis or edema, no calf tenderness and no pedal edema Neuro: COMMON NORMALS: patient oriented x3 SENSORIUM/ORIENTATION: Yes oriented to person, Yes oriented to place and Yes oriented to time Psych: COMMON NORMALS: mental status grossly normal Urinary Catheter Management^: Cantu: Cath Placed During This Visit: yes Reason for Continuing Indwelling Catheter: Accurate Measurement of Urinary Output in Critically Ill Patients Urinary Catheter Date of Insertion: 11/21/20 Urinary Catheter Time of Insertion: 07:51 Data : 11/27/20 05:14 11/27/20 05:14 Micro: Microbiology 11/21/20 12:00 Gram Stain - Final Abdomen Anaerobic Culture - Preliminary Bacteroides eggerthii Bacteroides thetaiotaomicron Abscess Culture - Final Escherichia coli A&P Assessment and plan (1) Septic shock: Status: Acute (2) Fecal peritonitis: Status: Acute (3) Intra-abdominal abscess: Status: Acute (4) Sepsis: Status: Acute (5) Abdominal pain: Status: Acute Qualifiers: Abdominal location: periumbilical Qualified Code(s): R10.33 - Periumbilical pain (6) Adynamic ileus: Status: Acute (7) Postmenopausal bleeding: Status: Acute (8) Hypoxia: Status: Acute (9) Enteritis: Status: Acute (10) Systolic CHF: Status: Acute (11) Bowel obstruction: Status: Acute (12) Recurrent ventral hernia: Status: Acute Additional A&P Information Fecal peritonitis, status post Lyubov procedure 11/21/2024 for perforated sigmoid colon, with partial small bowel obstruction status post adhesiolysis With septic shock, and acute renal failure -Off pressors for the last MAP greater than 65 -Creatinine increased to 1.0 with Lasix 40 mg, urine output improved to 5 L in the last 24 hours, on 2 L -White blood cell count increased to 15, hemoglobin 9.8, Plan: -extubation 11/21/2020 -Currently in the intensive care unit, will move to general medical floors -Full code -Heparin for DVT prophylaxis -Broad-spectrum antibiotic therapy Primaxin, Flagyl, stop vancomycin -Follow blood cultures, surgical cultures which show E. coli, Bacteroides -Currently on clears -Pepcid -Will avoid fluid overload given patient's EF of 30 to 35% -Nephrology on consult -General surgery on consult -Cardiology on consult -Monitor respiratory status closely, currently on 2 L, chest x-ray no focal pneumonia - hold diuresis as creatinine up to 1.0 Postoperative respiratory failure, extubation 11/21/2020, -currently on 2 L - BiPAP as needed during the night -Monitor cultures closely -Chest x-ray unremarkable for focal pneumonia Septic shock, resolved Acute renal failure: Secondary to sepsis, contrast -Resolving, creatinine up to 1.0 secondary diuresis -Monitor urine output closely -Nephrology on consult -Renal ultrasound no hydronephrosis both kidneys Postmenopausal bleed 2.6 cm uterine mass High D-dimer currently hypoxic requiring 2 L nasal cannula CTA rule out PE was unremarkable for PE Uterine biopsy revealed endometrial polyp otherwise no malignancy Due for uterine surgery in November 2020 Acute hypoxia Likely secondary to fluid overload and systolic CHF Confirmed on multiple ABGs CT angiogram was negative for PE, slight atelectasis, no focal pneumonia Repeat ABG this afternoon shows hypoxia, PO2 59 on room air Patient is not hypo ventilating Hiatal hernia found on CT abdomen Etiology BNP is elevated at 3700, did receive fluids, giving Lasix daily, improved denies any chest pain, shortness of breath, any cardiac history Serial troponins, as high as 30, no significant delta, EKG no acute ST-T wave changes Rapid Covid negative, Covid PCR negative Plan: -Monitor fluid status closely -BiPAP as needed -We will need to avoid fluid overload Systolic CHF, patient's echocardiogram results yesterday showed: -This is a limited quality echocardiogram. Bubble study was ordered however could not be performed as atria are not well visualized. LV systolic function is moderately severely reduced with EF of 30 to 35%. Moderate to severe global hypokinesis is noted. Diastolic function cannot be assessed because of tachycardia Valves are not very well visualized, however no significant valvular abnormalities seen. Compared to prior echocardiogram from 09/18/2018, LV systolic function is significantly reduced now. -Patient's oxygen requirements have decreased to 2 L with diuresis, Lasix 40 mg IV push daily -On aspirin, statin, Coreg -Likely nonischemic cardiomyopathy -Cardiology on consult GERD: Continue PPI Full code Clear liquid DVT prophylaxis SCDs, heparin Patient's prognosis is guarded, status is stable Plan for today, hold Lasix, monitor urine output, monitor hemodynamics, monitor clear liquid tolerability, move out of ICU, stop vancomycin, physical therapy Attestations Medical Necessity Statement*: Patient requires hospitalization for perforated viscus, with peritonitis, receiving broad-spectrum antibiotic therapy, with acute renal failure resolving, anemia, Procedures Arterial Line Size (Gauge): 20 Coding Level of Care Code Acute Supervisor Customer Complaint Service for Chg Fwd Diagnoses Septic shock A41.9; R65.21 Fecal peritonitis K65.8 Intra-abdominal abscess K65.1 Sepsis A41.9 Abdominal pain R10.33 Abdominal location: periumbilical Adynamic ileus K56.0 Postmenopausal bleeding N95.0 Hypoxia R09.02 Enteritis K52.9 Systolic CHF I50.20 Bowel obstruction K56.609 Recurrent ventral hernia K43.2
--- NOTE | 2020-11-27 14:17 | USCV_ITS ---
Radha Archer Age: 75 Gender: F : 1945 Exam Date: 11/27/2020 16:59 Ordering Phys: Seb Peter MD ([email or web address]) Technologist: Belén Calvo Exam Location: [facility] [place] [facility] [place] Indication: REEVAL THE EF BP: / HR: 90 Rhythm: Sinus Technical Quality: Adequate MEASUREMENTS (Male / Female) Normal Values 2D ECHO LV Diastolic Diameter PLAX 2.5 cm 4.2 - 5.9 / 3.9 - 5.3 cm LV Systolic Diameter PLAX 2.1 cm LV Chamber Size 2.8 cm IVS Diastolic Thickness 1.5 cm 0.6 - 1.0 / 0.6 - 0.9 cm IVS Systolic Thickness 1.0 cm LVPW Diastolic Thickness 1.7 cm 0.6 - 1.0 / 0.6 - 0.9 cm LVPW Systolic Thickness 1.6 cm RV Chamber Size 3.0 cm LVOT Diameter 2.0 cm LV Ejection Fraction 2D Teich 36.3 % LV Ejection Fraction MOD 2C 72.7 % LV Ejection Fraction 2C AL 73.0 % LA Diameter 3.7 cm LA Width 3.0 cm LA Height 4.3 cm RA Width 3.4 cm RA Height 3.9 cm Aorta at Sinotubular Diameter 3.5 cm FINDINGS Left Ventricle Normal LV size with diminished ejection fraction of 45 to 50%.abnormal septal motion consistent with conduction abnormality. Mild concentric left renal hypertrophy. Right Ventricle Normal right ventricular size and systolic function. Right Atrium Appears to be of normal size Left Atrium Mildly increased left atrial size. Mitral Valve No gross abnormalities noted Aortic Valve No gross abnormalities noted Tricuspid Valve No gross abnormalities noted . Pulmonic Valve Pulmonic valve not well visualized. Pericardium No pericardial effusion. Aorta Normal aortic annulus size. CONCLUSIONS Normal LV size with diminished ejection fraction of 45 to 50%. Abnormal septal motion consistent with conduction abnormality. Mild concentric left renal hypertrophy. Mildly increased left atrial size. There is no pericardial effusion. There are no intracardiac masses. Compared to the study from 11/19/2020, there is improvement of the LV ejection fraction Dr Seb Peter MD [facility] (Electronically Signed) Final Date: 27 November 2020 17:54 S
[2020-11-27] MEDS: ondansetron 2 mg/ML SDV 2 mL 4 MG IVP (15:42)
--- NOTE | 2020-11-27 16:28 | PC.NURSE ---
transferred to [facility] with daughter assisting in taking belongings including cell phone.
[2020-11-27] MEDS: OLANZapine 5 mg TABLET PO (20:52)
[2020-11-28] VITALS (15 sets, daily range): BP systolic 98–121; BP diastolic 65–84; PULSE 81–100; RESP 17–18; TEMP 36.6–37.1; O2SAT 90–97
[2020-11-28] MEDS: ondansetron 2 mg/ML SDV 2 mL 4 MG IVP (01:03)
[2020-11-28] MEDS: metroNIDAZOLE IV 500 MG/100 ML PREMIX 100 MG IV ×3 (01:45→15:44)
[2020-11-28] MEDS: heparin 5,000 unit/mL INJ 1 mL 5000 UNIT SUBCUT ×2 (01:57→12:04)
[2020-11-28] MEDS: famotidine 20 mg/2 mL INJ IVP (02:09)
[2020-11-28] MEDS: ipratropium-albuterol 3 mL Neb INHALATION ×3 (03:23→14:50)
[2020-11-28 05:35] LABS: Basophils # 0.1 10^3/uL (0.0-0.1); Basophils % 0.6 %; Eosinophils # 0.1 10^3/uL (0.0-0.8); Eosinophils % 1.1 %; Hemoglobin 9.6 g/dL (11.5-15.3); Lymphocytes # 1.7 10^3/uL (0.8-4.8); Mean Corpuscular Hemoglobin 29.9 pg (28.0-34.0); Mean Corpuscular Volume 93.5 fL (81-99); Mean Platelet Volume 11.4 fL (7.4-10.4); Monocytes # 1.1 10^3/uL (0.2-0.9); Monocytes % 8.6 %; Neutrophils # 9.31 10^3/uL (1.8-7.7); Nucleated Red Blood Cells % 0 %; Platelet Count 282 10^3/cmm (130-400); Red Blood Count 3.21 10^6/uL (4.1-5.3); Red Cell Distribution Width 16.2 % (12.1-15.1); White Blood Count 13.1 10^3/uL (4.0-10.0)
[2020-11-28 05:54] LABS: INR 1.35 (0.8-1.2)
[2020-11-28 06:07] LABS: Lactate (Lactic Acid level) 1.4 mmol/L (0.5-2.2)
[2020-11-28 06:09] LABS: Alanine Aminotransferase 7 U/L (0-33); Albumin Level 2.6 g/dL (3.5-5.2); Alkaline Phosphatase 59 IU/L (35-105); Anion Gap 11.5 (5-19); Aspartate Amino Transferase 16 U/L (0-32); Blood Urea Nitrogen 12 mg/dL (8-23); C Reactive Protein 72.9 mg/L (0.0-4.9); Calcium 7.9 mg/dL (8.5-10.5); Carbon Dioxide 28 mmol/L (22-29); Chloride 99 mmol/L (98-107); Globulin 3.2 g/dL (1.3-4.6); Glucose 95 mg/dL (65-115); Magnesium 1.7 mg/dL (1.7-2.3); Osmolality Calculated 280 mOsm/kg (285-295); Potassium 3.5 mmol/L (3.5-5.1); Sodium 135 mmol/L (136-145); Total Bilirubin 0.4 mg/dL (0.15-1.2); Total Protein 5.8 g/dL (6.6-8.7)
[2020-11-28 06:18] LABS: NT Pro B Type Natriuretic Pept 1703 pg/mL (0-450); NT Pro B Type Natriuretic Pept 1716 pg/mL (0-450); Procalcitonin 0.63 ng/mL (0-0.5)
--- NOTE | 2020-11-28 07:11 | PM.PN ---
Subjective Subjective: Interval history: The patient says she is doing well. Her appetite still is not normal. The colostomy continues to work well. Vitals/I&O/Wt Last Vital Signs Temp 97.8 F 11/28/20 05:43 Pulse 89 11/28/20 06:00 Resp 17 11/28/20 05:43 BP 98/66 11/28/20 05:43 Pulse Ox 90 11/28/20 05:43 11/27/20 11/28/20 11/28/20 22:59 06:59 14:59 Intake Total 440 / 1560 100 / 1560 Output Total 800 / 830 Balance 440 / 730 -700 / 730 Physical Exam Narrative: EXAM NARRATIVE: The incision has minimal erythema remaining. There is no ongoing drainage. There is air in the colostomy bag. Urinary Catheter Management^: Catnu: Cath Placed During This Visit: yes Reason for Continuing Indwelling Catheter: Acute Urinary Retention or Obstruction Urinary Catheter Date of Insertion: 11/21/20 Urinary Catheter Time of Insertion: 07:51 Data : 11/27/20 05:14 11/28/20 05:05 Micro: Microbiology 11/21/20 12:00 Gram Stain - Final Abdomen Anaerobic Culture - Preliminary Bacteroides eggerthii Bacteroides thetaiotaomicron Abscess Culture - Final Escherichia coli A&P Assessment and plan (1) Fecal peritonitis: Status post Lyubov procedure on 11/21/2024 perforated sigmoid colon, likely the result of a stercoral ulcer. Labs still pending this morning. Continue full liquid diet for now. Status: Acute (2) Partial small bowel obstruction: Status post adhesiolysis on 11/21/2020. 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 Status: Acute Attestations Medical Necessity Statement*: See admitting service's notation. 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
[2020-11-28 07:17] LABS: Slide Review Slide Review Perform
[2020-11-28] MEDS: aspirin 81 mg EC Tablet PO (09:22)
[2020-11-28] MEDS: carvedilol 3.125 mg Tablet PO ×2 (09:22→17:48)
[2020-11-28] MEDS: docusate sodium 100 mg Capsule PO ×2 (09:22→17:48)
[2020-11-28] MEDS: atorvastatin 40 mg Tablet PO (09:22)
--- NOTE | 2020-11-28 10:47 | P.PN_ITS ---
Subjective Subjective: Interval history: Patient was examined this morning, she tells me she is doing much better, she still on clear liquids, she is having gas and stool output from her colostomy, she would like to have her Cantu catheter removed, currently on 2 L, no shortness of breath with exertion Medications: Reviewed: Yes Medication Review Details: Current Medications Hydrocodone Bitart/Acetaminophen (Hydrocodone-Acetaminophen 5-325 Mg Tablet) 1 - 2 tab PO Q4H PRN PRN Reason: MODERATE TO SEVERE PAIN Albuterol/Ipratropium (Ipratropium-Albuterol 3 Ml Neb) 3 ml INHALATION Q6H.R ESPIRATORY [facility] Last Admin: 11/27/20 08:41 Dose: 3 ml Documented by: Aspirin (Aspirin 81 Mg Ec Tablet) 81 mg PO DAILY [facility] Last Admin: 11/27/20 08:54 Dose: 81 mg Documented by: Atorvastatin Calcium (Atorvastatin 40 Mg Tablet) 40 mg PO DAILY [facility] Last Admin: 11/27/20 08:54 Dose: 40 mg Documented by: Carvedilol (Carvedilol 3.125 Mg Tablet) 3.125 mg PO BID [facility] Last Admin: 11/27/20 08:54 Dose: 3.125 mg Documented by: Docusate Sodium (Docusate Sodium 100 Mg Capsule) 100 mg PO BID [facility] Last Admin: 11/27/20 08:53 Dose: 100 mg Documented by: Famotidine (Famotidine 20 Mg/2 Ml Inj) 20 mg IVP Q12H [facility] Last Admin: 11/27/20 12:44 Dose: 20 mg Documented by: Haloperidol Lactate (Haloperidol Inj 5 Mg/Ml Inj 1 Ml) 1 mg IM Q4H PRN PRN Reason: anxiety Heparin Sodium (Beef Lung) (Heparin 5,000 Unit/Ml Inj 1 Ml) 5,000 unit SUBCUT Q12H [facility] Last Admin: 11/27/20 12:44 Dose: 5,000 unit Documented by: Imipenem/Cilastatin Sodium 250 (mg/ Sodium Chloride) 100 mls @ 200 mls/hr IV Q 6H [facility]; Protocol Last Infusion: 11/27/20 12:41 Dose: Infused Documented by: Metronidazole (Flagyl Iv) 500 mg in 100 mls @ 100 mls/hr IV Q8H [facility]; Protocol Last Infusion: 11/27/20 12:39 Dose: Infused Documented by: Lorazepam (Lorazepam 2 Mg/Ml Inj 1 Ml) 0.5 mg IVP BID PRN PRN Reason: ANXIETY Last Admin: 11/25/20 22:07 Dose: 0.5 mg Documented by: Metoclopramide HCl (Metoclopramide 5 Mg/Ml Sdv 2 Ml) 5 mg IVP Q8H PRN PRN Reason: NAUSEA AND VOMITING Last Admin: 11/27/20 08:52 Dose: 5 mg Documented by: Morphine Sulfate (Morphine 4 Mg/Ml Sdv 1 Ml) 2 - 4 mg IVP Q4H PRN PRN Reason: SEVERE PAIN Last Admin: 11/27/20 08:56 Dose: 2 mg Documented by: Olanzapine (Olanzapine 5 Mg Tablet) 5 mg PO BEDTIME [facility] Last Admin: 11/26/20 20:42 Dose: 5 mg Documented by: Ondansetron HCl (Ondansetron 2 Mg/Ml Sdv 2 Ml) 4 mg IVP Q4H PRN PRN Reason: NAUSEA AND VOMITING Last Admin: 11/23/20 09:05 Dose: 4 mg Documented by: Phenol (Phenol Oral [place]appells 177 Ml) 3 spray MUCOUS MEM Q2H PRN PRN Reason: SORE THROAT Vitals/I&O/Wt Last Vital Signs Temp 97.9 F 11/28/20 07:53 Pulse 91 11/28/20 09:37 Resp 18 11/28/20 09:33 BP 119/83 11/28/20 07:53 Pulse Ox 94 11/28/20 09:33 11/27/20 11/28/20 11/28/20 22:59 06:59 14:59 Intake Total 440 / 1460 300 / 1760 Output Total 800 / 830 Balance 440 / 1430 -500 / 930 Physical Exam Const: COMMON NORMALS: no acute distress and patient oriented x3 ORIENTATION/CONSCIOUSNESS: Yes oriented to person, Yes oriented to place and Yes oriented to time HENMT: COMMON NORMALS: normocephalic HEAD & SCALP: normocephalic Neck/C-Spine: COMMON NORMALS: no JVD Resp: COMMON NORMALS: normal respiratory effort, No retractions, No use of accessory muscles and clear to auscultation bilaterally AUSCULTATION: clear to auscultation bilaterally Cardio: COMMON NORMALS: no JVD, regular rate, regular rhythm, S1 normal heart sound present and S2 normal heart sound present RATE: regular rate RHYTHM: regular rhythm HEART SOUNDS: S1 normal heart sound present and S2 normal heart sound present GI: COMMON NORMALS: Normal to inspection, nondistended, normoactive bowel sounds present, Soft to palpation, non-tender, No hepatosplenomegaly present, no masses and no bruits PALPATION: Yes Soft to palpation and Yes No hepatosplenomegaly present OTHER: Lyubov pouch in place, with stool in the bag, surgical site looks clean and dry Extremity: COMMON NORMALS: capillary refill normal, no clubbing, cyanosis or edema, no calf tenderness and no pedal edema Neuro: COMMON NORMALS: patient oriented x3 SENSORIUM/ORIENTATION: Yes orie nted to person, Yes oriented to place and Yes oriented to time Psych: COMMON NORMALS: mental status grossly normal Urinary Catheter Management^: Cantu: Cath Placed During This Visit: yes Reason for Continuing Indwelling Catheter: Acute Urinary Retention or Obstruction Urinary Catheter Date of Insertion: 11/21/20 Urinary Catheter Time of Insertion: 07:51 Data : 11/28/20 05:05 11/28/20 05:05 Micro: Microbiology 11/21/20 12:00 Gram Stain - Final Abdomen Anaerobic Culture - Preliminary Bacteroides eggerthii Bacteroides thetaiotaomicron Abscess Culture - Final Escherichia coli A&P Assessment and plan (1) Septic shock: Status: Acute (2) Fecal peritonitis: Status: Acute (3) Intra-abdominal abscess: Status: Acute (4) Sepsis: Status: Acute (5) Abdominal pain: Status: Acute Qualifiers: Abdominal location: periumbilical Qualified Code(s): R10.33 - Periumbilical pain (6) Adynamic ileus: Status: Acute (7) Postmenopausal bleeding: Status: Acute (8) Hypoxia: Status: Acute (9) Enteritis: Status: Acute (10) Systolic CHF: Status: Acute (11) Bowel obstruction: Status: Acute (12) Recurrent ventral hernia: Status: Acute Additional A&P Information Fecal peritonitis, status post Lyubov procedure 11/21/2024 for perforated sigmoid colon, with partial small bowel obstruction status post adhesiolysis With septic shock, and acute renal failure -Off pressors for the last MAP greater than 65 -Creatinine increased to 1.0, urine output 800 cc -White blood cell count increased to 13.1, hemoglobin 9.6, Plan: -extubation 11/21/2020 -Currently in the intensive care unit, will move to general medical floors -Full code -Heparin for DVT prophylaxis -Broad-spectrum antibiotic therapy Primaxin, Flagyl, stop vancomycin. On discharge will discharge on Cipro and Flagyl for at least 2 weeks -Follow blood cultures, surgical cultures which show E. coli, Bacteroides -Currently on clears -Pepcid -Will avoid fluid overload given patient's EF of 30 to 35% -Nephrology on consult -General surgery on consult -Cardiology on consult -Monitor respiratory status closely, currently on 2 L, chest x-ray no focal pneumonia - hold diuresis as creatinine up to 1.0 Postoperative respiratory failure, extubation 11/21/2020, -currently on 2 L - BiPAP as needed during the night -Monitor cultures closely -Chest x-ray unremarkable for focal pneumonia Septic shock, resolved Acute renal failure: Secondary to sepsis, contrast -Resolving, creatinine up to 1.0 secondary diuresis -Monitor urine output closely -Nephrology on consult -Renal ultrasound no hydronephrosis both kidneys Postmenopausal bleed 2.6 cm uterine mass High D-dimer currently hypoxic requiring 2 L nasal cannula CTA rule out PE was unremarkable for PE Uterine biopsy revealed endometrial polyp otherwise no malignancy Due for uterine surgery in November 2020 Acute hypoxia Likely secondary to fluid overload and systolic CHF Confirmed on multiple ABGs CT angiogram was negative for PE, slight atelectasis, no focal pneumonia Repeat ABG this afternoon shows hypoxia, PO2 59 on room air Patient is not hypo ventilating Hiatal hernia found on CT abdomen Etiology BNP is elevated at 3700, did receive fluids, giving Lasix daily, improved denies any chest pain, shortness of breath, any cardiac history Serial troponins, as high as 30, no significant delta, EKG no acute ST-T wave changes Rapid Covid negative, Covid PCR negative Plan: -Monitor fluid status closely -BiPAP as needed -We will need to avoid fluid overload Systolic CHF, patient's echocardiogram results yesterday showed: -This is a limited quality echocardiogram. Bubble study was ordered however could not be performed as atria are not well visualized. LV systolic function is moderately severely reduced with EF of 30 to 35%. Moderate to severe global hypokinesis is noted. Diastolic function cannot be assessed because of tachycardia Valves are not very well visualized, however no significant valvular abnormalities seen. Compared to prior echocardiogram from 09/18/2018, LV systolic function is significantly reduced now. -Patient's oxygen requirements have decreased to 2 L with diuresis, Lasix 40 mg IV push daily -On aspirin, statin, Coreg -Likely nonischemic cardiomyopathy -Repeat echocardiogram ordered -Cardiology on consult GERD: Continue PPI Full code Clear liquid DVT prophylaxis SCDs, heparin Patient's prognosis is guarded, status is stable Plan for today, discontinue Cantu, continue PT OT, continue clear liquids, monitor stool output Attestations Medical Necessity Statement*: Patient requires hospitalization for perforated sigmoid ulcer, with fecal peritonitis, sepsis, acute renal failure, resolving, nonischemic cardiomyopathy, improving, potentially discharge in the next 24 to 48 hours Procedures Arterial Line Size (Gauge): 20 Coding Level of Care Code 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
[2020-11-28] MEDS: famotidine 20 mg Tablet PO ×2 (11:04→22:24)
[2020-11-28] MEDS: OLANZapine 5 mg TABLET PO (20:06)
--- NOTE | 2020-11-28 21:03 | P.PN_ITS ---
Subjective Subjective: Interval history: Patient seems to be more alert and active. Has been ambulating on telemetry. Denies any chest pain or palpitations. No significant arrhythmias on the monitor. She had echocardiogram done yesterday. The LV ejection fraction was 45 to 50%. Medications: Reviewed: Yes Medication Review Details: Current Medications Hydrocodone Bitart/Acetaminophen (Hydrocodone-Acetaminophen 5-325 Mg Tablet) 1 - 2 tab PO Q4H PRN PRN Reason: MODERATE TO SEVERE PAIN Albuterol/Ipratropium (Ipratropium-Albuterol 3 Ml Neb) 3 ml INHALATION Q6H.RESPIRATORY [facility] Last Admin: 11/28/20 20:13 Dose: Not Given Documented by: Aspirin (Aspirin 81 Mg Ec Tablet) 81 mg PO DAILY [facility] Last Admin: 11/28/20 09:22 Dose: 81 mg Documented by: Atorvastatin Calcium (Atorvastatin 40 Mg Tablet) 40 mg PO DAILY [facility] Last Admin: 11/28/20 09:22 Dose: 40 mg Documented by: Carvedilol (Carvedilol 3.125 Mg Tablet) 3.125 mg PO BID [facility] Last Admin: 11/28/20 17:48 Dose: 3.125 mg Documented by: Docusate Sodium (Docusate Sodium 100 Mg Capsule) 100 mg PO BID [facility] Last Admin: 11/28/20 17:48 Dose: 100 mg Documented by: Famotidine (Famotidine 20 Mg Tablet) 20 mg PO Q12H [facility] Last Admin: 11/28/20 11:04 Dose: 20 mg Documented by: Haloperidol Lactate (Haloperidol Inj 5 Mg/Ml Inj 1 Ml) 1 mg IM Q4H PRN PRN Reason: anxiety Heparin Sodium (Beef Lung) (Heparin 5,000 Unit/Ml Inj 1 Ml) 5,000 unit SUBCUT Q12H [facility] Last Admin: 11/28/20 12:04 Dose: 5,000 unit Documented by: Imipenem/Cilastatin Sodium 250 (mg/ Sodium Chloride) 100 mls @ 200 mls/hr IV Q6H [facility]; Protocol Last Admin: 11/28/20 17:47 Dose: 200 mls/hr Documented by: Metronidazole (Flagyl Iv) 500 mg in 100 mls @ 100 mls/hr IV Q8H [facility]; Protocol Last Admin: 11/28/20 15:44 Dose: 100 mls/hr Documented by: Metoclopramide HCl (Metoclopramide 5 Mg/Ml Sdv 2 Ml) 5 mg IVP Q8H PRN PRN Reason: NAUSEA AND VOMITING Last Admin: 11/27/20 08:52 Dose: 5 mg Documented by: Morphine Sulfate (Morphine 4 Mg/Ml Sdv 1 Ml) 2 - 4 mg IVP Q4H PRN PRN Reason: SEVERE PAIN Last Admin: 11/27/20 08:56 Dose: 2 mg Documented by: Olanzapine (Olanzapine 5 Mg Tablet) 5 mg PO BEDTIME [facility] Last Admin: 11/28/20 20:06 Dose: 5 mg Documented by: Ondansetron HCl (Ondansetron 2 Mg/Ml Sdv 2 Ml) 4 mg IVP Q4H PRN PRN Reason: NAUSEA AND VOMITING Last Admin: 11/28/20 01:03 Dose: 4 mg Documented by: Phenol (Phenol Oral [place] 177 Ml) 3 spray MUCOUS MEM Q2H PRN PRN Reason: SORE THROAT Vitals/I&O/Wt Last Vital Signs Temp 98.4 F 11/28/20 20:00 Pulse 82 11/28/20 20:00 Resp 18 11/28/20 20:00 BP 106/71 11/28/20 20:00 Pulse Ox 92 11/28/20 20:00 11/28/20 11/28/20 11/28/20 06:59 14:59 22:59 Intake Total 300 / 1760 560 / 560 Output Total 800 / 830 600 / 600 Balance -500 / 930 -40 / -40 Physical Exam Narrative: EXAM NARRATIVE: GENERAL: The patient is alert and oriented x3 HEENT: Minimal pallor. No icterus or lymphadenopathy. The pupils are symmetrical NECK: Trachea appears to be central. No masses noted. No JVD or thyromegaly appreciated. No carotid bruit. RESPIRATORY: Chest is symmetrical. No intercostals muscle retraction or any accessory muscle activation. There is no chest wall tenderness. Breath sounds are heard bilaterally. No rales or rhonchi heard. No evidence of any consolidation. BREASTS: Deferred. HEART: Heart sounds are normal no S3 or S4. ABDOMEN: Abdomen is distended with normal bowel sounds. Colostomy bag in place : Deferred. RECTAL: Deferred. LYMPHATIC: No lymphadenopathy noted in the neck or groin. EXTREMITIES: No significant edema or cyanosis MUSCULOSKELETAL: No acute joint deformities or swelling SKIN: There are no rashes or ecchymosis NEUROPSYCHIATRIC: No focal motor deficits. Urinary Catheter Management^: Catnu: Cath Placed During This Visit: yes, but has since been removed by the nurse Reason for Continuing Indwelling Catheter: Acute Urinary Retention or Obstruction Urinary Catheter Date of Insertion: 11/21/20 Urinary Catheter Time of Insertion: 07:51 Date Urinary Catheter Removed: 11/28/20 Time Urinary Catheter Discontinued: 09:30 Data : 11/28/20 05:05 11/28/20 05:05 Other Labs: Laboratory Last Values WBC 13.1 10^3/uL (4.0-10.0) H 11/28/20 05:05 RBC 3.21 10^6/uL (4.1-5.3) L 11/28/20 05:05 Hgb 9.6 g/dL (11.5-15.3) L 11/28/20 05:05 Hct 30.0 % (37.0-47.0) L 11/28/20 05:05 MCV 93.5 fL (81-99) 11/28/20 05:05 MCH 29.9 pg (28.0-34.0) 11/28/20 05:05 MCHC 32.0 g/dL (30.0-36.0) 11/28/20 05:05 RDW 16.2 % (12.1-15.1) H 11/28/20 05:05 Plt Count 282 10^3/cmm (130-400) 11/28/20 05:05 MPV 11.4 fL (7.4-10.4) H 11/28/20 05:05 Neut % (Auto) 71.0 % 11/28/20 05:05 Lymph % (Auto) 13.0 % 11/28/20 05:05 [place] % (Auto) 8.6 % 11/28/20 05:05 Eos % (Auto) 1.1 % 11/28/20 05:05 Baso % (Auto) 0.6 % 11/28/20 05:05 Neut # (Auto) 9.31 10^3/uL (1.8-7.7) H 11/28/20 05:05 Lymph # (Auto) 1.7 10^3/uL (0.8-4.8) 11/28/20 05:05 [place] # (Auto) 1.1 10^3/uL (0.2-0.9) H 11/28/20 05:05 Eos # (Auto) 0.1 10^3/uL (0.0-0.8) 11/28/20 05:05 Baso # (Auto) 0.1 10^3/uL (0.0-0.1) 11/28/20 05:05 Nucleated RBC % (auto) 0 % 11/28/20 05:05 Total Counted 100 (0-100) 11/27/20 05:14 Atypical Lymphs % 0.0 % (0-5) 11/27/20 05:14 Absolute Neutrophils 10.5 10^3/cmm (1.4-6.5) H 11/27/20 05:14 Segmented Neutrophils 68 % 11/27/20 05:14 Abs Segm Neuts (Man) 10.2 10/cmm (1.6-7.1) H 11/27/20 05:14 Band Neutrophils 2.0 % 11/27/20 05:14 Abs Band Neuts (Man) 0.3 10^3/cmm (0.0-1.2) 11/27/20 05:14 Lymphocytes (Manual) 9 % 11/27/20 05:14 Monocytes (Manual) 11.0 % 11/27/20 05:14 Absolute Monocytes 1.7 10^3/cmm (0.1-0.6) H 11/27/20 05:14 Eosinophils (Manual) 2 % 11/27/20 05:14 Absolute Eosinophils 0.3 10^3/cmm (0.0-0.7) 11/27/20 05:14 Basophils (Manual) 0.0 % 11/27/20 05:14 Absolute Basophils 0.0 10^3/cmm (0.0-0.2) 11/27/20 05:14 Metamyelocytes 1.0 % 11/27/20 05:14 Myelocytes 7.0 % 11/27/20 05:14 Promyelocytes 0.0 % 11/21/20 06:37 Nucleated RBCs 0.0 /100WBC (0-1) 11/21/20 06:37 Nucleated RBCs # 0.0 /100WBC 11/28/20 05:05 Blast Cells 0 % (0-0) 11/21/20 06:37 Platelet Estimate Normal (Normal) 11/27/20 05:14 Anisocytosis Trace 11/27/20 05:14 PT 17.10 SECONDS (12.1-14.9) H 11/28/20 05:05 INR 1.35 (0.8-1.2) H 11/28/20 05:05 D-Dimer 2.53 ug/mIFEU (0-0.59) H 11/15/20 22:25 Specimen Type Arterial 11/24/20 04:08 Sample Site Radial, left 11/24/20 04:08 ABG pH 7.41 (7.35-7.45) 11/24/20 04:08 ABG pCO2 34.4 mmHg (35-45) L 11/24/20 04:08 ABG pO2 73.4 mmHg (80.0-100.0) L 11/24/20 04:08 ABG HCO3 21.9 mmol/L (22-26) L 11/24/20 04:08 ABG O2 Saturation 88.7 11/22/20 02:50 ABG Base Excess -2.2 mmol/L (-2.0-2.0) L 11/24/20 04:08 Jeff Test Pos 11/24/20 04:08 A-a O2 Gradient 7.1 mmHg (5-10) 11/22/20 02:50 Hematocrit 35.5 % (37-47) L 11/24/20 04:08 Hgb O2 Saturation 87.3 % (95-100) L 11/22/20 02:50 Carboxyhemoglobin 0.9 %THgb (0.4-20.1) 11/22/20 02:50 Methemoglobin 0.7 % (0.4-1.5) 11/22/20 02:50 Total Hemoglobin 10.6 g/dL (12-16) L 11/22/20 02:50 Sodium 129.0 mmol/L (131-143) L 11/22/20 02:50 Potassium 3.2 mmol/L (3.5-5.0) L 11/22/20 02:50 Glucose 199.0 mg/dL (70-115) H 11/22/20 02:50 Ionized Calcium 1.0 mmol/L (1.1-1.4) L 11/22/20 02:50 O2 Delivery Device Nc 11/24/20 04:08 O2 Liters/Min 2.0 % 11/24/20 04:08 FiO2 3.0 % 11/23/20 04:44 [employer] Cutter Operator ID Harkr 11/24/20 04:08 Sodium 135 mmol/L (136-145) L 11/28/20 05:05 Potassium 3.5 mmol/L (3.5-5.1) 11/28/20 05:05 Chloride 99 mmol/L (98-107) 11/28/20 05:05 Carbon Dioxide 28 mmol/L (22-29) 11/28/20 05:05 Anion Gap 11.5 (5-19) 11/28/20 05:05 BUN 12 mg/dL (8-23) 11/28/20 05:05 Creatinine 1.0 mg/dL (0.5-0.9) H 11/28/20 05:05 GFR Calculation Not Reportable 11/28/20 05:05 Glucose 95 mg/dL (65-115) 11/28/20 05:05 POC Glucose 119 mg/dL (70-110) H 11/17/20 11:56 Calculated Osmolality 280 mOsm/kg (285-295) L 11/28/20 05:05 Lactic Acid 1.7 mmol/L (0.5-2.2) 11/21/20 08:35 Lactate 1.4 mmol/L (0.5-2.2) 11/28/20 05:05 Calcium 7.9 mg/dL (8.5-10.5) L 11/28/20 05:05 Phosphorus 3.0 mg/dL (2.5-4.5) 11/28/20 05:05 Magnesium 1.7 mg/dL (1.7-2.3) 11/28/20 05:05 Total Bilirubin 0.4 mg/dL (0.15-1.2) 11/28/20 05:05 AST 16 U/L (0-32) 11/28/20 05:05 ALT 7 U/L (0-33) 11/28/20 05:05 Alkaline Phosphatase 59 IU/L (35-105) 11/28/20 05:05 Creatine Kinase 72 U/L (26-192) 11/25/20 03:25 Troponin T Gen 5 ng/L 21 ng/L (0-10) H 11/20/20 15:24 Troponin T Baseline 19 ng/L (0-10) H 11/21/20 06:37 Troponin T 120 Minute 22.38 ng/L (0-10) H 11/21/20 08:35 Delta Troponin T 3.38 ABS# (0-10) 11/21/20 08:35 Troponin T Hi Sens 6Hr 32.00 ng/L (0-10) H 11/18/20 22:39 Troponin T Hi Sens 6Hr Delta 7.00 ng/L (0-12) 11/18/20 22:39 C-Reactive Protein 72.9 mg/L (0.0-4.9) H 11/28/20 05:05 NT-Pro-B Natriuret Pep 1703 pg/mL (0-450) H 11/28/20 05:05 NT-Pro-B Natriuret Pep 1716 pg/mL (0-450) H 11/28/20 05:05 Total Protein 5.8 g/dL (6.6-8.7) L 11/28/20 05:05 Albumin 2.6 g/dL (3.5-5.2) L 11/28/20 05:05 Globulin 3.2 g/dL (1.3-4.6) 11/28/20 05:05 25-OH Vitamin D Total 5 ng/mL (30-100) L 11/23/20 14:41 Procalcitonin 0.63 ng/mL (0-0.5) H 11/28/20 05:05 Urine Color Dark yellow (Yellow) 11/22/20 09:38 Urine Appearance Hazy (CLEAR) A 11/22/20 09:38 Urine pH 5 (5-7) 11/22/20 09:38 Ur Specific [place] 1.015 (1.005-1.030) 11/22/20 09:38 Urine Protein 1+ (Negative) H 11/22/20 09:38 Urine Glucose (UA) Norm (Normal) 11/22/20 09:38 Urine Ketones 1+ (Negative) H 11/22/20 09:38 Urine Blood 3+ (Negative) H 11/22/20 09:38 Urine Nitrate Negative (Negative) 11/22/20 09:38 Urine Bilirubin 1+ (Negative) H 11/22/20 09:38 Urine Urobilinogen 4 mg/dL (Negative) H 11/22/20 09:38 Ur Leukocyte Esterase Trace (Negative) H 11/22/20 09:38 Urine RBC 0-4 /hpf (0-2) H 11/22/20 09:38 Urine WBC 0-4 /hpf (0-5) H 11/22/20 09:38 Ur Eosinophil Smear 0 (0-0) 11/22/20 09:38 Ur Squamous Epith Cells 0-4 /hpf (0-5) H 11/22/20 09:38 Amorphous Sediment Not Reportable 11/22/20 09:38 Urine Bacteria 1+ /hpf (NONE) H 11/22/20 09:38 Coarse Granular Casts 10-15 /lpf H 11/22/20 09:38 Urine Mucus 1+ /hpf 11/22/20 09:38 Urine Eosinophils No eosinophils seen 11/22/20 09:38 Urine Osmolality 353 mOsm/kg (50-1200) 11/22/20 09:38 Ur Random Creatinine 130 mg/dL (20-275) 11/22/20 09:38 Ur Random Albumin 12 % 11/22/20 09:38 U Random Total Protein 287 mg/dL (5-24) H 11/22/20 09:38 Ur Random Sodium 10 mmol/L 11/22/20 09:38 Ur Random Potassium 48 mmol/L 11/22/20 09:38 Ur Random Chloride 10 mmol/L 11/22/20 09:38 Urine Creatinine 151 mg/dL (28-217) 11/22/20 09:38 Protein/Creatinin Ratio 2208 mg/g creat (21-161) H 11/22/20 09:38 Protein/Creat Ratio 24h 2.208 (0.021-0.161) H 11/22/20 09:38 U Random d-7-Swhyyycl % 2 % 11/22/20 09:38 U Random p-3-Sewndihn % 25 % 11/22/20 09:38 U Random Beta Globulin 32 % 11/22/20 09:38 U Random Gamma Glob 30 % 11/22/20 09:38 U Abnormal Prot Band 1 Not Reportable 11/22/20 09:38 U Abnormal Prot Band 2 Not Reportable 11/22/20 09:38 U Abnormal Prot Band 3 Not Reportable 12/30/20 09:38 Urine PEP Interpret See note 11/22/20 09:38 Vancomycin Trough 7.1 ug/mL (10-15) L 11/22/20 09:36 SARS-CoV-2 RNA (RT-PCR) Not detected (NOT DETECTED) 11/19/20 03:30 SARS-CoV-2 Ag (Rapid) Negative (Negative) 11/16/20 01:50 Micro: Microbiology 11/21/20 12:00 Gram Stain - Final Abdomen Anaerobic Culture - Preliminary Bacteroides eggerthii Bacteroides thetaiotaomicron Abscess Culture - Final Escherichia coli Echo: My impression: Done on 11/27/2020 Normal LV size with diminished ejection fraction of 45 to 50%. Abnormal septal motion consistent with conduction abnormality. Mild concentric left renal hypertrophy. Mildly increased left atrial size. There is no pericardial effusion. There are no intracardiac masses. Compared to the study from 11/19/2020, there is improvement of the LV ejection fraction A&P Assessment and plan (1) Elevated troponin: Most likely this is a type II myocardial infarction. She seems to be stable. At this point, patient may not require any specific intervention. May consider a myocardial perfusion imaging sometime down the line as an outpatient Status: Acute (2) Fecal peritonitis: Status post exploratory laparotomy and colostomy. Currently she seems to be doing okay. Infection seems to be under control. She is afebrile. Status: Acute (3) Nonischemic cardiomyopathy: Since there is significant improvement of the LV systolic function, patient may not require any other specific intervention at this point. We will continue on the current medications. Her heart failure is currently compensated Status: Acute (4) Hypertension: Currently normotensive. The blood pressure is in the low normal side. 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
[2020-11-29] VITALS (12 sets, daily range): BP systolic 104–136; BP diastolic 71–86; PULSE 75–134; RESP 16–20; TEMP 36.3–37.2; O2SAT 88–98
[2020-11-29] MEDS: heparin 5,000 unit/mL INJ 1 mL 5000 UNIT SUBCUT ×2 (00:39→14:06)
[2020-11-29] MEDS: HYDROcodone-acetaminophen 5-325 mg Tablet PO ×2 (00:39→14:11)
[2020-11-29] MEDS: metroNIDAZOLE IV 500 MG/100 ML PREMIX 100 MG IV ×3 (01:31→15:17)
[2020-11-29 05:48] LABS: Basophils # 0.1 10^3/uL (0.0-0.1); Basophils % 0.6 %; Eosinophils # 0.1 10^3/uL (0.0-0.8); Hematocrit 30.7 % (37.0-47.0); Hemoglobin 9.8 g/dL (11.5-15.3); Lymphocytes # 1.5 10^3/uL (0.8-4.8); Lymphocytes % 13.1 %; Mean Corpuscular HGB Conc 31.9 g/dL (30.0-36.0); Mean Corpuscular Hemoglobin 30.2 pg (28.0-34.0); Mean Corpuscular Volume 94.8 fL (81-99); Mean Platelet Volume 11.4 fL (7.4-10.4); Monocytes % 8.7 %; Neutrophils # 8.17 10^3/uL (1.8-7.7); Nucleated Red Blood Cells % 0 %; Platelet Count 314 10^3/cmm (130-400); Red Blood Count 3.24 10^6/uL (4.1-5.3); Red Cell Distribution Width 16.5 % (12.1-15.1); White Blood Count 11.5 10^3/uL (4.0-10.0)
[2020-11-29 06:26] LABS: Alanine Aminotransferase 8 U/L (0-33); Albumin Level 2.5 g/dL (3.5-5.2); Alkaline Phosphatase 63 IU/L (35-105); Anion Gap 9.4 (5-19); Aspartate Amino Transferase 18 U/L (0-32); Blood Urea Nitrogen 10 mg/dL (8-23); C Reactive Protein 90.6 mg/L (0.0-4.9); Calcium 8.4 mg/dL (8.5-10.5); Carbon Dioxide 29 mmol/L (22-29); Chloride 99 mmol/L (98-107); Creatinine Clr Calc Pharmacy 62.8074; Globulin 3.6 g/dL (1.3-4.6); Glucose 109 mg/dL (65-115); Magnesium 1.9 mg/dL (1.7-2.3); Osmolality Calculated 278 mOsm/kg (285-295); Phosphorus 2.9 mg/dL (2.5-4.5); Potassium 3.4 mmol/L (3.5-5.1); Sodium 134 mmol/L (136-145); Total Bilirubin 0.4 mg/dL (0.15-1.2); Total Protein 6.1 g/dL (6.6-8.7)
[2020-11-29 06:36] LABS: NT Pro B Type Natriuretic Pept 2332 pg/mL (0-450)
[2020-11-29 06:57] LABS: Slide Review Slide Review Perform
[2020-11-29 09:03] LABS: Vit D 1,25 (Oh)2, Total 31 pg/mL (18-72); Vit D2 1,25 (Oh)2 <8 pg/mL; Vit D3 1,25 (Oh)2 31 pg/mL
--- NOTE | 2020-11-29 09:10 | PM.PN ---
Subjective Subjective: Interval history: The patient says she continues to feel better daily. She would be interested in trying some soft foods. Vitals/I&O/Wt Last Vital Signs Temp 97.4 F L 11/29/20 07:39 Pulse 86 11/29/20 07:39 Resp 18 11/29/20 07:39 BP 120/81 11/29/20 07:39 Pulse Ox 94 11/29/20 07:39 11/28/20 11/29/20 11/29/20 22:59 06:59 14:59 Intake Total 440 / 1100 100 / 1100 240 / 240 Output Total 300 / 900 Balance 440 / 200 -200 / 200 240 / 240 Physical Exam Narrative: EXAM NARRATIVE: The incision remains a little erythematous only at the very inferior aspect. Someone had put some Steri-Strips across it where I wanted it to be more open. The Steri-Strips were removed and a swab was used to break up the thin loculations in between the tisha. No significant fluid collection was present under the skin level. A new dressing was applied. Urinary Catheter Management^: Cantu: Cath Placed During This Visit: yes, but has since been removed by the nurse Reason for Continuing Indwelling Catheter: Other Urinary Catheter Date of Insertion: 11/21/20 Urinary Catheter Time of Insertion: 07:51 Date Urinary Catheter Removed: 11/28/20 Time Urinary Catheter Discontinued: 09:30 Data : 11/29/20 04:43 11/29/20 04:43 Micro: Microbiology 11/21/20 12:00 Gram Stain - Final Abdomen Anaerobic Culture - Preliminary Bacteroides eggerthii Bacteroides thetaiotaomicron Abscess Culture - Final Escherichia coli A&P Assessment and plan (1) Fecal peritonitis: Status post Lyubov procedure on 11/21/2024 perforated sigmoid colon, likely the result of a stercoral ulcer. The patient's white blood cell count continues to defervesce. I have recommended to her that we leave her on IV antibiotics until at least tomorrow. Soft diet. Status: Acute (2) Partial small bowel obstruction: Status post adhesiolysis on 11/21/2020. 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 Status: Acute Attestations Medical Necessity Statement*: See admitting service's notation. Procedures Arterial Line Size (Gauge): 20 Coding Level of Care Code Acute [employer] Food for [facility] Fwd Diagnoses Fecal peritonitis K65.8 Partial small bowel obstruction K56.600
[2020-11-29] MEDS: docusate sodium 100 mg Capsule PO ×2 (09:14→17:53)
[2020-11-29] MEDS: atorvastatin 40 mg Tablet PO (09:14)
[2020-11-29] MEDS: carvedilol 3.125 mg Tablet PO ×2 (09:14→17:53)
[2020-11-29] MEDS: aspirin 81 mg EC Tablet PO (09:14)
[2020-11-29] MEDS: famotidine 20 mg Tablet PO ×2 (10:18→22:56)
[2020-11-29] MEDS: ipratropium-albuterol 3 mL Neb INHALATION ×3 (10:25→20:23)
--- NOTE | 2020-11-29 10:35 | PC.SOCIAL ---
IMM Updated Updated pt on Pg 2 IMM. No questions voiced. Provided pt a copy. Signed, dated, & timed copy in chart.
--- NOTE | 2020-11-29 12:18 | P.PN_ITS ---
Subjective Subjective: Interval history: This morning patient was examined, she is enjoying her cream of wheat, denies any abdominal pain, no fevers, no chills, no chest pain, no shortness of breath, she feels that she needs another day here in the hospital, she is continues to feel weak Medications: Medication Review Details: Current Medications Hydrocodone Bitart/Acetaminophen (Hydrocodone-Acetaminophen 5-325 Mg Tablet) 1 - 2 tab PO Q4H PRN PRN Reason: MODERATE TO SEVERE PAIN Albuterol/Ipratropium (Ipratropium-Albuterol 3 Ml Neb) 3 ml INHALATION Q6H.RESPIRATORY [facility] Last Admin: 11/28/20 20:13 Dose: Not Given Documented by: Aspirin (Aspirin 81 Mg Ec Tablet) 81 mg PO DAILY [facility] Last Admin: 11/28/20 09:22 Dose: 81 mg Documented by: Atorvastatin Calcium (Atorvastatin 40 Mg Tablet) 40 mg PO DAILY [facility] Last Admin: 11/28/20 09:22 Dose: 40 mg Documented by: Carvedilol (Carvedilol 3.125 Mg Tablet) 3.125 mg PO BID [facility] Last Admin: 11/28/20 17:48 Dose: 3.125 mg Documented by: Docusate Sodium (Docusate Sodium 100 Mg Capsule) 100 mg PO BID [facility] Last Admin: 11/28/20 17:48 Dose: 100 mg Documented by: Famotidine (Famotidine 20 Mg Tablet) 20 mg PO Q12H [facility] Last Admin: 11/28/20 11:04 Dose: 20 mg Documented by: Haloperidol Lactate (Haloperidol Inj 5 Mg/Ml Inj 1 Ml) 1 mg IM Q4H PRN PRN Reason: anxiety Heparin Sodium (Beef Lung) (Heparin 5,000 Unit/Ml Inj 1 Ml) 5,000 unit SUBCUT Q12H [facility] Last Admin: 11/28/20 12:04 Dose: 5,000 unit Documented by: Imipenem/Cilastatin Sodium 250 (mg/ Sodium Chloride) 100 mls @ 200 mls/hr IV Q6H [facility]; Protocol Last Admin: 11/28/20 17:47 Dose: 200 mls/hr Documented by: Metronidazole (Flagyl Iv) 500 mg in 100 mls @ 100 mls/hr IV Q8H [facility]; Protocol Last Admin: 11/28/20 15:44 Dose: 100 mls/hr Documented by: Metoclopramide HCl (Metoclopramide 5 Mg/Ml Sdv 2 Ml) 5 mg IVP Q8H PRN PRN Reason: NAUSEA AND VOMITING Last Admin: 11/27/20 08:52 Dose: 5 mg Documented by: Morphine Sulfate (Morphine 4 Mg/Ml Sdv 1 Ml) 2 - 4 mg IVP Q4H PRN PRN Reason: SEVERE PAIN Last Admin: 11/27/20 08:56 Dose: 2 mg Documented by: Olanzapine (Olanzapine 5 Mg Tablet) 5 mg PO BEDTIME [facility] Last Admin: 11/28/20 20:06 Dose: 5 mg Documented by: Ondansetron HCl (Ondansetron 2 Mg/Ml Sdv 2 Ml) 4 mg IVP Q4H PRN PRN Reason: NAUSEA AND VOMITING Last Admin: 11/28/20 01:03 Dose: 4 mg Documented by: Phenol (Phenol Oral [place] 177 Ml) 3 spray MUCOUS MEM Q2H PRN PRN Reason: SORE THROAT Vitals/I&O/Wt Last Vital Signs Temp 97.4 F L 11/29/20 07:39 Pulse 92 11/29/20 10:27 Resp 18 11/29/20 10:27 BP 120/81 11/29/20 07:39 Pulse Ox 93 11/29/20 10:27 11/28/20 11/29/20 11/29/20 22:59 06:59 14:59 Intake Total 440 / 1000 300 / 1300 240 / 240 Output Total 300 / 900 150 / 150 Balance 440 / 400 0 / 400 90 / 90 Physical Exam Const: COMMON NORMALS: no acute distress and patient oriented x3 HENMT: COMMON NORMALS: normocephalic HEAD & SCALP: normocephalic Neck/C-Spine: COMMON NORMALS: no JVD Resp: COMMON NORMALS: normal respiratory effort, No retractions, No use of accessory muscles and clear to auscultation bilaterally AUSCULTATION: clear to auscultation bilaterally Cardio: COMMON NORMALS: no JVD, regular rate, regular rhythm, S1 normal heart sound present and S2 normal heart sound present RATE: regular rate RHYTHM: regular rhythm HEART SOUNDS: S1 normal heart sound present and S2 normal heart sound present GI: COMMON NORMALS: Normal to inspection, nondistended, normoactive bowel sounds present, Soft to palpation, non-tender, No hepatosplenomegaly present, no masses and no bruits PALPATION: Yes Soft to palpation and Yes No hepatosplenomegaly present OTHER: Colostomy bag in place, surgical tisha look clean and dry Extremity: COMMON NORMALS: capillary refill normal, no clubbing, cyanosis or edema, no calf tenderness and no pedal edema Neuro: COMMON NORMALS: patient oriented x3 Psych: COMMON NORMALS: mental status grossly normal Urinary Catheter Management^: Cantu: Cath Placed During This Visit: yes, but has since been removed by the nurse Reason for Continuing Indwelling Catheter: Other Urinary Catheter Date of Insertion: 11/21/20 Urinary Catheter Time of Insertion: 07:51 Date Urinary Catheter Removed: 11/28/20 Time Urinary Catheter Discontinued: 09:30 Data : 11/29/20 04:43 11/29/20 04:43 Micro: Microbiology 11/21/20 12:00 Gram Stain - Final Abdomen Anaerobic Culture - Preliminary Bacteroides eggerthii Bacteroides thetaiotaomicron Abscess Culture - Final Escherichia coli A&P Assessment and plan (1) Septic shock: Status: Acute (2) Fecal peritonitis: Status: Acute (3) Intra-abdominal abscess: Status: Acute (4) Sepsis: Status: Acute (5) Abdominal pain: Status: Acute Qualifiers: Abdominal location: periumbilical Qualified Code(s): R10.33 - Periumbilical pain (6) Adynamic ileus: Status: Acute (7) Postmenopausal bleeding: Status: Acute (8) Hypoxia: Status: Acute (9) Enteritis: Status: Acute (10) Systolic CHF: Status: Acute (11) Bowel obstruction: Status: Acute (12) Recurrent ventral hernia: Status: Acute Additional A&P Information Fecal peritonitis, status post Lyubov procedure 11/21/2024 for perforated sigmoid colon, with partial small bowel obstruction status post adhesiolysis With septic shock, and acute renal failure -Off pressors for the last MAP greater than 65 -Creatinine increased to 1.0, urine output 800 cc -White blood cell count increased to 13.1, hemoglobin 9.6, Plan: -extubation 11/21/2020 -Currently in the intensive care unit, will move to general medical floors -Full code -Heparin for DVT prophylaxis -Broad-spectrum antibiotic therapy Primaxin, Flagyl On discharge will discharge on Cipro and Flagyl for at least 2 weeks -Follow blood cultures, surgical cultures which show E. coli, Bacteroides -Currently on GI soft diet -Pepcid -Will avoid fluid overload given patient's EF of 30 to 35% -Nephrology on consult -General surgery on consult -Cardiology on consult -Monitor respiratory status closely, currently on 2 L, chest x-ray no focal pneumonia - hold diuresis as creatinine up to 0.8 Postoperative respiratory failure, extubation 11/21/2020, -currently on 2 L - BiPAP as needed during the night -Monitor cultures closely -Chest x-ray unremarkable for focal pneumonia Septic shock, resolved Acute renal failure: Secondary to sepsis, contrast -Resolving -Monitor urine output closely -Nephrology on consult -Renal ultrasound no hydronephrosis both kidneys Postmenopausal bleed 2.6 cm uterine mass High D-dimer currently hypoxic requiring 2 L nasal cannula CTA rule out PE was unremarkable for PE Uterine biopsy revealed endometrial polyp otherwise no malignancy Due for uterine surgery in November 2020 Acute hypoxia Likely secondary to fluid overload and systolic CHF Confirmed on multiple ABGs CT angiogram was negative for PE, slight atelectasis, no focal pneumonia Repeat ABG this afternoon shows hypoxia, PO2 59 on room air Patient is not hypo ventilating Hiatal hernia found on CT abdomen Etiology BNP is elevated at 3700, did receive fluids, giving Lasix daily, improved denies any chest pain, shortness of breath, any cardiac history Serial troponins, as high as 30, no significant delta, EKG no acute ST-T wave changes Rapid Covid negative, Covid PCR negative Plan: -Monitor fluid status closely -BiPAP as needed -We will need to avoid fluid overload Systolic CHF, patient's echocardiogram results yesterday showed: -This is a limited quality echocardiogram. Bubble study was ordered however could not be performed as atria are not well visualized. LV systolic function is moderately severely reduced with EF of 30 to 35%. Moderate to severe global hypokinesis is noted. Diastolic function cannot be assessed because of tachycardia Valves are not very well visualized, however no significant valvular abnormalities seen. Compared to prior echocardiogram from 09/18/2018, LV systolic function is significantly reduced now. -Patient's oxygen requirements have decreased to 2 L with diuresis, Lasix 40 mg IV push daily -On aspirin, statin, Coreg -Likely nonischemic cardiomyopathy -Repeat echocardiogram ordered -Cardiology on consult GERD: Continue PPI Full code Clear liquid DVT prophylaxis SCDs, heparin Patient's prognosis is guarded, status is stable Plan for today, continue PT OT, GI soft diet, continue to monitor fevers continue antibiotic therapy, hopefully can be discharged tomorrow Attestations Medical Necessity Statement*: Patient requires hospitalization for perforated sigmoid ulcer with peritonitis, with postoperative anemia, CHF exacerbation, renal failure, Procedures Arterial Line Size (Gauge): 20 Coding Level of Care Code 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
[2020-11-29] MEDS: potassium chloride ER 20 mEq Tablet 40 MEQ PO (14:06)
[2020-11-29] MEDS: metoclopramide 5 mg/mL SDV 2 mL IVP (15:16)
--- NOTE | 2020-11-29 18:42 | P.PN_ITS ---
Subjective Subjective: Interval history: Patient denies any chest pain or palpitation. No unusual shortness of breath. Vital signs are stable. Remains afebrile. No specific cardiac symptoms. Medications: Reviewed: Yes Medication Review Details: Current Medications Hydrocodone Bitart/Acetaminophen (Hydrocodone-Acetaminophen 5-325 Mg Tablet) 1 - 2 tab PO Q4H PRN PRN Reason: MODERATE TO SEVERE PAIN Last Admin: 11/29/20 14:11 Dose: 1 tab Documented by: Albuterol/Ipratropium (Ipratropium-Albuterol 3 Ml Neb) 3 ml INHALATION Q6H.RESPIRATORY [facility] Last Admin: 11/29/20 14:24 Dose: 3 ml Documented by: Aspirin (Aspirin 81 Mg Ec Tablet) 81 mg PO DAILY [facility] Last Admin: 11/29/20 09:14 Dose: 81 mg Documented by: Atorvastatin Calcium (Atorvastatin 40 Mg Tablet) 40 mg PO DAILY [facility] Last Admin: 11/29/20 09:14 Dose: 40 mg Documented by: Carvedilol (Carvedilol 3.125 Mg Tablet) 3.125 mg PO BID [facility] Last Admin: 11/29/20 17:53 Dose: 3.125 mg Documented by: Docusate Sodium (Docusate Sodium 100 Mg Capsule) 100 mg PO BID [facility] Last Admin: 11/29/20 17:53 Dose: 100 mg Documented by: Famotidine (Famotidine 20 Mg Tablet) 20 mg PO Q12H [facility] Last Admin: 11/29/20 10:18 Dose: 20 mg Documented by: Heparin Sodium (Beef Lung) (Heparin 5,000 Unit/Ml Inj 1 Ml) 5,000 unit SUBCUT Q12H [facility] Last Admin: 11/29/20 14:06 Dose: 5,000 unit Documented by: Imipenem/Cilastatin Sodium 250 (mg/ Sodium Chloride) 100 mls @ 200 mls/hr IV Q6H [facility]; Protocol Last Admin: 11/29/20 17:53 Dose: 200 mls/hr Documented by: Metronidazole (Flagyl Iv) 500 mg in 100 mls @ 100 mls/hr IV Q8H [facility]; Protocol Last Admin: 11/29/20 15:17 Dose: 100 mls/hr Documented by: Metoclopramide HCl (Metoclopramide 5 Mg/Ml Sdv 2 Ml) 5 mg IVP Q8H PRN PRN Reason: NAUSEA AND VOMITING Last Admin: 11/29/20 15:16 Dose: 5 mg Documented by: Olanzapine (Olanzapine 5 Mg Tablet) 5 mg PO BEDTIME [facility] Last Admin: 11/28/20 20:06 Dose: 5 mg Documented by: Ondansetron HCl (Ondansetron 2 Mg/Ml Sdv 2 Ml) 4 mg IVP Q4H PRN PRN Reason: NAUSEA AND VOMITING Last Admin: 11/28/20 01:03 Dose: 4 mg Documented by: Phenol (Phenol Oral [place] 177 Ml) 3 spray MUCOUS MEM Q2H PRN PRN Reason: SORE THROAT Vitals/I&O/Wt Last Vital Signs Temp 98.9 F 11/29/20 16:00 Pulse 134 H 11/29/20 16:00 Resp 18 11/29/20 16:00 BP 131/86 11/29/20 16:00 Pulse Ox 93 11/29/20 16:00 11/29/20 11/29/20 11/29/20 06:59 14:59 22:59 Intake Total 300 / 1300 680 / 680 240 / 920 Output Total 300 / 900 400 / 400 Balance 0 / 400 280 / 280 240 / 520 Physical Exam Narrative: EXAM NARRATIVE: GENERAL: The patient is alert and oriented x3 HEENT: Minimal pallor. No icterus or lymphadenopathy. The pupils are symmetrical NECK: Trachea appears to be central. No masses noted. No JVD or thyromegaly appreciated. No carotid bruit. RESPIRATORY: Chest is symmetrical. No intercostals muscle retraction or any accessory muscle activation. There is no chest wall tenderness. Breath sounds are heard bilaterally. No rales or rhonchi heard. No evidence of any consolidation. BREASTS: Deferred. HEART: Heart sounds are normal no S3 or S4. ABDOMEN: Abdomen is slightly distended with normal bowel sounds. Colostomy bag in place, seems to be draining : Deferred. RECTAL: Deferred. LYMPHATIC: No lymphadenopathy noted in the neck or groin. EXTREMITIES: Trace edema with no cyanosis. MUSCULOSKELETAL: No acute joint deformities or swelling SKIN: There are no rashes or ecchymosis NEUROPSYCHIATRIC: No focal motor deficits. Urinary Catheter Management^: Cantu: Cath Placed During This Visit: yes, but has since been removed by the nurse Reason for Continuing Indwelling Catheter: Other Urinary Catheter Date of Insertion: 11/21/20 Urinary Catheter Time of Insertion: 07:51 Date Urinary Catheter Removed: 11/28/20 Time Urinary Catheter Discontinued: 09:30 Data : 11/29/20 04:43 11/29/20 04:43 Micro: Microbiology 11/21/20 12:00 Gram Stain - Final Abdomen Anaerobic Culture - Final Bacteroides eggerthii Bacteroides thetaiotaomicron Abscess Culture - Final Escherichia coli A&P Assessment and plan (1) Elevated troponin: Most likely this is a type II myocardial infarction. She seems to be stable. At this point, patient may not require any specific intervention. May consider a myocardial perfusion imaging sometime down the line as an outpatient Status: Acute (2) Fecal peritonitis: Status post exploratory laparotomy and colostomy. Currently she seems to be doing okay. Infection seems to be under control. She is afebrile. Status: Acute (3) Nonischemic cardiomyopathy: Since there is significant improvement of the LV systolic function, patient may not require any other specific intervention at this point. We will continue on the current medications. Her heart failure is currently compensated Status: Acute (4) Hypertension: Currently normotensive. The blood pressure is in the low normal side. Continue on the current management Status: Acute Qualifiers: Hypertension type: essential hypertension Qualified Code(s): I10 - Essential (primary) hypertension Additional A&P Information Other problems are Anemia, stable Congestive heart failure, currently compensated Attestations Medical Necessity Statement*: Disposition as per the primary. Since the patient's overall cardiovascular status seems to be otherwise stable, I may sign off at this point. Please feel free to contact me, if there are any further questions. Please make an appointment to be seen by Dr. Simons, in 3 weeks, at the heart care services. 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
[2020-11-29] MEDS: ondansetron 2 mg/ML SDV 2 mL 4 MG IVP (21:36)
[2020-11-29] MEDS: OLANZapine 5 mg TABLET PO (22:56)
[2020-11-30] VITALS (12 sets, daily range): BP systolic 120–132; BP diastolic 71–89; PULSE 74–93; RESP 16–20; TEMP 36.3–37; O2SAT 93–98
[2020-11-30] MEDS: metroNIDAZOLE IV 500 MG/100 ML PREMIX 100 MG IV ×3 (01:14→17:12)
[2020-11-30] MEDS: heparin 5,000 unit/mL INJ 1 mL 5000 UNIT SUBCUT ×2 (01:17→16:25)
[2020-11-30] MEDS: ipratropium-albuterol 3 mL Neb INHALATION ×3 (03:15→21:52)
[2020-11-30 05:52] LABS: Basophils # 0.1 10^3/uL (0.0-0.1); Basophils % 0.4 %; Eosinophils # 0.1 10^3/uL (0.0-0.8); Eosinophils % 0.9 %; Hematocrit 29.8 % (37.0-47.0); Hemoglobin 9.1 g/dL (11.5-15.3); Lymphocytes # 1.6 10^3/uL (0.8-4.8); Lymphocytes % 12.3 %; Mean Corpuscular HGB Conc 30.5 g/dL (30.0-36.0); Mean Corpuscular Volume 94.9 fL (81-99); Mean Platelet Volume 11.5 fL (7.4-10.4); Monocytes # 1.3 10^3/uL (0.2-0.9); Monocytes % 9.8 %; Neutrophils # 9.37 10^3/uL (1.8-7.7); Neutrophils % 73.2 %; Nucleated Red Blood Cells % 0 %; Platelet Count 321 10^3/cmm (130-400); Red Blood Count 3.14 10^6/uL (4.1-5.3); Red Cell Distribution Width 16.7 % (12.1-15.1); White Blood Count 12.8 10^3/uL (4.0-10.0)
[2020-11-30 06:11] LABS: Alanine Aminotransferase 6 U/L (0-33); Albumin Level 2.7 g/dL (3.5-5.2); Alkaline Phosphatase 63 IU/L (35-105); Aspartate Amino Transferase 16 U/L (0-32); Blood Urea Nitrogen 8 mg/dL (8-23); C Reactive Protein 88.9 mg/L (0.0-4.9); Calcium 8.1 mg/dL (8.5-10.5); Carbon Dioxide 28 mmol/L (22-29); Chloride 100 mmol/L (98-107); Creatinine Clr Calc Pharmacy 55.8288; Globulin 3.3 g/dL (1.3-4.6); Glucose 106 mg/dL (65-115); Magnesium 1.7 mg/dL (1.7-2.3); Osmolality Calculated 279 mOsm/kg (285-295); Phosphorus 2.2 mg/dL (2.5-4.5); Sodium 135 mmol/L (136-145); Total Bilirubin 0.3 mg/dL (0.15-1.2)
--- NOTE | 2020-11-30 06:51 | PM.PN ---
Subjective Subjective: Interval history: The patient was advanced to a soft diet which the patient said she is tolerating well. She still does not know if she is ready to get out of the hospital quite yet. Vitals/I&O/Wt Last Vital Signs Temp 97.4 F L 11/30/20 03:52 Pulse 74 11/30/20 06:00 Resp 20 H 11/30/20 03:52 BP 122/78 11/30/20 03:52 Pulse Ox 95 11/30/20 03:52 11/29/20 11/29/20 11/30/20 14:59 22:59 06:59 Intake Total 680 / 1960 1180 / 1960 100 / 1960 Output Total 400 / 800 400 / 800 Balance 280 / 1160 1180 / 1160 -300 / 1160 Physical Exam Narrative: EXAM NARRATIVE: The lowest portion of the incision continues to have a little exudative drainage. The colostomy is functioning. Urinary Catheter Management^: Cantu: Cath Placed During This Visit: yes, but has since been removed by the nurse Reason for Continuing Indwelling Catheter: Other Urinary Catheter Date of Insertion: 11/21/20 Urinary Catheter Time of Insertion: 07:51 Date Urinary Catheter Removed: 11/28/20 Time Urinary Catheter Discontinued: 09:30 Data : 11/30/20 04:45 11/30/20 04:45 Micro: Microbiology 11/21/20 12:00 Gram Stain - Final Abdomen Anaerobic Culture - Final Bacteroides eggerthii Bacteroides thetaiotaomicron Abscess Culture - Final Escherichia coli A&P Assessment and plan (1) Fecal peritonitis: Status post Lyubov procedure on 11/21/2024 perforated sigmoid colon, likely the result of a stercoral ulcer. The patient appears to have a possible early wound infection at the very inferior aspect of her incision. Continue antibiotics. Status: Acute (2) Partial small bowel obstruction: Status post adhesiolysis on 11/21/2020. 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 Status: Acute Attestations Medical Necessity Statement*: See admitting service's notation. 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
[2020-11-30 07:17] LABS: NT Pro B Type Natriuretic Pept 1563 pg/mL (0-450)
[2020-11-30] MEDS: aspirin 81 mg EC Tablet PO (09:33)
[2020-11-30] MEDS: famotidine 20 mg Tablet PO ×2 (09:33→22:04)
[2020-11-30] MEDS: docusate sodium 100 mg Capsule PO ×2 (09:33→17:12)
[2020-11-30] MEDS: atorvastatin 40 mg Tablet PO (09:33)
[2020-11-30] MEDS: carvedilol 3.125 mg Tablet PO ×2 (09:33→17:12)
[2020-11-30] MEDS: phosphorus 250 mg Tablet 500 MG PO (10:00)
--- NOTE | 2020-11-30 13:04 | PM.PN ---
Subjective Subjective: Interval history: Patient was examined this morning, she tells me that she is feeling better, no nausea, no vomiting, lightheadedness, dizziness, no fevers, chills, she does complain of generalized weakness, weakness with ambulation, tells me that she just not ready to go home yet, mild abdominal pain Vitals/I&O/Wt Last Vital Signs Temp 97.7 F 11/30/20 11:35 Pulse 78 11/30/20 11:35 Resp 18 11/30/20 11:35 BP 127/89 11/30/20 11:35 Pulse Ox 97 11/30/20 11:35 11/29/20 11/30/20 11/30/20 22:59 06:59 14:59 Intake Total 1180 / 1860 200 / 2060 240 / 240 Output Total 700 / 1100 Balance 1180 / 1460 -500 / 960 240 / 240 Physical Exam Const: COMMON NORMALS: no acute distress and patient oriented x3 HENMT: COMMON NORMALS: normocephalic HEAD & SCALP: normocephalic Neck/C-Spine: COMMON NORMALS: no JVD Resp: COMMON NORMALS: normal respiratory effort, No retractions, No use of accessory muscles and clear to auscultation bilaterally AUSCULTATION: clear to auscultation bilaterally Cardio: COMMON NORMALS: no JVD, regular rate, regular rhythm, S1 normal heart sound present and S2 normal heart sound present RATE: regular rate RHYTHM: regular rhythm HEART SOUNDS: S1 normal heart sound present and S2 normal heart sound present GI: COMMON NORMALS: Normal to inspection, nondistended, normoactive bowel sounds present, Soft to palpation, non-tender, No hepatosplenomegaly present, no masses and no bruits PALPATION: Yes Soft to palpation and Yes No hepatosplenomegaly present OTHER: Colostomy bag in place, surgical tisha look clean and dry Extremity: COMMON NORMALS: capillary refill normal, no clubbing, cyanosis or edema, no calf tenderness and no pedal edema Neuro: COMMON NORMALS: patient oriented x3 Psych: COMMON NORMALS: mental status grossly normal Urinary Catheter Management^: Cantu: Cath Placed During This Visit: yes, but has since been removed by the nurse Reason for Continuing Indwelling Catheter: Other Urinary Catheter Date of Insertion: 11/21/20 Urinary Catheter Time of Insertion: 07:51 Date Urinary Catheter Removed: 11/28/20 Time Urinary Catheter Discontinued: 09:30 Data : 11/30/20 04:45 11/30/20 04:45 Micro: Microbiology 11/21/20 12:00 Gram Stain - Final Abdomen Anaerobic Culture - Final Bacteroides eggerthii Bacteroides thetaiotaomicron Abscess Culture - Final Escherichia coli A&P Assessment and plan (1) Septic shock: Status: Acute (2) Fecal peritonitis: Status: Acute (3) Intra-abdominal abscess: Status: Acute (4) Sepsis: Status: Acute (5) Abdominal pain: Status: Acute Qualifiers: Abdominal location: periumbilical Qualified Code(s): R10.33 - Periumbilical pain (6) Adynamic ileus: Status: Acute (7) Postmenopausal bleeding: Status: Acute (8) Hypoxia: Status: Acute (9) Enteritis: Status: Acute (10) Systolic CHF: Status: Acute (11) Bowel obstruction: Status: Acute (12) Recurrent ventral hernia: Status: Acute Additional A&P Information Fecal peritonitis, status post Lyubov procedure 11/21/2024 for perforated sigmoid colon, with partial small bowel obstruction status post adhesiolysis With septic shock, and acute renal failure -Off pressors for the last MAP greater than 65 -Creatinine increased to 0.9, get urine output -White blood cell count i 12.1, hemoglobin 9.1 Plan: -extubation 11/21/2020 -Currently on general medical floors -Full code -Heparin for DVT prophylaxis -Broad-spectrum antibiotic therapy Primaxin, Flagyl On discharge will discharge on Cipro and Flagyl for at least 2 weeks -Follow blood cultures, surgical cultures which show E. coli, Bacteroides -Currently on GI soft diet -Pepcid -Will avoid fluid overload given patient's EF of 30 to 35% -Nephrology on consult -General surgery on consult -Cardiology on consult -Monitor respiratory status closely, currently on 2 L, chest x-ray no focal pneumonia - hold diuresis as creatinine up to 0.8 Postoperative respiratory failure, extubation 11/21/2020, -currently on 2 L - BiPAP as needed during the night -Monitor cultures closely -Chest x-ray unremarkable for focal pneumonia Septic shock, resolved Acute renal failure: Secondary to sepsis, contrast -Resolved -Monitor urine output closely -Nephrology on consult -Renal ultrasound no hydronephrosis both kidneys Postmenopausal bleed 2.6 cm uterine mass High D-dimer currently hypoxic requiring 2 L nasal cannula CTA rule out PE was unremarkable for PE Uterine biopsy revealed endometrial polyp otherwise no malignancy Due for uterine surgery in November 2020 Acute hypoxia Likely secondary to fluid overload and systolic CHF Confirmed on multiple ABGs CT angiogram was negative for PE, slight atelectasis, no focal pneumonia Repeat ABG this afternoon shows hypoxia, PO2 59 on room air Patient is not hypo ventilating Hiatal hernia found on CT abdomen Etiology BNP is elevated at 3700, did receive fluids, giving Lasix daily, improved denies any chest pain, shortness of breath, any cardiac history Serial troponins, as high as 30, no significant delta, EKG no acute ST-T wave changes Rapid Covid negative, Covid PCR negative Plan: -Monitor fluid status closely -BiPAP as needed -We will need to avoid fluid overload Systolic CHF, patient's echocardiogram results yesterday showed: -This is a limited quality echocardiogram. Bubble study was ordered however could not be performed as atria are not well visualized. LV systolic function is moderately severely reduced with EF of 30 to 35%. Moderate to severe global hypokinesis is noted. Diastolic function cannot be assessed because of tachycardia Valves are not very well visualized, however no significant valvular abnormalities seen. Compared to prior echocardiogram from 09/18/2018, LV systolic function is significantly reduced now. -Patient's oxygen requirements have decreased to 2 L with diuresis, Lasix 40 mg IV push daily -On aspirin, statin, Coreg -Likely nonischemic cardiomyopathy -Cardiology on consult GERD: Continue PPI Full code GI soft diet DVT prophylaxis SCDs, heparin Plan for today, continue PT OT, GI soft diet, continue to monitor fevers continue antibiotic therapy, hopefully can be discharged tomorrow Attestations Medical Necessity Statement*: Patient requires hospitalization for perforated sigmoid viscus, with peritonitis, acute renal failure, septic shock, improving, now with generalized weakness Procedures Arterial Line Size (Gauge): 20 Coding Level of Care Code Acute Hat 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
[2020-11-30] MEDS: ondansetron 2 mg/ML SDV 2 mL 4 MG IVP (20:58)
[2020-12-01] VITALS (8 sets, daily range): BP systolic 108–128; BP diastolic 62–82; PULSE 83–93; RESP 16–22; TEMP 36.4–37.2; O2SAT 91–97
[2020-12-01] MEDS: metroNIDAZOLE IV 500 MG/100 ML PREMIX 100 MG IV ×2 (00:32→09:00)
[2020-12-01] MEDS: heparin 5,000 unit/mL INJ 1 mL 5000 UNIT SUBCUT (00:32)
[2020-12-01 02:28] LABS: Basophils # 0.1 10^3/uL (0.0-0.1); Basophils % 0.4 %; Eosinophils # 0.1 10^3/uL (0.0-0.8); Eosinophils % 0.9 %; Hematocrit 29.1 % (37.0-47.0); Hemoglobin 9.1 g/dL (11.5-15.3); Lymphocytes # 1.7 10^3/uL (0.8-4.8); Lymphocytes % 14.7 %; Mean Corpuscular HGB Conc 31.3 g/dL (30.0-36.0); Mean Corpuscular Hemoglobin 29.7 pg (28.0-34.0); Mean Corpuscular Volume 95.1 fL (81-99); Mean Platelet Volume 11.1 fL (7.4-10.4); Monocytes # 1.1 10^3/uL (0.2-0.9); Monocytes % 8.9 %; Neutrophils % 72.7 %; Nucleated Red Blood Cells % 0 %; Platelet Count 347 10^3/cmm (130-400); Red Blood Count 3.06 10^6/uL (4.1-5.3); Red Cell Distribution Width 16.8 % (12.1-15.1); White Blood Count 11.9 10^3/uL (4.0-10.0)
[2020-12-01] MEDS: ipratropium-albuterol 3 mL Neb INHALATION ×2 (02:28→10:12)
[2020-12-01 03:07] LABS: Alanine Aminotransferase < 5 U/L (0-33); Albumin Level 2.5 g/dL (3.5-5.2); Alkaline Phosphatase 60 IU/L (35-105); Anion Gap 12.8 (5-19); Aspartate Amino Transferase 16 U/L (0-32); Blood Urea Nitrogen 7 mg/dL (8-23); C Reactive Protein 83.1 mg/L (0.0-4.9); Calcium 8.1 mg/dL (8.5-10.5); Carbon Dioxide 26 mmol/L (22-29); Chloride 103 mmol/L (98-107); Creatinine Clr Calc Pharmacy 55.8288; Globulin 3.4 g/dL (1.3-4.6); Glucose 101 mg/dL (65-115); Magnesium 1.6 mg/dL (1.7-2.3); Osmolality Calculated 284 mOsm/kg (285-295); Phosphorus 2.8 mg/dL (2.5-4.5); Potassium 3.8 mmol/L (3.5-5.1); Sodium 138 mmol/L (136-145); Total Bilirubin 0.3 mg/dL (0.15-1.2); Total Protein 5.9 g/dL (6.6-8.7)
[2020-12-01 03:08] LABS: NT Pro B Type Natriuretic Pept 1847 pg/mL (0-450)
--- NOTE | 2020-12-01 08:27 | P.PN_ITS ---
Subjective Subjective: Interval history: The patient feels like she is getting closer to being able to go home. She lives with her mother who is in her 90s, but she has a daughter who lives 10 minutes away. She feels like she will have enough help and is comfortable with her stoma. Vitals/I&O/Wt Last Vital Signs Temp 99.0 F 12/01/20 04:00 Pulse 93 12/01/20 06:00 Resp 20 H 12/01/20 04:00 BP 108/62 12/01/20 04:00 Pulse Ox 92 12/01/20 04:00 11/30/20 12/01/20 12/01/20 22:59 06:59 14:59 Intake Total 1100 / 1920 480 / 1920 Output Total 450 / 1150 400 / 1150 Balance 650 / 770 80 / 770 Physical Exam Narrative: EXAM NARRATIVE: Midline incision has minimal erythema remaining. The stoma may be partially retracted but continues to function well. Urinary Catheter Management^: Cantu: Cath Placed During This Visit: yes, but has since been removed by the nurse Reason for Continuing Indwelling Catheter: Other Urinary Catheter Date of Insertion: 11/21/20 Urinary Catheter Time of Insertion: 07:51 Date Urinary Catheter Removed: 11/28/20 Time Urinary Catheter Discontinued: 09:30 Data : 12/01/20 02:15 12/01/20 02:15 A&P Assessment and plan (1) Fecal peritonitis: Status post Lyubov procedure on 11/21/2024 perforated sigmoid colon, likely the result of a stercoral ulcer. Status: Acute (2) Partial small bowel obstruction: Status post adhesiolysis on 11/21/2020. 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 Status: Acute Attestations Medical Necessity Statement*: See admitting service's notation. Procedures Arterial Line Size (Gauge): 20 Coding Level of Care Code Acute Desizing Machine Back Tender for Eli Yo Diagnoses Fecal peritonitis K65.8 Partial small bowel obstruction K56.600
[2020-12-01] MEDS: famotidine 20 mg Tablet PO (08:59)
[2020-12-01] MEDS: atorvastatin 40 mg Tablet PO (08:59)
[2020-12-01] MEDS: aspirin 81 mg EC Tablet PO (08:59)
[2020-12-01] MEDS: docusate sodium 100 mg Capsule PO (08:59)
[2020-12-01] MEDS: carvedilol 3.125 mg Tablet PO (09:00)
[2020-12-01] MEDS: HYDROcodone-acetaminophen 5-325 mg Tablet PO (09:05)
--- NOTE | 2020-12-01 10:40 | PC.NURSE ---
Central line to left chest was leaking shortly after schedule metronidazole was started. This nurse let Dr. Black know, verbal orders were received to discontinued due to pt being discharged today. Central line discontinued per per protocol, pt tolerated well.
--- NOTE | 2020-12-01 11:04 | P.DS_ITS ---
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 Patient was admitted to [facility] for abdominal pain secondary to partial small bowel obstruction secondary to surgical adhesion, and or ileus. Patient was admitted to general medical floors, general surgery was consulted, recommended n.p.o., IV fluids, NG tube, clinical monitoring. Patient also had enteritis on admission. Patient clinically improved, NG tube was removed, tolerating a GI soft diet well. The plan was to discharge the patient, however she had sudden worsening of abdominal pain the night of discharge, her bowel movements stopped, and and eventually her abdominal pain worsened and her abdom en became rigid. CT scan of the abdomen revealed abdominal perforation with evidence of feculent peritonitis, patient had an exploratory laparotomy by Dr. Villagran, with lysis of adhesion, Lyubov procedure for perforated sigmoid colon with fecal peritonitis. Patient was moved into the intensive care unit, was in septic shock and sepsis from the fecal peritonitis, acute renal failure, she was placed on broad-spectrum antibiotic therapy, multiple pressors, and clinically monitored. Patient self extubated herself after surgery, clinically did well respiratory cohen, remains on 2 L, eventually weaned to room air. Patient's pressors were weaned, received intermittent as needed boluses of LR, her renal function improved, blood markers improved, inflammatory markers improved, remained afebrile. Patient was moved to general medical floors, where she was clinically monitored on broad-spectrum antibiotic therapy, she began to have colostomy output, ambulating without significant shortness of breath, abdominal pain improving. Patient will be discharged on 2 weeks of antibiotic therapy Cipro and Flagyl, with close follow-up with Dr. Villagran in 1 week, patient was advised if she did have recurrent fevers or worsening abdominal pain come back to emergency room. Patient was was found to have an EF of 30 to 35%, moderate to severe global hypokinesia, on echocardiogram, she was on aspirin, statin, Coreg, she was diuresed for fluid overload secondary to CHF, cardiology was consulted, likely nonischemic cardiomyopathy, repeat echocardiogram showed that her EF improved to 45 to 50%. We will discharge her on aspirin, statin, Coreg, with close follow- up with cardiology as outpatient. Patient was weaned onto room air just before discharge Physical Exam Urinary Catheter Management^: Cantu: Cath Placed During This Visit: yes, but has since been removed by the nurse Reason for Continuing Indwelling Catheter: Other Urinary Catheter Date of Insertion: 11/21/20 Urinary Catheter Time of Insertion: 07:51 Date Urinary Catheter Removed: 11/28/20 Time Urinary Catheter Discontinued: 09:30 Discharge Data Data Completed and Pending: Completed Studies During Hospitalization Category Date Time Status CT abdomen pelvis w con* [id number] Stat Cat Scan 11/21/20 07:[address] abdomen pelvis w con* [id number] Urge nt Cat Scan 11/15/20 17:[address] angio chest PE protcl [id number] Urge nt Cat Scan 11/15/20 22:26 Completed CXRP [XR chest 1V portable [id number]] R outine Exams 11/21/20 14:23 Completed XR KUB portable 7 [id number] Stat Exams 11/23/20 15:06 Completed XR chest 1V kisha ble [id number] Routine Exams 11/25/20 07:00 Completed XR chest 1V kisha ble [id number] Routine Exams 11/26/20 07:00 Completed XR chest 1V kisha ble [id number] Routine Exams 11/27/20 07:00 Completed XR chest 1V kisha ble [id number] Routine Exams 11/19/20 07:00 Completed XR chest 1V kisha ble [id number] Routine Exams 11/22/20 07:00 Completed XR chest 1V kisha ble [id number] Routine Exams 11/23/20 07:00 Completed XR chest 1V kisha ble 55548 Stat Exams 11/15/20 22:09 Completed XR chest 1V kisha ble [id number] Stat Exams 11/18/20 15:57 Completed XR chest 1V kisha ble 13917 Stat Exams 11/21/20 06:56 Completed XR knee RT 1-2V 7 3560 Routine Exams 11/27/20 07:59 Completed Pathology: Surgic al [PTH] Routine Pth 11/21/20 13:23 Completed CV echo complete* [id number] Routine Ultrasound 11/19/20 10:19 Completed CV echo limited 9 3308 Routine Ultrasound 11/27/20 14:17 [place] [id number] Routin e Ultrasound 11/25/20 11:46 Completed US renal BI* [id number] Routine Ultrasound 11/22/20 07:45 Completed Pending at discharge Category Date Time Status Sputum Culture an d Gram Stain Stat Lab 11/21/20 14:50 Uncollected Labs from last 24 hours 12/01/20 12/01/20 12/01/20 02:15 02:15 02:15 WBC 11.9 H RBC 3.06 L Hgb 9.1 L Hct 29.1 L MCV 95.1 MCH 29.7 MCHC 31.3 RDW 16.8 H Plt Count 347 MPV 11.1 H Neut % (Auto) 72.7 Lymph % (Auto) 14.7 [place] % (Auto) 8.9 Eos % (Auto) 0.9 Baso % (Auto) 0.4 Neut # (Auto) 8.60 H Lymph # (Auto) 1.7 [place] # (Auto) 1.1 H Eos # (Auto) 0.1 Baso # (Auto) 0.1 Nucleated RBC % (a uto) 0 Nucleated RBCs # 0.0 Sodium 138 Potassium 3.8 Chloride 103 Carbon Dioxide 26 Anion Gap 12.8 BUN 7 L Creatinine 0.9 GFR Calculation Not Reportable Glucose 101 Calculated Osmolal ity 284 L Calcium 8.1 L Phosphorus 2.8 Magnesium 1.6 L Total Bilirubin 0.3 AST 16 ALT < 5 Alkaline Phosphata se 60 C-Reactive Protein 83.1 H NT-Pro-B Natriuret Pep 1847 H Total Protein 5.9 L Albumin 2.5 L Globulin 3.4 Vitals: Last Vital Signs Temp 97.5 F L 12/01/20 08:00 Pulse 86 12/01/20 10:12 Resp 18 12/01/20 10:12 BP 128/82 12/01/20 08:00 Pulse Ox 94 12/01/20 10:12 Discharge Plan Discharge Patient Disposition: Home Condition: Stable Prescriptions: New atorvastatin 40 mg Tablet 40 mg PO DAILY 30 Days Qty: 30 RF: 0 hydrocodone-acetaminophen 5-325 mg Tablet 1 tab PO Q4H PRN (Reason: Moderate To Severe Pain) 7 Days Qty: 42 RF: 0 carvedilol 3.125 mg Tablet 3.125 mg PO BID 30 Days Qty: 60 RF: 0 DOK 100 mg Capsule 100 mg PO BID 30 Days Qty: 60 RF: 0 Cipro 500 mg tablet 500 mg PO Q12H 14 Days Qty: 28 RF: 0 Flagyl 500 mg tablet 500 mg PO Q8H 14 Days Qty: 42 RF: 0 Continued aspirin [Adult Aspirin Regimen] 81 mg tablet,delayed release (DR/EC) 81 mg PO DAILY@1000 RF: 0 omega-3 fatty acids [Fish Oil Concentrate] 1,000 mg capsule 1,000 mg PO DAILY@1000 RF: 0 multivitamin Tablet 1 tab PO DAILY@1000 RF: 0 albuterol sulfate [Ventolin HFA] 90 mcg/actuation HFA aerosol inhaler 2 puff INHALATION Q6H PRN (Reason: shortness of breath or wheezing) Qty: 8.5 RF: 2 cetirizine [Zyrtec] 10 mg tablet 10 mg PO DAILY PRN (Reason: allergy symptoms) Qty: 30 RF: 2 alendronate 70 mg tablet 70 mg PO Q7D Qty: 4 RF: 5 lorazepam [Ativan] 0.5 mg tablet 0.5 mg PO BID PRN (Reason: anxiety) Qty: 60 RF: 2 celecoxib 200 mg capsule 200 mg PO BID@ RF: 0 cyclobenzaprine 10 mg tablet 10 mg PO BEDTIME@2199 RF: 0 Protonix 40 mg tablet,delayed release (DR/EC) 40 mg PO BID@999,2199 RF: 0 Colace 100 mg capsule 100 mg PO BID@ RF: 0 hydrochlorothiazide 25 mg tablet 25 mg PO DAILY@1000 RF: 0 Flonase Allergy Relief 50 mcg/actuation spray,suspension 2 spray INTRANASAL DAILY@1000 RF: 0 Lunesta 3 mg tablet 3 mg PO BEDTIME@2199 RF: 0 venlafaxine 150 mg tablet extended release 24hr 150 mg PO DAILY@1000 RF: 0 levothyroxine 25 mcg capsule 25 mcg PO DAILY@1000 RF: 0 Multi For Her 50 Plus 400-80 mcg Capsule 1 cap PO DAILY@1000 RF: 0 Probiotic 1 tab PO DAILY@1000 RF: 0 Discontinued metoprolol succinate 50 mg tablet extended release 24 hr 50 mg PO DAILY@1000 RF: 0 lisinopril 30 mg tablet 30 mg PO DAILY@1000 RF: 0 Discharge Orders: Discharge Order (Routine); Ordered 11/18/20 Ordered By: Shawn Black Other Ambulatory Orders: Thyroid Stimulating Hormone (Routine) Timeframe: 6 Weeks Facility: [facility] - Location: Lab - Main Lab Ordered By: Shawn Black Referrals: Onel Villagran MD [Physician] - 12/12/20 2:30 pm Bianka Simons MD [Physician] - 01/01/21 2:45 pm Shanti Simmons MD [Primary Care Provider] - 12/04/20 8:20 am () Discharge Diet: As Directed and Cardiac Discharge Activity: Resume usual activity Patient Instructions: Ciprofloxacin (By mouth), Hydrocodone/Acetaminophen (By mouth), Metronidazole (By mouth), Atorvastatin (By mouth), Carvedilol (By mouth), Colostomy Care (DC), Bowel Obstruction (DC), Perforated Bowel (GEN) Activity Restrictions/Additional Instructions: -Continue oral hydration daily -Continue oral antibiotics Cipro and Flagyl for 2 weeks -Monitor for fevers, worsening abdominal pain if so come back to the emergency room -Colostomy care -Follow-up with Dr. Villagran in 2 weeks -Follow-up with cardiology in 2 to 4 weeks -Continue to ambulate Discharge Attestations Time Spent in Discharge Care*: greater than 30 min Quality Metrics Clinical Quality Measures During this hospital stay, did patient experience: None Coding Level of Care Code Acute Surface Hydrologist for g Fwd Diagnoses Fecal peritonitis K65.8 Partial small bowel obstruction K56.600
[2020-12-01] MEDS: levothyroxine 25 mcg Tablet PO (11:32)
[2020-12-01 11:43] LABS: Thyroid Stimulating Hormone 11.65 uIU/mL (0.27-4.20)
--- NOTE | 2020-12-01 12:51 | PC.CHAP ---
Pastoral Care Encounter/Spiritual Assessment Type of Contact [] Declined toll relief operator visit [] Patient/Family/Request visit [] Outpatient visit [xx] Follow-up visit [] Physician referral [] Code/Alert [xx] Routine visit [] Staff referral [] Actively dying [] Patient sleeping [] Family support [] [] Out of room [] Palliative care [] [] Receiving care in room [] Pre-surgical visit [] Trauma [xx] Long length of stay [] ICU visit [] Other: Relational/Emotional Strength [xx] Patient feels connected with others/family/visitors/staff [] Distress [] Loneliness/isolation [] Abandonment Spirituality of Patient [xx] Person of Sanjuanita [] Attends Nondenominational of their Sanjuanita [xx] Believes in Prayer [xx] Reads Bible or Samaritan materials [] There are Spiritual issues to be addressed Cloth Washer Operator Interventions [xx] Prayer [xx] Active listening [xx] Non-anxious presence [] Spiritual/emotional support [] Crisis/trauma care [] Spiritual counseling [] Bereavement support [] Provided bereavement packet [] Provided Bible/devotional materials [] Provided toy/stuffed animal, coloring book to patient or family member [] Provided Communion [] Anointing/[place] [] Salvation [xx] Completed spiritual assessment [] Other: Impact on Illness or Injury [] Angry [] Fearful [] Anxious [] Often cries [] Exhaustion [] Unable to work [] Unable to attend scientologist [] Unable to walk/stand [] Unable to read [] Unable to drive [] Unable to eat/drink [] Unable to sleep [] Unable to be with family [] Patient intubated [] Other: Summary Patient joyous at being discharged today after 15 days in hospital. She is most concerned about her 93 year-old mother whom she has not seen in several weeks. Cloth Washer Operator prayed accordingly. Time spent with patient 15 minutes
== END 2020-12-01 13:19 | disposition home or self-care (01) | DRG 853 ==
LOC: ER 11-16 01:14 → MEDSURG 11-16 01:34 → ICU 11-21 10:59 → MEDSURG 11-27 16:18
PROVIDERS: Internal Medicine Nephrology; Nurse Practitioner Family; Surgery; Admitting Provider Internal Medicine; Emergency Provider Emergency Medicine; PCP Family Medicine; Visit Provider Family Medicine
PROC: 0D1N0Z4 Bypass Sigmoid Colon to Cutaneous, Open Approach (ICD-10-PCS; CPT 49000; principal; 2020-11-21 11:30)
PROC: 0D1N0Z4 Bypass Sigmoid Colon to Cutaneous, Open Approach (ICD-10-PCS; CPT 44140; 2020-11-21 11:30)
DX: A41.9 Sepsis, unspecified organism (principal); R65.21 Severe sepsis with septic shock; I50.21 Acute systolic (congestive) heart failure; I21.A1 Myocardial infarction type 2; K63.1 Perforation of intestine (nontraumatic); K65.1 Peritoneal abscess; K65.8 Other peritonitis; E87.2 Acidosis; K56.51 Intestinal adhesions [bands], with partial obstruction; E87.4 Mixed disorder of acid-base balance; N17.9 Acute kidney failure, unspecified; I42.8 Other cardiomyopathies; K52.9 Noninfective gastroenteritis and colitis, unspecified; K59.00 Constipation, unspecified; F41.8 Other specified anxiety disorders; E78.5 Hyperlipidemia, unspecified; K21.9 Gastro-esophageal reflux disease without esophagitis; Z86.010 Personal history of colon polyps; I11.0 Hypertensive heart disease with heart failure; I44.7 Left bundle-branch block, unspecified; E03.9 Hypothyroidism, unspecified; Z87.891 Personal history of nicotine dependence; R09.02 Hypoxemia; K44.9 Diaphragmatic hernia without obstruction or gangrene; K43.2 Incisional hernia without obstruction or gangrene; I95.9 Hypotension, unspecified; B96.89 Other specified bacterial agents as the cause of diseases classified elsewhere; I25.41 Coronary artery aneurysm; J44.9 Chronic obstructive pulmonary disease, unspecified; Z79.51 Long term (current) use of inhaled steroids; Z79.82 Long term (current) use of aspirin; N95.0 Postmenopausal bleeding
CPT/HCPCS: 12345; 36415; 36416; 36556; 36592; 36600; 51702; 71045; 71275; 73560; 74018; 74177; 76770; 80048; 80051; 80053; 80202; 81001; 82306; 82330; 82436; 82550; 82570; 82652; 82803; 82805; 82962; 83605; 83735; 83880; 83935; 84100; 84133; 84145; 84300; 84443; 84484; 85007; 85025; 85378; 85610; 85999; 86140; 87070; 87075; 87077; 87086; 87186; 87205; 87426; 87635; 88309; 93005; 93306; 93308; 93970; 94002; 94640; 94799; 96372; 97110; 97116; 97162; 97166; 97530; 97535; 99283; J0171; J0330; J0743; J1170; J1250; J1644; J1940; J2020; J2060; J2250; J2270; J2370; J2405; J2543; J2704; J2765; J3010; J3370; J3475; J3480; J3490; J3535; J7030; J7040; J7050; J7614; J7799; P9041; P9047; Q3014; Q9967; S0030

== ENCOUNTER → 2020-12-07 14:31 | Outpatient (BNVA) | payer MEDICARE, MEDICAID, SELFPAY | PROVIDERS: PCP Family Medicine; Visit Provider Family Medicine | DX: R06.02 Shortness of breath (principal); I10 Essential (primary) hypertension; Z09 Encounter for follow-up examination after completed treatment for conditions other than malignant neoplasm; K56.609 Unspecified intestinal obstruction, unspecified as to partial versus complete obstruction | CPT/HCPCS: 80053 ==

== ENCOUNTER → 2021-01-22 13:43 | Outpatient (BNVA) | payer OTHER, MEDICAID, SELFPAY | PROVIDERS: PCP Family Medicine; Visit Provider Family Medicine | DX: R10.9 Unspecified abdominal pain (principal) | CPT/HCPCS: 81000; 87086 ==

== ENCOUNTER → 2021-04-11 15:52 | Outpatient (BNVA) | payer OTHER, MEDICAID, SELFPAY | PROVIDERS: PCP Family Medicine; Visit Provider Family Medicine | DX: E03.9 Hypothyroidism, unspecified (principal) | CPT/HCPCS: 84443 ==

== ENCOUNTER → 2021-05-16 16:01 | Outpatient (BNVA) | payer OTHER, MEDICAID, SELFPAY | PROVIDERS: PCP Family Medicine; Visit Provider Family Medicine | DX: F41.9 Anxiety disorder, unspecified (principal); R52 Pain, unspecified; I10 Essential (primary) hypertension; E03.9 Hypothyroidism, unspecified; E78.5 Hyperlipidemia, unspecified; F32.9 Major depressive disorder, single episode, unspecified | CPT/HCPCS: 80053; 80061; 84443; 85025 ==

== ENCOUNTER → 2021-07-09 15:07 | Outpatient (BNVA) | payer OTHER, MEDICAID, SELFPAY | PROVIDERS: PCP Family Medicine; Visit Provider Nurse Practitioner | DX: I10 Essential (primary) hypertension (principal); E04.9 Nontoxic goiter, unspecified | CPT/HCPCS: 81000 ==

== ENCOUNTER 2021-09-18 15:53 | Emergency (ER) | payer MEDICARE, MEDICAID, SELFPAY ==
[2021-09-18 16:26] VITALS: BP 172/76; PULSE 93; RESP 18; TEMP 36.8; O2SAT 97; BMI 33.3
--- NOTE | 2021-09-18 17:20 | W.ED.ABDPA2 ---
HPI - Abdominal Pain General: Chief Complaint: Abdominal Pain Stated Complaint: ABD EXTENDED/COLOSTOMY BAG;PCP SD NEEDS DRAINED Time Seen by Provider: 09/18/21 17:20 PFSH ED PFSH: Medical History Anxiety and depression Constipation COPD (chronic obstructive pulmonary disease) Coronary artery fistula Diverticulosis Dyslipidemia Elevated troponin Endometriosis GERD (gastroesophageal reflux disease) Hiatal hernia History of colon polyps Hypertension Insomnia LBBB (left bundle branch block) Left ventricular dysfunction Nonischemic cardiomyopathy PTSD (post-traumatic stress disorder) Subclinical hypothyroidism Surgical History Colostomy status History of ear surgery (~2017) Right -- removal of fluid from ear drum, removal of ear drum, replaced with artifical ear drum History of incisional hernia repair X 3 01/24/2020: Laparoscopic History of left oophorectomy partial History of shoulder surgery Right History of tonsillectomy Status post colonoscopy with polypectomy 12/2019 --2 adenomatous polyps, diverticulosis Family History Grandmother Colon cancer Maternal-- dx age 69 Breast cancer Paternal-- dx age unknown Mother Heart disease Denies family history of Ovarian cancer Diabetes Hypercholesteremia Bleeding disorder Hypertension Uterine cancer Thyroid disease Stroke Social History Quit status (tobacco): has quit using tobacco Year quit tobacco: Around 1999 Former quit date comment: [id number] history previously Second hand smoke exposure: No Smoking risk assessment/counseling performed?: No Alcohol intake: current Alcohol intake frequency: few times a month Desire information about alcohol rehabilitation?: No Counseling given: No Desire information about substance/drug rehabilitation?: No Counseling given: No Adopted: No Caregiver/support person: No Lives independently: Yes Household members: family Housing: House Marital status: Number of children: 2 service: No Current occupational status: retired Current occupational exposures/hazards: No History of recent travel: No Current gender identity: Female Additional social history: Drug use: denies Course Vital Signs: Vital signs: Vital Signs Temperature 98.3 F 09/18/21 16:26 Pulse Rate 93 09/18/21 16:26 Respiratory Rate 18 09/18/21 16:26 Blood Pressure 172/76 09/18/21 16:26 Pulse Oximetry 97 09/18/21 16:26 Discharge Plan Discharge Prescriptions: No Action albuterol sulfate 2.5 mg /3 mL (0.083 %) solution for nebulization 2.5 mg inhalation Q8H PRN (Reason: shortness of breath or wheezing) Qty: 180 RF: 1 (DME) nebulizer tubing See Rx Instructions .Route .MEDSUPPLY Qty: 20 RF: 0 acetaminophen-codeine 300-30 mg tablet 1 tab PO BID Qty: 30 RF: 1 albuterol sulfate [Ventolin HFA] 90 mcg/actuation HFA aerosol inhaler 2 puff INHALATION Q6H PRN (Reason: shortness of breath or wheezing) Qty: 8.5 RF: 2 cetirizine [Zyrtec] 10 mg tablet 10 mg PO DAILY PRN (Reason: allergy symptoms) Qty: 30 RF: 2 Flonase Allergy Relief 50 mcg/actuation spray,suspension 2 spray INTRANASAL DAILY@1000 Qty: 15.8 RF: 0 multivitamin Tablet 1 tab PO DAILY@1000 Qty: 30 RF: 0 omega-3 fatty acids [Fish Oil Concentrate] 1,000 mg capsule 1,000 mg PO DAILY@1000 Qty: 30 RF: 0 diclofenac sodium [Voltaren] 1 % gel 2 g topical QID Qty: 100 RF: 0 celecoxib 200 mg capsule See Rx Instructions .ROUTE .COMPLEX Qty: 60 RF: 2 alendronate 70 mg tablet 70 mg PO .weekly Qty: 4 RF: 4 levothyroxine 25 mcg tablet See Rx Instructions .ROUTE .COMPLEX Qty: 30 RF: 5 lorazepam 0.5 mg tablet 0.5 mg PO BID Qty: 60 RF: 2 nystatin 100,000 unit/gram powder 1 applic topical BID PRN (Reason: rash) Qty: 60 RF: 1 (DME) colostomy supplies See Rx Instructions .Route .MEDSUPPLY Qty: 1 RF: 0 pantoprazole 40 mg tablet,delayed release (DR/EC) See Rx Instructions .ROUTE .COMPLEX Qty: 180 RF: 1 carvedilol 6.25 mg tablet 6.25 mg PO BID Qty: 180 RF: 3 duloxetine 30 mg capsule,delayed release(DR/EC) See Rx Instructions .ROUTE .COMPLEX Qty: 30 RF: 2 hydrochlorothiazide 25 mg tablet See Rx Instructions .ROUTE .COMPLEX Qty: 30 RF: 5 cyclobenzaprine 10 mg tablet See Rx Instructions .ROUTE .COMPLEX Qty: 30 RF: 5 valsartan [Diovan] 40 mg tablet 40 mg PO DAILY Qty: 30 RF: 2 Colace 100 mg capsule 100 mg PO BID@10,22 RF: 0 Coding Level of Care Code ED Supervisor [employer] for [employer]
[2021-09-18 17:30] VITALS: BP 173/114; PULSE 72; RESP 18; TEMP 36.8; O2SAT 98
--- NOTE | 2021-09-18 17:40 | W.ED.GENADLT ---
HPI - General Adult General: Chief complaint: Abdominal Pain Stated complaint: ABD EXTENDED/COLOSTOMY BAG;PCP SD NEEDS DRAINED Time Seen by Provider: 09/18/21 17:20 History of Present Illness: HPI narrative: Patient is a 76-year-old female with history of COPD, coronary artery fistula, colostomy secondary to intra-abdominal sepsis from 10/2020 presented to emergency room for 3-month of worsening abdominal distention at the request of Dr. Simmons. Today, patient says that she has has had dull aches when she coughs. Denies any abdominal pain, nausea/vomiting, decreased p.o. intake of platelets, biliary drainage in the ostomy, increased ostomy output any ostomy leakage, fistula, melena or hematochezia. No other focal complaints of fever/chills, urinary symptoms, chest pain shortness of cough or runny nose. Onset: 3 months ago Duration:3 months Location:home Severity: mild Review of Systems Narrative: Constitutional: No fever, no chills. HEENT: No vision changes CV: No chest pain, no palpitations PULM: no cough, no dyspnea. GI: +abdominal distension, no abdominal pain, no N/V/D. : No dysuria MSKEL: No muscle pain SKIN: No new rashes, no lesions. NEURO: No headache, no focal weakness. HEME: No visible bruises PSYCH: Normal mood PFSH ED PFSH: Medical History Anxiety and depression Constipation COPD (chronic obstructive pulmonary disease) Coronary artery fistula Diverticulosis Dyslipidemia Elevated troponin Endometriosis GERD (gastroesophageal reflux disease) Hiatal hernia History of colon polyps Hypertension Insomnia LBBB (left bundle branch block) Left ventricular dysfunction Nonischemic cardiomyopathy PTSD (post-traumatic stress disorder) Subclinical hypothyroidism Surgical History Colostomy status History of ear surgery (~2017) Right -- removal of fluid from ear drum, removal of ear drum, replaced with artifical ear drum History of incisional hernia repair X 3 01/24/2020: Laparoscopic History of left oophorectomy partial History of shoulder surgery Right History of tonsillectomy Status post colonoscopy with polypectomy 12/2019 --2 adenomatous polyps, diverticulosis Family History Grandmother Colon cancer Maternal-- dx age 69 Breast cancer Paternal-- dx age unknown Mother Heart disease Denies family history of Ovarian cancer Diabetes Hypercholesteremia Bleeding disorder Hypertension Uterine cancer Thyroid disease Stroke Social History Quit status (tobacco): has quit using tobacco Year quit tobacco: Around 1999 Former quit date comment: [id number] history previously Second hand smoke exposure: No Smoking risk assessment/counseling performed?: No Alcohol intake: current Alcohol intake frequency: few times a month Desire information about alcohol rehabilitation?: No Counseling given: No Desire information about substance/drug rehabilitation?: No Counseling given: No Adopted: No Caregiver/support person: No Lives independently: Yes Household members: family Housing: House Marital status: Number of children: 2 service: No Current occupational status: retired Current occupational exposures/hazards: No History of recent travel: No Current gender identity: Female Additional social history: Drug use: denies Physical Exam Narrative: EXAM NARRATIVE: Head: Atraumatic Eyes: PERRL, conjunctiva without injection ENT: Mucous membrane moist NECK: Supple, ROM intact LUNGS: LCTAB, no crackles/rhonchi CV: RRR ABDOMEN: Soft, +abdominal distention, no focal tenderness palpation, ostomy site dry clean intact, no CVA tenderness, no McBurney's point tenderness, no roving sign EXTREMITY: Normal ROM SKIN: No rash or erythema NEURO: Awake and alert, no focal motor deficits PSYCH: Normal mood and affect Course Vital Signs: Vital signs: Vital Signs Temperature 98.3 F 09/18/21 17:30 Pulse Rate 72 09/18/21 17:30 Respiratory Rate 18 09/18/21 17:30 Blood Pressure 173/114 09/18/21 17:30 Pulse Oximetry 98 09/18/21 17:30 MDM - General Adult MDM Narrative: Medical decision making narrative: 76-year-old female with history of recent colectomy presented to the emergency room with abdominal distention for the last 3-month. On exam, patient is hemodynamically stable with distended abdomen. Patient appears to have positive fluid wave. At the present time, patient declines paracentesis. Patient is mother is currently a patient in the emergency room who was getting transfer to [facility] for management of brain bleed. Patient declined therapeutic intervention at this time and likes to go to [facility] for further management of her symptoms. Basic lab work-up including WBC within normal limit. Patient does not appear to have any signs of spontaneous bacterial peritonitis, or hepatic encephalopathy. I have discussed case with Dr. Shanti Simmons who it agrees with outpatient follow-up. Disposition: Discharge. Patient counseled regarding diagnostic impression, treatment plan. Patient given ED strict return precautions to return for continuation, worsening, or development of new symptoms. Instructed to f/u w/ PCP regarding symptoms today. Patient verbalized understanding. Lab Data: Labs: Lab Results 09/18/21 09/18/21 09/18/21 17:32 17:35 17:35 WBC 9.3 10^3/uL 10^3/ uL (4.0-10.0) RBC 4.39 10^6/uL 10^6 /uL (4.1-5.3) Hgb 12.8 g/dL g/dL (11.5-15.3) Hct 40.7 % % (37.0-47.0) MCV 92.7 fl fl (81-99) MCH 29.2 pg pg (28.0-34.0) MCHC 31.4 g/dL g/dL (30.0-36.0) RDW 14.4 % % (12.1-15.1) Plt Count 290 10^3/cmm 10^3 /cmm (130-400) MPV 10.6 fL H fL (7.4-10.4) Neut % (Auto) 58.2 % % Lymph % (Auto) 29.9 % % Grayson % (Auto) 6.2 % % Eos % (Auto) 4.3 % % Baso % (Auto) 0.8 % % Neut # (Auto) 5.38 10^3/uL 10^3 /uL (1.8-7.7) Lymph # (Auto) 2.8 10^3/uL 10^3/ uL (0.8-4.8) Grayson # (Auto) 0.6 10^3/uL 10^3/ uL (0.2-0.9) Eos # (Auto) 0.4 10^3/uL 10^3/ uL (0.0-0.8) Baso # (Auto) 0.1 10^3/uL 10^3/ uL (0.0-0.1) Nucleated RBC % (a uto) 0 % % Nucleated RBCs # 0.0 /100WBC /100W BC Sodium 141 mmol/L mmol/L (136-145) Potassium 3.3 mmol/L L mmol /L (3.5-5.1) Chloride 102 mmol/L mmol/L (98-107) Carbon Dioxide 30 mmol/L H mmol/ L (22-29) Anion Gap 12.3 (5-19) BUN 13 mg/dL mg/dL (8-23) Creatinine 0.8 mg/dL mg/dL (0.5-0.9) GFR Calculation Not Reportable Glucose 104 mg/dL mg/dL (65-115) Calculated Osmolal ity 292 mOsm/kg mOsm/ kg (285-295) Calcium 9.4 mg/dL mg/dL (8.5-10.5) Total Bilirubin 0.2 mg/dL mg/dL (0.15-1.2) AST 27 U/L U/L (0-32) ALT 29 U/L U/L (0-33) Alkaline Phosphata se 105 IU/L IU/L (35-105) Total Protein 7.5 g/dL g/dL (6.6-8.7) Albumin 4.0 g/dL g/dL (3.5-5.2) Globulin 3.5 g/dL g/dL (1.3-4.6) Lipase 51 U/L U/L (13-60) Urine Color Straw (Yellow) Urine Appearance Hazy A (CLEAR) Urine pH 6.5 (5-7) Ur Specific Gravit y 1.010 (1.005-1.030) Urine Protein Neg (Negative) Urine Glucose (UA) Norm (Normal) Urine Ketones Negative (Negative) Urine Blood Trace H (Negative) Urine Nitrate Negative (Negative) Urine Bilirubin Neg (Negative) Urine Urobilinogen Norm mg/dL mg/dL (Negative) Ur Leukocyte Cayla ase Negative (Negative) Urine RBC 0-4 /hpf H /hpf (0-2) Urine WBC 0-4 /hpf H /hpf (0-5) Ur Squamous Epith Cells 15-25 /hpf H /hpf (0-5) Amorphous Sediment Not Reportable Urine Bacteria 1+ /hpf H /hpf (NONE) Discharge Plan Discharge Patient Disposition: Home Clinical Impression: Abdominal distension Condition: Stable Prescriptions: No Action albuterol sulfate 2.5 mg /3 mL (0.083 %) solution for nebulization 2.5 mg inhalation Q8H PRN (Reason: shortness of breath or wheezing) Qty: 180 RF: 1 (DME) nebulizer tubing See Rx Instructions .Route .MEDSUPPLY Qty: 20 RF: 0 acetaminophen-codeine 300-30 mg tablet 1 tab PO BID Qty: 30 RF: 1 albuterol sulfate [Ventolin HFA] 90 mcg/actuation HFA aerosol inhaler 2 puff INHALATION Q6H PRN (Reason: shortness of breath or wheezing) Qty: 8.5 RF: 2 cetirizine [Zyrtec] 10 mg tablet 10 mg PO DAILY PRN (Reason: allergy symptoms) Qty: 30 RF: 2 Flonase Allergy Relief 50 mcg/actuation spray,suspension 2 spray INTRANASAL DAILY@1000 Qty: 15.8 RF: 0 multivitamin Tablet 1 tab PO DAILY@1000 Qty: 30 RF: 0 omega-3 fatty acids [Fish Oil Concentrate] 1,000 mg capsule 1,000 mg PO DAILY@1000 Qty: 30 RF: 0 diclofenac sodium [Voltaren] 1 % gel 2 g topical QID Qty: 100 RF: 0 celecoxib 200 mg capsule See Rx Instructions .ROUTE .COMPLEX Qty: 60 RF: 2 alendronate 70 mg tablet 70 mg PO .weekly Qty: 4 RF: 4 levothyroxine 25 mcg tablet See Rx Instructions .ROUTE .COMPLEX Qty: 30 RF: 5 lorazepam 0.5 mg tablet 0.5 mg PO BID Qty: 60 RF: 2 nystatin 100,000 unit/gram powder 1 applic topical BID PRN (Reason: rash) Qty: 60 RF: 1 (DME) colostomy supplies See Rx Instructions .Route .MEDSUPPLY Qty: 1 RF: 0 pantoprazole 40 mg tablet,delayed release (DR/EC) See Rx Instructions .ROUTE .COMPLEX Qty: 180 RF: 1 carvedilol 6.25 mg tablet 6.25 mg PO BID Qty: 180 RF: 3 duloxetine 30 mg capsule,delayed release(DR/EC) See Rx Instructions .ROUTE .COMPLEX Qty: 30 RF: 2 hydrochlorothiazide 25 mg tablet See Rx Instructions .ROUTE .COMPLEX Qty: 30 RF: 5 cyclobenzaprine 10 mg tablet See Rx Instructions .ROUTE .COMPLEX Qty: 30 RF: 5 valsartan [Diovan] 40 mg tablet 40 mg PO DAILY Qty: 30 RF: 2 Colace 100 mg capsule 100 mg PO BID@, RF: 0 Discharge Orders: Discharge ED (Routine); Ordered 09/18/21 Ordered By: Barbara Pearl Referrals: Shanti Simmons MD [Primary Care Provider] - Discharge Diet: Advance as tolerated Discharge Activity: Resume usual activity Patient Instructions: Ascites (ED) Activity Restrictions/Additional Instructions: Come back to the emergency room have any fever chills, confusion, worsening abdominal distention, abdominal pain, vomiting of blood, diarrhea, or any worsening complaints. 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
[2021-09-18 17:48] LABS: Basophils # 0.1 10^3/uL (0.0-0.1); Basophils % 0.8 %; Eosinophils # 0.4 10^3/uL (0.0-0.8); Eosinophils % 4.3 %; Hematocrit 40.7 % (37.0-47.0); Hemoglobin 12.8 g/dL (11.5-15.3); Lymphocytes # 2.8 10^3/uL (0.8-4.8); Lymphocytes % 29.9 %; Mean Corpuscular HGB Conc 31.4 g/dL (30.0-36.0); Mean Corpuscular Hemoglobin 29.2 pg (28.0-34.0); Mean Corpuscular Volume 92.7 fl (81-99); Mean Platelet Volume 10.6 fL (7.4-10.4); Monocytes # 0.6 10^3/uL (0.2-0.9); Monocytes % 6.2 %; Neutrophils # 5.38 10^3/uL (1.8-7.7); Neutrophils % 58.2 %; Nucleated Red Blood Cells % 0 %; Platelet Count 290 10^3/cmm (130-400); Red Blood Count 4.39 10^6/uL (4.1-5.3); Red Cell Distribution Width 14.4 % (12.1-15.1); White Blood Count 9.3 10^3/uL (4.0-10.0)
[2021-09-18 18:01] LABS: Add Urine Microscopic? YES; Bilirubin Urine Neg (Negative); Blood Urine Trace (Negative); Glucose Urine UA Norm (Normal); Ketones Urine Negative (Negative); Leukocyte Esterase Urine Negative (Negative); Nitrate Urine Negative (Negative); Protein Urine Neg (Negative); Urine Appearance Hazy (CLEAR); Urine Color Straw (Yellow); Urobilinogen Urine Norm (Negative); pH Urine 6.5 (5-7)
[2021-09-18 18:02] LABS: Add Urine Culture? No; Bacteria Urine 1+ /hpf; RBC Urine 0-4 /hpf (0-2); Squamous Epithelial Cell Urine 15-25 /hpf (0-5); WBC Urine 0-4 /hpf (0-5)
[2021-09-18 18:20] LABS: Alanine Aminotransferase 29 U/L (0-33); Alkaline Phosphatase 105 IU/L (35-105); Anion Gap 12.3 (5-19); Aspartate Amino Transferase 27 U/L (0-32); Blood Urea Nitrogen 13 mg/dL (8-23); Calcium 9.4 mg/dL (8.5-10.5); Carbon Dioxide 30 mmol/L (22-29); Chloride 102 mmol/L (98-107); Globulin 3.5 g/dL (1.3-4.6); Glucose 104 mg/dL (65-115); Lipase 51 U/L (13-60); Osmolality Calculated 292 mOsm/kg (285-295); Potassium 3.3 mmol/L (3.5-5.1); Sodium 141 mmol/L (136-145); Total Bilirubin 0.2 mg/dL (0.15-1.2); Total Protein 7.5 g/dL (6.6-8.7)
== END 2021-09-18 18:07 | disposition home or self-care (01) ==
PROVIDERS: Nurse Practitioner Family; Emergency Provider Emergency Medicine; PCP Family Medicine
DX: R14.0 Abdominal distension (gaseous) (principal); Z79.891 Long term (current) use of opiate analgesic; F41.8 Other specified anxiety disorders; J44.9 Chronic obstructive pulmonary disease, unspecified; K21.9 Gastro-esophageal reflux disease without esophagitis; F43.10 Post-traumatic stress disorder, unspecified; I10 Essential (primary) hypertension
CPT/HCPCS: 80053; 81001; 83690; 85025; 99282

== ENCOUNTER 2021-09-27 13:34 | Observation (INO) | payer MEDICARE, MEDICAID, SELFPAY ==
[2021-09-27 13:46] VITALS: BP 159/97; PULSE 69; RESP 16; TEMP 36.4; O2SAT 98
[2021-09-27 13:55] VITALS: BP 159/97; PULSE 72; RESP 16; TEMP 36.4; O2SAT 98
--- NOTE | 2021-09-27 14:23 | XR_ITS ---
WS: [id number] Portable AP upright chest, 09/27/2021 Clinical Data: eval occult pna Comparison: Portable chest, 11/27/2020. Findings: No nodules, masses or effusions are seen. The heart is normal. The pulmonary vascularity is not increased. No pneumonia or pneumothorax is seen. The aortic arch and descending thoracic aorta s how tortuosity. XR/XR chest 1V portable [id number] Impression: Atherosclerosis.
--- NOTE | 2021-09-27 14:25 | CT_ITS ---
WS: [id number] CT ABDOMEN PELVIS TECHNIQUE: Contrast-enhanced CT of the abdomen and pelvis with coronal and sagittal reformatted image s. CLINICAL INFORMATION: abd distension, non ascitics COMPARISON: CT November 21, 2020 DLP: 1553.[address] scans at [facility] use at least one of these dose optimization techniques: automated e xposure control; mA and/or kV adjustment per patient size (includes targeted exams where dose is matc hed to clinical indication); or iterative reconstruction. FINDINGS: Diastases of the rectus abdominis with laxity of the anterior wall. Left ventral abdominal wall herni a with herniated loop of slightly dilated small bowel with air-fluid levels. Herniated omental fat. Mild obstruction of the herniated bowel loop with transition point. Transition to decompressed small bowel distal to the hernia. No free air. Diffuse fatty infiltration of the liver. Incidental liver cysts. Slight atelectasis right lower lobe. Small bilateral adrenal adenomas unchanged. Small esophageal hiatal hernia. Splenic granulomas. Norm al pancreas. Prior cholecystectomy. Normal portal vein and splenic vein. Normal renal parenchymal enh ancement. No hydronephrosis. Normal caliber abdominal aorta. Disc space narrowing worse at L2-3 and L4-5. CT/CT abdomen pelvis w con* [id number] IMPRESSION: 1. Left ventral abdominal wall hernia with an incarcerated loop of small scott l with mild obstructive changes and transition point. A few air-fluid levels. N o free air. Hernia mouth measures 4.4 cm. Recommend surgical consultation. 2. Small bowel is decompressed distal to the hernia. 3. Diastases of the rectus abdominis with anterior abdominal wall laxity. 4. Hepatomegaly diffuse fatty infiltration liver incidental hepatic cysts. 5. No other acute findings. Attempted notification Barbara Pearl MD at 09/27/2021 3:24 PM.
--- NOTE | 2021-09-27 14:35 | ED_ITS ---
HPI - General Adult General: Chief complaint: Abdominal Pain Stated complaint: ABD EXTENDED/COLOSTOMY BAG NEEDS DRAINED P/PCP Time Seen by Provider: 09/27/21 13:57 History of Present Illness: HPI narrative: Patient is a 76-year-old female with history of prior intra-abdominal infection requiring ex lap, colostomy presenting to the emergency room for evaluation of worsening dental swelling for the last 3-month. Patient was seen in the emergency room on 09/18/2021. At that time, patient had a family relative who was also seen in the emergency room with any to be flown out to a tertiary care center. As a result, patient was only medically screened. Patient tells me that she is here for evaluation of the worsening abdominal distention. She is requesting for paracentesis. Patient does not have any prior CTs in the past. Denies any abdominal pain, n ausea/vomiting, diarrhea, melena/hematochezia, or complaints at this time. She has no associated chest pain, shortness breath, palpitation, lightheadedness at this time. Onset: chronic (3 months) Duration: 3 months Location:home Severity:moderate Review of Systems Narrative: Constitutional: No fever, no chills. HEENT: No vision changes CV: No chest pain, no palpitations PULM: no cough, no dyspnea. GI: No abdominal pain, no N/V/D. +abdominal distension : No dysuria MSKEL: No muscle pain SKIN: No new rashes, no lesions. NEURO: No headache, no focal weakness. HEME: No visible bruises PSYCH: Normal mood PFS ED PFSH: Medical History (Updated 09/29/21 @ 00:01 by ) Abdominal distension Anxiety and depression Constipation COPD (chronic obstructive pulmonary disease) Coronary artery fistula Diverticulosis Dyslipidemia Elevated troponin Endometriosis GERD (gastroesophageal reflux disease) Hiatal hernia History of colon polyps Hypertension Incarcerated hernia Insomnia LBBB (left bundle branch block) Left ventricular dysfunction Nonischemic cardiomyopathy PTSD (post-traumatic stress disorder) Subclinical hypothyroidism Surgical History (Updated 09/29/21 @ 00:01 by ) Colostomy status History of ear surgery (~2016) Right -- removal of fluid from ear drum, removal of ear drum, replaced with artifical ear drum History of incisional hernia repair X 3 01/24/2020: Laparoscopic History of left oophorectomy partial History of shoulder surgery Right History of tonsillectomy Status post colonoscopy with polypectomy 12/2019 --2 adenomatous polyps, diverticulosis Family History Grandmother Colon cancer Maternal-- dx age 69 Breast cancer Paternal-- dx age unknown Mother Heart disease Denies family history of Ovarian cancer Diabetes Hypercholesteremia Bleeding disorder Hypertension Uterine cancer Thyroid disease Stroke Social History Quit status (tobacco): has quit using tobacco Year quit tobacco: Around 1999 Former quit date comment: [id number] history previously Second hand smoke exposure: No Smoking risk assessment/counseling performed?: No Alcohol intake: current Alcohol intake frequency: few times a month Desire information about alcohol rehabilitation?: No Counseling given: No Desire information about substance/drug rehabilitation?: No Counseling given: No Adopted: No Caregiver/support person: No Lives independently: Yes Household members: family Housing: House Marital status: Number of children: 2 service: No Current occupational status: retired Current occupational exposures/hazards: No History of recent travel: No Current gender identity: Female Additional social history: Drug use: denies Physical Exam Narrative: EXAM NARRATIVE: Head: Atraumatic Eyes: PERRL, conjunctiva without injection ENT: Mucous membrane moist NECK: Supple, ROM intact LUNGS: LCTAB, no crackles/rhonchi CV: RRR ABDOMEN: Soft, nontender in all quadrants, +abdominal distension, +LLQ colostomy site dry/clean/intact EXTREMITY: Normal ROM SKIN: No rash or erythema NEURO: Awake and alert, no focal motor deficits PSYCH: Normal mood and affect Course Vital Signs: Vital signs: Vital Signs Temperature 98.2 F 09/28/21 12:00 Pulse Rate 72 09/28/21 12:00 Respiratory Rate 16 09/28/21 12:00 Blood Pressure 140/65 09/28/21 12:00 Pulse Oximetry 92 09/28/21 12:00 MDM - General Adult MDM Narrative: Medical decision making narrative: 76-year-old female with a history of prior colectomy, colostomy presented to the emergency room for evaluation of abdominal distention now worsening over the last few months. On exam, patient is hemodynamically stable, afebrile, with no focal tenderness to palpation. Patient is noted to have abdominal distention. Bedside ultrasound did not show any signs of ascitic pockets. Work-up: CBC, CMP, lipase, CT abdomen pelvis CT abdomen pelvis showed small bowel incarceration through the left ventral hernia. Patient has no leukocytosis, is afebrile, not currently vomiting or complaining abdominal pain. Case was discussed with Dr. Niño with recommendation for medical surgical admission and observation. S/p NG tube Disposition: Admission Lab Data: Labs: Lab Results 09/27/21 09/27/21 09/27/21 14:30 14:35 14:35 WBC 8.0 10^3/uL 10^3/ uL (4.0-10.0) RBC 4.08 10^6/uL L 10 ^6/uL (4.1-5.3) Hgb 11.9 g/dL g/dL (11.5-15.3) Hct 37.4 % % (37.0-47.0) MCV 91.7 fl fl (81-99) MCH 29.2 pg pg (28.0-34.0) MCHC 31.8 g/dL g/dL (30.0-36.0) RDW 14.2 % % (12.1-15.1) Plt Count 224 10^3/cmm 10^3 /cmm (130-400) MPV 11.3 fL H fL (7.4-10.4) Neut % (Auto) 53.9 % % Lymph % (Auto) 33.3 % % Wharton % (Auto) 7.0 % % Eos % (Auto) 4.6 % % Baso % (Auto) 0.8 % % Neut # (Auto) 4.30 10^3/uL 10^3 /uL (1.8-7.7) Lymph # (Auto) 2.7 10^3/uL 10^3/ uL (0.8-4.8) Wharton # (Auto) 0.6 10^3/uL 10^3/ uL (0.2-0.9) Eos # (Auto) 0.4 10^3/uL 10^3/ uL (0.0-0.8) Baso # (Auto) 0.1 10^3/uL 10^3/ uL (0.0-0.1) Nucleated RBC % (a uto) 0 % % Nucleated RBCs # 0.0 /100WBC /100W BC Sodium 138 mmol/L mmol/L (136-145) Potassium 4.6 mmol/L mmol/L (3.5-5.1) Chloride 103 mmol/L mmol/L (98-107) Carbon Dioxide 24 mmol/L mmol/L (22-29) Anion Gap 15.6 (5-19) BUN 12 mg/dL mg/dL (8-23) Creatinine 0.8 mg/dL mg/dL (0.5-0.9) GFR Calculation Not Reportable Glucose 91 mg/dL mg/dL (65-115) Calculated Osmolal ity 285 mOsm/kg mOsm/ kg (285-295) Calcium 9.4 mg/dL mg/dL (8.5-10.5) Total Bilirubin 0.3 mg/dL mg/dL (0.15-1.2) AST 26 U/L U/L (0-32) ALT 26 U/L U/L (0-33) Alkaline Phosphata se 83 IU/L IU/L (35-105) Total Protein 6.9 g/dL g/dL (6.6-8.7) Albumin 3.9 g/dL g/dL (3.5-5.2) Globulin 3.0 g/dL g/dL (1.3-4.6) Lipase 50 U/L U/L (13-60) Procalcitonin 0.05 ng/mL ng/mL (0-0.5) Urine Color Urine Appearance Urine pH Ur Specific Gravit y Urine Protein Urine Glucose (UA) Urine Ketones Urine Blood Urine Nitrate Urine Bilirubin Urine Urobilinogen Ur Leukocyte Cayla ase 09/27/21 15:08 WBC RBC Hgb Hct MCV MCH MCHC RDW Plt Count MPV Neut % (Auto) Lymph % (Auto) Wharton % (Auto) Eos % (Auto) Baso % (Auto) Neut # (Auto) Lymph # (Auto) Wharton # (Auto) Eos # (Auto) Baso # (Auto) Nucleated RBC % (a uto) Nucleated RBCs # Sodium Potassium Chloride Carbon Dioxide Anion Gap BUN Creatinine GFR Calculation Glucose Calculated Osmolal ity Calcium Total Bilirubin AST ALT Alkaline Phosphata se Total Protein Albumin Globulin Lipase Procalcitonin Urine Color Colorless (Yellow) Urine Appearance Clear (CLEAR) Urine pH 7 (5-7) Ur Specific Gravit y 1.000 L (1.005-1.030) Urine Protein Neg (Negative) Urine Glucose (UA) Norm (Normal) Urine Ketones Negative (Negative) Urine Blood Neg (Negative) Urine Nitrate Negative (Negative) Urine Bilirubin Neg (Negative) Urine Urobilinogen Norm mg/dL mg/dL (Negative) Ur Leukocyte Cayla ase Negative (Negative) Imaging Data^: Other Imaging: Radiologist's impression: [id number] [place], [place] [id number] Scan ReportSigned Patient: Radha Archer #: [id number]: 5Acct#:[id number]/Sex: 76 / FADM Date: 09/27/21Loc: ERRoom/Bed:Attending Dr: Ordering Provider/Ordering MD: Barbara Pearl MD Date of Service: 09/27/21 Procedure(s): CT abdomen pelvis w con* [id number] Accession Number(s): [id number] Report Number: [id number] WS: [id number] CT ABDOMEN PELVIS TECHNIQUE: Contrast-enhanced CT of the abdomen and pelvis with coronal and sagittal reformatted images. CLINICAL INFORMATION: abd distension, non ascitics COMPARISON: CT November 21, 2020 DLP: 1553.[address] scans at [facility] use at least one of these dose optimization techniques: automated exposure control; mA and/or kV adjustment per patient size (includes targeted exams where dose is matched to clinical indication); or iterative reconstruction. FINDINGS: Diastases of the rectus abdominis with laxity of the anterior wall. Left ventral abdominal wall hernia with herniated loop of slightly dilated small bowel with air-fluid levels. Herniated omental fat. Mild obstruction of the herniated bowel loop with transition point. Transition to decompressed small bowel distal to the hernia. No free air. Diffuse fatty infiltration of the liver. Incidental liver cysts. Slight atelectasis right lower lobe. Small bilateral adrenal adenomas unchanged. Small esophageal hiatal hernia. Splenic granulomas. Normal pancreas. Prior cholecystectomy. Normal portal vein and splenic vein. Normal renal parenchymal enhancement. No hydronephrosis. Normal caliber abdominal aorta. Disc space narrowing worse at L2-3 and L4-5. CT/CT abdomen pelvis w con* [id number] IMPRESSION: 1. Left ventral abdominal wall hernia with an incarcerated loop of small bowel with mild obstructive changes and transition point. A few air-fluid levels. No free air. Hernia mouth measures 4.4 cm. Recommend surgical consultation. 2. Small bowel is decompressed distal to the hernia. 3. Diastases of the rectus abdominis with anterior abdominal wall laxity. 4. Hepatomegaly diffuse fatty infiltration liver incidental hepatic cysts. 5. No other acute findings. Attempted notification Barbara Pearl MD at 09/27/2021 3:24 PM. 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
[2021-09-27 14:50] LABS: Basophils # 0.1 10^3/uL (0.0-0.1); Basophils % 0.8 %; Eosinophils # 0.4 10^3/uL (0.0-0.8); Eosinophils % 4.6 %; Hematocrit 37.4 % (37.0-47.0); Hemoglobin 11.9 g/dL (11.5-15.3); Lymphocytes # 2.7 10^3/uL (0.8-4.8); Lymphocytes % 33.3 %; Mean Corpuscular HGB Conc 31.8 g/dL (30.0-36.0); Mean Corpuscular Hemoglobin 29.2 pg (28.0-34.0); Mean Corpuscular Volume 91.7 fl (81-99); Mean Platelet Volume 11.3 fL (7.4-10.4); Monocytes # 0.6 10^3/uL (0.2-0.9); Neutrophils % 53.9 %; Nucleated Red Blood Cells % 0 %; Platelet Count 224 10^3/cmm (130-400); Red Blood Count 4.08 10^6/uL (4.1-5.3); Red Cell Distribution Width 14.2 % (12.1-15.1)
[2021-09-27] MEDS: iohexol 350 mg/mL 100 mL Btl IV (14:52)
[2021-09-27 15:25] LABS: Add Urine Microscopic? NO; Charge for UA Resulting for Rev
[2021-09-27 15:29] LABS: Glucose Urine UA Norm (Normal); Protein Urine Neg (Negative); Urine Appearance Clear (CLEAR); Urine Color Colorless (Yellow); pH Urine 7 (5-7)
[2021-09-27 15:30] LABS: Bilirubin Urine Neg (Negative); Blood Urine Neg (Negative); Ketones Urine Negative (Negative); Leukocyte Esterase Urine Negative (Negative); Nitrate Urine Negative (Negative); Urobilinogen Urine Norm (Negative)
[2021-09-27 15:47] LABS: Alanine Aminotransferase 26 U/L (0-33); Albumin Level 3.9 g/dL (3.5-5.2); Alkaline Phosphatase 83 IU/L (35-105); Aspartate Amino Transferase 26 U/L (0-32); Blood Urea Nitrogen 12 mg/dL (8-23); Calcium 9.4 mg/dL (8.5-10.5); Carbon Dioxide 24 mmol/L (22-29); Chloride 103 mmol/L (98-107); Glucose 91 mg/dL (65-115); Lipase 50 U/L (13-60); Osmolality Calculated 285 mOsm/kg (285-295); Sodium 138 mmol/L (136-145); Total Bilirubin 0.3 mg/dL (0.15-1.2); Total Protein 6.9 g/dL (6.6-8.7)
[2021-09-27 15:54] LABS: Anion Gap 15.6 (5-19); Potassium 4.6 mmol/L (3.5-5.1)
--- NOTE | 2021-09-27 15:56 | PM.HP ---
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 She was diagnosed with enteritis as well, she went for exploratory laparotomy by Dr. Villagran with lysis of adhesion Lyubov procedure, for perforated sigmoid colon with fecal peritonitis. she was in icu for shock, septic shock improved and she was discharged with 2 weeks of antibiotic therapy with ciprofloxacin and Flagyl with follow-up with Dr. Villagran outpatient, has EF 30 to 35% improved to 50% likely has nonischemic cardiomyopathy, presented today with chief complaint of abdominal distention. Patient is stating that for last few weeks she has been noticing abdominal distention and bloating. She has not noticed any vomiting, nausea, fever, abdominal pain. She is worried about weight gain she has gained about 20-25 pounds. She has not noticed any unusual output from colostomy. Today she went to see her primary care physician who recommended her to go to the hospital for further evaluation In the ER she was diagnosed withLarge ventral abdominal wall hernia with incarcerated loop of small bowel with mild obstructive changes Dr. Niño was notified As per my discussion with the ER this seems to be chronic in nature patient does not have any sepsis, I have requested procalcitonin and lactic acid, started Zosyn antibiotic At the time of my evaluation patient was sitting upright without any active discomfort saturating well on room air, she was not complaining of any abdominal pain, cluster bag full of brown content, Abdomen is soft no signs of peritonitis Diastases of rectus abdominis muscle Patient refused nasogastric tube insertion, she was asking if she could be discharged from the hospital, her mother is admitted for management of hemorrhagic stroke and she is anxious and wants to take care of her mother Review of Systems Const: Denies: fever(s) Eyes: Denies: change in vision ENMT: Denies: throat pain Card: Denies: chest pain Resp: Denies: dyspnea GI: Reports: abdominal pain, bloating and GI cramping; Denies: vomiting : Denies: flank pain Musc: Denies: neck pain Skin/Breast: Denies: rash Neuro: Denies: headache(s) Psych: Denies: anxiety Endo: Denies: polyuria Jesse/Lymph: Denies: easy bruising All/Imm: Denies: urticaria Medications/Allergies Home Medications Medication Instructions Recorded Confirmed Last Taken Type albuterol sulfate 90 mcg/actuation 2 puff INHALATION Q6H PRN #8.5 gm 12/20/19 09/18/21 01/22/20 Rx aerosol inhaler Colace 100 mg PO BID@11/15/20 09/18/21 11/14/20 History nystatin 100,000 unit/gram topical 1 applic TOPICAL BID PRN #60 g 12/05/20 09/18/21 Unknown Rx powder albuterol sulfate 2.5 mg INHALATION Q8H PRN #180 ml 12/07/20 09/18/21 Unknown Rx nebulizer tubing #20 ea 12/07/20 09/18/21 Unknown Rx colostomy supplies #1 ea 12/14/20 09/18/21 Unknown Rx cetirizine 10 mg tablet 10 mg PO DAILY PRN #30 tab 12/21/20 09/18/21 Unknown Rx fluticasone propionate 50 2 spray INTRANASAL DAILY@1000 12/21/20 09/18/21 Unknown Rx mcg/actuation nasal #15.8 ml spray,suspension multivitamin 1 tab PO DAILY@1000 #30 tab 12/21/20 09/18/21 Unknown Rx omega-3 fatty acids 1,000 mg 1,000 mg PO DAILY@1000 #30 cap 12/21/20 09/18/21 Unknown Rx capsule pantoprazole 40 mg tablet,delayed See Rx Instructions .ROUTE 02/20/21 09/18/21 Unknown Rx release .COMPLEX #180 tab alendronate 70 mg tablet 70 mg PO .weekly #4 tab 05/16/21 09/18/21 Unknown Rx celecoxib 200 mg capsule See Rx Instructions .ROUTE 05/16/21 09/18/21 Unknown Rx .COMPLEX #60 cap diclofenac sodium 1 % topical gel 2 g TOPICAL QID #100 g 05/16/21 09/18/21 Unknown Rx levothyroxine 25 mcg tablet See Rx Instructions .ROUTE 05/16/21 09/18/21 Unknown Rx .COMPLEX #30 tablet lorazepam 0.5 mg tablet 0.5 mg PO BID #60 tab 05/16/21 09/18/21 Unknown Rx carvedilol 6.25 mg tablet 6.25 mg PO BID #180 tab 07/05/21 09/18/21 Unknown Rx duloxetine 30 mg capsule,delayed See Rx Instructions .ROUTE 07/12/21 09/18/21 Unknown Rx release .COMPLEX #30 cap hydrochlorothiazide 25 mg tablet See Rx Instructions .ROUTE 07/16/21 09/18/21 Unknown Rx .COMPLEX #30 tablet acetaminophen 300 mg-codeine 30 mg 1 tab PO BID #30 tab 09/07/21 09/18/21 Unknown Rx tablet cyclobenzaprine 10 mg tablet See Rx Instructions .ROUTE 09/07/21 09/18/21 Unknown Rx .COMPLEX #30 tab valsartan 40 mg tablet 40 mg PO DAILY #30 tab 09/08/21 09/18/21 Unknown Rx Allergies Allergy/AdvReac Type Severity Reaction Status Date / Time No Known Allergies Allergy Verified 09/18/21 13:38 PFSH Acute PFSH: Medical History (Updated 09/27/21 @ 18:56 by Allyn Coyle MD) Anxiety and depression Constipation COPD (chronic obstructive pulmonary disease) Coronary artery fistula Diverticulosis Dyslipidemia Elevated troponin Endometriosis GERD (gastroesophageal reflux disease) Hiatal hernia History of colon polyps Hypertension Insomnia LBBB (left bundle branch block) Left ventricular dysfunction Nonischemic cardiomyopathy PTSD (post-traumatic stress disorder) Subclinical hypothyroidism Surgical History Colostomy status History of ear surgery (~2016) Right -- removal of fluid from ear drum, removal of ear drum, replaced with artifical ear drum History of incisional hernia repair X 3 01/24/2020: Laparoscopic History of left oophorectomy partial History of shoulder surgery Right History of tonsillectomy Status post colonoscopy with polypectomy 12/2019 --2 adenomatous polyps, diverticulosis Family History Grandmother Colon cancer Maternal-- dx age 69 Breast cancer Paternal-- dx age unknown Mother Heart disease Denies family history of Ovarian cancer Diabetes Hypercholesteremia Bleeding disorder Hypertension Uterine cancer Thyroid disease Stroke Social History Quit status (tobacco): has quit using tobacco Year quit tobacco: Around 1999 Former quit date comment: [id number] history previously Second hand smoke exposure: No Smoking risk assessment/counseling performed?: No Alcohol intake: current Alcohol intake frequency: few times a month Desire information about alcohol rehabilitation?: No Counseling given: No Desire information about substance/drug rehabilitation?: No Counseling given: No Adopted: No Caregiver/support person: No Lives independently: Yes Household members: family Housing: House Marital status: Number of children: 2 service: No Current occupational status: retired Current occupational exposures/hazards: No History of recent travel: No Current gender identity: Female Additional social history: Drug use: denies Vitals/I&O/Wt Last Vital Signs Temp 97.5 F L 09/27/21 13:55 Pulse 72 09/27/21 13:55 Resp 16 09/27/21 13:55 BP 159/97 09/27/21 13:55 Pulse Ox 98 09/27/21 13:55 Weight last 48 hrs Weight 88.904 kg Physical Exam Narrative: EXAM NARRATIVE: Patient was sitting comfortably in her room Saturating well on room air Appears stated age Abdominal bloated, abdominal rectus sheath diastases Stoma with air and brown contents Did not notice any necrotic bowel Good pink tissue of bowel noticed Abdomen is soft no signs of peritonitis S1, S2 Hemodynamically stable EOMI, PERRLA Nonfocal exam No audible stridor or wheezing Data : 09/27/21 14:35 09/27/21 14:35 A&P Assessment and plan (1) Abdominal distension: Status: Acute (2) Colostomy status: Status: Acute (3) Nonischemic cardiomyopathy: Status: Acute (4) Incarcerated hernia: Status: Acute Additional A&P Information Partial small bowel obstruction Patient does seem to have incarcerated loop of small bowel which seems to be chronic, She does not have any active signs of peritonitis, no abdominal pain or vomiting She is afebrile, requested procalcitonin and lactic acid No leukocytosis, no signs of sepsis We will keep her on Zosyn and IV fluids, keep her n.p.o. Adequate output from colostomy bag Patient refused nasogastric tube placement Dr. Niño consulted Conservative management for now, this incarceration of small bowel seems to be chronic, no surgical intervention planned by general surgery at this point Full code N.p.o. DVT prophylaxis SCDs Patient's mother is admitted in [place] for management of hemorrhagic stroke and she is anxious to go see her mother Attestations Medical Necessity Statement*: Anticipating discharge within 48 hours Time Spent in Patient Care: Greater than 35 minutes Coding Level of Care Code Acute French Tutor for Chg Fwd Diagnoses Abdominal distension R14.0 Colostomy status Z93.3 Nonischemic cardiomyopathy I42.8 Incarcerated hernia K46.0
[2021-09-27 15:59] VITALS: BP 141/79; PULSE 70; RESP 16; O2SAT 98
[2021-09-27] MEDS: piperacillin-tazobactam 4.5 GM in sodium chloride 0.9% (plus) 50 ML IV (15:59)
[2021-09-27 16:17] LABS: Procalcitonin 0.05 ng/mL (0-0.5)
[2021-09-27 17:05] LABS: Lactate (Lactic Acid level) 0.5 mmol/L (0.5-2.2)
[2021-09-27 17:11] VITALS: PULSE 73; RESP 16; O2SAT 95
[2021-09-27 20:00] VITALS: BP 134/85; PULSE 68; RESP 16; TEMP 36.7; O2SAT 95
[2021-09-27 20:42] VITALS: BMI 34.0
[2021-09-27 21:48] VITALS: RESP 16
[2021-09-27] MEDS: dextrose 5%-sod chloride 0.45% 1,000 ML 30 ML IV (21:48)
[2021-09-27] MEDS: piperacillin-tazobactam 3.375 GM in sodium chloride 0.9% (plus) 50 ML IV (21:48)
[2021-09-27] MEDS: HYDROmorphone 1 mg/mL INJ 1 mL 0.4 MG IVP (21:48)
[2021-09-27] MEDS: pantoprazole 40 mg SDV IVP (21:49)
[2021-09-28 00:22] VITALS: BP 137/79; PULSE 72; RESP 16; TEMP 36.6; O2SAT 93
[2021-09-28 03:28] VITALS: BP 124/80; PULSE 69; RESP 16; TEMP 36.6; O2SAT 93
[2021-09-28 05:45] LABS: Basophils # 0.1 10^3/uL (0.0-0.1); Basophils % 0.7 %; Eosinophils # 0.4 10^3/uL (0.0-0.8); Hematocrit 38.2 % (37.0-47.0); Hemoglobin 12.1 g/dL (11.5-15.3); Lymphocytes % 27.4 %; Mean Corpuscular HGB Conc 31.7 g/dL (30.0-36.0); Mean Corpuscular Hemoglobin 29.4 pg (28.0-34.0); Mean Corpuscular Volume 92.7 fl (81-99); Mean Platelet Volume 10.7 fL (7.4-10.4); Monocytes # 0.6 10^3/uL (0.2-0.9); Monocytes % 7.8 %; Neutrophils # 4.18 10^3/uL (1.8-7.7); Neutrophils % 58.5 %; Nucleated Red Blood Cells % 0 %; Platelet Count 269 10^3/cmm (130-400); Red Blood Count 4.12 10^6/uL (4.1-5.3); Red Cell Distribution Width 14.4 % (12.1-15.1); White Blood Count 7.2 10^3/uL (4.0-10.0)
[2021-09-28 05:52] LABS: Partial Thromboplastin Time 27.5 SECONDS (23.9-36.7)
[2021-09-28 05:58] LABS: Anion Gap 13.1 (5-19); Blood Urea Nitrogen 11 mg/dL (8-23); C Reactive Protein 14.8 mg/L (0.0-4.9); Carbon Dioxide 27 mmol/L (22-29); Chloride 102 mmol/L (98-107); Glucose 107 mg/dL (65-115); Magnesium 2.1 mg/dL (1.7-2.3); Osmolality Calculated 286 mOsm/kg (285-295); Potassium 4.1 mmol/L (3.5-5.1); Sodium 138 mmol/L (136-145)
[2021-09-28 06:03] VITALS: RESP 18
[2021-09-28] MEDS: piperacillin-tazobactam 3.375 GM in sodium chloride 0.9% (plus) 50 ML IV (06:03)
[2021-09-28] MEDS: HYDROmorphone 1 mg/mL INJ 1 mL 0.4 MG IVP (06:03)
[2021-09-28 07:45] VITALS: BP 152/83; PULSE 68; RESP 16; TEMP 37; O2SAT 91
[2021-09-28] MEDS: pantoprazole 40 mg SDV IVP (08:33)
[2021-09-28 08:45] VITALS: PULSE 71; RESP 18; O2SAT 96
--- NOTE | 2021-09-28 09:42 | PC.CHAP ---
Pastoral Care Encounter/Spiritual Assessment Type of Contact [] Declined adjunct instructor in economics visit [] Patient/Family/Request visit [] Outpatient visit [] Follow-up visit [] Physician referral [] Code/Alert [x] Routine visit [] Staff referral [] Actively dying [] Patient sleeping [] Family support [] [] Out of room [] Palliative care [] [] Receiving care in room [] Pre-surgical visit [] Trauma [] Long length of stay [] ICU visit [] Other: Relational/Emotional Strength [x] Patient feels connected with others/family/visitors/staff [] Distress [] Loneliness/isolation [] Abandonment Spirituality of Patient [x] Person of Sanjuanita [x] Attends Hoahaoism of their Sanjuanita [x] Believes in Prayer [x] Reads Bible or Quaker materials [] There are Spiritual issues to be addressed Supervisor Hydrochloric Area Interventions [x] Prayer [x] Active listening [x] Non-anxious presence [x] Spiritual/emotional support [] Crisis/trauma care [x] Spiritual counseling [] Bereavement support [] Provided bereavement packet [] Provided Bible/devotional materials [] Provided toy/stuffed animal, coloring book to patient or family member [] Provided Communion [] Anointing/Garland [] Salvation [x] Completed spiritual assessment [] Other: Impact on Illness or Injury [] Angry [] Fearful [] Anxious [] Often cries [] Exhaustion [] Unable to work [] Unable to attend scientologist [] Unable to walk/stand [] Unable to read [] Unable to drive [] Unable to eat/drink [] Unable to sleep [] Unable to be with family [] Patient intubated [] Other: Summary Time spent with patient
[2021-09-28 12:00] VITALS: BP 140/65; PULSE 72; RESP 16; TEMP 36.8; O2SAT 92
--- NOTE | 2021-09-28 12:36 | PM.DCS ---
Discharge Providers Date of Admission: 09/27/21 15:50 Date of Discharge: September 28, 2021 Attending Provider at Admission: Allyn Coyle MD Attending Provider at Discharge: Allyn Coyle MD Primary Care Provider: Shanti Simmons MD Diagnoses at Discharge Discharge Diagnosis (1) Abdominal distension: Status: Acute (2) Colostomy status: Status: Acute (3) Nonischemic cardiomyopathy: Status: Acute (4) Incarcerated hernia: Status: Acute Reason for Visit Reason for Visit: ABD EXTENDED/COLOSTOMY BAG NEEDS DRAINED P/PCP Hospital Course Hospital Course History of Present Illness Radha Archer is a 76 year old female w 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 She was diagnosed with enteritis as well, she went for exploratory laparotomy by Dr. Villagran with lysis of adhesion Lyubov procedure, for perforated sigmoid colon with fecal peritonitis. she was in icu for shock, septic shock improved and she was discharged with 2 weeks of antibiotic therapy with ciprofloxacin and Flagyl with follow-up with Dr. Villagran outpatient, has EF 30 to 35% improved to 50% likely has nonischemic cardiomyopathy, presented today with chief complaint of abdominal distention. Patient is stating that for last few weeks she has been noticing abdominal distention and bloating. She has not noticed any vomiting, nausea, fever, abdominal pain. She is worried about weight gain she has gained about 20-25 pounds. She has not noticed any unusual output from colostomy. Today she went to see her primary care physician who recommended her to go to the hospital for further evaluation In the ER she was diagnosed withLarge ventral abdominal wall hernia with incarcerated loop of small bowel with mild obstructive changes Dr. Niño was notified As per my discussion with the ER this seems to be chronic in nature patient does not have any sepsis, I have requested procalcitonin and lactic acid, started Zosyn antibiotic At the time of my evaluation patient was sitting upright without any active discomfort saturating well on room air, she was not complaining of any abdominal pain, cluster bag full of brown content, Abdomen is soft no signs of peritonitis Diastases of rectus abdominis muscle Patient refused nasogastric tube insertion, she was asking if she could be discharged from the hospital, her mother is admitted for management of hemorrhagic stroke and she is anxious and wants to take care of her mother Hospital course Patient was admitted for for evaluation of partial bowel obstruction with concern for incarcerated bowel. As per my discussion with general surgery incarcerated loop of small bowel seems chronic. Her hospitalization was uneventful. Her lactic acid is normal, there is no leukocytosis, patient is not complaining of any abdominal pain, she is afebrile. She was given Zosyn empirically, she was kept n.p.o. with IV fluids. Nasogastric tube was placed which only drained 30 to 40 cc of bilious content. On 09/28 NG tube was removed, she was able to tolerate full liquid diet. She did not experience any vomiting, or abdominal pain. Throughout her hospitalization she has been noticing output from colostomy. General surgery recommended conservative management and discharging her on full liquid diet and advance to regular over the weekend. In case of any worsening of her symptoms she was instructed to come to the ER for further evaluation. Abdominal distention is secondary to diastases of abdominal rectus muscles, she does not have any ascites. I will give her Augmentin 7-day course for empirical coverage because of chronic incarcerated loop of bowel. Physical Exam Narrative: EXAM NARRATIVE: Patient was resting comfortably Distended abdomen, nontender, some soreness around the stoma Yellow-brown content in the colostomy bag Laparotomy scar noted, distended abdomen, soft, S1, S2, clinically she looks euvolemic Nonfocal neuro exam Saturating well on room air Discharge Data Data Completed and Pending: Completed Studies During Hospitalization Category Date Time Status CT abdomen pelvis w con* [id number] Urge nt Cat Scan 09/27/21 14:25 Completed XR chest 1V kisha ble [id number] Urgent Exams 09/27/21 14:23 Completed Labs from last 24 hours 09/28/21 09/28/21 09/28/21 04:55 04:55 04:55 WBC 7.2 RBC 4.12 Hgb 12.1 Hct 38.2 MCV 92.7 MCH 29.4 MCHC 31.7 RDW 14.4 Plt Count 269 MPV 10.7 H Neut % (Auto) 58.5 Lymph % (Auto) 27.4 [place] % (Auto) 7.8 Eos % (Auto) 5.0 Baso % (Auto) 0.7 Neut # (Auto) 4.18 Lymph # (Auto) 2.0 [place] # (Auto) 0.6 Eos # (Auto) 0.4 Baso # (Auto) 0.1 Nucleated RBC % (a uto) 0 Nucleated RBCs # 0.0 APTT 27.5 Sodium 138 Potassium 4.1 Chloride 102 Carbon Dioxide 27 Anion Gap 13.1 BUN 11 Creatinine 0.9 GFR Calculation Not Reportable Glucose 107 Calculated Osmolal ity 286 Lactate Calcium 9.0 Magnesium 2.1 Total Bilirubin AST ALT Alkaline Phosphata se C-Reactive Protein 14.8 H Total Protein Albumin Globulin Lipase Procalcitonin Urine Color Urine Appearance Urine pH Ur Specific Gravit y Urine Protein Urine Glucose (UA) Urine Ketones Urine Blood Urine Nitrate Urine Bilirubin Urine Urobilinogen Ur Leukocyte Cay[place] ase 09/27/21 09/27/21 09/27/21 16:15 15:08 14:35 WBC RBC Hgb Hct MCV MCH MCHC RDW Plt Count MPV Neut % (Auto) Lymph % (Auto) [place] % (Auto) Eos % (Auto) Baso % (Auto) Neut # (Auto) Lymph # (Auto) [place] # (Auto) Eos # (Auto) Baso # (Auto) Nucleated RBC % (a uto) Nucleated RBCs # APTT Sodium 138 Potassium 4.6 Chloride 103 Carbon Dioxide 24 Anion Gap 15.6 BUN 12 Creatinine 0.8 GFR Calculation Not Reportable Glucose 91 Calculated Osmolal ity 285 Lactate 0.5 Calcium 9.4 Magnesium Total Bilirubin 0.3 AST 26 ALT 26 Alkaline Phosphata se 83 C-Reactive Protein Total Protein 6.9 Albumin 3.9 Globulin 3.0 Lipase 50 Procalcitonin Urine Color Colorless Urine Appearance Clear Urine pH 7 Ur Specific Gravit y 1.000 L Urine Protein Neg Urine Glucose (UA) Norm Urine Ketones Negative Urine Blood Neg Urine Nitrate Negative Urine Bilirubin Neg Urine Urobilinogen Norm Ur Leukocyte [place] ase Negative 09/27/21 09/27/21 14:35 14:30 WBC 8.0 RBC 4.08 L Hgb 11.9 Hct 37.4 MCV 91.7 MCH 29.2 MCHC 31.8 RDW 14.2 Plt Count 224 MPV 11.3 H Neut % (Auto) 53.9 Lymph % (Auto) 33.3 [place] % (Auto) 7.0 Eos % (Auto) 4.6 Baso % (Auto) 0.8 Neut # (Auto) 4.30 Lymph # (Auto) 2.7 [place] # (Auto) 0.6 Eos # (Auto) 0.4 Baso # (Auto) 0.1 Nucleated RBC % (a uto) 0 Nucleated RBCs # 0.0 APTT Sodium Potassium Chloride Carbon Dioxide Anion Gap BUN Creatinine GFR Calculation Glucose Calculated Osmolal ity Lactate Calcium Magnesium Total Bilirubin AST ALT Alkaline Phosphata se C-Reactive Protein Total Protein Albumin Globulin Lipase Procalcitonin 0.05 Urine Color Urine Appearance Urine pH Ur Specific Gravit y Urine Protein Urine Glucose (UA) Urine Ketones Urine Blood Urine Nitrate Urine Bilirubin Urine Urobilinogen Ur Leukocyte [place] ase Vitals: Last Vital Signs Temp 98.2 F 09/28/21 12:00 Pulse 72 09/28/21 12:00 Resp 16 09/28/21 12:00 BP 140/65 09/28/21 12:00 Pulse Ox 92 09/28/21 12:00 Discharge Plan Discharge Patient Disposition: Home Condition: Stable Prescriptions: No Action albuterol sulfate 2.5 mg /3 mL (0.083 %) solution for nebulization 2.5 mg inhalation Q8H PRN (Reason: shortness of breath or wheezing) Qty: 180 RF: 1 (DME) nebulizer tubing See Rx Instructions .Route .MEDSUPPLY Qty: 20 RF: 0 acetaminophen-codeine 300-30 mg tablet 1 tab PO BID Qty: 30 RF: 1 albuterol sulfate [Ventolin HFA] 90 mcg/actuation HFA aerosol inhaler 2 puff INHALATION Q6H PRN (Reason: shortness of breath or wheezing) Qty: 8.5 RF: 2 cetirizine [Zyrtec] 10 mg tablet 10 mg PO DAILY PRN (Reason: allergy symptoms) Qty: 30 RF: 2 Flonase Allergy Relief 50 mcg/actuation spray,suspension 2 spray INTRANASAL DAILY@1000 Qty: 15.8 RF: 0 multivitamin Tablet 1 tab PO DAILY@1000 Qty: 30 RF: 0 omega-3 fatty acids [Fish Oil Concentrate] 1,000 mg capsule 1,000 mg PO DAILY@1000 Qty: 30 RF: 0 diclofenac sodium [Voltaren] 1 % gel 2 g topical QID Qty: 100 RF: 0 celecoxib 200 mg capsule See Rx Instructions .ROUTE .COMPLEX Qty: 60 RF: 2 alendronate 70 mg tablet 70 mg PO .weekly Qty: 4 RF: 4 levothyroxine 25 mcg tablet See Rx Instructions .ROUTE .COMPLEX Qty: 30 RF: 5 lorazepam 0.5 mg tablet 0.5 mg PO BID Qty: 60 RF: 2 nystatin 100,000 unit/gram powder 1 applic topical BID PRN (Reason: rash) Qty: 60 RF: 1 (DME) colostomy supplies See Rx Instructions .Route .MEDSUPPLY Qty: 1 RF: 0 pantoprazole 40 mg tablet,delayed release (DR/EC) See Rx Instructions .ROUTE .COMPLEX Qty: 180 RF: 1 carvedilol 6.25 mg tablet 6.25 mg PO BID Qty: 180 RF: 3 duloxetine 30 mg capsule,delayed release(DR/EC) See Rx Instructions .ROUTE .COMPLEX Qty: 30 RF: 2 hydrochlorothiazide 25 mg tablet See Rx Instructions .ROUTE .COMPLEX Qty: 30 RF: 5 cyclobenzaprine 10 mg tablet See Rx Instructions .ROUTE .COMPLEX Qty: 30 RF: 5 valsartan [Diovan] 40 mg tablet 40 mg PO DAILY Qty: 30 RF: 2 Colace 100 mg capsule 100 mg PO BID@10,22 RF: 0 Discharge Orders: Discharge Order (Routine); Ordered 09/28/21 Ordered By: Allyn Coyle Referrals: Shanti Simmons MD [Primary Care Provider] - 4-7 days Discharge Diet: Advance as tolerated and Full LIquid Discharge Activity: Resume usual activity Patient Instructions: Bowel Obstruction (DC), Opioid Safety Activity Restrictions/Additional Instructions: Come back to the emergency room if any fever chills, nausea/vomiting, worsening abdominal distention, pain, or any new concerning complaints. Our rehabilitation caseworker will have you follow-up with PCP in the next few days. You would be expected to have a phone call with our rehabilitation caseworker who will put you on the schedule. Discharge Attestations Time Spent in Discharge Care*: less than 30 min Quality Metrics Clinical Quality Measures During this hospital stay, did patient experience: None Coding Level of Care Code Acute Chg FW DC note Diagnoses Abdominal distension R14.0 Colostomy status Z93.3 Nonischemic cardiomyopathy I42.8 Incarcerated hernia K46.0
--- NOTE | 2021-09-28 13:25 | P.CONIM_ITS ---
Providers/Reason For Consult Consulting Physician/Specialty*: General Surgery Dr. Niño Reason for Consult*: Bowel obstruction Attending Physician: Allyn Coyle MD Primary Care Provider: Shanti Simmons MD History of Present Illness History of Present Illness Radha Archer is a 76 year old female with previously undergone ex lap with sigmoid colectomy and colostomy for perforated diverticulitis in October 2020. I had previously performed a colonoscopy in December 2019 and she was noted to have mild sigmoid diverticulosis. Patient presented to the ER yesterday with complaints of abdominal distention but denies any nausea, vomiting. She states her ostomy is functioning. Her NG tube was discontinued today and she is tolerating a liquid diet. She denies significant abdominal pain Review of Systems General: Reports: 10 or more systems reviewed and unremarkable except in HPI and below Meds/Allergies Home Medications and Allergies Home Medications Medication Instructions Recorded Confirmed Last Taken Type albuterol sulfate 90 mcg/actuation 2 puff INHALATION Q6H PRN #8.5 gm 12/20/19 09/18/21 01/22/20 Rx aerosol inhaler Colace 100 mg PO BID@11/15/20 09/18/21 11/14/20 History nystatin 100,000 unit/gram topical 1 applic TOPICAL BID PRN #60 g 12/05/20 09/18/21 Unknown Rx powder albuterol sulfate 2.5 mg INHALATION Q8H PRN #180 ml 12/07/20 09/18/21 Unknown Rx nebulizer tubing #20 ea 12/07/20 09/18/21 Unknown Rx colostomy supplies #1 ea 12/14/20 09/18/21 Unknown Rx cetirizine 10 mg tablet 10 mg PO DAILY PRN #30 tab 12/21/20 09/18/21 Unknown Rx fluticasone propionate 50 2 spray INTRANASAL DAILY@1000 12/21/20 09/18/21 Unknown Rx mcg/actuation nasal #15.8 ml spray,suspension multivitamin 1 tab PO DAILY@1000 #30 tab 12/21/20 09/18/21 Unknown Rx omega-3 fatty acids 1,000 mg 1,000 mg PO DAILY@1000 #30 cap 12/21/20 09/18/21 Unknown Rx capsule pantoprazole 40 mg tablet,delayed See Rx Instructions .ROUTE 02/20/21 09/18/21 Unknown Rx release .COMPLEX #180 tab alendronate 70 mg tablet 70 mg PO .weekly #4 tab 05/16/21 09/18/21 Unknown Rx celecoxib 200 mg capsule See Rx Instructions .ROUTE 05/16/21 09/18/21 Unknown Rx .COMPLEX #60 cap diclofenac sodium 1 % topical gel 2 g TOPICAL QID #100 g 05/16/21 09/18/21 Unknown Rx levothyroxine 25 mcg tablet See Rx Instructions .ROUTE 05/16/21 09/18/21 Unknown Rx .COMPLEX #30 tablet lorazepam 0.5 mg tablet 0.5 mg PO BID #60 tab 05/16/21 09/18/21 Unknown Rx carvedilol 6.25 mg tablet 6.25 mg PO BID #180 tab 07/05/21 09/18/21 Unknown Rx duloxetine 30 mg capsule,delayed See Rx Instructions .ROUTE 07/12/21 09/18/21 Unknown Rx release .COMPLEX #30 cap hydrochlorothiazide 25 mg tablet See Rx Instructions .ROUTE 07/16/21 09/18/21 Unknown Rx .COMPLEX #30 tablet acetaminophen 300 mg-codeine 30 mg 1 tab PO BID #30 tab 09/07/21 09/18/21 Unknown Rx tablet cyclobenzaprine 10 mg tablet See Rx Instructions .ROUTE 09/07/21 09/18/21 Unknown Rx .COMPLEX #30 tab valsartan 40 mg tablet 40 mg PO DAILY #30 tab 09/08/21 09/18/21 Unknown Rx amoxicillin-pot clavulanate 1 tab PO BID #14 tab 09/28/21 Unknown Rx [Augmentin] Allergies Allergy/AdvReac Type Severity Reaction Status Date / Time No Known Allergies Allergy Verified 09/18/21 13:38 Current Medications Current Medications Generic Name Dose Route Start Last Admin Trade Name Freq PRN Reason Stop Dose Admin Hydromorphone HCl 0.4 mg 09/27/21 18:44 09/28/21 06:03 Hydromorphone 1 Mg/Ml Inj 1 Ml IVP 0.4 mg Q4H PRN Administration pain Pantoprazole Sodium 40 mg 09/27/21 18:44 09/28/21 08:33 Pantoprazole 40 Mg Sdv IVP 40 mg BID RENAE Administration PFSH Acute PFSH: Medical History (Updated 09/28/21 @ 13:33 by Chuck Niño MD) Anxiety and depression Constipation COPD (chronic obstructive pulmonary disease) Coronary artery fistula Diverticulosis Dyslipidemia Elevated troponin Endometriosis GERD (gastroesophageal reflux disease) Hiatal hernia History of colon polyps Hypertension Insomnia LBBB (left bundle branch block) Left ventricular dysfunction Nonischemic cardiomyopathy PTSD (post-traumatic stress disorder) Subclinical hypothyroidism Surgical History Colostomy status History of ear surgery (~2017) Right -- removal of fluid from ear drum, removal of ear drum, replaced with artifical ear drum History of incisional hernia repair X 3 01/24/2020: Laparoscopic History of left oophorectomy partial History of shoulder surgery Right History of tonsillectomy Status post colonoscopy with polypectomy 12/2019 --2 adenomatous polyps, diverticulosis Family History Grandmother Colon cancer Maternal-- dx age 69 Breast cancer Paternal-- dx age unknown Mother Heart disease Denies family history of Ovarian cancer Diabetes Hypercholesteremia Bleeding disorder Hypertension Uterine cancer Thyroid disease Stroke Social History Quit status (tobacco): has quit using tobacco Year quit tobacco: Around 1999 Former quit date comment: [id number] history previously Second hand smoke exposure: No Smoking risk assessment/counseling performed?: No Alcohol intake: current Alcohol intake frequency: few times a month Desire information about alcohol rehabilitation?: No Counseling given: No Desire information about substance/drug rehabilitation?: No Counseling given: No Adopted: No Caregiver/support person: No Lives independently: Yes Household members: family Housing: House Marital status: Number of children: 2 service: No Current occupational status: retired Current occupational exposures/hazards: No History of recent travel: No Current gender identity: Female Additional social history: Drug use: denies Vitals/I&O/Wt Last Vital Signs Temp 98.2 F 09/28/21 12:00 Pulse 72 09/28/21 12:00 Resp 16 09/28/21 12:00 BP 140/65 09/28/21 12:00 Pulse Ox 92 09/28/21 12:00 09/27/21 09/28/21 09/28/21 22:59 06:59 14:59 Intake Total 50 / 50 Balance 50 / 50 Weight last 48 hrs Weight 198 lb 3 oz Weight 196 lb Physical Exam Narrative: EXAM NARRATIVE: HEENT: Normocephalic Eye: Sclera /conjunctiva normal Abdomen: Soft to palpation, well-healed midline laparotomy scar, ostomy left lower quadrant, pink and functioning, incisional hernia present Neurological: Oriented to place person and time Skin: Intact, no lesions appreciated on gross exam A&P Assessment and plan (1) Incarcerated incisional hernia: 76-year-old female which is chronic and asymptomatic. No surgical intervention required at this point Status: Acute (2) Small bowel obstruction: Patient also has small bowel obstruction and adjacent to the incisional hernia. At this point she appears to be asymptomatic and therefore we will start her on a liquid diet and discharge her home and with the advice of advancing her diet as tolerated. 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
== END 2021-09-28 15:01 | disposition home or self-care (01) ==
LOC: ER 14:40 → MEDSURG 09-28 09:21
PROVIDERS: Admitting Provider Internal Medicine; Emergency Provider Emergency Medicine; PCP Family Medicine; Visit Provider Internal Medicine
DX: K43.0 Incisional hernia with obstruction, without gangrene (principal); K56.609 Unspecified intestinal obstruction, unspecified as to partial versus complete obstruction; I42.8 Other cardiomyopathies; R14.0 Abdominal distension (gaseous); J44.9 Chronic obstructive pulmonary disease, unspecified; E78.5 Hyperlipidemia, unspecified; K21.9 Gastro-esophageal reflux disease without esophagitis; I10 Essential (primary) hypertension; Z93.3 Colostomy status; Z87.891 Personal history of nicotine dependence; Z79.899 Other long term (current) drug therapy
CPT/HCPCS: 36415; 71045; 74177; 80048; 80053; 81003; 83605; 83690; 83735; 84145; 85025; 85730; 86140; 96365; 99285; C9113; G0378; J1170; J2543; J7799; Q9967

== ENCOUNTER → 2021-11-26 11:51 | Outpatient (BNVA) | payer MEDICARE, MEDICAID, SELFPAY | PROVIDERS: PCP Family Medicine; Visit Provider Family Medicine | DX: N39.0 Urinary tract infection, site not specified (principal) | CPT/HCPCS: 81003; 87086 ==

== ENCOUNTER 2021-12-05 08:37 | Outpatient (CLI) | payer MEDICARE, MEDICAID, SELFPAY ==
--- NOTE | 2021-12-05 08:40 | FL_ITS ---
WS: [id number] FL enema w gastrografin [id number] REASON FOR EXAM: COLOSTOMY STATUS FLUOROSCOPY TIME: 5.6 minutes FINDINGS: Initially, contrast was injected per rectum. Under fluoroscopic control the rectum, rectosigmoid and sigmoid colon were filled to the level of the small tisha in the right central lower abdomen. The opacified colon was unremarkable and there were no leaks at the staple line. Cantu catheter was placed through the colostomy and contrast was injected under fluoroscopic control. Placement of Cantu catheter was difficult due to a significant angulation of the descending colon at the ostomy site. This angulation appears to be due compression from the dilated small bowel in the p aracolostomy hernia. Due to the lack of good bowel prep the contrast could not be advanced beyond the splenic flexure with out significant leakage around the Cantu catheter despite inflation of the balloon. The visualized colon was unremarkable. FL/FL enema w gastrografin [id number] IMPRESSION: Contrast study of the colon per rectum and through the colostomy as above. The visualized portions of colon demonstrated no abnormality. Extrinsic compression of the colon at the ostomy site by the dilated small scott l in the paracolostomy hernia.
[2021-12-05] MEDS: diatrizoate meglumine 120 mL Sol PR ×8 (15:26→15:37)
== END 2021-12-05 08:38 | disposition home or self-care (01) ==
PROVIDERS: PCP Family Medicine; Visit Provider Surgery
DX: Z93.3 Colostomy status (principal)
CPT/HCPCS: 74270

== ENCOUNTER → 2021-12-18 15:38 | Outpatient (BNVA) | payer MEDICARE, MEDICAID, SELFPAY | PROVIDERS: PCP Family Medicine; Visit Provider Nurse Practitioner Family | DX: Z11.52 Encounter for screening for COVID-19 (principal) | CPT/HCPCS: 87635 ==

== ENCOUNTER → 2022-02-28 13:33 | Outpatient (BNVA) | payer MEDICARE, MEDICAID, SELFPAY | PROVIDERS: PCP Family Medicine; Visit Provider Family Medicine | DX: N39.0 Urinary tract infection, site not specified (principal) | CPT/HCPCS: 81003 ==

== ENCOUNTER → 2022-05-03 10:17 | Outpatient (BNVA) | payer MEDICARE, MEDICAID, SELFPAY | PROVIDERS: PCP Family Medicine; Visit Provider Family Medicine | DX: R52 Pain, unspecified (principal); F43.21 Adjustment disorder with depressed mood | CPT/HCPCS: 73562 ==

== ENCOUNTER → 2022-05-07 10:16 | Outpatient (BNVA) | payer MEDICARE, MEDICAID, SELFPAY | PROVIDERS: PCP Family Medicine; Visit Provider Surgery | DX: K43.2 Incisional hernia without obstruction or gangrene (principal); F43.21 Adjustment disorder with depressed mood | CPT/HCPCS: 99214 ==

== ENCOUNTER → 2022-05-21 15:53 | Outpatient (BNVA) | payer MEDICARE, MEDICAID, SELFPAY | PROVIDERS: PCP Family Medicine; Visit Provider Nurse Practitioner Family | DX: J40 Bronchitis, not specified as acute or chronic (principal); R05.9 Cough, unspecified; J32.9 Chronic sinusitis, unspecified | CPT/HCPCS: 80053; 85025 ==

== ENCOUNTER 2022-05-28 07:42 | Day surgery (SDC) | payer MEDICARE, MEDICAID, SELFPAY ==
[2022-05-24 10:50] VITALS: BMI 31.6
[2022-05-28 08:07] VITALS: BP 140/99; PULSE 80; RESP 16; TEMP 36.1; O2SAT 95
--- NOTE | 2022-05-28 08:09 | ANES.PREANE2 ---
Pre-Anesthetic Assessment Height/Weight: Height 1.65 m Weight 86.183 kg Preop Diagnosis: pmb, thickened endometrium Operation Date: 05/28/22 09:20 Proposed Procedures p Hysteroscopy w/ Myosure [id number]/n85.8/r93.89(Not Applicable) - Lauren Morillo MD s Dilation And Curettage (D&C)(Not Applicable) - Lauren Morillo MD Familial anesthetic complications: > 8 hrs Was Beta Joe taken within 24 hours: Yes Was Clonidine taken within 24 hours: N/A Last intake: > 8 hrs Social No alcohol and No tobacco Exam alert, oriented x 3, clear to auscultation bilaterally and regular rate & rhythm Airway Mallampati: Class II Dentition: false Pulmonary Chronic Obstructive Pulmonary Disease CV/HEM Hypertension LBBB, Coronary artery fistula - PDA to RV (no symptoms) Echo 12/14 CONCLUSIONS ?Normal LV size with diminished ejection fraction of 45 to 50%. ?Abnormal septal motion consistent with conduction abnormality. ? Mild concentric left renal hypertrophy. ?Mildly increased left atrial size. ?There is no pericardial effusion. ?There are no intracardiac masses. ?Compared to the study from 11/19/2020, there is? improvement of ?the LV ejection fraction GI Gastroesophageal Reflux Disease Hx SBO Metabolic Thyroid Disease Anesthetic Plan ASA status: 4 Anesthesia: General Risk of > 500 ml blood loss (7ml/kg in children): No Medications/Allergies Home Medications Medication Instructions Recorded Confirmed Last Taken Type docusate sodium 100 mg capsule 100 mg PO BID@,11/15/20 05/28/22 05/26/22 History (Colace) albuterol sulfate 2.5 mg (3 mL) INHALATION Q8H PRN 12/07/20 05/28/22 05/24/22 Rx #180 ml nebulizer tubing #20 ea 12/07/20 05/24/22 Unknown Rx fluticasone propionate 50 2 spray INTRANASAL DAILY@1000 12/21/20 05/28/22 05/27/22 Rx mcg/actuation nasal #15.8 ml spray,suspension (Flonase Allergy Relief) multivitamin 1 tab PO DAILY@1000 #30 tab 12/21/20 05/28/22 05/27/22 Rx omega-3 fatty acids 1,000 mg 1,000 mg PO DAILY@1000 #30 cap 12/21/20 05/28/22 05/28/22 Rx capsule (Fish Oil Concentrate) albuterol sulfate 90 mcg/actuation 2 puff INHALATION Q6H PRN #8.5 gm 12/18/21 05/28/22 Unknown Rx aerosol inhaler (Ventolin HFA) cetirizine 10 mg tablet (Zyrtec) 10 mg PO DAILY 90 Days #90 tab 12/18/21 05/28/22 05/27/22 Rx acetaminophen 300 mg-codeine 30 mg 1 tab PO BID PRN #30 tab 03/11/22 05/28/22 05/26/22 Rx tablet hydrochlorothiazide 25 mg tablet 25 mg PO DAILY 03/22/22 05/28/22 05/27/22 History pantoprazole 40 mg tablet,delayed 40 mg PO DAILY 03/22/22 05/28/22 05/27/22 History release alendronate 70 mg tablet See Rx Instructions .ROUTE 04/02/22 05/28/22 05/20/22 Rx .COMPLEX #4 tab levothyroxine 25 mcg tablet See Rx Instructions .ROUTE 04/03/22 05/28/22 05/27/22 Rx .COMPLEX #30 tablet cyclobenzaprine 10 mg tablet See Rx Instructions .ROUTE 05/01/22 05/28/22 05/27/22 Rx .COMPLEX #30 tablet fluticasone fur. 100 mcg-umeclid See Rx Instructions .ROUTE 05/01/22 05/28/22 05/26/22 Rx 62.5 mcg-vilant 25 mcg .COMPLEX #60 blister inhalat.powder (Trelegy Ellipta) diclofenac sodium 1 % topical gel 2 g TOPICAL QID #100 g 05/03/22 05/28/22 05/21/22 Rx valsartan 80 mg tablet 80 mg PO BID tab 05/07/22 05/28/22 05/27/22 History duloxetine 60 mg capsule,delayed 60 mg PO DAILY #60 cap 05/15/22 05/28/22 05/27/22 Rx release lorazepam 1 mg tablet 1 mg PO BID PRN #60 tab 05/15/22 05/28/22 05/28/22 Rx carvedilol 6.25 mg tablet (Coreg) 6.25 mg PO BID 05/24/22 05/28/2222 History Allergies Allergy/AdvReac Type Severity Reaction Status Date / Time No Known Allergies Allergy Verified 05/24/22 10:05 [facility] Anesthesia Medical History Anxiety and depression Constipation COPD (chronic obstructive pulmonary disease) Coronary artery fistula Diverticulosis Dyslipidemia Endometriosis GERD (gastroesophageal reflux disease) Hiatal hernia History of colon polyps Hypertension Incisional hernia Insomnia LBBB (left bundle branch block) Left ventricular dysfunction Nonischemic cardiomyopathy PTSD (post-traumatic stress disorder) Subclinical hypothyroidism Surgical History Colostomy status History of colectomy 11/2020 History of ear surgery (~2016) Right -- removal of fluid from ear drum, removal of ear drum, replaced with artifical ear drum History of incisional hernia repair X 3 01/24/2020: Laparoscopic History of left oophorectomy partial History of shoulder surgery Right History of tonsillectomy Status post colonoscopy with polypectomy 12/2019 --2 adenomatous polyps, diverticulosis Family History Grandmother Colon cancer Maternal-- dx age 69 Breast cancer Paternal-- dx age unknown Mother Heart disease Stroke Denies family history of Ovarian cancer Diabetes Hypercholesteremia Bleeding disorder Hypertension Uterine cancer Thyroid disease Social History Smoking and tobacco status: former smoker Alcohol intake: current Alcohol intake frequency: 0-2 Drinks per Day Data Anesthesia Cardiac Studies: Echocardiogram Limited Views 11/27/20 Echocardiogram Ultrasound 11/19/20
[2022-05-28] MEDS: sodium chloride 0.9% 1,000 ML 30 ML IV (08:14)
[2022-05-28] MEDS: ketorolac 30 mg/mL INJ IVP (08:14)
--- NOTE | 2022-05-28 09:18 | W.PM.OPSUD ---
Surgery/Procedure H&P Update DATE OF PROCEDURE: May 28, 2022 DATE H&P PERFORMED: 05/24/22 H&P UPDATE INFORMATION: I have reviewed H&P completed within last 30 days, I have examined patient prior to procedure and No changes to prior documentation PREOP DIAGNOSIS: pmb, thickened endometrium PLANNED PROCEDURE: Operation Date: 05/28/22 09:20 Proposed Procedures p Hysteroscopy w/ Myosure [id number]/r93.89(Not Applicable) - Lauren Morillo MD s Dilation And Curettage (D&C)(Not Applicable) - Lauren Mroillo MD Related Problem List Diagnoses (1) Thickened endometrium:
--- NOTE | 2022-05-28 10:33 | PM.OP ---
Operative Report Date of procedure: May 28, 2022 Pre-op diagnosis: Preop Diagnosis pmb, thickened endometrium Post-op diagnosis: same Post-op findings: thickened posterior endometrium with large endometrial polyps present as well Procedure done: hysteroscopy, D&C with myosure Specimens removed/disposition: endometrial curettings to pathology Surgeon: Lauren Morillo Anesthesia: MAC Estimated blood loss (mL): 5 IV fluids (mL): 400 Complications: none Findings: 7 week sized uterus with many endometrial polyps and a thickened posterior endometrium 80 ml of hysteroscopy deficit Procedure: The patient was taken to the operating room where monitored anesthesia was administered and to be adequate. She was prepped and draped in the normal sterile fashion in the dorsal lithotomy position in Jeff stirrups. A weighted speculum was placed into the vagina and the anterior lip of the cervix grasped with a single-tooth tenaculum. The uterus was sounded to 7 cm. The cervix was dilated to 16 Portuguese. The hysteroscope was advanced into the endometrial cavity. There were approximately 5 polyps and a thickened posterior endometrium visualized. The MyoSure device was activated and the tissue was removed. Pictures were taken. All instruments were removed. The patient tolerated the procedure well. Sponge lap and needle counts were correct x3. She was taken to the recovery room in stable condition.
[2022-05-28 10:37] VITALS: BP 118/77; PULSE 88; RESP 20; TEMP 36.6; O2SAT 95
--- NOTE | 2022-05-28 10:39 | PM.DCS ---
Discharge Providers Date of Discharge: May 28, 2022 Attending Provider at Discharge: Lauren Morillo MD Primary Care Provider: Shanti Simmons MD Diagnoses at Discharge Discharge Diagnosis (1) Thickened endometrium: Status: Acute Hospital Course Hospital Course The patient was admitted for surgery. She did well postoperatively and was ready for discharge Discharge Data Studies Completed and Pending Pending at discharge Category Date Time Status ES surgery / GI images Routine Exams 05/28/22 09:34 Ordered Pathology: Surgical [PTH] Routine Pth 05/28/22 10:36 Ordered Vitals Last Vital Signs Temp 97 F L 05/28/22 08:07 Pulse 80 05/28/22 08:07 Resp 16 05/28/22 08:07 BP 140/99 05/28/22 08:07 Pulse Ox 95 05/28/22 08:07 Discharge Plan Discharge Patient Disposition: Home Condition: Stable Prescriptions: Continued albuterol sulfate 2.5 mg /3 mL (0.083 %) solution for nebulization 2.5 mg inhalation Q8H PRN (Reason: shortness of breath or wheezing) Qty: 180 1RF (DME) nebulizer tubing See Rx Instructions .Route .MEDSUPPLY Qty: 20 0RF Rx Instructions: As directed Flonase Allergy Relief 50 mcg/actuation spray,suspension 2 spray INTRANASAL DAILY@1000 Qty: 15.8 0RF Rx Instructions: administer into each nostril multivitamin Tablet 1 tab PO DAILY@1000 Qty: 30 0RF omega-3 fatty acids [Fish Oil Concentrate] 1,000 mg capsule 1,000 mg PO DAILY@1000 Qty: 30 0RF albuterol sulfate [Ventolin HFA] 90 mcg/actuation HFA aerosol inhaler 2 puff INHALATION Q6H PRN (Reason: shortness of breath or wheezing) Qty: 8.5 2RF cetirizine [Zyrtec] 10 mg tablet 10 mg PO DAILY 90 Days Qty: 90 1RF diclofenac sodium 1 % gel 2 g topical QID Qty: 100 0RF Rx Instructions: apply to area four times a day valsartan 80 mg tablet 80 mg PO BID 0RF acetaminophen-codeine 300-30 mg tablet 1 tab PO BID PRN (Reason: pain) Qty: 30 1RF alendronate 70 mg tablet See Rx Instructions .ROUTE .COMPLEX Qty: 4 5RF Dose Instruction: TAKE ONE TABLET BY MOUTH WEEKLY Rx Instructions: TAKE ONE TABLET BY MOUTH WEEKLY levothyroxine 25 mcg tablet See Rx Instructions .ROUTE .COMPLEX Qty: 30 5RF Dose Instruction: TAKE ONE TABLET BY MOUTH EVERY DAY Rx Instructions: TAKE ONE TABLET BY MOUTH EVERY DAY Trenishant Ellipta 100-62.5-25 mcg blister with device See Rx Instructions .ROUTE .COMPLEX Qty: 60 3RF Dose Instruction: inhale ONE PUFF into lungs DAILY Rx Instructions: inhale ONE PUFF into lungs DAILY cyclobenzaprine 10 mg tablet See Rx Instructions .ROUTE .COMPLEX Qty: 30 1RF Dose Instruction: TAKE ONE TABLET BY MOUTH AT BEDTIME Rx Instructions: TAKE ONE TABLET BY MOUTH AT BEDTIME lorazepam 1 mg tablet 1 mg PO BID PRN (Reason: anxiety) Qty: 60 0RF duloxetine 60 mg capsule,delayed release(DR/EC) 60 mg PO DAILY Qty: 60 3RF docusate sodium [Colace] 100 mg capsule 100 mg PO BID@, 0RF carvedilol [Coreg] 6.25 mg tablet 6.25 mg PO BID 0RF Rx Instructions: Dose increase pantoprazole 40 mg tablet,delayed release (DR/EC) 40 mg PO DAILY 0RF Rx Instructions: TAKE ONE TABLET BY MOUTH TWICE DAILY hydrochlorothiazide 25 mg tablet 25 mg PO DAILY 0RF Rx Instructions: TAKE ONE TABLET BY MOUTH EVERY DAY Discharge Orders: Discharge Order (Routine); Ordered 05/28/22 Ordered By: Lauren Morillo Discharge Attestations Time Spent in Discharge Care*: less than 30 min Quality Metrics Clinical Quality Measures [ No reported AMI, CVA or VTE this stay] Coding Level of Care Code Acute Chg FW DC note Diagnoses Thickened endometrium R93.89
[2022-05-28 10:42] VITALS: BP 140/79; PULSE 86; RESP 18; O2SAT 93
[2022-05-28 10:47] VITALS: BP 115/79; PULSE 85; RESP 18; TEMP 36.6; O2SAT 95
[2022-05-28 11:01] VITALS: BP 123/69; PULSE 83; RESP 18; TEMP 37; O2SAT 95
--- NOTE | 2022-05-28 14:37 | ANE.PACU2 ---
Inpatient post-anesthesia follow up: Airway intact: Yes Vital signs: Temperature 98.6 F Pulse Rate 83 Respiratory Rate 18 Blood Pressure 123/69 Pulse Oximetry 95 Oxygen Delivery Me thod Room Air Oxygen Flow Rate Fraction of Inspir ed Oxygen Hydration adequate: Yes Nausea and vomiting: No Pain level: 1 Mental status: Baseline
== END 2022-05-28 11:35 | disposition home or self-care (01) ==
PROVIDERS: PCP Family Medicine; Visit Provider Obstetrics & Gynecology
PROC: 0UDB8ZZ Extraction of Endometrium, Via Natural or Artificial Opening Endoscopic (ICD-10-PCS; CPT 58558; principal; 2022-05-28 09:20)
PROC: (CPT 58120; 2022-05-28 09:20)
DX: R93.89 Abnormal findings on diagnostic imaging of other specified body structures (principal); J44.9 Chronic obstructive pulmonary disease, unspecified; I10 Essential (primary) hypertension; Z87.891 Personal history of nicotine dependence
CPT/HCPCS: 58558; 88305; J1100; J1885; J2405; J2704; J3010; J7030

== ENCOUNTER → 2022-06-13 13:40 | Outpatient (BNVA) | payer MEDICARE, MEDICAID, SELFPAY | PROVIDERS: PCP Family Medicine; Visit Provider Surgery | DX: K43.2 Incisional hernia without obstruction or gangrene (principal); K43.5 Parastomal hernia without obstruction or gangrene; Z93.3 Colostomy status | CPT/HCPCS: 99214 ==

== ENCOUNTER → 2022-07-23 15:14 | Outpatient (BNVA) | payer MEDICARE, MEDICAID, SELFPAY | PROVIDERS: PCP Family Medicine; Visit Provider Family Medicine | DX: R30.0 Dysuria (principal); R52 Pain, unspecified; J01.90 Acute sinusitis, unspecified; H66.93 Otitis media, unspecified, bilateral; F41.9 Anxiety disorder, unspecified; F32.9 Major depressive disorder, single episode, unspecified | CPT/HCPCS: 81000 ==

== ENCOUNTER → 2022-07-31 10:47 | Outpatient (BNVA) | payer MEDICARE, MEDICAID, SELFPAY | PROVIDERS: PCP Family Medicine; Visit Provider Nurse Practitioner Family | DX: R06.00 Dyspnea, unspecified (principal) | CPT/HCPCS: 71046 ==

== ENCOUNTER → 2022-10-24 11:23 | Outpatient (BNVA) | payer MEDICARE, MEDICAID, SELFPAY | PROVIDERS: PCP Family Medicine; Visit Provider Family Medicine | DX: R30.0 Dysuria (principal) | CPT/HCPCS: 81000 ==

== ENCOUNTER 2023-03-10 09:37 | Emergency (ER) | payer MEDICARE, MEDICAID, SELFPAY ==
[2023-03-10] VITALS (19 sets, daily range): BP systolic 83–153; BP diastolic 64–108; PULSE 90–117; RESP 13–38; TEMP 37.1; O2SAT 72–100; BMI 31.7
--- NOTE | 2023-03-10 09:47 | ECG_ITS ---
[facility] Test Date: 2023-03-10 Pat Name: Radha Archer Department: Room: Gender: Female Practice Director: : 1945 Requested By: Edilson Voss Order Number: [id number] Servando MD: Amari Toledo M.D. Measurements Intervals [place] Rate: 108 P: 69 WV: 187 QRS: -45 QRSD: 136 T: 115 QT: 351 QTc: 472 Interpretive Statements SINUS TACHYCARDIA LEFT AXIS DEVIATION [QRS AXIS < -30] LEFT BUNDLE BRANCH BLOCK [120+ ms QRS DURATION, 80+ ms Q/S IN V1/V2, 85+ ms R IN I/aVL/V5/V6] Compared to ECG 11/21/2020 08:46:33 Left-axis deviation now present Left bundle-branch block now present Sinus rhythm no longer present Intraventricular conduction delay no longer present Myocardial infarct finding no longer present Electronically Signed On 03-10-2023 17:08:05 CDT by Amari Toledo M.D. [id number]
--- NOTE | 2023-03-10 09:47 | XR_ITS ---
WS: [id number] Portable AP upright chest, 03/10/2023 Clinical Data: dyspnea/cough Comparison: PA and lateral chest, 07/31/2022 Findings: No nodules, masses or effusions are seen. The heart is normal. The pulmonary vascularity is not increased. No pneumonia or pneumothorax is seen. The aortic arch and descending thoracic aorta s how mild tortuosity. The patient's clothing obscures minimal detail over the mediastinum. XR/XR chest 1V portable [id number] Impression: Atherosclerosis.
--- NOTE | 2023-03-10 09:48 | W.ED.ABDPA2 ---
HPI - Abdominal Pain General: Chief Complaint: Abdominal Pain Stated Complaint: ABDOMINAL PAIN/ N/V Time Seen by Provider: 03/10/23 09:46 Source: patient Mode of arrival: ambulatory History of Present Illness: 70-year-old female who presents to the emergency room with complaints of abdominal pain with nausea and vomiting. Began yesterday she has been having black tarry stool output from her ostomy as well. She has a history of a previous colon resection due to perforated diverticulitis. This was done in November 21, 2020. She is very bloated but has not had any vomiting or diarrhea she has been quite nauseous. She has not really taken anything for this. She is not on any anticoagulants. She is on carvedilol she initially told me she had A-fib but I do not find any supporting documentation in the chart from that. She had told me she takes because her heart rate is rapid when asked about A-fib she thought that that was the reason. MD elicited complaint: abdominal pain Onset (ago): hour(s) Location: Diffuse Quality: cramping Radiation: none Exacerbating factors: nothing Relieving factors: nothing Associated Symptoms: Reports nausea; Denies anorexia, belching, bloating, change in bowel habits, change in stool character, chills, coffee ground emesis, constipation, GI cramping, diarrhea, dyspepsia, dysuria, excessive flatus, fever(s), heartburn, hematochezia, hematuria, hematemesis, fecal incontinence, loose stools, melena, poor appetite, syncope and vomiting Review of Systems Const: Denies: fever(s) or chills ENMT: Denies: throat pain, ear or mastoid pain, nasal discharge or nasal congestion Card: Denies: chest pain, palpitations, irregular heart rhythm, edema, swelling of feet/ankles or syncope Resp: Denies: dyspnea, productive cough or non-productive cough GI: Reports: abdominal pain and nausea; Denies: vomiting, hematemesis, coffee ground emesis, heartburn, diarrhea, constipation, bloating, GI cramping, belching, excessive flatus, fecal incontinence, change in bowel habits, change in stool character, hematochezia or melena : Denies: dysuria, urinary frequency, urinary urgency or hematuria Skin/Breast: Denies: rash or pruritus PFSH ED PFSH: Medical History Anxiety and depression Constipation COPD (chronic obstructive pulmonary disease) Coronary artery fistula Diverticulosis Dyslipidemia Endometriosis GERD (gastroesophageal reflux disease) Hiatal hernia History of colon polyps Hypertension Incisional hernia Insomnia LBBB (left bundle branch block) Left ventricular dysfunction Nonischemic cardiomyopathy PTSD (post-traumatic stress disorder) Subclinical hypothyroidism Surgical History Colostomy status History of colectomy 11/2020 History of ear surgery (~2016) Right -- removal of fluid from ear drum, removal of ear drum, replaced with artifical ear drum History of hysteroscopy (~05/28/22) dilation and curettage with myosure. Dr. Morillo at [facility] History of incisional hernia repair X 3 01/24/2020: Laparoscopic History of left oophorectomy partial History of shoulder surgery Right History of tonsillectomy Hx of appendectomy Status post colonoscopy with polypectomy 12/2019 --2 adenomatous polyps, diverticulosis Family History Grandmother Colon cancer Maternal-- dx age 69 Breast cancer Paternal-- dx age unknown Mother Heart disease Stroke Denies family history of Ovarian cancer Diabetes Hypercholesteremia Bleeding disorder Hypertension Uterine cancer Thyroid disease Social History Smoking and tobacco status: former smoker Alcohol intake: current Alcohol intake frequency: 0-2 Drinks per Day Physical Exam Const: GENERAL APPEARANCE: cooperative and comfortable ORIENTATION/CONSCIOUSNESS: Yes awake, Yes oriented to person, Yes oriented to place and Yes oriented to time HENMT: COMMON NORMALS: normocephalic, atraumatic and hearing grossly normal bilaterally HEAD & SCALP: normocephalic and atraumatic Resp: COMMON NORMALS: normal respiratory effort, No retractions, No use of accessory muscles and clear to auscultation bilaterally AUSCULTATION: clear to auscultation bilaterally Cardio: COMMON NORMALS: regular rate, regular rhythm and No murmurs present (Cardio) RATE: regular rate RHYTHM: regular rhythm GI: COMMON NORMALS: Soft to palpation and No hepatosplenomegaly present AUSCULTATION: Yes normoactive bowel sounds PALPATION: Yes Soft to palpation, Yes Tenderness to palpation present (GI), No Guarding due to palpation present (GI) and Yes No hepatosplenomegaly present OTHER: Darkened stool at the verge of the ostomy no bright red blood : COMMON NORMALS: Yes no CVA tenderness BLADDER/KIDNEY EXAM: Yes no CVA tenderness Back/Pelvis: COMMON NORMALS: no CVA tenderness Extremity: COMMON NORMALS: normal to inspection, capillary refill normal, no clubbing, cyanosis or edema, no calf tenderness and no pedal edema Neuro: SENSORIUM/ORIENTATION: Yes oriented to person, Yes oriented to place and Yes oriented to time Skin: COMMON NORMALS: no rashes or lesions noted GENERAL SKIN EXAM: no rashes or lesions noted Course Vital Signs: Vital signs: Vital Signs Temperature 98.8 F 03/10/23 09:41 Pulse Rate 97 03/10/23 18:31 Respiratory Rate 19 H 03/10/23 18:31 Blood Pressure 126/69 03/10/23 18:31 Pulse Oximetry 72 L 03/10/23 17:31 Oxygen Delivery Me thod Room Air 03/10/23 09:41 MDM - Abdominal Pain Medical Decision Making Parastomal hernia with leukocytosis lactate normal she was given IV antibiotics we will transfer patient to tertiary care for colorectal surgery. Discussed Dr. Short feels colorectal surgery should manage this issue. Transferred to [place] via ambulance. See transfer sheet. Medical Records I reviewed the patient's medical records. Lab Data I reviewed the patient's lab results. 03/10/23 10:00 03/10/23 10:00 Labs/Radiology: Radiology Impressions Chest X-Ray 03/10/23 09:47 Impression: Atherosclerosis. Abdomen/Pelvis CT 03/10/23 09:59 IMPRESSION: 1. Very mild hyperemia and wall thickening involving small bowel loop within the parastomal hernia in the LEFT lower abdomen. Very minimal hyperemia and wall thickening. Increase fluid in the small bowel through the hernia sac. No high-grade obstruction. 2. Large [place] abdominal wall hernia with laxity of the abdominal wall musculature. 3. Stable hepatic cysts. 4. Small hiatal hernia. 5. No free air. Laboratory Results WBC 19.2 10^3/uL (4.0-10.0) H 03/10/23 10:00 RBC 2.99 10^6/uL (4.1-5.3) L 03/10/23 10:00 Hgb 9.1 g/dL (11.5-15.3) L 03/10/23 10:00 Hct 27.8 % (37.0-47.0) L 03/10/23 10:00 MCV 93.0 fl (81-99) 03/10/23 10:00 MCH 30.4 pg (28.0-34.0) 03/10/23 10:00 MCHC 32.7 g/dL (30.0-36.0) 03/10/23 10:00 RDW 14.8 % (12.1-15.1) 03/10/23 10:00 Plt Count 309 10^3/cmm (130-400) 03/10/23 10:00 MPV 11.1 fL (7.4-10.4) H 03/10/23 10:00 Neut % (Auto) 78.5 % 03/10/23 10:00 Lymph % (Auto) 13.0 % 03/10/23 10:00 [place] % (Auto) 7.5 % 03/10/23 10:00 Eos % (Auto) 0.0 % 03/10/23 10:00 Baso % (Auto) 0.3 % 03/10/23 10:00 Neut # (Auto) 15.09 10^3/uL (1.8-7.7) H 03/10/23 10:00 Lymph # (Auto) 2.5 10^3/uL (0.8-4.8) 03/10/23 10:00 [place] # (Auto) 1.5 10^3/uL (0.2-0.9) H 03/10/23 10:00 Eos # (Auto) 0.0 10^3/uL (0.0-0.8) 03/10/23 10:00 Baso # (Auto) 0.1 10^3/uL (0.0-0.1) 03/10/23 10:00 Nucleated RBC % (auto) 0 % 03/10/23 10:00 Nucleated RBCs # 0.0 /100WBC 03/10/23 10:00 Sodium 136 mmol/L (136-145) 03/10/23 10:00 Potassium 3.6 mmol/L (3.5-5.1) 03/10/23 10:00 Chloride 101 mmol/L (98-107) 03/10/23 10:00 Carbon Dioxide 20 mmol/L (22-29) L 03/10/23 10:00 Anion Gap 18.6 (5-19) 03/10/23 10:00 BUN 73 mg/dL (8-23) H 03/10/23 10:00 Creatinine 1.0 mg/dL (0.5-0.9) H 03/10/23 10:00 GFR Calculation Not Reportable 03/10/23 10:00 Glucose 105 mg/dL (65-115) 03/10/23 10:00 Calculated Osmolality 304 mOsm/kg (285-295) H 03/10/23 10:00 Lactic Acid 1.7 mmol/L (0.5-2.2) 03/10/23 12:00 Calcium 9.2 mg/dL (8.5-10.5) 03/10/23 10:00 Total Bilirubin 0.2 mg/dL (0.15-1.2) 03/10/23 10:00 AST 16 U/L (0-32) 03/10/23 10:00 ALT 19 U/L (0-33) 03/10/23 10:00 Alkaline Phosphatase 58 U/L (35-105) 03/10/23 10:00 Total Protein 6.3 g/dL (6.6-8.7) L 03/10/23 10:00 Albumin 3.6 g/dL (3.5-5.2) 03/10/23 10:00 Globulin 2.7 g/dL (1.3-4.6) 03/10/23 10:00 Lipase 17 U/L (13-60) 03/10/23 10:00 Urine Color Colorless (Yellow) 03/10/23 10:21 Urine Appearance Sl hazy (CLEAR) A 03/10/23 10:21 Urine pH 5 (5-7) 03/10/23 10:21 Ur Specific [place] 1.010 (1.005-1.030) 03/10/23 10:21 Urine Protein Neg (Negative) 03/10/23 10:21 Urine Glucose (UA) Norm (Normal) 03/10/23 10:21 Urine Ketones Negative (Negative) 03/10/23 10:21 Urine Blood Neg (Negative) 03/10/23 10:21 Urine Nitrate Negative (Negative) 03/10/23 10:21 Urine Bilirubin Neg (Negative) 03/10/23 10:21 Urine Urobilinogen Norm mg/dL (Negative) 03/10/23 10:21 Ur Leukocyte Esterase Trace (Negative) H 03/10/23 10:21 Urine RBC None /hpf (0-2) 03/10/23 10:21 Urine WBC 0-4 /hpf (0-5) H 03/10/23 10:21 Ur Squamous Epith Cells 0-4 /hpf (0-5) H 03/10/23 10:21 Amorphous Sediment Not Reportable 03/10/23 10:21 Urine Bacteria Trace /hpf (NONE) 03/10/23 10:21 Discharge Plan Discharge Patient Disposition: Xfer Short-Term Hosp Clinical Impression: Parastomal hernia Condition: Stable Referrals: Shanti Simmons MD [Primary Care Provider] - Patient Instructions: Opioid Safety, Pain Management Coding Level of Care Code ED Deicer Repairer for Eli Yo
--- NOTE | 2023-03-10 09:59 | CT_ITS ---
WS: [id number] CT ABDOMEN AND PELVIS WITH CONTRAST HISTORY: Lower abdominal pain. Nausea and vomiting. TECHNIQUE: Imaging performed of the abdomen and pelvis with IV contrast. Single phase imaging of the abdomen. Coronal and sagittal reformats are submitted. All CT scans at [facility] [place] use at [address] one of these dose optimization techniques: automated exposure control; mA and/or kV adjustment per patient size (includes targeted exams where dose is matched to clinical indication); or iterative re construction. IV CONTRAST: Omnipaque 350; 100 mL IV. Oral contrast: No DLP: 732.98 mGy.cm COMPARISON: 09/27/2021 Lower thorax: Lung bases are clear. Heart is normal size. Moderate size hiatal hernia. Liver/biliary system: Normal size liver. No bile duct dilatation. Hepatic cysts. The largest in the L EFT lobe of the liver measures 4.1 x 3.2 cm. There are a few small hypodensities which are too small to characterize. Gallbladder: Status post cholecystectomy. Pancreas: Normal size pancreas and pancreatic duct. No adjacent inflammation. Spleen: Normal size spleen with several granulomata. Adrenal glands: Bilateral adrenal nodules. The largest on the RIGHT measures 1.6 x 1.4 cm. These are both stable and probably adenomas. Right kidney: Normal. Left kidney: Normal size kidney with cortical hypodensities. 2 small to characterize but these are pr obably cysts. Noted on the prior study also. No solid mass. Aorta: Mild atherosclerosis with no aneurysm. Lymphadenopathy: None. Free fluid: None. GI tract: Negative stomach. No small bowel obstruction. LEFT lower quadrant colostomy with partial co lectomy. Herniation of colon and small bowel through the anterior abdominal wall [place] hernia. Th ere is no high grade obstruction. There is very minimal hyperemia and wall thickening involving a sma ll bowel loop within the hernia of the LEFT lower abdomen. At this time there is no obstruction. This could potentially represent very early ischemic changes. Wall thickening and hyperemia is best seen on the sagittal reformats. Abdominal wall: Large ventral abdominal wall hernia with marked thinning of the abdominal wall muscul ature. LEFT lower quadrant colostomy. Pelvis: No free fluid or adenopathy within the pelvis. Bones: Osteopenia. Mild anterior wedging of L1. CT/CT abdomen pelvis w con* [id number] IMPRESSION: 1. Very mild hyperemia and wall thickening involving small bowel loop within t he parastomal hernia in the LEFT lower abdomen. Very minimal hyperemia and wall thickening. Increase fluid in the small bowel through the hernia sac. No high- grade obstruction. 2. Large [place] abdominal wall hernia with laxity of the abdominal wall mus culature. 3. Stable hepatic cysts. 4. Small hiatal hernia. 5. No free air.
[2023-03-10] MEDS: ondansetron 2 mg/ML SDV 2 mL 4 MG IVP (10:02)
[2023-03-10] MEDS: sodium chloride 0.9% 1,000 ML 999 ML IV ×2 (10:02→13:55)
[2023-03-10 10:05] LABS: Basophils # 0.1 10^3/uL (0.0-0.1); Basophils % 0.3 %; Hematocrit 27.8 % (37.0-47.0); Hemoglobin 9.1 g/dL (11.5-15.3); Lymphocytes # 2.5 10^3/uL (0.8-4.8); Mean Corpuscular HGB Conc 32.7 g/dL (30.0-36.0); Mean Corpuscular Hemoglobin 30.4 pg (28.0-34.0); Mean Platelet Volume 11.1 fL (7.4-10.4); Monocytes # 1.5 10^3/uL (0.2-0.9); Monocytes % 7.5 %; Neutrophils # 15.09 10^3/uL (1.8-7.7); Neutrophils % 78.5 %; Nucleated Red Blood Cells % 0 %; Platelet Count 309 10^3/cmm (130-400); Red Blood Count 2.99 10^6/uL (4.1-5.3); Red Cell Distribution Width 14.8 % (12.1-15.1); White Blood Count 19.2 10^3/uL (4.0-10.0)
[2023-03-10 10:24] LABS: Alanine Aminotransferase 19 U/L (0-33); Albumin Level 3.6 g/dL (3.5-5.2); Alkaline Phosphatase 58 U/L (35-105); Aspartate Amino Transferase 16 U/L (0-32); Blood Urea Nitrogen 73 mg/dL (8-23); Calcium 9.2 mg/dL (8.5-10.5); Carbon Dioxide 20 mmol/L (22-29); Chloride 101 mmol/L (98-107); Globulin 2.7 g/dL (1.3-4.6); Glucose 105 mg/dL (65-115); Lipase 17 U/L (13-60); Osmolality Calculated 304 mOsm/kg (285-295); Sodium 136 mmol/L (136-145); Total Bilirubin 0.2 mg/dL (0.15-1.2); Total Protein 6.3 g/dL (6.6-8.7)
[2023-03-10 10:30] LABS: Anion Gap 18.6 (5-19); Potassium 3.6 mmol/L (3.5-5.1)
[2023-03-10] MEDS: iohexol 350 mg/mL 500 mL Btl (per mL) IV (10:48)
[2023-03-10 11:46] LABS: Bilirubin Urine Neg (Negative); Blood Urine Neg (Negative); Glucose Urine UA Norm (Normal); Ketones Urine Negative (Negative); Leukocyte Esterase Urine Trace (Negative); Nitrate Urine Negative (Negative); Protein Urine Neg (Negative); Urine Appearance SL Hazy (CLEAR); Urine Color Colorless (Yellow); Urobilinogen Urine Norm (Negative); pH Urine 5 (5-7)
[2023-03-10 11:47] LABS: Add Urine Culture? No; Add Urine Microscopic? YES; Bacteria Urine TRACE /hpf; Squamous Epithelial Cell Urine 0-4 /hpf (0-5); WBC Urine 0-4 /hpf (0-5)
[2023-03-10 12:28] LABS: Lactic Sepsis W/Reflex 1.7 mmol/L (0.5-2.2)
[2023-03-10] MEDS: piperacillin-tazobactam 3.375 GM in sodium chloride 0.9% (plus) 50 ML IV (13:55)
== END 2023-03-10 19:41 | disposition short-term general hospital (02) ==
PROVIDERS: Emergency Provider Family Medicine; PCP Family Medicine
DX: K43.5 Parastomal hernia without obstruction or gangrene (principal); Z87.891 Personal history of nicotine dependence; J44.9 Chronic obstructive pulmonary disease, unspecified; E78.5 Hyperlipidemia, unspecified; I10 Essential (primary) hypertension
CPT/HCPCS: 36415; 71045; 74177; 80053; 81001; 83605; 83690; 85025; 93005; 96374; 96375; 99285; J2405; J2543; J7030; Q9967

== ENCOUNTER → 2023-03-17 17:04 | Outpatient (BNVA) | payer MEDICARE, MEDICAID, SELFPAY | PROVIDERS: PCP Family Medicine; Visit Provider Family Medicine | DX: D64.9 Anemia, unspecified (principal); I50.20 Unspecified systolic (congestive) heart failure; Z09 Encounter for follow-up examination after completed treatment for conditions other than malignant neoplasm | CPT/HCPCS: 82607; 82746; 83540; 85025 ==

== ENCOUNTER → 2023-03-20 11:08 | Outpatient (BNVA) | payer MEDICARE, MEDICAID, SELFPAY | PROVIDERS: PCP Family Medicine; Visit Provider Family Medicine | DX: D64.9 Anemia, unspecified (principal); Z93.3 Colostomy status | CPT/HCPCS: 80053; 85025 ==

== ENCOUNTER → 2023-10-31 11:41 | Outpatient (BNVA) | payer MEDICARE, SELFPAY | PROVIDERS: PCP Family Medicine; Visit Provider Nurse Practitioner Family | DX: N39.0 Urinary tract infection, site not specified; J01.10 Acute frontal sinusitis, unspecified | CPT/HCPCS: 81003; 87086 ==

== ENCOUNTER → 2023-12-30 13:57 | Outpatient (BNVA) | payer MEDICARE, SELFPAY | PROVIDERS: PCP Family Medicine; Visit Provider Family Medicine | DX: L98.9 Disorder of the skin and subcutaneous tissue, unspecified (principal); R19.7 Diarrhea, unspecified; I10 Essential (primary) hypertension; E78.5 Hyperlipidemia, unspecified; E03.9 Hypothyroidism, unspecified; B37.2 Candidiasis of skin and nail; M19.90 Unspecified osteoarthritis, unspecified site; Z79.899 Other long term (current) drug therapy | CPT/HCPCS: 80053; 80061; 84443; 85025 ==

== ENCOUNTER 2024-01-13 12:52 | Outpatient (CLI) | payer MEDICARE, SELFPAY ==
--- NOTE | 2024-01-13 13:00 | MM_ITS ---
WS: [id number] BILATERAL 3D TOMOSYNTHESIS DIGITAL SCREENING MAMMOGRAM WITH CAD CLINICAL INFORMATION: SCREENING HISTORY: Screening mammogram. No current complaints. COMPARISON: 2008 TECHNIQUE: Bilateral CC and MLO views. FINDINGS: Fatty-replaced breasts bilaterally. No suspicious focal mass, asymmetry, calcifications, or architect manager ural distortion. No evidence of malignancy. A few incidental punctate calcifications. IMPRESSION: MM/[place] [id number] BI-RADS: 2-Benign FOLLOW UP: 1 Year Follow-up Recommend return to annual screening mammography.
== END 2024-01-13 12:53 | disposition home or self-care (01) ==
LOC: MOBLMAM 13:01
PROVIDERS: PCP Family Medicine; Visit Provider Family Medicine
DX: Z12.31 Encounter for screening mammogram for malignant neoplasm of breast (principal); R92.313 Mammographic fatty tissue density, bilateral breasts
CPT/HCPCS: 77063; 77067

== ENCOUNTER → 2024-01-29 10:33 | Outpatient (BNVA) | payer MEDICARE, SELFPAY | PROVIDERS: PCP Family Medicine; Referring Provider Family Medicine; Visit Provider Nurse Practitioner Family | DX: L82.1 Other seborrheic keratosis (principal); D22.4 Melanocytic nevi of scalp and neck; L81.3 Cafe au lait spots; L57.8 Other skin changes due to chronic exposure to nonionizing radiation; Z80.8 Family history of malignant neoplasm of other organs or systems | CPT/HCPCS: 99203 ==

== ENCOUNTER 2024-03-18 06:00 | Outpatient (RCR) | payer MEDICARE, SELFPAY | END 2024-03-23 23:59 | disposition home or self-care (01) | LOC: TPT 06:00 | PROVIDERS: Visit Provider Family Medicine | DX: M54.2 Cervicalgia (principal); R53.1 Weakness | CPT/HCPCS: 97162 ==

== ENCOUNTER 2024-03-24 06:00 | Outpatient (RCR) | payer MEDICARE, SELFPAY | END 2024-04-23 23:59 | disposition home or self-care (01) | LOC: TPT 06:00 | PROVIDERS: PCP Family Medicine; Visit Provider Family Medicine | DX: M54.2 Cervicalgia (principal); R53.1 Weakness | CPT/HCPCS: 97110; 97140 ==

== ENCOUNTER → 2024-04-01 16:57 | Outpatient (BNVA) | payer MEDICARE, SELFPAY | PROVIDERS: PCP Family Medicine; Visit Provider Family Medicine | DX: R30.0 Dysuria (principal) | CPT/HCPCS: 81000 ==

== ENCOUNTER → 2024-04-05 14:53 | Outpatient (BNVA) | payer MEDICARE, SELFPAY | PROVIDERS: PCP Family Medicine; Visit Provider Family Medicine | DX: R53.1 Weakness (principal); Z79.899 Other long term (current) drug therapy | CPT/HCPCS: 81000 ==

== ENCOUNTER 2024-04-29 11:47 | Outpatient (CLI) | payer MEDICARE, SELFPAY ==
--- NOTE | 2024-04-29 11:56 | XR_ITS ---
WS: [id number] XR cervical spine 3V* [id number] REASON FOR EXAM: M54.2 - Cervicalgia FINDINGS: Normal lordosis of the cervical spine. No significant vertebral body abnormality. Mild narrowing of the intervertebral disc spaces C5-T1. No significant neutral listhesis. XR/XR cervical spine 3V* [id number] IMPRESSION: Degenerative spondylosis of the cervical spine as above.
--- NOTE | 2024-04-29 11:56 | XR_ITS ---
WS: [id number] XR knee RT 3V* [id number] REASON FOR EXAM: M25.561 - Pain in right knee FINDINGS: No fracture or focal bone lesion. The medial knee joint space is intact and relatively well preserved. There is minimal narrowing of the lateral knee joint space with minimal subchondral sclerosis. Patellofemoral joint space is intact and well preserved. Minimal subchondral sclerosis and osteophytosis of the patella. No soft tissue abnormality. XR/XR knee RT 3V* [id number] IMPRESSION: Minimal osteoarthritis of the
== END 2024-04-29 11:48 | disposition home or self-care (01) ==
PROVIDERS: PCP Family Medicine; Visit Provider Family Medicine
DX: M25.561 Pain in right knee (principal); M54.2 Cervicalgia; M25.861 Other specified joint disorders, right knee
CPT/HCPCS: 72040; 73562

== ENCOUNTER → 2025-04-07 12:09 | Outpatient (BNVA) | payer MEDICARE, MEDICAID, SELFPAY | PROVIDERS: PCP Family Medicine; Visit Provider Family Medicine | DX: R51.9 Headache, unspecified (principal) | CPT/HCPCS: 80053; 85025; 85651; 86140 ==

== ENCOUNTER → 2025-04-11 15:12 | Outpatient (BNVA) | payer MEDICARE, MEDICAID, SELFPAY | PROVIDERS: PCP Family Medicine; Visit Provider Family Medicine | DX: Z01.818 Encounter for other preprocedural examination (principal) | CPT/HCPCS: 80053; 85025; 93005 ==

== ENCOUNTER 2025-04-24 05:00 | Outpatient (CLI) | payer MEDICARE, MEDICAID, SELFPAY | END 2025-04-24 05:01 | LOC: TPT 05-16 08:06 | PROVIDERS: Visit Provider Family Medicine | DX: Z46.89 Encounter for fitting and adjustment of other specified devices (principal); M17.0 Bilateral primary osteoarthritis of knee | CPT/HCPCS: L1851 ==

== ENCOUNTER → 2025-06-14 09:47 | Outpatient (BNVA) | payer MEDICARE, MEDICAID, SELFPAY | PROVIDERS: PCP Family Medicine; Referring Provider Family Medicine; Visit Provider Internal Medicine Rheumatology | DX: M31.6 Other giant cell arteritis (principal); Z79.899 Other long term (current) drug therapy; Z71.85 Encounter for immunization safety counseling; H53.9 Unspecified visual disturbance; M81.0 Age-related osteoporosis without current pathological fracture | CPT/HCPCS: 36415; 80076; 82306; 82565; 85025; 85651; 86140; 86480; 86704; 86803; 87340; 99204 ==

== ENCOUNTER 2025-06-15 08:35 | Outpatient (CLI) | payer MEDICARE, MEDICAID, SELFPAY ==
--- NOTE | 2025-06-15 | ECG_ITS ---
[facility] Test Date: 2025-06-15 Pat Name: Radha Archer Department: Room: Gender: Female Donor Processor: : 1945 Requested By: Belinda Keen Order Number: [id number] Servando MD: VINI SANDHU Interpretive Statements Lung unchanged pre/post procedure; Intraprocedure shortess of breath; Symptoms resoled by discharge NOTE: Please note that this is the electrocardiogram portion of the Lexiscan/Sestamibi stress test. The perfusion scan will be documented separately. DATA: Baseline heart rate was 77 beats per minute. Baseline blood pressure was 102/80 millimeters of mercury. Target heart rate was 140. Maximum heart rate achieved was 85. which was 60 % of the predicted target heart rate. Maximum blood pressure was 153/94 millimeters of mercury. The reason for ending the test was completion of the protocol. The patient did not experience any symptoms. ELECTROCARDIOGRAM: BASELINE: Sinus rhythm. Left axis. Left bundle branch block EXERCISE: After Lexiscan injection, no ST-T changes suggestive of ischemic noted. No arrhythmia noted. CONCLUSION: Please note due to baseline abnormality of the EKG specificity and sensitivity of the EKG portion of LexiScan MIBI stress test will be low 1. EKG may not be truly phlebotomy services representative of ischemia since it has underlying bundle branch block and may not be interpretable 2. Lexiscan injection unremarkable. 3. Perfusion scan will be documented separately. Electronically Signed On 06-29-2025 19:56:52 CDT by VINI SANDHU [id number]
[2025-06-15 08:48] VITALS: BMI 33.1
--- NOTE | 2025-06-15 08:49 | NMCV_ITS ---
NM lavina perf SPECT r/s* [id number] Radha Archer Age: 80 Gender: F : 1945 Exam Date: 06/15/2025 09:40 Ordering Phys: Belinda Keen MD Technologist: BOB Hickman Exam Location: [facility] Indications: cp STRESS TEST Please see separate stress test report in [facility] for full findings IMAGE PROTOCOL Rest/Stress 1 Lexiscan Day Radiopharmaceutical Dose (mCi) Administration Site Administered by Rest: Tc-99m 10.7 IV Heidi Saldivar, HIGHWAY ENGINEERING TECHNICIAN Sestamibi Stress:Tc-99m 33 IV Heidi Arringtongle, HIGHWAY ENGINEERING TECHNICIAN Sestamibi Rest: 15-Jun-2025 60 Discovery 630 Stress: 15-Jun-2025 30 Discovery 630 0.4mg Lexiscan. Images obtained in supine and prone position. SPECT RESULTS Technical Quality: Good Raw Data Analysis: Breast attenuation Image Corrections: No attenuation or motion correction applied Summed Stress Score: 3 Summed Rest Score: 10 Summed Difference Score: 0 PERFUSION FINDINGS SPECT images demonstrate homogeneous tracer distribution throughout the myocardium. FUNCTIONAL RESULTS (calculated via Gated SPECT) Stress Image LV EF (%): 52 Stress EDV (mL):93 TID: 0.9 Stress ESV (mL):45 Rest Image LV EF (%): 55 FUNCTIONAL FINDINGS: There is normal left ventricular systolic function. IMPRESSIONS Myocardial perfusion imaging is normal. Allyn Rodriguez MD (Electronically Signed) Final Date: 15 June 2025 16:09 S
[2025-06-15 10:37] VITALS: BP 133/66; PULSE 68
== END 2025-06-15 08:36 | disposition home or self-care (01) ==
LOC: CDL 08:41
PROVIDERS: PCP Family Medicine; Visit Provider Family Medicine
DX: R07.89 Other chest pain (principal); R93.1 Abnormal findings on diagnostic imaging of heart and coronary circulation
CPT/HCPCS: 36415; 78452; 93017; 96374; A9500; J2785

== ENCOUNTER → 2025-07-14 14:37 | Outpatient (BNVA) | payer MEDICARE, MEDICAID, SELFPAY | PROVIDERS: PCP Family Medicine; Visit Provider Family Medicine | DX: E03.9 Hypothyroidism, unspecified (principal); E78.5 Hyperlipidemia, unspecified; E55.9 Vitamin D deficiency, unspecified | CPT/HCPCS: 80061; 82306; 84443 ==

== ENCOUNTER → 2025-07-27 11:37 | Outpatient (BNVA) | payer MEDICARE, MEDICAID, SELFPAY | PROVIDERS: PCP Family Medicine; Visit Provider Internal Medicine Rheumatology | DX: M31.6 Other giant cell arteritis (principal); Z79.899 Other long term (current) drug therapy; Z71.85 Encounter for immunization safety counseling; H53.9 Unspecified visual disturbance | CPT/HCPCS: 99214 ==

== ENCOUNTER → 2025-09-08 14:53 | Outpatient (BNVA) | payer MEDICARE, MEDICAID, SELFPAY | PROVIDERS: PCP Family Medicine; Visit Provider Family Medicine | DX: Z79.899 Other long term (current) drug therapy (principal) | CPT/HCPCS: 82565; 84520 ==

== ENCOUNTER → 2025-10-25 12:35 | Outpatient (BNVA) | payer MEDICARE, MEDICAID, SELFPAY | PROVIDERS: PCP Family Medicine; Referring Provider Family Medicine; Visit Provider Internal Medicine | DX: R07.9 Chest pain, unspecified (principal); I44.7 Left bundle-branch block, unspecified; I10 Essential (primary) hypertension; I42.8 Other cardiomyopathies; I25.41 Coronary artery aneurysm; E78.5 Hyperlipidemia, unspecified | CPT/HCPCS: 93005; 99204 ==

== ENCOUNTER 2025-11-08 14:55 | Outpatient (CLI) | payer MEDICARE, MEDICAID, SELFPAY ==
--- NOTE | 2025-11-08 15:00 | USCV_ITS ---
Radha Archer Age: 80 Gender: F : 1945 Exam Date: 11/08/2025 15:29 Ordering Phys: Amari Toledo M.D ([email or web address]) Technologist: JANEEN [place] [facility] [place]ication: Cp, SoB BP: 120 / 80 HR: 63 Rhythm: Sinus Technical Quality: Adequate MEASUREMENTS (Male / Female) Normal Values 2D ECHO LV Diastolic Diameter PLAX 5.1 cm 4.2 - 5.9 / 3.9 - 5.3 cm IVS Diastolic Thickness 0.8 cm 0.6 - 1.0 / 0.6 - 0.9 cm IVS Systolic Thickness 0.8 cm LVPW Diastolic Thickness 0.8 cm 0.6 - 1.0 / 0.6 - 0.9 cm LVPW Systolic Thickness 0.9 cm LVOT Diameter 1.9 cm LV Ejection Fraction 2D Teich 37.6 % LV Ejection Fraction MOD 4C 58.7 % LV Ejection Fraction MOD 2C 58.6 % LV Ejection Fraction 2C AL 60.0 % LA Diameter 3.6 cm RA Systolic Volume 4C AL 31.9 ml RA Systolic Volume 4C MOD 30.4 ml LA Sys Volume AL 43.0 cm cubed LA Sys Volume Index AL 21.4 cm cubed/m squared Aorta at Sinotubular Diameter 2.9 cm IVC Diameter 1.4 cm M-MODE LA Ao Ratio MM 1.6 AV Cusp Separation MM 1.5 cm DOPPLER AV Peak Velocity 156.0 cm/s LVOT Peak Velocity 121.0 cm/s AV Area Cont Eq vti 2.6 cm squared AV Area Cont Eq pk 2.3 cm squared MV Peak Velocity 101.0 cm/s MV Area PHT 3.6 cm squared Mitral E to A Ratio 0.8 TR Peak Velocity 95.0 cm/s TR Peak Gradient 3.6 mmHg TV Peak E Velocity 75.0 cm/s PV Peak Velocity 133.0 cm/s FINDINGS Left Ventricle Normal left ventricular size, systolic function and wall thickness, with no regional wall motion abnormalities. Left ventricular ejection fraction is estimated at 60 %. Grade I/IV diastolic dysfunction (abnormal relaxation filling pattern), normal to mildly elevated filling pressures. Right Ventricle Normal right ventricular size and systolic function. Right Atrium Normal right atrial size. Left Atrium Normal left atrial size. IA Septum Normal appearance of the interatrial septum. Mitral Valve Moderately thickened mitral valve. No mitral valve stenosis. Moderate mitral annular calcification. Trace mitral valve regurgitation. Aortic Valve Mild aortic valve calcification. No aortic valve stenosis. Trace aortic valve regurgitation. Tricuspid Valve Normal tricuspid valve structure. No tricuspid valve stenosis or regurgitation. Normal pulmonary pressure. Pulmonic Valve Normal pulmonic valve structure. No pulmonic valve stenosis or regurgitation. Pericardium No pericardial effusion. Aorta Normal diameter of the aortic root and ascending thoracic aorta. IVC Normal IVC diameter. CONCLUSIONS Normal left ventricular size, systolic function and wall thickness, with no regional wall motion abnormalities. Left ventricular ejection fraction is estimated at 60 %. Grade I/IV diastolic dysfunction (abnormal relaxation filling pattern), normal to mildly elevated filling pressures. Moderately thickened mitral valve. No mitral valve stenosis. Moderate mitral annular calcification. Trace mitral valve regurgitation. There is no pericardial effusion. Right atrial pressure is around 5 mm of mercury. Allyn Rodriguez MD (Electronically Signed) Final Date: 17 November 2025 16:05 S
== END 2025-11-08 14:56 | disposition home or self-care (01) ==
LOC: RAD 14:58
PROVIDERS: PCP Family Medicine; Visit Provider Internal Medicine
DX: R07.9 Chest pain, unspecified (principal); R06.02 Shortness of breath; R93.1 Abnormal findings on diagnostic imaging of heart and coronary circulation; I34.81 Nonrheumatic mitral (valve) annulus calcification; I35.8 Other nonrheumatic aortic valve disorders
CPT/HCPCS: 93306